=== PATIENT | female | born 1970 ===

== ENCOUNTER 2022-05-19 11:27 | Inpatient (IN) | payer MEDICARE, BC, SELFPAY ==
--- NOTE | 2022-05-19 | ECG_ITS ---
Test Reason : med clearance Blood Pressure : / mmHG Vent. Rate : 063 BPM Atrial Rate : 063 BPM P-R Int : 130 ms QRS Dur : 086 ms QT Int : 416 ms P-R-T Axes : 029 -17 009 degrees QTc Int : 425 ms Normal sinus rhythm Normal ECG No previous ECGs available Referred By: Tressa Ríos Electronically Signed By:FILIBERTO CHIU
--- NOTE | ~2022-05-19 | US_ITS ---
EXAMINATION: US VENOUS ULTRASOUND WITH DOPPLER LOWER EXTREMITY, BILATERAL CLINICAL INFORMATION: Swelling COMPARISON: None TECHNIQUE: Ultrasound of the deep veins is performed from the hip to the calf with compression sonography and color and pulse Doppler assessment. Spectral analysis with color-flow imaging is performed. FINDINGS: RIGHT: There is normal venous compression and respiratory variation and augmented flow. The visualized common femoral vein, superficial femoral vein, profunda femoral vein, popliteal vein, and the trifurcation region shows no evidence of deep venous thrombosis. There is a 5.9 x 2.6 x 3.2 cm complex popliteal fossa cyst. LEFT: There is normal venous compression and respiratory variation and augmented flow. The visualized common femoral vein, superficial femoral vein, profunda femoral vein, popliteal vein, and the posterior tibial veins shows no evidence of deep venous thrombosis. The peroneal veins are not seen. There is no popliteal fossa cyst. US/US venous duplex LE BI IMPRESSION: No DVT demonstrated in the bilateral lower extremity. Left peroneal veins not well visualized. Complex right Palacios's cyst.
--- NOTE | 2022-05-19 11:30 | ED.PSYCH ---
HPI - Psych General Chief Complaint: Psychiatric Symptoms Stated Complaint: SI Time Seen by Provider: 05/19/22 11:30 Source: patient and EMS Mode of arrival: EMS Limitations: no limitations History of Present Illness HPI Narrative: 52 yo female with history of bipolar disorder noncompliant with medications, diabetes noncompliant with medications who presents to the ER via EMS on a section 12 after she was [place] trying to [place] [address] She states she wants to and has nothing to live for. She does not want to get help, she just wants to . She has felt his way for a long time and states it has been a few weeks at least. She moved here from [place] 1 ear ago and her only family is her godparents. They called crisis on her 2 weeks ago but she refused get help. She has not been on any medications for the last 1 year since moving to [place]. She has no local therapist or psychiatrist. She lives at home alone in an apartment. She denies drugs or alcohol. MD complaint: suicidal ideation Onset (ago): week(s) Duration: constant History of same: Yes Relieving factors: none Exacerbating factors: none Context: not taking psychiatric medications and significant life stressor Associated psychiatric symptoms: depression and suicidal ideation Associated symptoms: denies other symptoms Treatments prior to arrival: placed on mental health hold If self harm: admits thoughts of self harm, has plan and has acted on plan Details of plan: ran into traffic Related Data Allergies Allergy/AdvReac Type Severity Reaction Status Date / Time Unable to Assess Allergy Unverified 05/19/22 11:43 Review of Systems Review of Systems: Constitutional: No Fever, No Chills ENT/Mouth: No sore throat, No Rhinorrhea, No Swallowing Difficulty Cardiovascular: No Chest Pain, No SOB, No Orthopnea, No Edema Respiratory: No Cough, No Sputum Gastrointestinal: No Nausea, No Vomiting, No Diarrhea, No abdominal Pain Genitourinary: No Dysuria, No Urinary Frequency, No Hematuria Musculoskeletal: No joint pain, No Myalgias Skin: No Skin Lesions, No rash Neuro: No Weakness, No Numbness, No Dizziness, No Headache Psych: No Anxiety/Panic, + Depression, +SI, No HI, No AH, No VH Heme/Lymph: No Bruising, No Lymphadenopathy Physical Exam Vital Signs: Vital Signs: Last Vital Signs Temp 97.6 F 05/19/22 12:00 Pulse 83 05/19/22 12:00 Resp 12 05/19/22 12:00 BP 144/96 H 05/19/22 12:00 Pulse Ox 98 05/19/22 12:00 O2 Del Method 05/19/22 12:00 BMI result Body Mass Index 28.2 Appearance: Alert. Oriented X3. No acute distress. Eyes: Pupils equal, round and reactive to light. ENT: Pharynx normal. Neck: Normal inspection. Neck supple. CVS: Normal heart rate and rhythm. Pulses normal. Respiratory: No respiratory distress. Breath sounds normal. Abdomen: Obese, Soft and nontender. +BS x4 Skin: Skin warm and dry. Normal skin color. Normal skin turgor. No rashes. Extremities: No lower extremity edema. Neuro/psych: Oriented X 3. No motor deficit. No sensory deficit. Flat affect, suicidal, makes eye contact, depressed mood. CN II-XII intact Course Course Course Narrative: 52 yo female with history of bipolar disorder, prior suicide attempt in the past who presents to the ER on a section 12 from the community after she was found running into traffic in an attempt to end her life. Will get basic labs, utox, etoh level and have crisis team see her once medically cleared. Anticipate she will require inpatient psychiatric care. She reports last hospitalization was 2 years ago in [place]. Reevaluation(s) Reevaluation #1: Medical workup is unremarkable. ETOH <10. Will place in physician observation at this time. Physician observation started at 1:15pm. Patient placed in physician observation because patient is awaiting [facility] evaluation for the possible need of inpatient psych admission. At the time observation was started patient's vital signs were stable. Patient is alert and oriented. Neuro exam is non-focal. CV: RRR and lungs are clear. Will continue to monitor. MDM - Psych Lab Data Result diagrams: 05/19/22 12:36 05/19/22 12:36 Labs: Lab Results 05/19/22 05/19/22 05/19/22 Range/Units 12:36 12:36 12:36 WBC 6.2 (4.8-10.8) X10*3/uL RBC 4.94 (4.20-5.50) X10*6/uL Hgb 14.2 (12.0-16.0) g/dl Hct 43.4 (37.0-47.0) % MCV 87.9 (80.0-98.0) fL MCH 28.7 (27.0-33.0) pg MCHC 32.7 (31.0-35.0) g/dl RDW 12.3 (11.0-16.0) % Plt Count 306 (160-400) X10*3/uL MPV 8.3 L (9.4-12.3) fL Immature Gran % (Auto) 0.5 H (0.0-0.4) % Neut % (Auto) 62.5 (45-73) % Lymph % (Auto) 29.3 (20-40) % [place] % (Auto) 5.7 (2-11) % Eos % (Auto) 1.5 (0-4) % Baso % (Auto) 0.5 (0-2) % Lymph # (Auto) 1.8 (1.2-4.9) X10*3/uL [place] # (Auto) 0.4 (0.1-1.2) X10*3/uL Eos # (Auto) 0.1 (0.0-0.4) X10*3/uL Baso # (Auto) 0.0 (0.0-0.2) X10*3/uL Abs Immat Gran (auto) 0.03 (0.00-0.03) X10*3/uL Absolute Neuts (auto) 3.9 (2.0-8.3) x10*3/uL Absolute Nucleated RBC 0.000 (0.0-0.012) X10*3/uL Nucleated RBC % (auto) 0.0 (0.0-0.2) /100WBC Sodium 143 (135-145) mmol/L Potassium 4.5 (3.3-5.1) mmol/L Chloride 103 (96-108) mmol/L Carbon Dioxide 27 (22-29) mmol/L Anion Gap 18 (12-20) BUN 15 (9-16) mg/dL Creatinine 1.06 (0.5-1.4) mg/dL Estim Creat Clear Calc 65.2 Estimated GFR 54 Random Glucose 133 H (60-115) mg/dL Calcium 10.1 (8.4-10.2) mg/dL Magnesium 1.9 (1.6-2.6) mg/dL Total Bilirubin 0.6 (0.0-1.0) mg/dL Direct Bilirubin 0.3 (0.0-0.5) mg/dL AST 14 (5-31) U/L ALT 10 (0-31) U/L Alkaline Phosphatase 77 (39-117) U/L Total Protein 7.5 (6.5-8.0) g/dL Albumin 4.4 (3.5-5.0) g/dL Ethyl Alcohol < 10 mg/dL COVID-19 ([facility]YA) Negative (Negative) COVID-19 Clin Com See Note Critical Care Time Critical Care Time Critical Care Time: No Discharge Plan Discharge Clinical Impression: Suicidal ideation, Bipolar disorder Patient Disposition: Still a Patient
[2022-05-19 11:46] VITALS: BP 156/98; BP 164/86; PULSE 104; PULSE 94; RESP 18; TEMP 36.1; O2SAT 98; O2SAT 99; BMI 28.2
[2022-05-19 12:00] VITALS: BP 144/96; PULSE 83; RESP 12; TEMP 36.4; O2SAT 98
[2022-05-19 12:42] LABS: MANUAL DIFF FLAG NO
[2022-05-19 12:43] LABS: Basophils Percent Auto 0.5 % (0-2); Eosinophils Absolute Auto 0.1 X10*3/uL (0.0-0.4); Eosinophils Percent Auto 1.5 % (0-4); Hematocrit 43.4 % (37.0-47.0); Hemoglobin 14.2 g/dl (12.0-16.0); Imm Gran Abs Auto 0.03 X10*3/uL (0.00-0.03); Imm Gran Pct Auto 0.5 % (0.0-0.4); Lymphocytes Absolute Auto 1.8 X10*3/uL (1.2-4.9); Lymphocytes Percent Auto 29.3 % (20-40); Mean Corpuscular HGB Conc 32.7 g/dl (31.0-35.0); Mean Corpuscular Hemoglobin 28.7 pg (27.0-33.0); Mean Corpuscular Volume 87.9 fL (80.0-98.0); Mean Platelet Volume 8.3 fL (9.4-12.3); Monocytes Absolute Auto 0.4 X10*3/uL (0.1-1.2); Monocytes Percent Auto 5.7 % (2-11); Neutrophils Absolute Auto 3.9 x10*3/uL (2.0-8.3); Neutrophils Percent Auto 62.5 % (45-73); Platelet Count 306 X10*3/uL (160-400); Red Blood Count 4.94 X10*6/uL (4.20-5.50); Red Cell Distribution Width 12.3 % (11.0-16.0); White Blood Count 6.2 X10*3/uL (4.8-10.8)
[2022-05-19 13:08] LABS: COVID-19 Test Negative (Negative); IDNOW Serial# 16C4AD1C
[2022-05-19 13:10] LABS: Alanine Aminotransferase 10 U/L (0-31); Albumin Level 4.4 g/dL (3.5-5.0); Alkaline Phosphatase 77 U/L (39-117); Anion Gap 18 (12-20); Aspartate Amino Transferase 14 U/L (5-31); Bilirubin Direct 0.3 mg/dL (0.0-0.5); Bilirubin Total 0.6 mg/dL (0.0-1.0); Blood Urea Nitrogen 15 mg/dL (9-16); Calcium 10.1 mg/dL (8.4-10.2); Carbon Dioxide 27 mmol/L (22-29); Chloride 103 mmol/L (96-108); Creatinine Clr Calc Pharmacy 65.2; Estimated Glomerular Filt Rate 54; Ethanol < 10 mg/dL; Glucose Random 133 mg/dL (60-115); Magnesium 1.9 mg/dL (1.6-2.6); Potassium 4.5 mmol/L (3.3-5.1); Sodium 143 mmol/L (135-145); Total Protein 7.5 g/dL (6.5-8.0)
--- NOTE | 2022-05-19 13:53 | PC.NURSE ---
initially refusing to change into hosp attire but eventually did, mainly has been staying in room w tv on, provided a very small amt of urine for sample but it was not enough
--- NOTE | 2022-05-19 15:30 | PC.NURSE ---
This nurse assumed care at 1500. PT in room resting quietly.
--- NOTE | 2022-05-19 16:24 | MHC.CARE ---
Pt referred to [facility]- per crisis cab supervisor the pt has [employer] insurance. CARE team will meet with pt for evaluation.
--- NOTE | 2022-05-19 16:54 | PC.NURSE ---
Corby currently at bedside.
[2022-05-19 20:18] LABS: Appearance Urine Turbid; Color Urine Yellow; Glucose Urine UA Negative (Negative); Leukocyte Esterase Urine Large (3+) (Negative); Nitrite Urine Positive (Negative); PH 8.5 (5.0-9.0); UMIC TRIGGER UACC YES; Urine Blood Negative (Negative); Urine Ketones Negative (Negative); Urine Protein Trace mg/dL (Neg-Trace)
[2022-05-19 20:20] LABS: Bacteria Urine 4+ (None Seen); Hyaline Casts Urine 0-2 /LPF (0-2); Squamous Epithelial Cell Urine 0-2 /HPF (0-2); UACC Culture Trigger YES; WBC Urine >50 /HPF (0-5)
[2022-05-19 20:35] LABS: Amphetamine Screen Urine Not Detected (Not Detect); Barbiturates, Urine Not Detected (Not Detect); Benzodiazepines Screen Urine Not Detected (Not Detect); Cannabinoid Screen Urine Not Detected (Not Detect); Cocaine Screen Urine Not Detected (Not Detect); Fentanyl, urine Not Detected (Not Detect); Opiate Screen Urine Not Detected (Not Detect); Phencyclidine Screen Urine Not Detected (Not Detect)
--- NOTE | 2022-05-20 00:04 | PC.NURSE ---
Patient was positive for UTI, provider notified, first order of Ceftin po given, she was made aware of infection and her transfer to [facility], she verbalized understanding. will continue to monitor.
[2022-05-20 00:15] VITALS: BP 168/79; PULSE 73; RESP 20; TEMP 35.9; O2SAT 100
--- NOTE | 2022-05-20 01:04 | PC.ADMIT ---
pt is a 52 year old female who presented to ED with suicidal ideation and suicide attempt. pt states that she walked out into traffic [place] [address] with the intention of ending her life. pt states that she is depressed and anxious. she just wants to go to sleep. after the of her father, she states that she moved to this area approximately 1 year ago from [place]. she has relatives that she has sought out in the area. she has been residing in a motel for the past year. pt states that she has a hx of bipolar and htn. she states that she has not taken any medications in the last year d/t lack of insurance coverage. she is unable to name previous medications which she had been prescribed. she states that she has been previously hospitalized for attempted si. she states that she took pills in her previous si attempts. she states that her last si attempt with pills was 2 years ago. she rates her depression 7/10 and anxiety as 8/10. she denies auditory and visual hallucinations. pt arrived via wheel chair with security charcoal kiln burner. she is ambulatory with steady gait. she states nka. she is cooperative and sensorium is intact. however, her affect is flat and depressed. she is guarded in elaborating medical/psych hx. she looks fatigued. at this time, she denies si/hi. she has 2 scabbed area under her left lower arm which she states are areas where she picks. u/a done tonight is positive for uti-she has been given 1 dose of ceftin 250 mg po prior to transport.
[2022-05-20 02:20] VITALS: BMI 27.9
[2022-05-20 06:00] VITALS: BP 140/78; PULSE 74; RESP 16; TEMP 36.7; O2SAT 97
[2022-05-20 08:18] LABS: Cholesterol 180 mg/dL; HDL Cholesterol 50 mg/dL; LDL Cholesterol Calculated 115 mg/dl; Triglycerides 78 mg/dL
[2022-05-20 08:24] LABS: Estimated Average Glucose 117 mg/dL; Hemoglobin A1c % 5.7 %
--- NOTE | 2022-05-20 08:51 | PC.NURSE ---
pt signed 3 day notice, up on 05/23/22
[2022-05-20] MEDS: OLANZapine 5 MG TABLET PO ×2 (13:24→22:16)
[2022-05-20 18:00] VITALS: BP 150/79; PULSE 91; TEMP 35.9; O2SAT 98
--- NOTE | 2022-05-20 18:03 | P.HPPS_ITS ---
HPI Date of Service: 05/20/22 Chief Complaint: omar/SI Sources of Information: patient interviewed, chart reviewed and crisis/core team assessment reviewed HPI Subjective Notes: Davis Warning, Conditional Voluntary and 3 Day Healthcare Proxy: No Guardianship: No Medical Problems Affecting Mental Status: No Narrative: 52 yo female, [place] [employer]. Pt found running [place] traffic [place] [address]. She reports wanting to , having longstanding SI, feeling hopeless, helpless, having resistance to treatment, poor sleep and appetite and decreased attention to ADL's. Pt has been off meds for over a month per her cousin and has no treatment providers. Past Psychiatric History: IP: 3 admits in [place], 2 for overdoses, pills, drank peroxide and one for ECT-several treatments which she did not find helpful OP: Denies Med Trials- [place], Wellbutrin, Abilify, Lamictal Reports hx of diagnosis of bipolar disorder with history of omar Medical Evaluation Reviewed: Yes [facility] Narrative: Diabetes IBS-can lose bowel control Sore on her leg per cousin HTN UTI Family History: Denies Social History: Born in [place] Has lost all family- parents, brother have - pt has a cousin locally who is DPOA and aunt/godmother who is also local who is a support 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, 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 Substance History: Denies Trauma History: Affirms Diagnostics Vital Signs (24Hr): Vital Signs - 24 hr 05/20/22 00:15 05/20/22 06:00 Temperature 96.7 F L 98.1 F Pulse Rate 73 74 Respiratory Rate 20 16 Blood Pressure 168/79 H 140/78 H Pulse Oximetry 100 97 Oxygen Delivery Method Room Air Room Air BMI result Body Mass Index 27.9 Labs Results: 05/19/22 12:36 05/19/22 12:36 Labs: Laboratory Results - last 48 hr 05/19/22 05/19/22 05/19/22 12:36 12:36 12:36 WBC 6.2 RBC 4.94 Hgb 14.2 Hct 43.4 MCV 87.9 MCH 28.7 MCHC 32.7 RDW 12.3 Plt Count 306 MPV 8.3 L Immature Gran % (Auto) 0.5 H Neut % (Auto) 62.5 Lymph % (Auto) 29.3 [place] % (Auto) 5.7 Eos % (Auto) 1.5 Baso % (Auto) 0.5 Lymph # (Auto) 1.8 [place] # (Auto) 0.4 Eos # (Auto) 0.1 Baso # (Auto) 0.0 Abs Immat Gran (auto) 0.03 Absolute Neuts (auto) 3.9 Absolute Nucleated RBC 0.000 Nucleated RBC % (auto) 0.0 Sodium 143 Potassium 4.5 Chloride 103 Carbon Dioxide 27 Anion Gap 18 BUN 15 Creatinine 1.06 Estim Creat Clear Calc 65.2 Estimated GFR 54 Random Glucose 133 H Estimat Average Glucose Hemoglobin A1c % Calcium 10.1 Magnesium 1.9 Total Bilirubin 0.6 Direct Bilirubin 0.3 AST 14 ALT 10 Alkaline Phosphatase 77 Total Protein 7.5 Albumin 4.4 Triglycerides Cholesterol LDL Cholesterol, Calc HDL Cholesterol Urine Color Urine Appearance Urine pH Ur Specific [place] Urine Protein Urine Glucose (UA) Urine Ketones Urine Blood Urine Nitrite Ur Leukocyte Esterase Urine RBC Urine WBC Ur Squamous Epith Cells Urine Bacteria Hyaline Casts Urine Opiates Screen Urine Fentanyl Screen Ur Barbiturates Screen Ur Phencyclidine Scrn Ur Amphetamines Screen U Benzodiazepines Scrn Urine Cocaine Screen U Marijuana (THC) Screen Ethyl Alcohol < 10 COVID-19 ([facility]YA) Negative COVID-19 Clin Com See Note 05/19/22 05/19/22 05/20/22 20:09 20:10 07:26 WBC RBC Hgb Hct MCV MCH MCHC RDW Plt Count MPV Immature Gran % (Auto) Neut % (Auto) Lymph % (Auto) [place] % (Auto) Eos % (Auto) Baso % (Auto) Lymph # (Auto) [place] # (Auto) Eos # (Auto) Baso # (Auto) Abs Immat Gran (auto) Absolute Neuts (auto) Absolute Nucleated RBC Nucleated RBC % (auto) Sodium Potassium Chloride Carbon Dioxide Anion Gap BUN Creatinine Estim Creat Clear Calc Estimated GFR Random Glucose Estimat Average Glucose 117 Hemoglobin A1c % 5.7 Calcium Magnesium Total Bilirubin Direct Bilirubin AST ALT Alkaline Phosphatase Total Protein Albumin Triglycerides Cholesterol LDL Cholesterol, Calc HDL Cholesterol Urine Color Yellow Urine Appearance Turbid Urine pH 8.5 Ur Specific [place] 1.020 Urine Protein Trace Urine Glucose (UA) Negative Urine Ketones Negative Urine Blood Negative Urine Nitrite Positive H Ur Leukocyte Esterase Large (3+) H Urine RBC 3-5 H Urine WBC >50 H Ur Squamous Epith Cells 0-2 Urine Bacteria 4+ Hyaline Casts 0-2 Urine Opiates Screen Not Detected Urine Fentanyl Screen Not Detected Ur Barbiturates Screen Not Detected Ur Phencyclidine Scrn Not Detected Ur Amphetamines Screen Not Detected U Benzodiazepines Scrn Not Detected Urine Cocaine Screen Not Detected U Marijuana (THC) Screen Not Detected Ethyl Alcohol COVID-19 ([facility]YA) COVID-19 [employer] 05/20/22 07:26 WBC RBC Hgb Hct MCV MCH MCHC RDW Plt Count MPV Immature Gran % (Auto) Neut % (Auto) Lymph % (Auto) [place] % (Auto) Eos % (Auto) Baso % (Auto) Lymph # (Auto) [place] # (Auto) Eos # (Auto) Baso # (Auto) Abs Immat Gran (auto) Absolute Neuts (auto) Absolute Nucleated RBC Nucleated RBC % (auto) Sodium Potassium Chloride Carbon Dioxide Anion Gap BUN Creatinine Estim Creat Clear Calc Estimated GFR Random Glucose Estimat Average Glucose Hemoglobin A1c % Calcium Magnesium Total Bilirubin Direct Bilirubin AST ALT Alkaline Phosphatase Total Protein Albumin Triglycerides 78 Cholesterol 180 LDL Cholesterol, Calc 115 HDL Cholesterol 50 Urine Color Urine Appearance Urine pH Ur Specific [place] Urine Protein Urine Glucose (UA) Urine Ketones Urine Blood Urine Nitrite Ur Leukocyte Esterase Urine RBC Urine WBC Ur Squamous Epith Cells Urine Bacteria Hyaline Casts Urine Opiates Screen Urine Fentanyl Screen Ur Barbiturates Screen Ur Phencyclidine Scrn Ur Amphetamines Screen U Benzodiazepines Scrn Urine Cocaine Screen U Marijuana (THC) Screen Ethyl Alcohol COVID-19 ([facility]) COVID-19 [employer] Meds/Allergies Meds Home Medications Medication Instructions Recorded Confirmed Type No Known Home Meds 05/19/22 05/19/22 History Allergies Allergies Allergy/AdvReac Type Severity Reaction Status Date / Time No Known Allergies Allergy Verified 05/19/22 23:36 Mental Status Exam Mental Status Exam Patient Appearance: Fatigued Patient Orientation: Person, Place, Time and Situation Level of Consciousness: Alert Patient Behavior: Appropriate, Guarded, Talkative, Cooperative, Suspicious, Anxious, Fearful, Resistive to Care, Fatigued, Distractible and Good Eye Contact Mood Description: Depressed, Labile and Flat Affect Description: Labile and Flat Patient Cognition Impaired: No Ability to Follow Directions: Good Speech Pattern: Spontaneous Speech and Pressured Memory Description: Remote Impaired and Episodic Impaired Delusions: Paranoid Ideation Perceptual Disturbances: Depersonalization and Derealization Thought Process: Racing, Distracted and Rumination Thought Content: positive for Circumstantial, positive for Perseveration and positive for Suicidal Ideation Depressive Symptoms: Increased Anxiety, Diff. Making Decisions, Increased Irritability, Changes in Appetite, Significant Weight Loss, Thoughts of /Suicide and Difficulty Concentrating Abnormal Motor Activity Signs and Symptoms: Restlessness Judgement: Poor Assessment & Plan Assessment & Plan (1) Bipolar disorder: Status: Acute Code(s): F31.9 - Bipolar disorder, unspecified Plan 52 yo female, hx of bipolar disorder, found running in traffic [place] [address] attempting to kill herself via motor vehicle. Reports poor sleep, appetite, poor ADL's, stopping meds and treatment and feeling hopeless and helpless. Plan: Collateral contact TDN- given Davis warning as we will need to file for civil commitment Medical review of current sx Olanzapine 5 mg bid Continue Haldol prn Trileptal 300 mg bid Flu Vaccine (pt request and accepted) Diagnostics Patient educated on: medication risk/benefits and therapeutic strategies Informed Consent: understands and further education needed Reason for continued inpatient stay Substantial Risk for: harm to self, inability to function, rapid decompensation and med/psych decompensation
[2022-05-20] MEDS: OXcarbazepine 300 MG TABLET PO (22:15)
[2022-05-21] MEDS: OXcarbazepine 300 MG TABLET PO ×2 (08:39→21:14)
[2022-05-21] MEDS: OLANZapine 5 MG TABLET PO ×3 (08:39→21:15)
[2022-05-21] MEDS: hydrOXYzine HCL 25 MG TABLET PO (13:23)
--- NOTE | 2022-05-21 14:59 | PC.NURSE ---
pt retracted 3 day notice
--- NOTE | 2022-05-21 18:39 | P.PNPSI_ITS ---
Subjective Subjective Date of Service: 05/21/22 Reason For Visit: omar/SI Subjective Notes: 3 Day Healthcare Proxy: No Guardianship: No Medical Problems Affecting Mental Status: No Interim History: Lucie remains depressed and feeling hopeless. She feels there is no reason to be alive. Everyone is gone. Today we attempted to discuss a psychiatric/medical treatment plan. Pt, at this time refuses diabetic consultation, wound consultation and treatment and vascular consult. I don't have the money. Discussed her three day notice of intent. Discussed probable section 7/8 due to treatment refusal and recent attempt on her life. Currently pt presents in great emotional distress and is appearing stuck. She presents with very high risk. We continue to attempt to make alliance and work with her. Medication Compliance: Yes Side effects from medications: No Attending Groups: No Review of Systems Acute medical concerns: No Medical Review of Systems: unchanged Mental Status Exam Mental Status Exam Patient Appearance: Fatigued Patient Orientation: Person, Place, Time and Situation Level of Consciousness: Alert Patient Behavior: Appropriate, Guarded, Talkative, Cooperative, Suspicious, Anxious, Fearful, Resistive to Care, Fatigued, Distractible and Good Eye Contact Mood Description: Depressed, Labile and Flat Affect Description: Labile and Flat Patient Cognition Impaired: No Ability to Follow Directions: Good Speech Pattern: Spontaneous Speech and Pressured Memory Description: Remote Impaired and Episodic Impaired Delusions: Paranoid Ideation Perceptual Disturbances: Depersonalization and Derealization Thought Process: Racing, Distracted and Rumination Thought Content: positive for Circumstantial, positive for Perseveration and po sitive for Suicidal Ideation Depressive Symptoms: Increased Anxiety, Diff. Making Decisions, Increased Irritability, Changes in Appetite, Significant Weight Loss, Thoughts of D eath/Suicide and Difficulty Concentrating Abnormal Motor Activity Signs and Symptoms: Restlessness Judgement: Poor Diagnostics Vital Signs (24Hr): BMI result Body Mass Index 27.9 Labs Results: 05/19/22 12:36 05/19/22 12:36 Labs: Laboratory Results - last 48 hr 05/19/22 05/19/22 05/20/22 20:09 20:10 07:26 Estimat Average Glucose 117 Hemoglobin A1c % 5.7 Triglycerides Cholesterol LDL Cholesterol, Calc HDL Cholesterol Urine Color Yellow Urine Appearance Turbid Urine pH 8.5 Ur Specific [place] 1.020 Urine Protein Trace Urine Glucose (UA) Negative Urine Ketones Negative Urine Blood Negative Urine Nitrite Positive H Ur Leukocyte Esterase Large (3+) H Urine RBC 3-5 H Urine WBC >50 H Ur Squamous Epith Cells 0-2 Urine Bacteria 4+ Hyaline Casts 0-2 Urine Opiates Screen Not Detected Urine Fentanyl Screen Not Detected Ur Barbiturates Screen Not Detected Ur Phencyclidine Scrn Not Detected Ur Amphetamines Screen Not Detected U Benzodiazepines Scrn Not Detected Urine Cocaine Screen Not Detected U Marijuana (THC) Screen Not Detected 05/20/22 07:26 Estimat Average Glucose Hemoglobin A1c % Triglycerides 78 Cholesterol 180 LDL Cholesterol, Calc 115 HDL Cholesterol 50 Urine Color Urine Appearance Urine pH Ur Specific [place] Urine Protein Urine Glucose (UA) Urine Ketones Urine Blood Urine Nitrite Ur Leukocyte Esterase Urine RBC Urine WBC Ur Squamous Epith Cells Urine Bacteria Hyaline Casts Urine Opiates Screen Urine Fentanyl Screen Ur Barbiturates Screen Ur Phencyclidine Scrn Ur Amphetamines Screen U Benzodiazepines Scrn Urine Cocaine Screen U Marijuana (THC) Screen Medications Medications Current Medications Acetaminophen (Acetaminophen 325 Mg Tablet) 650 mg PO Q6H PRN PRN Reason: Headache/Pain Mild Scale (1-3) Al Hydroxide/Mg Hydroxide (Magnesium Hydrox/Alum Hydrox 30 Ml Oral.Susp) 30 ml PO Q6H PRN PRN Reason: Heartburn/Nausea Cefuroxime Axetil (Cefuroxime Axetil 250 Mg Tablet) 250 mg PO BID [facility] Last Admin: 05/21/22 08:39 Dose: 250 mg Diphenhydramine HCl (Diphenhydramine Hcl 25 Mg Tablet) 50 mg PO Q4H PRN PRN Reason: agitation Haloperidol (Haloperidol 5 Mg Tablet) 5 mg PO Q4H PRN PRN Reason: agitation Hydroxyzine HCl (Hydroxyzine Hcl 25 Mg Tablet) 25 mg PO Q6H PRN PRN Reason: Anxiety Last Admin: 05/21/22 13:23 Dose: 25 mg Lorazepam (Lorazepam 1 Mg Tablet) 2 mg PO Q4H PRN PRN Reason: agitation Magnesium Hydroxide (Milk Of Magnesia 30 Ml Oral.Susp) 30 ml PO DAILY PRN PRN Reason: Constipation Nicotine (Nicotine 21 Mg Patch.Td24) 21 mg TRANSDERMA DAILY PRN PRN Reason: smoking cessation Nicotine Polacrilex (Nicotine Polacrilex 2 Mg Gum) 4 mg BUCCAL Q2H PRN PRN Reason: Nicotine Cravings Olanzapine (Olanzapine 5 Mg Tablet) 5 mg PO BID [facility] Last Admin: 05/21/22 08:39 Dose: 5 mg Olanzapine (Olanzapine 5 Mg Tablet) 5 mg PO Q4H PRN PRN Reason: agitation, psychosis Last Admin: 05/21/22 13:23 Dose: 5 mg Oxcarbazepine (Oxcarbazepine 300 Mg Tablet) 300 mg PO BID [facility] Last Admin: 05/21/22 08:39 Dose: 300 mg Trazodone HCl (Trazodone Hcl 50 Mg Tablet) 50 mg PO BEDTIME PRN PRN Reason: Insomnia Allergies Allergies Allergy/AdvReac Type Severity Reaction Status Date / Time No Known Allergies Allergy Verified 05/19/22 23:36 Assessment & Plan Assessment & Plan (1) Bipolar disorder: Status: Acute Code(s): F31.9 - Bipolar disorder, unspecified Plan 52 yo female, hx of bipolar disorder, found [place] [address] attempting to kill herself via motor vehicle. Reports poor sleep, appetite, poor ADL's, stopping meds and treatment and feeling hopeless and helpless. Plan: Collateral contact TDN- given [place] warning as we will need to file for civil commitment Medical review of current sx Olanzapine 5 mg bid Continue Haldol prn Trileptal 300 mg bid Flu Vaccine (pt request and accepted) Diagnostics 05/21/22- Pt refusing medical treatment due to ama concerns. Accepting medications. Continue to work on alliance. Three day notice will not be honored. Will file Section 7. I spent minutes with the patient and/or on the patient floor today, greater than?50% of which was spent counseling/coordinating care. Patient educated on: diagnosis, medication risk/benefits, therapeutic strategies and medical condition Informed Consent: understands and further education needed Reason for contiued inpatient stay Substantial Risk for: harm to self, inability to function, rapid decompensation and med/psych decompensation
[2022-05-22 06:00] VITALS: BP 142/83; PULSE 91; RESP 16; TEMP 36.5; O2SAT 98
[2022-05-22 07:00] VITALS: BMI 26.6
[2022-05-22] MEDS: OLANZapine 5 MG TABLET PO ×2 (09:07→13:38)
[2022-05-22] MEDS: OXcarbazepine 300 MG TABLET PO ×2 (09:08→20:55)
[2022-05-22 20:30] VITALS: BP 143/79; TEMP 37.2; O2SAT 98
[2022-05-22] MEDS: OLANZapine 10 MG TABLET PO (20:55)
--- NOTE | 2022-05-23 00:11 | P.PNPSI_ITS ---
Subjective Subjective Date of Service: 05/22/22 Reason For Visit: omar/SI Subjective Notes: 3 Day (retracted) Healthcare Proxy: No Guardianship: No Medical Problems Affecting Mental Status: No Interim History: Pt retracted TDN. Continues ruminative, concern that she cannot afford health care, amotivated to take care of herself. Discussion of hospitalization thus far. Pt will speak with Sabine JEFFERS ([employer]) to reivew insurance questions and concerns. Accepting medications. Medication Compliance: Yes Side effects from medications: No Attending Groups: No Review of Systems Acute medical concerns: No Medical Review of Systems: unchanged Mental Status Exam Mental Status Exam Patient Appearance: Fatigued Patient Orientation: Person, Place, Time and Situation Level of Consciousness: Alert Patient Behavior: Appropriate, Guarded, Talkative, Cooperative, Suspicious, Anxious, Fearful, Resistive to Care, Fatigued, Distractible and Good Eye Contact Mood Description: Depressed, Labile and Flat Affect Description: Labile and Flat Patient Cognition Impaired: No Ability to Follow Directions: Good Speech Pattern: Spontaneous Speech and Pressured Memory Description: Remote Impaired and Episodic Impaired Delusions: Paranoid Ideation Perceptual Disturbances: Depersonalization and Derealization Thought Process: Racing, Distracted and Rumination Thought Content: positive for Circumstantial, positive for Perseveration and positive for Suicidal Ideation Depressive Symptoms: Increased Anxiety, Diff. Making Decisions, Increased Irritability, Changes in Appetite, Significant Weight Loss, Thoughts of Deat h/Suicide and Difficulty Concentrating Abnormal Motor Activity Signs and Symptoms: Restlessness Judgement: Poor Diagnostics Vital Signs (24Hr): Vital Signs - 24 hr 05/22/22 06:00 05/22/22 20:30 Temperature 97.7 F 98.9 F Pulse Rate 91 Respiratory Rate 16 Blood Pressure 142/83 H 143/79 H Pulse Oximetry 98 98 Oxygen Delivery Method Room Air BMI result Body Mass Index 26.6 Labs Results: 05/19/22 12:36 05/19/22 12:36 Medications Medications Current Medications Acetaminophen (Acetaminophen 325 Mg Tablet) 650 mg PO Q6H PRN PRN Reason: Headache/Pain Mild Scale (1-3) Al Hydroxide/Mg Hydroxide (Magnesium Hydrox/Alum Hydrox 30 Ml Oral.Susp) 30 ml PO Q6H PRN PRN Reason: Heartburn/Nausea Cefuroxime Axetil (Cefuroxime Axetil 250 Mg Tablet) 250 mg PO BID [facility] Last Admin: 10/06/22 20:55 Dose: 250 mg Diphenhydramine HCl (Diphenhydramine Hcl 25 Mg Tablet) 50 mg PO Q4H PRN PRN Reason: agitation Haloperidol (Haloperidol 5 Mg Tablet) 5 mg PO Q4H PRN PRN Reason: agitation Hydroxyzine HCl (Hydroxyzine Hcl 25 Mg Tablet) 25 mg PO Q6H PRN PRN Reason: Anxiety Last Admin: 05/21/22 13:23 Dose: 25 mg Lorazepam (Lorazepam 1 Mg Tablet) 2 mg PO Q4H PRN PRN Reason: agitation Magnesium Hydroxide (Milk Of Magnesia 30 Ml Oral.Susp) 30 ml PO DAILY PRN PRN Reason: Constipation Nicotine (Nicotine 21 Mg Patch.Td24) 21 mg TRANSDERMA DAILY PRN PRN Reason: smoking cessation Nicotine Polacrilex (Nicotine Polacrilex 2 Mg Gum) 4 mg BUCCAL Q2H PRN PRN Reason: Nicotine Cravings Olanzapine (Olanzapine 5 Mg Tablet) 5 mg PO Q4H PRN PRN Reason: agitation, psychosis Last Admin: 05/22/22 13:38 Dose: 5 mg Olanzapine (Olanzapine 10 Mg Tablet) 10 mg PO BID [facility] Last Admin: 05/22/22 20:55 Dose: 10 mg Oxcarbazepine (Oxcarbazepine 300 Mg Tablet) 300 mg PO BID [facility] Last Admin: 05/22/22 20:55 Dose: 300 mg Trazodone HCl (Trazodone Hcl 50 Mg Tablet) 50 mg PO BEDTIME PRN PRN Reason: Insomnia Allergies Allergies Allergy/AdvReac Type Severity Reaction Status Date / Time No Known Allergies Allergy Verified 05/19/22 23:36 Assessment & Plan Assessment & Plan (1) Bipolar disorder: Status: Acute Code(s): F31.9 - Bipolar disorder, unspecified Plan 52 yo female, hx of bipolar disorder, found running [place] [address] attempting to [place] herself via motor vehicle. Reports poor sleep, appetite, poor ADL's, stopping meds and treatment and feeling hopeless and helpless. Plan: Collateral contact TDN- given [place] warning as we will need to file for civil commitment Medical review of current sx Olanzapine 5 mg bid Continue Haldol prn Trileptal 300 mg bid Flu Vaccine (pt request and accepted) Diagnostics 05/22/22- Continue alliance building with pt. Pt will have financial questions addressed so we may hopefully move forward with her treatment. Family is attempting to assure pt she is financially safe. I spent minutes with the patient and/or on the patient floor today, greater than?50% of which was spent counseling/coordinating care. Patient educated on: medication risk/benefits, therapeutic strategies and medical condition Informed Consent: further education needed Reason for contiued inpatient stay Substantial Risk for: harm to self, inability to function and rapid decompensation
[2022-05-23] MEDS: OXcarbazepine 300 MG TABLET PO ×2 (09:09→20:21)
[2022-05-23] MEDS: OLANZapine 10 MG TABLET PO ×2 (09:09→20:21)
--- NOTE | 2022-05-23 16:52 | HO.PSYCHPN ---
Subjective Subjective Date of Service: 05/23/22 Reason For Visit: omar/SI Subjective Notes: Conditional Voluntary Interim History: Remains depressed, tolerating Olanzapine, Trileptal. We continue to assess if she will tolerate these with her persistant GI sx. Discussed antidepressants and her history. If Olanzapine/Trileptal are tolerated, ?Lexapro trial for 05/25. Pt of note refuses Vraylar or Latuda trial due to concerns about cost and the newness of these products. Medication Compliance: Yes Side effects from medications: No Attending Groups: Yes Review of Systems Acute medical concerns: No Medical Review of Systems: unchanged Mental Status Exam Mental Status Exam Patient Appearance: Fatigued Patient Orientation: Person, Place, Time and Situation Level of Consciousness: Alert Patient Behavior: Appropriate, Guarded, Talkative, Cooperative, Suspicious, Anxious, Fearful, Resistive to Care, Fatigued, Distractible and Good Eye Contact Mood Description: Depressed, Labile and Flat Affect Description: Labile and Flat Patient Cognition Impaired: No Ability to Follow Directions: Good Speech Pattern: Spontaneous Speech and Pressured Memory Description: Remote Impaired and Episodic Impaired Delusions: Paranoid Ideation Perceptual Disturbances: Depersonalization and Derealization Thought Process: Racing, Distracted and Rumination Thought Content: positive for Circumstantial, positive for Perseveration and positive for Suicidal Ideation Depressive Symptoms: Increased Anxiety, Diff. Making Decisions, Increased Irritability, Changes in Appetite, Significant Weight Loss, Thoughts of /Suicide and Difficulty Concentrating Abnormal Motor Activity Signs and Symptoms: Restlessness Judgement: Poor Diagnostics Vital Signs (24Hr): Vital Signs - 24 hr 05/22/22 20:30 Temperature 98.9 F Blood Pressure 143/79 H Pulse Oximetry 98 BMI result Body Mass Index 26.6 Labs Results: 05/19/22 12:36 05/19/22 12:36 Medications Medications Current Medications Acetaminophen (Acetaminophen 325 Mg Tablet) 650 mg PO Q6H PRN PRN Reason: Headache/Pain Mild Scale (1-3) Al Hydroxide/Mg Hydroxide (Magnesium Hydrox/Alum Hydrox 30 Ml Oral.Susp) 30 ml PO Q6H PRN PRN Reason: Heartburn/Nausea Cefuroxime Axetil (Cefuroxime Axetil 250 Mg Tablet) 250 mg PO BID [facility] Last Admin: 05/23/22 09:09 Dose: 250 mg Diphenhydramine HCl (Diphenhydramine Hcl 25 Mg Tablet) 50 mg PO Q4H PRN PRN Reason: agitation Haloperidol (Haloperidol 5 Mg Tablet) 5 mg PO Q4H PRN PRN Reason: agitation Hydroxyzine HCl (Hydroxyzine Hcl 25 Mg Tablet) 25 mg PO Q6H PRN PRN Reason: Anxiety Last Admin: 05/21/22 13:23 Dose: 25 mg Lorazepam (Lorazepam 1 Mg Tablet) 2 mg PO Q4H PRN PRN Reason: agitation Magnesium Hydroxide (Milk Of Magnesia 30 Ml Oral.Susp) 30 ml PO DAILY PRN PRN Reason: Constipation Nicotine (Nicotine 21 Mg Patch.Td24) 21 mg TRANSDERMA DAILY PRN PRN Reason: smoking cessation Nicotine Polacrilex (Nicotine Polacrilex 2 Mg Gum) 4 mg BUCCAL Q2H PRN PRN Reason: Nicotine Cravings Olanzapine (Olanzapine 5 Mg Tablet) 5 mg PO Q4H PRN PRN Reason: agitation, psychosis Last Admin: 05/22/22 13:38 Dose: 5 mg Olanzapine (Olanzapine 10 Mg Tablet) 10 mg PO BID [facility] Last Admin: 05/23/22 09:09 Dose: 10 mg Oxcarbazepine (Oxcarbazepine 300 Mg Tablet) 300 mg PO BID [facility] Last Admin: 05/23/22 09:09 Dose: 300 mg Trazodone HCl (Trazodone Hcl 50 Mg Tablet) 50 mg PO BEDTIME PRN PRN Reason: Insomnia Allergies Allergies Allergy/AdvReac Type Severity Reaction Status Date / Time No Known Allergies Allergy Verified 05/19/22 23:36 Assessment & Plan Assessment & Plan (1) Bipolar disorder: Status: Acute Code(s): F31.9 - Bipolar disorder, unspecified Plan 52 yo female, hx of bipolar disorder, found running [place] traffic [place] [address] [place] to [place] herself via motor vehicle. Reports poor sleep, appetite, poor ADL's, stopping meds and treatment and feeling hopeless and helpless. Plan: Collateral contact TDN- given [place] warning as we will need to file for civil commitment Medical review of current sx Olanzapine 5 mg bid Continue Haldol prn Trileptal 300 mg bid Flu Vaccine (pt request and accepted) Diagnostics 05/22/22- Continue alliance building with pt. Pt will have financial questions addressed so we may hopefully move forward with her treatment. Family is attempting to assure pt she is financially safe. 05/23/22- Continue current plan. I spent minutes with the patient and/or on the patient floor today, greater than?50% of which was spent counseling/coordinating care. Patient educated on: medication risk/benefits and therapeutic strategies Informed Consent: further education needed Reason for contiued inpatient stay Substantial Risk for: med/psych decompensation
[2022-05-23 18:21] VITALS: BP 176/89; PULSE 92; TEMP 36.4
[2022-05-24] MEDS: OXcarbazepine 300 MG TABLET PO ×2 (09:41→20:23)
[2022-05-24] MEDS: OLANZapine 10 MG TABLET PO ×2 (09:41→20:23)
[2022-05-24 20:10] VITALS: BP 119/75; PULSE 72; TEMP 36.2; O2SAT 98
[2022-05-25 06:00] VITALS: BP 178/82; PULSE 93; RESP 16; TEMP 35.9; O2SAT 97
[2022-05-25] MEDS: OLANZapine 10 MG TABLET PO ×2 (09:51→20:33)
[2022-05-25] MEDS: OXcarbazepine 300 MG TABLET PO ×2 (09:51→20:33)
[2022-05-25] MEDS: Escitalopram Oxalate 5 MG TABLET PO (10:04)
--- NOTE | 2022-05-25 15:55 | HO.PSYCHPN ---
Subjective Subjective Date of Service: 05/24/22 Reason For Visit: omar/SI Subjective Notes: Conditional Voluntary Healthcare Proxy: No Guardianship: No Medical Problems Affecting Mental Status: No Interim History: Brighter, continues with isolation, anxiety in coming out of her room to talk privately, asks about 10 minutes into discussion, may I go back to my room? Spontaneous smile x 1. States she is tolerating Olanzapine and Trileptal, prepared for a small Lexapro trial. Again, declines Vraylar/Latuda trial due to cost. Medication Compliance: Yes Side effects from medications: No Attending Groups: Intermittent Review of Systems Acute medical concerns: No Medical Review of Systems: unchanged Mental Status Exam Mental Status Exam Patient Appearance: Fatigued Patient Orientation: Person, Place, Time and Situation Level of Consciousness: Alert Patient Behavior: Appropriate, Guarded, Talkative, Cooperative, Suspicious, Anxious, Fearful, Resistive to Care, Fatigued, Distractible and Good Eye Contact Mood Description: Depressed, Labile and Flat Affect Description: Labile and Flat Patient Cognition Impaired: No Ability to Follow Directions: Good Speech Pattern: Spontaneous Speech and Pressured Memory Description: Remote Impaired and Episodic Impaired Delusions: Paranoid Ideation Perceptual Disturbances: Depersonalization and Derealization Thought Process: Racing, Distracted and Rumination Thought Content: positive for Circumstantial, positive for Perseveration and positive for Suicidal Ideation Depressive Symptoms: Increased Anxiety, Diff. Making Decisions, Increased Irritability, Changes in Appetite, Significant Weight Loss, Thoughts of /Suicide and Difficulty Concentrating Abnormal Motor Activity Signs and Symptoms: Restlessness Judgement: Poor Diagnostics Vital Signs (24Hr): Vital Signs - 24 hr 05/24/22 20:10 05/25/22 06:00 Temperature 97.1 F 96.7 F L Pulse Rate 72 93 Respiratory Rate 16 Blood Pressure 119/75 178/82 H Pulse Oximetry 98 97 Oxygen Delivery Method Room Air Room Air BMI result Body Mass Index 26.6 Labs Results: 05/19/22 12:36 05/19/22 12:36 Medications Medications Current Medications Acetaminophen (Acetaminophen 325 Mg Tablet) 650 mg PO Q6H PRN PRN Reason: Headache/Pain Mild Scale (1-3) Al Hydroxide/Mg Hydroxide (Magnesium Hydrox/Alum Hydrox 30 Ml Oral.Susp) 30 ml PO Q6H PRN PRN Reason: Heartburn/Nausea Cefuroxime Axetil (Cefuroxime Axetil 250 Mg Tablet) 250 mg PO BID [facility] Last Admin: 05/25/22 09:51 Dose: 250 mg Diphenhydramine HCl (Diphenhydramine Hcl 25 Mg Tablet) 50 mg PO Q4H PRN PRN Reason: agitation Escitalopram Oxalate (Escitalopram Oxalate 5 Mg Tablet) 5 mg PO DAILY [facility] Last Admin: 05/25/22 10:04 Dose: 5 mg Haloperidol (Haloperidol 5 Mg Tablet) 5 mg PO Q4H PRN PRN Reason: agitation Hydroxyzine HCl (Hydroxyzine Hcl 25 Mg Tablet) 25 mg PO Q6H PRN PRN Reason: Anxiety Last Admin: 05/21/22 13:23 Dose: 25 mg Magnesium Hydroxide (Milk Of Magnesia 30 Ml Oral.Susp) 30 ml PO DAILY PRN PRN Reason: Constipation Nicotine (Nicotine 21 Mg Patch.Td24) 21 mg TRANSDERMA DAILY PRN PRN Reason: smoking cessation Nicotine Polacrilex (Nicotine Polacrilex 2 Mg Gum) 4 mg BUCCAL Q2H PRN PRN Reason: Nicotine Cravings Olanzapine (Olanzapine 5 Mg Tablet) 5 mg PO Q4H PRN PRN Reason: agitation, psychosis Last Admin: 05/22/22 13:38 Dose: 5 mg Olanzapine (Olanzapine 10 Mg Tablet) 10 mg PO BID [facility] Last Admin: 05/25/22 09:51 Dose: 10 mg Oxcarbazepine (Oxcarbazepine 300 Mg Tablet) 300 mg PO BID [facility] Last Admin: 05/25/22 09:51 Dose: 300 mg Trazodone HCl (Trazodone Hcl 50 Mg Tablet) 50 mg PO BEDTIME PRN PRN Reason: Insomnia Allergies Allergies Allergy/AdvReac Type Severity Reaction Status Date / Time No Known Allergies Allergy Verified 05/19/22 23:36 Assessment & Plan Assessment & Plan (1) Bipolar disorder: Status: Acute Code(s): F31.9 - Bipolar disorder, unspecified Plan 52 yo female, hx of bipolar disorder, found running [place] [address] [place] to [place] herself via motor vehicle. Reports poor sleep, appetite, poor ADL's, stopping meds and treatment and feeling hopeless and helpless. Plan: Collateral contact TDN- given [place] warning as we will need to file for civil commitment Medical review of current sx Olanzapine 5 mg bid Continue Haldol prn Trileptal 300 mg bid Flu Vaccine (pt request and accepted) Diagnostics 05/22/22- Continue alliance building with pt. Pt will have financial questions addressed so we may hopefully move forward with her treatment. Family is attempting to assure pt she is financially safe. 05/23/22- Continue current plan. 05/24/22- Lexapro 5 mg a.m. to begin 05/25. I spent minutes with the patient and/or on the patient floor today, greater than?50% of which was spent counseling/coordinating care. Patient educated on: medication risk/benefits Informed Consent: further education needed Reason for contiued inpatient stay Substantial Risk for: harm to self and rapid decompensation
--- NOTE | 2022-05-25 15:58 | HO.PSYCHPN ---
Subjective Subjective Date of Service: 05/25/22 Reason For Visit: omar/SI Subjective Notes: Conditional Voluntary Healthcare Proxy: No Guardianship: No Medical Problems Affecting Mental Status: No Interim History: Continues with depressive symptoms. Isolative Compliant Agrees she will try , but I just want to . Medication Compliance: Yes Side effects from medications: No Attending Groups: No Review of Systems Acute medical concerns: No Medical Review of Systems: unchanged Mental Status Exam Mental Status Exam Patient Appearance: Fatigued Patient Orientation: Person, Place, Time and Situation Level of Consciousness: Alert Patient Behavior: Appropriate, Guarded, Talkative, Cooperative, Suspicious, Anxious, Fearful, Resistive to Care, Fatigued, Distractible and Good Eye Contact Mood Description: Depressed, Labile and Flat Affect Description: Labile and Flat Patient Cognition Impaired: No Ability to Follow Directions: Good Speech Pattern: Spontaneous Speech and Pressured Memory Description: Remote Impaired and Episodic Impaired Delusions: Paranoid Ideation Perceptual Disturbances: Depersonalization and Derealization Thought Process: Racing, Distracted and Rumination Thought Content: positive for Circumstantial, positive for Perseveration and positive for Suicidal Ideation Depressive Symptoms: Increased Anxiety, Diff. Making Decisions, Increased Irritability, Changes in Appetite, Significant Weight Loss, Thoughts of /Suicide and Difficulty Concentrating Abnormal Motor Activity Signs and Symptoms: Restlessness Judgement: Poor Diagnostics Vital Signs (24Hr): Vital Signs - 24 hr 05/24/22 20:10 05/25/22 06:00 Temperature 97.1 F 96.7 F L Pulse Rate 72 93 Respiratory Rate 16 Blood Pressure 119/75 178/82 H Pulse Oximetry 98 97 Oxygen Delivery Method Room Air Room Air BMI result Body Mass Index 26.6 Labs Results: 05/19/22 12:36 05/19/22 12:36 Medications Medications Current Medications Acetaminophen (Acetaminophen 325 Mg Tablet) 650 mg PO Q6H PRN PRN Reason: Headache/Pain Mild Scale (1-3) Al Hydroxide/Mg Hydroxide (Magnesium Hydrox/Alum Hydrox 30 Ml Oral.Susp) 30 ml PO Q6H PRN PRN Reason: Heartburn/Nausea Cefuroxime Axetil (Cefuroxime Axetil 250 Mg Tablet) 250 mg PO BID [facility] Last Admin: 05/25/22 09:51 Dose: 250 mg Diphenhydramine HCl (Diphenhydramine Hcl 25 Mg Tablet) 50 mg PO Q4H PRN PRN Reason: agitation Escitalopram Oxalate (Escitalopram Oxalate 5 Mg Tablet) 5 mg PO DAILY [facility] Last Admin: 05/25/22 10:04 Dose: 5 mg Haloperidol (Haloperidol 5 Mg Tablet) 5 mg PO Q4H PRN PRN Reason: agitation Hydroxyzine HCl (Hydroxyzine Hcl 25 Mg Tablet) 25 mg PO Q6H PRN PRN Reason: Anxiety Last Admin: 05/21/22 13:23 Dose: 25 mg Magnesium Hydroxide (Milk Of Magnesia 30 Ml Oral.Susp) 30 ml PO DAILY PRN PRN Reason: Constipation Nicotine (Nicotine 21 Mg Patch.Td24) 21 mg TRANSDERMA DAILY PRN PRN Reason: smoking cessation Nicotine Polacrilex (Nicotine Polacrilex 2 Mg Gum) 4 mg BUCCAL Q2H PRN PRN Reason: Nicotine Cravings Olanzapine (Olanzapine 5 Mg Tablet) 5 mg PO Q4H PRN PRN Reason: agitation, psychosis Last Admin: 05/22/22 13:38 Dose: 5 mg Olanzapine (Olanzapine 10 Mg Tablet) 10 mg PO BID [facility] Last Admin: 05/25/22 09:51 Dose: 10 mg Oxcarbazepine (Oxcarbazepine 300 Mg Tablet) 300 mg PO BID [facility] Last Admin: 05/25/22 09:51 Dose: 300 mg Trazodone HCl (Trazodone Hcl 50 Mg Tablet) 50 mg PO BEDTIME PRN PRN Reason: Insomnia Allergies Allergies Allergy/AdvReac Type Severity Reaction Status Date / Time No Known Allergies Allergy Verified 05/19/22 23:36 Assessment & Plan Assessment & Plan (1) Bipolar disorder: Status: Acute Code(s): F31.9 - Bipolar disorder, unspecified Plan 52 yo female, hx of bipolar disorder, found [place] [address] [place] to [place] herself via motor vehicle. Reports poor sleep, appetite, poor ADL's, stopping meds and treatment and feeling hopeless and helpless. Plan: Collateral contact TDN- given Davis warning as we will need to file for civil commitment Medical review of current sx Olanzapine 5 mg bid Continue Haldol prn Trileptal 300 mg bid Flu Vaccine (pt request and accepted) Diagnostics 05/22/22- Continue alliance building with pt. Pt will have financial questions addressed so we may hopefully move forward with her treatment. Family is attempting to assure pt she is financially safe. 05/23/22- Continue current plan. 05/24/22- Lexapro 5 mg a.m. to begin 05/25. 05/25/22- Continue current plan I spent minutes with the patient and/or on the patient floor today, greater than?50% of which was spent counseling/coordinating care. Patient educated on: medication risk/benefits and therapeutic strategies Informed Consent: understands and further education needed Reason for contiued inpatient stay Substantial Risk for: harm to self and rapid decompensation
[2022-05-25 18:00] VITALS: BP 190/94; PULSE 83; TEMP 36.3; O2SAT 99
[2022-05-25] MEDS: traZODone HCL 50 MG TABLET PO (20:37)
[2022-05-25 23:26] VITALS: BP 176/87; PULSE 70
--- NOTE | 2022-05-26 00:09 | PC.NURSE ---
Patient's BP earlier was noted to be 190/94 with a pulse of 83; rechecked at 2300 and BP was 176/87 with a pulse of 70. Provider weapons specialist notified; orders received for Norvasc 5 mg po x 1 now and Norvasc 5 mg po daily to start 05/26/22 at 0900. Patient made a vague mention that she had been on Norvasc in the past but did not remember the dose.
[2022-05-26] MEDS: amLODIPine Besylate 5 MG TABLET PO ×2 (00:16→09:20)
[2022-05-26 06:00] VITALS: BP 194/93; PULSE 88; RESP 16; TEMP 36.3; O2SAT 96
[2022-05-26] MEDS: Escitalopram Oxalate 5 MG TABLET PO (09:19)
[2022-05-26] MEDS: OLANZapine 10 MG TABLET PO ×2 (09:19→19:57)
[2022-05-26] MEDS: OXcarbazepine 300 MG TABLET PO ×2 (09:19→19:58)
--- NOTE | 2022-05-26 12:29 | HO.WOUNDCONS ---
History of Present Illness Data of Consult Service Date: 05/26/22 Requesting physician: Reema Huff Primary Care Provider: None Physician HPI Reason for consult: non wound condition 52 year old female with history of bipolar disorder hospitalized with SI and recent episode of omar, looks to have stopped taking her medications by way of documentation. Denies history of diabetes. Denies history of need for compression garments on the legs. Asked to see healed areas on right toe and right leg. Review of Systems Review of Systems: Yes Unobtainable due to mental condition PMFSH Social History Household Members: None Housing: Apartment Do you presently have visiting nurse or other home services: No Patient Tobacco Use Status: Never used Tobacco e-Cigarette/Vaping Use: Never Used Second Hand Smoke Exposure: No Use of substances other than those prescribed or required for medical reasons: No Currently Displaying Signs/Symptoms of Drug Intoxication Withdrawal: No Any prior treatment program specific to substance use: No Have you been hit, kicked, punched, or otherwise hurt by someone within the past year? If so, by whom?: No Do you feel safe in your current relationship?: No Current Relationship Is there a partner from a previous relationship who is making you feel unsafe now?: No Are you made to feel afraid or neglected: No Advance Directives: No Advance Directives Information Provided: Yes Guardian: No Do you have thoughts of harming others: None Do you have a plan to hurt others: No Plan Recently lost weight without trying: No How much weight loss: Not applicable Eating poorly because of decreased appetite: Yes Nutrition screen score: 1 Nutrition Risks: Anorexia Patient : No : No Poor oral hygiene: No service: No Sexual orientation: Don't Know Meds Allergies Allergy/AdvReac Type Severity Reaction Status Date / Time No Known Allergies Allergy Verified 05/19/22 23:36 Active Medications: Current Medications Acetaminophen (Acetaminophen 325 Mg Tablet) 650 mg PO Q6H PRN PRN Reason: Headache/Pain Mild Scale (1-3) Al Hydroxide/Mg Hydroxide (Magnesium Hydrox/Alum Hydrox 30 Ml Oral.Susp) 30 ml PO Q6H PRN PRN Reason: Heartburn/Nausea Amlodipine Besylate (Amlodipine Besylate 5 Mg Tablet) 5 mg PO DAILY [facility]; Protocol Last Admin: 05/26/22 09:20 Dose: 5 mg Cefuroxime Axetil (Cefuroxime Axetil 250 Mg Tablet) 250 mg PO BID [facility] Last Admin: 05/26/22 09:19 Dose: 250 mg Diphenhydramine HCl (Diphenhydramine Hcl 25 Mg Tablet) 50 mg PO Q4H PRN PRN Reason: agitation Escitalopram Oxalate (Escitalopram Oxalate 5 Mg Tablet) 5 mg PO DAILY [facility] Last Admin: 05/26/22 09:19 Dose: 5 mg Haloperidol (Haloperidol 5 Mg Tablet) 5 mg PO Q4H PRN PRN Reason: agitation Hydroxyzine HCl (Hydroxyzine Hcl 25 Mg Tablet) 25 mg PO Q6H PRN PRN Reason: Anxiety Last Admin: 05/21/22 13:23 Dose: 25 mg Magnesium Hydroxide (Milk Of Magnesia 30 Ml Oral.Susp) 30 ml PO DAILY PRN PRN Reason: Constipation Nicotine (Nicotine 21 Mg Patch.Td24) 21 mg TRANSDERMA DAILY PRN PRN Reason: smoking cessation Nicotine Polacrilex (Nicotine Polacrilex 2 Mg Gum) 4 mg BUCCAL Q2H PRN PRN Reason: Nicotine Cravings Olanzapine (Olanzapine 5 Mg Tablet) 5 mg PO Q4H PRN PRN Reason: agitation, psychosis Last Admin: 05/22/22 13:38 Dose: 5 mg Olanzapine (Olanzapine 10 Mg Tablet) 10 mg PO BID [facility] Last Admin: 05/26/22 09:19 Dose: 10 mg Oxcarbazepine (Oxcarbazepine 300 Mg Tablet) 300 mg PO BID [facility] Last Admin: 05/26/22 09:19 Dose: 300 mg Trazodone HCl (Trazodone Hcl 50 Mg Tablet) 50 mg PO BEDTIME PRN PRN Reason: Insomnia Last Admin: 05/25/22 20:37 Dose: 50 mg Home Medications Medication Instructions Recorded Confirmed Last Taken Type No Known Home Meds 05/19/22 05/19/22 Unknown History Physical Exam Vital Signs and Narrative: Vital Signs: Last Vital Signs Temp 97.4 F 05/26/22 06:00 Pulse 88 05/26/22 06:00 Resp 16 05/26/22 06:00 BP 194/93 H 05/26/22 06:00 Pulse Ox 96 05/26/22 06:00 O2 Del Method 05/26/22 06:00 BMI result Body Mass Index 26.6 Left DP pulse is bounding. Right DP pulse is palpable. Bilateral leg edema is supple with hemosiderin staining to suggest chronic venous insufficiency. No erythema, streaking or warmth in the legs bilaterally. Medial right ankle area shows contracture and scar at location that might have been previously. No open wound seen. Former abrasion on the great toe is also a closed wound. Results Labs CBC and Chem 7: 05/19/22 12:36 05/19/22 12:36 Assessment and Plan (1) Chronic venous insufficiency of lower extremity: Status: Acute Plan 52 year old female hospitalized for SI, omar and bipolar disorder with nonwounds in the right leg and right toe with suspected underlying venous insufficiency as contributing factor. Healing is complete. Apply zinc oxide topically daily for protection in these areas. Use 2x2 gauze to protect clothing if desired. If allowable, tubigrip or narayan wrap on right leg might be indicated but in the setting of SI, defer to floor team. Please consider sending patients like this to wound clinic as an outpatient after hospital discharge where there is no urgent need for consultation.
[2022-05-26 18:00] VITALS: BP 173/110; PULSE 102; RESP 20; TEMP 36.2; O2SAT 98
--- NOTE | 2022-05-26 18:54 | HO.PSYCHPN ---
Subjective Subjective Date of Service: 05/26/22 Reason For Visit: omar/SI Subjective Notes: Conditional Voluntary Healthcare Proxy: No Guardianship: No Medical Problems Affecting Mental Status: No Interim History: Formally agrees to medical consultations. Met with aunt briefly who reports pt has been ill for a long while. Family is aware that treatment will take time. Discussed [facility] referral with pt. Declines. Continue to address issues. Medication Compliance: Yes Side effects from medications: No Attending Groups: No Review of Systems Medical Review of Systems: unchanged Mental Status Exam Mental Status Exam Patient Appearance: Fatigued Patient Orientation: Person, Place, Time and Situation Level of Consciousness: Alert Patient Behavior: Appropriate, Guarded, Talkative, Cooperative, Suspicious, Anxious, Fearful, Resistive to Care, Fatigued, Distractible and Good Eye Contact Mood Description: Depressed, Labile and Flat Affect Description: Labile and Flat Patient Cognition Impaired: No Ability to Follow Directions: Good Speech Pattern: Spontaneous Speech and Pressured Memory Description: Remote Impaired and Episodic Impaired Delusions: Paranoid Ideation Perceptual Disturbances: Depersonalization and Derealization Thought Process: Racing, Distracted and Rumination Thought Content: positive for Circumstantial, positive for Perseveration and positive for Suicidal Ideation Depressive Symptoms: Increased Anxiety, Diff. Making Decisions, Increased Irritability, Changes in Appetite, Significant Weight Loss, Thoughts of /Suicide and Difficulty Concentrating Abnormal Motor Activity Signs and Symptoms: Restlessness Judgement: Poor Diagnostics Vital Signs (24Hr): Vital Signs - 24 hr 05/25/22 23:26 05/26/22 06:00 05/26/22 18:00 Temperature 97.4 F 97.2 F Pulse Rate 70 88 102 H Respiratory Rate 16 20 Blood Pressure 176/87 H 194/93 H 173/110 H Pulse Oximetry 96 98 Oxygen Delivery Method Room Air Room Air BMI result Body Mass Index 26.6 Labs Results: 05/19/22 12:36 05/19/22 12:36 Medications Medications Current Medications Acetaminophen (Acetaminophen 325 Mg Tablet) 650 mg PO Q6H PRN PRN Reason: Headache/Pain Mild Scale (1-3) Al Hydroxide/Mg Hydroxide (Magnesium Hydrox/Alum Hydrox 30 Ml Oral.Susp) 30 ml PO Q6H PRN PRN Reason: Heartburn/Nausea Amlodipine Besylate (Amlodipine Besylate 5 Mg Tablet) 5 mg PO DAILY [facility]; Protocol Last Admin: 05/26/22 09:20 Dose: 5 mg Cefuroxime Axetil (Cefuroxime Axetil 250 Mg Tablet) 250 mg PO BID [facility] Last Admin: 05/26/22 09:19 Dose: 250 mg Diphenhydramine HCl (Diphenhydramine Hcl 25 Mg Tablet) 50 mg PO Q4H PRN PRN Reason: agitation Escitalopram Oxalate (Escitalopram Oxalate 5 Mg Tablet) 5 mg PO DAILY [facility] Last Admin: 05/26/22 09:19 Dose: 5 mg Haloperidol (Haloperidol 5 Mg Tablet) 5 mg PO Q4H PRN PRN Reason: agitation Hydroxyzine HCl (Hydroxyzine Hcl 25 Mg Tablet) 25 mg PO Q6H PRN PRN Reason: Anxiety Last Admin: 05/21/22 13:23 Dose: 25 mg Magnesium Hydroxide (Milk Of Magnesia 30 Ml Oral.Susp) 30 ml PO DAILY PRN PRN Reason: Constipation Nicotine (Nicotine 21 Mg Patch.Td24) 21 mg TRANSDERMA DAILY PRN PRN Reason: smoking cessation Nicotine Polacrilex (Nicotine Polacrilex 2 Mg Gum) 4 mg BUCCAL Q2H PRN PRN Reason: Nicotine Cravings Olanzapine (Olanzapine 5 Mg Tablet) 5 mg PO Q4H PRN PRN Reason: agitation, psychosis Last Admin: 05/22/22 13:38 Dose: 5 mg Olanzapine (Olanzapine 10 Mg Tablet) 10 mg PO BID [facility] Last Admin: 05/26/22 09:19 Dose: 10 mg Oxcarbazepine (Oxcarbazepine 300 Mg Tablet) 300 mg PO BID [facility] Last Admin: 05/26/22 09:19 Dose: 300 mg Trazodone HCl (Trazodone Hcl 50 Mg Tablet) 50 mg PO BEDTIME PRN PRN Reason: Insomnia Last Admin: 05/25/22 20:37 Dose: 50 mg Allergies Allergies Allergy/AdvReac Type Severity Reaction Status Date / Time No Known Allergies Allergy Verified 05/19/22 23:36 Assessment & Plan Assessment & Plan (1) Bipolar disorder: Status: Acute Code(s): F31.9 - Bipolar disorder, unspecified Plan 05/26/22- Continue alliance building, medication titration and attempts to align with OP supports. I spent minutes with the patient and/or on the patient floor today, greater than?50% of which was spent counseling/coordinating care. Patient educated on: therapeutic strategies Informed Consent: further education needed Reason for contiued inpatient stay Substantial Risk for: harm to self and med/psych decompensation
[2022-05-27 06:00] VITALS: BP 170/98; PULSE 110; RESP 18
[2022-05-27] MEDS: OXcarbazepine 300 MG TABLET PO ×2 (09:19→19:59)
[2022-05-27] MEDS: OLANZapine 10 MG TABLET PO ×2 (09:19→19:59)
[2022-05-27] MEDS: Escitalopram Oxalate 5 MG TABLET PO (09:19)
[2022-05-27] MEDS: amLODIPine Besylate 5 MG TABLET PO (09:20)
[2022-05-27] MEDS: Acetaminophen 325 MG TABLET 650 MG PO (13:06)
[2022-05-27 16:21] VITALS: BP 136/90; PULSE 91; RESP 18; O2SAT 97
--- NOTE | 2022-05-27 17:16 | P.PNPSI_ITS ---
Subjective Subjective Date of Service: 05/27/22 Reason For Visit: omar/SI Subjective Notes: Davis Warning and Conditional Voluntary Interim History: I spoke with pt this evening and upon interview, she says she feels so, so. Says she has not noticed a difference on lexapro but she is tolerating it. Pt says she wants to go home, asks why she is still here- discussed her legal status and pt says I gotta go a few times and stands up to leave the room. Medication Compliance: Yes Side effects from medications: No Attending Groups: No Review of Systems Acute medical concerns: No Medical Review of Systems: unchanged Mental Status Exam Mental Status Exam Narrative: Patient Appearance: Fatigued Patient Orientation: Person, Place, Time and Situation Level of Consciousness: Alert Patient Behavior: Appropriate, Guarded, Talkative, Cooperative, Suspicious, Anxious, Fearful, Resistive to Care, Fatigued, Distractible and Good Eye Contact Mood Description: Depressed, Labile and Flat Affect Description: Labile and Flat Patient Cognition Impaired: No Ability to Follow Directions: Good Speech Pattern: Spontaneous Speech and Pressured Memory Description: Remote Impaired and Episodic Impaired Delusions: Paranoid Ideation Perceptual Disturbances: Depersonalization and Derealization Thought Process: Racing, Distracted and Rumination Thought Content: positive for Circumstantial, positive for Perseveration and positive for Suicidal Ideation Depressive Symptoms: Increased Anxiety, Diff. Making Decisions, Increased Irritability, Changes in Appetite, Significant Weight Loss, Thoughts of /Suicide and Difficulty Concentrating Abnormal Motor Activity Signs and Symptoms: Restlessness Judgement: Poor Diagnostics Vital Signs (24Hr): Vital Signs - 24 hr 05/26/22 18:00 05/27/22 06:00 05/27/22 16:21 Temperature 97.2 F Pulse Rate 102 H 110 H 91 Respiratory Rate 20 18 18 Blood Pressure 173/110 H 170/98 H 136/90 H Pulse Oximetry 98 97 Oxygen Delivery Method Room Air Room Air BMI result Body Mass Index 26.6 Labs Results: 05/19/22 12:36 05/19/22 12:36 Medications Medications Current Medications Acetaminophen (Acetaminophen 325 Mg Tablet) 650 mg PO Q6H PRN PRN Reason: Headache/Pain Mild Scale (1-3) Last Admin: 05/27/22 13:06 Dose: 650 mg Al Hydroxide/Mg Hydroxide (Magnesium Hydrox/Alum Hydrox 30 Ml Oral.Susp) 30 ml PO Q6H PRN PRN Reason: Heartburn/Nausea Amlodipine Besylate (Amlodipine Besylate 10 Mg Tablet) 10 mg PO DAILY [facility]; Protocol Cefuroxime Axetil (Cefuroxime Axetil 250 Mg Tablet) 250 mg PO BID [facility] Last Admin: 05/27/22 09:19 Dose: 250 mg Diphenhydramine HCl (Diphenhydramine Hcl 25 Mg Tablet) 50 mg PO Q4H PRN PRN Reason: agitation Escitalopram Oxalate (Escitalopram Oxalate 5 Mg Tablet) 5 mg PO DAILY [facility] Last Admin: 05/27/22 09:19 Dose: 5 mg Haloperidol (Haloperidol 5 Mg Tablet) 5 mg PO Q4H PRN PRN Reason: agitation Hydroxyzine HCl (Hydroxyzine Hcl 25 Mg Tablet) 25 mg PO Q6H PRN PRN Reason: Anxiety Last Admin: 05/21/22 13:23 Dose: 25 mg Magnesium Hydroxide (Milk Of Magnesia 30 Ml Oral.Susp) 30 ml PO DAILY PRN PRN Reason: Constipation Nicotine (Nicotine 21 Mg Patch.Td24) 21 mg TRANSDERMA DAILY PRN PRN Reason: smoking cessation Nicotine Polacrilex (Nicotine Polacrilex 2 Mg Gum) 4 mg BUCCAL Q2H PRN PRN Reason: Nicotine Cravings Olanzapine (Olanzapine 5 Mg Tablet) 5 mg PO Q4H PRN PRN Reason: agitation, psychosis Last Admin: 05/22/22 13:38 Dose: 5 mg Olanzapine (Olanzapine 10 Mg Tablet) 10 mg PO BID [facility] Last Admin: 05/27/22 09:19 Dose: 10 mg Oxcarbazepine (Oxcarbazepine 300 Mg Tablet) 300 mg PO BID [facility] Last Admin: 05/27/22 09:19 Dose: 300 mg Trazodone HCl (Trazodone Hcl 50 Mg Tablet) 50 mg PO BEDTIME PRN PRN Reason: Insomnia Last Admin: 05/25/22 20:37 Dose: 50 mg Allergies Allergies Allergy/AdvReac Type Severity Reaction Status Date / Time No Known Allergies Allergy Verified 05/19/22 23:36 Assessment & Plan Assessment & Plan (1) Bipolar disorder: Status: Acute Code(s): F31.9 - Bipolar disorder, unspecified Plan 52 yo female, hx of bipolar disorder, found running [place] [address] attempting to kill herself via motor vehicle. Reports poor sleep, appetite, poor ADL's, stopping meds and treatment and feeling hopeless and helpless. Plan: Collateral contact TDN- given Davis warning as we will need to file for civil commitment Medical review of current sx Olanzapine 5 mg bid Continue Haldol prn Trileptal 300 mg bid Flu Vaccine (pt request and accepted) Diagnostics 05/22/22- Continue alliance building with pt. Pt will have financial questions addressed so we may hopefully move forward with her treatment. Family is attempting to assure pt she is financially safe. 05/23/22- Continue current plan. 05/24/22- Lexapro 5 mg a.m. to begin 05/25. 05/25/22- Continue current plan 05/26/22- Continue alliance building, medication titration and attempts to align with OP supports. 05/27/22- No med changes I spent minutes with the patient and/or on the patient floor today, greater than?50% of which was spent counseling/coordinating care. Patient educated on: medication risk/benefits and other Reason for contiued inpatient stay Substantial Risk for: harm to self, inability to function, rapid decompensation and med/psych decompensation
--- NOTE | 2022-05-28 17:29 | HO.PSYCHPN ---
Subjective Subjective Date of Service: 05/28/22 Reason For Visit: omar/SI Subjective Notes: Conditional Voluntary Healthcare Proxy: No Guardianship: No Medical Problems Affecting Mental Status: No Interim History: Reports I still do not want to live or be here Discussed Brenda rinaldi-pt agrees. In bed, isolative, reports worry about finances-reviewed tw discussion with her POA- does she really know? Medication Compliance: Yes Side effects from medications: No Attending Groups: No Review of Systems Acute medical concerns: No Medical Review of Systems: unchanged Mental Status Exam Mental Status Exam Patient Appearance: Fatigued Patient Orientation: Person, Place, Time and Situation Level of Consciousness: Alert Patient Behavior: Appropriate, Guarded, Talkative, Cooperative, Suspicious, Anxious, Fearful, Resistive to Care, Fatigued, Distractible and Good Eye Contact Mood Description: Depressed, Labile and Flat Affect Description: Labile and Flat Patient Cognition Impaired: No Ability to Follow Directions: Good Speech Pattern: Spontaneous Speech and Pressured Memory Description: Remote Impaired and Episodic Impaired Delusions: Paranoid Ideation Perceptual Disturbances: Depersonalization and Derealization Thought Process: Racing, Distracted and Rumination Thought Content: positive for Circumstantial, positive for Perseveration and positive for Suicidal Ideation Depressive Symptoms: Increased Anxiety, Diff. Making Decisions, Increased Irritability, Changes in Appetite, Significant Weight Loss, Thoughts of /Suicide and Difficulty Concentrating Abnormal Motor Activity Signs and Symptoms: Restlessness Judgement: Poor Diagnostics Vital Signs (24Hr): BMI result Body Mass Index 26.6 Labs Results: 05/19/22 12:36 05/19/22 12:36 Medications Medications Current Medications Acetaminophen (Acetaminophen 325 Mg Tablet) 650 mg PO Q6H PRN PRN Reason: Headache/Pain Mild Scale (1-3) Last Admin: 05/27/22 13:06 Dose: 650 mg Al Hydroxide/Mg Hydroxide (Magnesium Hydrox/Alum Hydrox 30 Ml Oral.Susp) 30 ml PO Q6H PRN PRN Reason: Heartburn/Nausea Amlodipine Besylate (Amlodipine Besylate 10 Mg Tablet) 10 mg PO DAILY [facility]; Protocol Last Admin: 05/28/22 08:36 Dose: Not Given Cefuroxime Axetil (Cefuroxime Axetil 250 Mg Tablet) 250 mg PO BID [facility] Last Admin: 05/28/22 08:36 Dose: Not Given Diphenhydramine HCl (Diphenhydramine Hcl 25 Mg Tablet) 50 mg PO Q4H PRN PRN Reason: agitation Escitalopram Oxalate (Escitalopram Oxalate 5 Mg Tablet) 5 mg PO DAILY [facility] Last Admin: 05/28/22 08:36 Dose: Not Given Haloperidol (Haloperidol 5 Mg Tablet) 5 mg PO Q4H PRN PRN Reason: agitation Hydroxyzine HCl (Hydroxyzine Hcl 25 Mg Tablet) 25 mg PO Q6H PRN PRN Reason: Anxiety Last Admin: 05/21/22 13:23 Dose: 25 mg Magnesium Hydroxide (Milk Of Magnesia 30 Ml Oral.Susp) 30 ml PO DAILY PRN PRN Reason: Constipation Olanzapine (Olanzapine 5 Mg Tablet) 5 mg PO Q4H PRN PRN Reason: agitation, psychosis Last Admin: 05/22/22 13:38 Dose: 5 mg Olanzapine (Olanzapine 10 Mg Tablet) 10 mg PO BID [facility] Last Admin: 05/28/22 08:36 Dose: Not Given Oxcarbazepine (Oxcarbazepine 300 Mg Tablet) 300 mg PO BID [facility] Last Admin: 05/28/22 08:36 Dose: Not Given Trazodone HCl (Trazodone Hcl 50 Mg Tablet) 50 mg PO BEDTIME PRN PRN Reason: Insomnia Last Admin: 05/25/22 20:37 Dose: 50 mg Allergies Allergies Allergy/AdvReac Type Severity Reaction Status Date / Time No Known Allergies Allergy Verified 05/19/22 23:36 Assessment & Plan Assessment & Plan (1) Bipolar disorder: Status: Acute Code(s): F31.9 - Bipolar disorder, unspecified Plan 52 yo female, hx of bipolar disorder, found running [place] [address] [place] to kill herself via motor vehicle. Reports poor sleep, appetite, poor ADL's, stopping meds and treatment and feeling hopeless and helpless. Plan: Collateral contact TDN- given Davis warning as we will need to file for civil commitment Medical review of current sx Olanzapine 5 mg bid Continue Haldol prn Trileptal 300 mg bid Flu Vaccine (pt request and accepted) Diagnostics 05/22/22- Continue alliance building with pt. Pt will have financial questions addressed so we may hopefully move forward with her treatment. Family is attempting to assure pt she is financially safe. 05/23/22- Continue current plan. 05/24/22- Lexapro 5 mg a.m. to begin 05/25. 05/25/22- Continue current plan 05/26/22- Continue alliance building, medication titration and attempts to align with OP supports. 05/27/22- No med changes 05/28/22- Vraylar 1.5 mg a.m. I spent minutes with the patient and/or on the patient floor today, greater than?50% of which was spent counseling/coordinating care. Patient educated on: medication risk/benefits and therapeutic strategies Informed Consent: further education needed Reason for contiued inpatient stay Substantial Risk for: med/psych decompensation
[2022-05-28 18:00] VITALS: BP 126/80; PULSE 110; TEMP 36.8; O2SAT 96
[2022-05-28] MEDS: OXcarbazepine 300 MG TABLET PO (21:05)
[2022-05-28] MEDS: OLANZapine 10 MG TABLET PO (21:05)
[2022-05-29] MEDS: OLANZapine 10 MG TABLET PO ×2 (08:50→20:50)
[2022-05-29] MEDS: Cariprazine HCl 1.5 MG CAPSULE PO (08:51)
[2022-05-29] MEDS: OXcarbazepine 300 MG TABLET PO ×2 (08:51→20:50)
[2022-05-29] MEDS: Escitalopram Oxalate 5 MG TABLET PO (08:51)
--- NOTE | 2022-05-29 13:56 | P.PNPSI_ITS ---
Subjective Subjective Date of Service: 05/29/22 Reason For Visit: omar/SI Subjective Notes: Conditional Voluntary Interim History: Isolative, in bed, appears brighter when we meet. Continues to report active SI with plan to kill herself upon discharge. Medication Compliance: Yes Side effects from medications: No Attending Groups: No Review of Systems Acute medical concerns: No Medical Review of Systems: unchanged Mental Status Exam Mental Status Exam Patient Appearance: Fatigued Patient Orientation: Person, Place, Time and Situation Level of Consciousness: Alert Patient Behavior: Appropriate, Guarded, Talkative, Cooperative, Suspicious, Anxious, Fearful, Resistive to Care, Fatigued, Distractible and Good Eye Contact Mood Description: Depressed, Labile and Flat Affect Description: Labile and Flat Patient Cognition Impaired: No Ability to Follow Directions: Good Speech Pattern: Spontaneous Speech and Pressured Memory Description: Remote Impaired and Episodic Impaired Delusions: Paranoid Ideation Perceptual Disturbances: Depersonalization and Derealization Thought Process: Racing, Distracted and Rumination Thought Content: positive for Circumstantial, positive for Perseveration and positive for Suicidal Ideation Depressive Symptoms: Increased Anxiety, Diff. Making Decisions, Increased Irritability, Changes in Appetite, Significant Weight Loss, Thoughts of /Suicide and Difficulty Concentrating Abnormal Motor Activity Signs and Symptoms: Restlessness Judgement: Poor Diagnostics Vital Signs (24Hr): Vital Signs - 24 hr 05/28/22 18:00 Temperature 98.2 F Pulse Rate 110 H Blood Pressure 126/80 Pulse Oximetry 96 Oxygen Delivery Method Room Air BMI result Body Mass Index 26.6 Labs Results: 05/19/22 12:36 05/19/22 12:36 Medications Medications Current Medications Acetaminophen (Acetaminophen 325 Mg Tablet) 650 mg PO Q6H PRN PRN Reason: Headache/Pain Mild Scale (1-3) Last Admin: 05/27/22 13:06 Dose: 650 mg Al Hydroxide/Mg Hydroxide (Magnesium Hydrox/Alum Hydrox 30 Ml Oral.Susp) 30 ml PO Q6H PRN PRN Reason: Heartburn/Nausea Amlodipine Besylate (Amlodipine Besylate 10 Mg Tablet) 10 mg PO DAILY [facility]; Protocol Last Admin: 05/29/22 08:54 Dose: Not Given Cariprazine (Cariprazine Hcl 1.5 Mg Capsule) 1.5 mg PO DAILY [facility] Last Admin: 05/29/22 08:51 Dose: 1.5 mg Cefuroxime Axetil (Cefuroxime Axetil 250 Mg Tablet) 250 mg PO BID [facility] Last Admin: 05/29/22 08:51 Dose: 250 mg Diphenhydramine HCl (Diphenhydramine Hcl 25 Mg Tablet) 50 mg PO Q4H PRN PRN Reason: agitation Escitalopram Oxalate (Escitalopram Oxalate 5 Mg Tablet) 5 mg PO DAILY [facility] Last Admin: 05/29/22 08:51 Dose: 5 mg Haloperidol (Haloperidol 5 Mg Tablet) 5 mg PO Q4H PRN PRN Reason: agitation Hydroxyzine HCl (Hydroxyzine Hcl 25 Mg Tablet) 25 mg PO Q6H PRN PRN Reason: Anxiety Last Admin: 05/21/22 13:23 Dose: 25 mg Magnesium Hydroxide (Milk Of Magnesia 30 Ml Oral.Susp) 30 ml PO DAILY PRN PRN Reason: Constipation Olanzapine (Olanzapine 5 Mg Tablet) 5 mg PO Q4H PRN PRN Reason: agitation, psychosis Last Admin: 05/22/22 13:38 Dose: 5 mg Olanzapine (Olanzapine 10 Mg Tablet) 10 mg PO BID [facility] Last Admin: 05/29/22 08:50 Dose: 10 mg Oxcarbazepine (Oxcarbazepine 300 Mg Tablet) 300 mg PO BID [facility] Last Admin: 05/29/22 08:51 Dose: 300 mg Trazodone HCl (Trazodone Hcl 50 Mg Tablet) 50 mg PO BEDTIME PRN PRN Reason: Insomnia Last Admin: 05/25/22 20:37 Dose: 50 mg Allergies Allergies Allergy/AdvReac Type Severity Reaction Status Date / Time No Known Allergies Allergy Verified 05/19/22 23:36 Assessment & Plan Assessment & Plan (1) Bipolar disorder: Status: Acute Code(s): F31.9 - Bipolar disorder, unspecified Plan 52 yo female, hx of bipolar disorder, found running [place] [address] attempting to kill herself via motor vehicle. Reports poor sleep, appetite, poor ADL's, stopping meds and treatment and feeling hopeless and helpless. Plan: Collateral contact TDN- given Davis warning as we will need to file for civil commitment Medical review of current sx Olanzapine 5 mg bid Continue Haldol prn Trileptal 300 mg bid Flu Vaccine (pt request and accepted) Diagnostics 05/22/22- Continue alliance building with pt. Pt will have financial questions addressed so we may hopefully move forward with her treatment. Family is attempting to assure pt she is financially safe. 05/23/22- Continue current plan. 05/24/22- Lexapro 5 mg a.m. to begin 05/25. 05/25/22- Continue current plan 05/26/22- Continue alliance building, medication titration and attempts to align with OP supports. 05/27/22- No med changes 05/28/22- Vraylar 1.5 mg a.m. 05/29/22- Vraylar tolerated. Increase to 3 mg on 05/31 if she continues to tolerate. I spent minutes with the patient and/or on the patient floor today, greater than?50% of which was spent counseling/coordinating care. Patient educated on: medication risk/benefits Informed Consent: further education needed Reason for contiued inpatient stay Substantial Risk for: rapid decompensation
[2022-05-29 16:18] VITALS: BP 137/90; PULSE 79; RESP 16; TEMP 36.1; O2SAT 99
[2022-05-30 06:00] VITALS: BP 140/96; PULSE 97; RESP 16; TEMP 36.4; O2SAT 97
[2022-05-30 11:56] VITALS: BP 158/96; PULSE 93
[2022-05-30] MEDS: Cariprazine HCl 1.5 MG CAPSULE PO (12:07)
[2022-05-30] MEDS: OLANZapine 10 MG TABLET PO ×2 (12:07→20:01)
[2022-05-30] MEDS: Escitalopram Oxalate 5 MG TABLET PO (12:07)
[2022-05-30] MEDS: amLODIPine Besylate 10 MG TABLET PO (12:07)
[2022-05-30] MEDS: OXcarbazepine 300 MG TABLET PO ×2 (12:08→20:01)
--- NOTE | 2022-05-30 14:43 | P.PNPSI_ITS ---
Subjective Subjective Date of Service: 05/30/22 Reason For Visit: omar/SI Subjective Notes: Conditional Voluntary Interim History: Refused medications. Refused visit with her aunt. Discussed compliance with pt. Discussed Section VII and asked her about her choices. She agrees to take her medications. It does not really matter, I still want to . Care discussed with cousin who reports a long history of struggling with sx such as these. Family is concerned that she will suicide. We may need to reconsider filing Section VII. Medication Compliance: Intermittent Side effects from medications: No Attending Groups: No Review of Systems Acute medical concerns: No Medical Review of Systems: unchanged Mental Status Exam Mental Status Exam Patient Appearance: Fatigued Patient Orientation: Person, Place, Time and Situation Level of Consciousness: Alert Patient Behavior: Appropriate, Guarded, Talkative, Cooperative, Suspicious, Anxious, Fearful, Resistive to Care, Fatigued, Distractible and Good Eye Contact Mood Description: Depressed, Labile and Flat Affect Description: Labile and Flat Patient Cognition Impaired: No Ability to Follow Directions: Good Speech Pattern: Spontaneous Speech and Pressured Memory Description: Remote Impaired and Episodic Impaired Delusions: Paranoid Ideation Perceptual Disturbances: Depersonalization and Derealization Thought Process: Racing, Distracted and Rumination Thought Content: positive for Circumstantial, positive for Perseveration and positive for Suicidal Ideation Depressive Symptoms: Increased Anxiety, Diff. Making Decisions, Increased Irrit ability, Changes in Appetite, Significant Weight Loss, Thoughts of /Suicide and Difficulty Concentrating Abnormal Motor Activity Signs and Symptoms: Restlessness Judgement: Poor Diagnostics Vital Signs (24Hr): Vital Signs - 24 hr 05/29/22 16:18 05/30/22 06:00 05/30/22 11:56 Temperature 96.9 F 97.6 F Pulse Rate 79 97 93 Respiratory Rate 16 16 Blood Pressure 137/90 H 140/96 H 158/96 H Pulse Oximetry 99 97 Oxygen Delivery Method Room Air Room Air BMI result Body Mass Index 26.6 Labs Results: 05/19/22 12:36 05/19/22 12:36 Medications Medications Current Medications Acetaminophen (Acetaminophen 325 Mg Tablet) 650 mg PO Q6H PRN PRN Reason: Headache/Pain Mild Scale (1-3) Last Admin: 05/27/22 13:06 Dose: 650 mg Al Hydroxide/Mg Hydroxide (Magnesium Hydrox/Alum Hydrox 30 Ml Oral.Susp) 30 ml PO Q6H PRN PRN Reason: Heartburn/Nausea Amlodipine Besylate (Amlodipine Besylate 10 Mg Tablet) 10 mg PO DAILY [facility]; Protocol Last Admin: 05/30/22 12:07 Dose: 10 mg Cariprazine (Cariprazine Hcl 1.5 Mg Capsule) 1.5 mg PO DAILY [facility] Last Admin: 05/30/22 12:07 Dose: 1.5 mg Diphenhydramine HCl (Diphenhydramine Hcl 25 Mg Tablet) 50 mg PO Q4H PRN PRN Reason: agitation Escitalopram Oxalate (Escitalopram Oxalate 5 Mg Tablet) 5 mg PO DAILY [facility] Last Admin: 05/30/22 12:07 Dose: 5 mg Haloperidol (Haloperidol 5 Mg Tablet) 5 mg PO Q4H PRN PRN Reason: agitation Hydroxyzine HCl (Hydroxyzine Hcl 25 Mg Tablet) 25 mg PO Q6H PRN PRN Reason: Anxiety Last Admin: 05/21/22 13:23 Dose: 25 mg Magnesium Hydroxide (Milk Of Magnesia 30 Ml Oral.Susp) 30 ml PO DAILY PRN PRN Reason: Constipation Olanzapine (Olanzapine 5 Mg Tablet) 5 mg PO Q4H PRN PRN Reason: agitation, psychosis Last Admin: 05/22/22 13:38 Dose: 5 mg Olanzapine (Olanzapine 10 Mg Tablet) 10 mg PO BID [facility] Last Admin: 05/30/22 12:07 Dose: 10 mg Oxcarbazepine (Oxcarbazepine 300 Mg Tablet) 300 mg PO BID [facility] Last Admin: 05/30/22 12:08 Dose: 300 mg Trazodone HCl (Trazodone Hcl 50 Mg Tablet) 50 mg PO BEDTIME PRN PRN Reason: Insomnia Last Admin: 05/25/22 20:37 Dose: 50 mg Allergies Allergies Allergy/AdvReac Type Severity Reaction Status Date / Time No Known Allergies Allergy Verified 05/19/22 23:36 Assessment & Plan Assessment & Plan (1) Bipolar disorder: Status: Acute Code(s): F31.9 - Bipolar disorder, unspecified Plan 52 yo female, hx of bipolar disorder, found running [place] [address] att empting to kill herself via motor vehicle. Reports poor sleep, appetite, poor ADL's, stopping meds and treatment and feeling hopeless and helpless. Plan: Collateral contact TDN- given [place] warning as we will need to file for civil commitment Medical review of current sx Olanzapine 5 mg bid Continue Haldol prn Trileptal 300 mg bid Flu Vaccine (pt request and accepted) Diagnostics 05/22/22- Continue alliance building with pt. Pt will have financial questions addressed so we may hopefully move forward with her treatment. Family is attempting to assure pt she is financially safe. 05/23/22- Continue current plan. 05/24/22- Lexapro 5 mg a.m. to begin 05/25. 05/25/22- Continue current plan 05/26/22- Continue alliance building, medication titration and attempts to align with OP supports. 05/27/22- No med changes 05/28/22- Vraylar 1.5 mg a.m. 05/30/22- Increase Vraylar to 3 mg 05/31. Discontinue Lexapro Prozac 10 mg daily I spent minutes with the patient and/or on the patient floor today, greater than?50% of which was spent counseling/coordinating care. Informed Consent: further education needed Reason for contiued inpatient stay Substantial Risk for: harm to self and rapid decompensation
[2022-05-30 20:00] VITALS: BP 136/76; PULSE 80; RESP 18; TEMP 36.9; O2SAT 96
[2022-05-30] MEDS: traZODone HCL 50 MG TABLET PO (20:37)
[2022-05-31] MEDS: amLODIPine Besylate 10 MG TABLET PO (08:44)
[2022-05-31] MEDS: Cariprazine HCl 3 MG CAPSULE PO (08:44)
[2022-05-31] MEDS: FLUoxetine HCl Oral Solution 20 MG/5 ML SOLUTION 10 MG PO (08:44)
[2022-05-31] MEDS: OLANZapine 10 MG TABLET PO ×2 (08:44→20:11)
[2022-05-31] MEDS: OXcarbazepine 300 MG TABLET PO ×2 (08:44→20:11)
[2022-05-31 08:45] VITALS: BP 155/97; PULSE 91; RESP 18; TEMP 36.4; O2SAT 98
[2022-05-31 15:50] VITALS: BP 177/103; PULSE 114; TEMP 36.5
--- NOTE | 2022-05-31 16:32 | HO.PSYCHPN ---
Subjective Subjective Date of Service: 05/31/22 Reason For Visit: omar/SI Subjective Notes: Section 7 Interim History: Chart reviewed. Discussed with Nursing. Overall no acute issues. Today reports things have been going slowly, but feels that she is getting gradually better. Has been getting out of her room more. Hopeful that medications and recent adjustment will be helpful. Reports last admission was for 2 weeks and hopeful this 1 will be similar. Feeling supported. Sleep energy and appetite gradually improving. Medication Compliance: Yes Side effects from medications: No Attending Groups: Yes Review of Systems Acute medical concerns: No Review of Systems Review of Systems Unremarkable Mental Status Exam Mental Status Exam Narrative: Pleasant. Engaged. Organized. Reports feeling less depressed. Affect reactive. No SI. No HI. No agitation or psychosis. Insight judgment fair Diagnostics Vital Signs (24Hr): Vital Signs - 24 hr 05/30/22 20:00 05/31/22 08:45 05/31/22 15:50 Temperature 98.4 F 97.6 F 97.7 F Pulse Rate 80 91 114 H Respiratory Rate 18 18 Blood Pressure 136/76 155/97 H 177/103 H Pulse Oximetry 96 98 Oxygen Delivery Method Room Air Room Air BMI result Body Mass Index 26.6 Labs Results: 05/19/22 12:36 05/19/22 12:36 Medications Medications Current Medications Acetaminophen (Acetaminophen 325 Mg Tablet) 650 mg PO Q6H PRN PRN Reason: Headache/Pain Mild Scale (1-3) Last Admin: 05/27/22 13:06 Dose: 650 mg Al Hydroxide/Mg Hydroxide (Magnesium Hydrox/Alum Hydrox 30 Ml Oral.Susp) 30 ml PO Q6H PRN PRN Reason: Heartburn/Nausea Amlodipine Besylate (Amlodipine Besylate 10 Mg Tablet) 10 mg PO DAILY [facility]; Protocol Last Admin: 05/31/22 08:44 Dose: 10 mg Cariprazine (Cariprazine Hcl 3 Mg Capsule) 3 mg PO DAILY [facility] Last Admin: 05/31/22 08:44 Dose: 3 mg Diphenhydramine HCl (Diphenhydramine Hcl 25 Mg Tablet) 50 mg PO Q4H PRN PRN Reason: agitation Fluoxetine HCl (Fluoxetine Hcl Oral Solution 20 Mg/5 Ml Solution) 10 mg PO DAILY [facility] Last Admin: 05/31/22 08:44 Dose: 10 mg Haloperidol (Haloperidol 5 Mg Tablet) 5 mg PO Q4H PRN PRN Reason: agitation Hydroxyzine HCl (Hydroxyzine Hcl 25 Mg Tablet) 25 mg PO Q6H PRN PRN Reason: Anxiety Last Admin: 05/21/22 13:23 Dose: 25 mg Magnesium Hydroxide (Milk Of Magnesia 30 Ml Oral.Susp) 30 ml PO DAILY PRN PRN Reason: Constipation Olanzapine (Olanzapine 5 Mg Tablet) 5 mg PO Q4H PRN PRN Reason: agitation, psychosis Last Admin: 05/22/22 13:38 Dose: 5 mg Olanzapine (Olanzapine 10 Mg Tablet) 10 mg PO BID [facility] Last Admin: 05/31/22 08:44 Dose: 10 mg Oxcarbazepine (Oxcarbazepine 300 Mg Tablet) 300 mg PO BID [facility] Last Admin: 05/31/22 08:44 Dose: 300 mg Trazodone HCl (Trazodone Hcl 50 Mg Tablet) 50 mg PO BEDTIME PRN PRN Reason: Insomnia Last Admin: 05/30/22 20:37 Dose: 50 mg Allergies Allergies Allergy/AdvReac Type Severity Reaction Status Date / Time No Known Allergies Allergy Verified 05/19/22 23:36 Assessment & Plan Assessment & Plan (1) Bipolar disorder: Status: Acute Code(s): F31.9 - Bipolar disorder, unspecified Plan 52 yo female, hx of bipolar disorder, found running [place] [address] attempting to [place] herself via motor vehicle. Reports poor sleep, appetite, poor ADL's, stopping meds and treatment and feeling hopeless and helpless. Plan: Collateral contact TDN- given [place] warning as we will need to file for civil commitment Medical review of current sx Olanzapine 5 mg bid Continue Haldol prn Trileptal 300 mg bid Flu Vaccine (pt request and accepted) Diagnostics 05/22/22- Continue alliance building with pt. Pt will have financial questions addressed so we may hopefully move forward with her treatment. Family is attempting to assure pt she is financially safe. 05/23/22- Continue current plan. 05/24/22- Lexapro 5 mg a.m. to begin 05/25. 05/25/22- Continue current plan 05/26/22- Continue alliance building, medication titration and attempts to align with OP supports. 05/27/22- No med changes 05/28/22- Vraylar 1.5 mg a.m. 05/30/22- Increase Vraylar to 3 mg 05/31. Discontinue Lexapro Prozac 10 mg daily 05/31/2022: No changes to current regimen I spent minutes with the patient and/or on the patient floor today, greater than?50% of which was spent counseling/coordinating care. Reason for contiued inpatient stay Substantial Risk for: inability to function
[2022-05-31] MEDS: traZODone HCL 50 MG TABLET PO (20:11)
[2022-06-01 06:00] VITALS: BP 177/104; PULSE 90; RESP 18; TEMP 37.4; O2SAT 99
[2022-06-01] MEDS: Cariprazine HCl 3 MG CAPSULE PO (08:32)
[2022-06-01] MEDS: FLUoxetine HCl Oral Solution 20 MG/5 ML SOLUTION 10 MG PO (08:32)
[2022-06-01] MEDS: amLODIPine Besylate 10 MG TABLET PO (08:32)
[2022-06-01] MEDS: OLANZapine 10 MG TABLET PO ×2 (08:33→20:19)
[2022-06-01] MEDS: OXcarbazepine 300 MG TABLET PO ×2 (08:33→20:19)
[2022-06-01] MEDS: Acetaminophen 325 MG TABLET 650 MG PO (09:25)
--- NOTE | 2022-06-01 13:18 | P.PNPSI_ITS ---
Subjective Subjective Date of Service: 06/01/22 Reason For Visit: omar/SI Subjective Notes: Section 7 Interim History: Chart reviewed. Discussed with Nursing. Overall no acute issues. Still feels that she is gradually getting better. Out of room, attending groups and taking care of self better. He is asking about having Prozac liquid changed to capsules. Feeling supported. Sleep energy and appetite gradually improving. Medication Compliance: Yes Side effects from medications: No Attending Groups: Yes Review of Systems Acute medical concerns: No Review of Systems Review of Systems Unremarkable Mental Status Exam Mental Status Exam Narrative: Pleasant. Engaged. Organized. Reports feeling less depressed. Affect reactive. No SI. No HI. No agitation or psychosis. Insight judgment fair Diagnostics Vital Signs (24Hr): Vital Signs - 24 hr 05/31/22 15:50 06/01/22 06:00 Temperature 97.7 F 99.4 F Pulse Rate 114 H 90 Respiratory Rate 18 Blood Pressure 177/103 H 177/104 H Pulse Oximetry 99 Oxygen Delivery Method Room Air BMI result Body Mass Index 26.6 Labs Results: 05/19/22 12:36 05/19/22 12:36 Medications Medications Current Medications Acetaminophen (Acetaminophen 325 Mg Tablet) 650 mg PO Q6H PRN PRN Reason: Headache/Pain Mild Scale (1-3) Last Admin: 06/01/22 09:25 Dose: 650 mg Al Hydroxide/Mg Hydroxide (Magnesium Hydrox/Alum Hydrox 30 Ml Oral.Susp) 30 ml PO Q6H PRN PRN Reason: Heartburn/Nausea Amlodipine Besylate (Amlodipine Besylate 10 Mg Tablet) 10 mg PO DAILY [facility]; Protocol Last Admin: 06/01/22 08:32 Dose: 10 mg Cariprazine (Cariprazine Hcl 3 Mg Capsule) 3 mg PO DAILY [facility] Last Admin: 06/01/22 08:32 Dose: 3 mg Diphenhydramine HCl (Diphenhydramine Hcl 25 Mg Tablet) 50 mg PO Q4H PRN PRN Reason: agitation Fluoxetine HCl (Fluoxetine Hcl Oral Solution 20 Mg/5 Ml Solution) 10 mg PO DAILY [facility] Last Admin: 06/01/22 08:32 Dose: 10 mg Haloperidol (Haloperidol 5 Mg Tablet) 5 mg PO Q4H PRN PRN Reason: agitation Hydroxyzine HCl (Hydroxyzine Hcl 25 Mg Tablet) 25 mg PO Q6H PRN PRN Reason: Anxiety Last Admin: 05/21/22 13:23 Dose: 25 mg Magnesium Hydroxide (Milk Of Magnesia 30 Ml Oral.Susp) 30 ml PO DAILY PRN PRN Reason: Constipation Olanzapine (Olanzapine 5 Mg Tablet) 5 mg PO Q4H PRN PRN Reason: agitation, psychosis Last Admin: 05/22/22 13:38 Dose: 5 mg Olanzapine (Olanzapine 10 Mg Tablet) 10 mg PO BID [facility] Last Admin: 06/01/22 08:33 Dose: 10 mg Oxcarbazepine (Oxcarbazepine 300 Mg Tablet) 300 mg PO BID [facility] Last Admin: 06/01/22 08:33 Dose: 300 mg Trazodone HCl (Trazodone Hcl 50 Mg Tablet) 50 mg PO BEDTIME PRN PRN Reason: Insomnia Last Admin: 05/31/22 20:11 Dose: 50 mg Allergies Allergies Allergy/AdvReac Type Severity Reaction Status Date / Time No Known Allergies Allergy Verified 05/19/22 23:36 Assessment & Plan Assessment & Plan (1) Bipolar disorder: Status: Acute Code(s): F31.9 - Bipolar disorder, unspecified Plan 52 yo female, hx of bipolar disorder, [place] [address] [place] to [place] herself via motor vehicle. Reports poor sleep, appetite, poor ADL's, stopping meds and treatment and feeling hopeless and helpless. Plan: Collateral contact TDN- given Davis warning as we will need to file for civil commitment Medical review of current sx Olanzapine 5 mg bid Continue Haldol prn Trileptal 300 mg bid Flu Vaccine (pt request and accepted) Diagnostics 05/22/22- Continue alliance building with pt. Pt will have financial questions addressed so we may hopefully move forward with her treatment. Family is attempting to assure pt she is financially safe. 05/23/22- Continue current plan. 05/24/22- Lexapro 5 mg a.m. to begin 05/25. 05/25/22- Continue current plan 05/26/22- Continue alliance building, medication titration and attempts to align with OP supports. 05/27/22- No med changes 05/28/22- Vraylar 1.5 mg a.m. 05/30/22- Increase Vraylar to 3 mg 05/31. Discontinue Lexapro Prozac 10 mg daily 06/01/2022: Change Prozac liquid to capsules as per patient request I spent minutes with the patient and/or on the patient floor today, greater than?50% of which was spent counseling/coordinating care. Reason for contiued inpatient stay Substantial Risk for: rapid decompensation
[2022-06-01 15:59] VITALS: BP 153/89; PULSE 94; TEMP 36.7
--- NOTE | 2022-06-01 18:18 | PC.NURSE ---
Pt seen in doorway of room choking, LEENA Graham performed Heimlich manuver with positive effect. Pt stated she choked because the piece she ate was too big due to not having the correct utensils to cut up food. Pt is stable and safe.
[2022-06-01] MEDS: traZODone HCL 50 MG TABLET PO (20:42)
[2022-06-02] MEDS: FLUoxetine HCl 10 MG CAPSULE PO (08:20)
[2022-06-02] MEDS: Cariprazine HCl 3 MG CAPSULE PO (08:20)
[2022-06-02] MEDS: amLODIPine Besylate 10 MG TABLET PO (08:20)
[2022-06-02] MEDS: OLANZapine 10 MG TABLET PO ×2 (08:20→21:02)
[2022-06-02] MEDS: OXcarbazepine 300 MG TABLET PO ×2 (08:20→21:01)
[2022-06-02 09:03] VITALS: BP 177/91; PULSE 94; RESP 16; TEMP 37.1; O2SAT 94
--- NOTE | 2022-06-02 12:09 | PC.NURSE ---
pt retracted 3 day notice
--- NOTE | 2022-06-02 12:53 | PC.NURSE ---
pt aware of urine sample needed. has cup.
--- NOTE | 2022-06-02 12:59 | P.PNPSI_ITS ---
Subjective Subjective Date of Service: 06/02/22 Reason For Visit: omar/SI Subjective Notes: Conditional Voluntary Healthcare Proxy: No Guardianship: No Medical Problems Affecting Mental Status: No Interim History: Denies sx UTI. Appears brighter, however longer term SI- just wanting to Reporting a decrease in sleep-will try Prazosin as she reports it had worked in the past. Medication Compliance: Intermittent Side effects from medications: No Attending Groups: No Review of Systems Acute medical concerns: No Medical Review of Systems: unchanged Mental Status Exam Mental Status Exam Patient Appearance: Fatigued Patient Orientation: Person, Place, Time and Situation Level of Consciousness: Alert Patient Behavior: Talkative, Isolative and Good Eye Contact Mood Description: Depressed and Angry Affect Description: Flat Patient Cognition Impaired: No Ability to Follow Directions: Good Speech Pattern: Spontaneous Speech Memory Description: Episodic Impaired Hallucinations: None Delusions: Not Present Perceptual Disturbances: Depersonalization and Derealization Thought Process: Goal Oriented Thought Content: positive for Suicidal Ideation Depressive Symptoms: Increased Anxiety, Diff. Making Decisions, Increased Irritability, Difficulty Sleeping, Muscle Pain, Loss of Int. in Activity, Feelings of Worthlessness, Hopelessness, Isolating-Friends/Family, Feelings of Guilt, Unhappiness, Increased Fatigue, Thoughts of /Suicide, Low Self Esteem, Loss of Energy and Difficulty Concentrating Judgement: Poor Diagnostics Vital Signs (24Hr): Vital Signs - 24 hr 06/01/22 15:59 06/02/22 09:03 Temperature 98.1 F 98.8 F Pulse Rate 94 94 Respiratory Rate 16 Blood Pressure 153/89 H 177/91 H Pulse Oximetry 94 Oxygen Delivery Method Room Air BMI result Body Mass Index 26.6 Labs Results: 05/19/22 12:36 05/19/22 12:36 Medications Medications Current Medications Acetaminophen (Acetaminophen 325 Mg Tablet) 650 mg PO Q6H PRN PRN Reason: Headache/Pain Mild Scale (1-3) Last Admin: 06/01/22 09:25 Dose: 650 mg Al Hydroxide/Mg Hydroxide (Magnesium Hydrox/Alum Hydrox 30 Ml Oral.Susp) 30 ml PO Q6H PRN PRN Reason: Heartburn/Nausea Amlodipine Besylate (Amlodipine Besylate 10 Mg Tablet) 10 mg PO DAILY [facility]; Protocol Last Admin: 06/02/22 08:20 Dose: 10 mg Cariprazine (Cariprazine Hcl 3 Mg Capsule) 3 mg PO DAILY [facility] Last Admin: 06/02/22 08:20 Dose: 3 mg Diphenhydramine HCl (Diphenhydramine Hcl 25 Mg Capsule) 50 mg PO Q4H PRN PRN Reason: agitation Fluoxetine HCl (Fluoxetine Hcl 10 Mg Capsule) 10 mg PO DAILY [facility] Last Admin: 06/02/22 08:20 Dose: 10 mg Haloperidol (Haloperidol 5 Mg Tablet) 5 mg PO Q4H PRN PRN Reason: agitation Hydroxyzine HCl (Hydroxyzine Hcl 25 Mg Tablet) 25 mg PO Q6H PRN PRN Reason: Anxiety Last Admin: 05/21/22 13:23 Dose: 25 mg Magnesium Hydroxide (Milk Of Magnesia 30 Ml Oral.Susp) 30 ml PO DAILY PRN PRN Reason: Constipation Olanzapine (Olanzapine 5 Mg Tablet) 5 mg PO Q4H PRN PRN Reason: agitation, psychosis Last Admin: 05/22/22 13:38 Dose: 5 mg Olanzapine (Olanzapine 10 Mg Tablet) 10 mg PO BID [facility] Last Admin: 06/02/22 08:20 Dose: 10 mg Oxcarbazepine (Oxcarbazepine 300 Mg Tablet) 300 mg PO BID [facility] Last Admin: 06/02/22 08:20 Dose: 300 mg Trazodone HCl (Trazodone Hcl 50 Mg Tablet) 50 mg PO BEDTIME PRN PRN Reason: Insomnia Last Admin: 06/01/22 20:42 Dose: 50 mg Allergies Allergies Allergy/AdvReac Type Severity Reaction Status Date / Time No Known Allergies Allergy Verified 05/19/22 23:36 Assessment & Plan Assessment & Plan (1) Bipolar disorder: Status: Acute Code(s): F31.9 - Bipolar disorder, unspecified Plan 52 yo female, hx of bipolar disorder, found running [place] [address] [place] to [place] herself via motor vehicle. Reports poor sleep, appetite, poor ADL's, stopping meds and treatment and feeling hopeless and helpless. Plan: Collateral contact TDN- given Davis warning as we will need to file for civil commitment Medical review of current sx Olanzapine 5 mg bid Continue Haldol prn Trileptal 300 mg bid Flu Vaccine (pt request and accepted) Diagnostics 05/22/22- Continue alliance building with pt. Pt will have financial questions addressed so we may hopefully move forward with her treatment. Family is atte mpting to assure pt she is financially safe. 05/23/22- Continue current plan. 05/24/22- Lexapro 5 mg a.m. to begin 05/25. 05/25/22- Continue current plan 05/26/22- Continue alliance building, medication titration and attempts to align with OP supports. 05/27/22- No med changes 05/28/22- Vraylar 1.5 mg a.m. 05/30/22- Increase Vraylar to 3 mg 05/31. Discontinue Lexapro Prozac 10 mg daily 06/01/2022: Change Prozac liquid to capsules as per patient request 06/02/22: Prazosin 1 mg HS. I spent minutes with the patient and/or on the patient floor today, greater than?50% of which was spent counseling/coordinating care. Patient educated on: diagnosis, medication risk/benefits, therapeutic strategies and medical condition Informed Consent: further education needed Reason for contiued inpatient stay Substantial Risk for: harm to self, inability to function, rapid decompensation and med/psych decompensation
[2022-06-02 18:55] VITALS: BP 172/91; PULSE 99; RESP 16; TEMP 36.8; O2SAT 100
[2022-06-02] MEDS: Acetaminophen 325 MG TABLET 650 MG PO (21:02)
[2022-06-02] MEDS: traZODone HCL 50 MG TABLET PO (21:02)
[2022-06-02] MEDS: Prazosin HCL 1 MG CAPSULE PO (21:02)
[2022-06-02 21:15] VITALS: BP 138/81
[2022-06-02] MEDS: cloNIDine HCL 0.1 MG TABLET PO (21:15)
[2022-06-03 06:00] VITALS: BP 178/99; PULSE 99; RESP 16; TEMP 36.9; O2SAT 97
[2022-06-03] MEDS: OLANZapine 10 MG TABLET PO ×2 (09:00→20:21)
[2022-06-03] MEDS: Cariprazine HCl 3 MG CAPSULE PO (09:00)
[2022-06-03] MEDS: amLODIPine Besylate 10 MG TABLET PO (09:00)
[2022-06-03] MEDS: OXcarbazepine 300 MG TABLET PO ×2 (09:01→20:21)
[2022-06-03] MEDS: FLUoxetine HCl 10 MG CAPSULE PO (09:01)
[2022-06-03] MEDS: Milk of Magnesia 30 ML ORAL.SUSP PO (09:41)
[2022-06-03] MEDS: Acetaminophen 325 MG TABLET 650 MG PO (11:07)
--- NOTE | 2022-06-03 14:56 | HO.PSYCHPN ---
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 They are all gone (Parents, Brother). Discussed living with family her entire life and having a very structured existance with parents. When father last year, this left. Reports she was placed in SPED when in school and her mom did much of her homework when in college to help her. Also talked about the differences between the move to [place] last year vs living in urban [place] for her life- night and day , several losses, cultural changes, changes in the people she knew and personalities in general. All of you are kind-we are not like that in [place]. Discussed if she would be happier, non suicidal back in [place]. States family (aunt, cousin) are here and fears losing them to aging and , but I would be doing better if I were back in [place]. Discussed options, [facility], [facility]. Minimal interest. Medication Compliance: Intermittent Side effects from medications: No Attending Groups: No Review of Systems Acute medical concerns: No Medical Review of Systems: unchanged Mental Status Exam Mental Status Exam Patient Appearance: Fatigued Patient Orientation: Person, Place, Time and Situation Level of Consciousness: Alert Patient Behavior: Talkative, Isolative and Good Eye Contact Mood Description: Depressed and Angry Affect Description: Flat Patient Cognition Impaired: No Ability to Follow Directions: Good Speech Pattern: Spontaneous Speech Memory Description: Episodic Impaired Hallucinations: None Delusions: Not Present Perceptual Disturbances: Depersonalization and Derealization Thought Process: Goal Oriented Thought Content: positive for Suicidal Ideation Depressive Symptoms: Increased Anxiety, Diff. Making Decisions, Increased Irritability, Difficulty Sleeping, Muscle Pain, Loss of Int. in Activity, Feelings of Worthlessness, Hopelessness, Isolating-Friends/Family, Feelings of Guilt, Unhappiness, Increased Fatigue, Thoughts of /Suicide, Low Self Esteem, Loss of Energy and Difficulty Concentrating Judgement: Poor Diagnostics Vital Signs (24Hr): Vital Signs - 24 hr 06/02/22 18:55 06/02/22 21:15 06/03/22 06:00 Temperature 98.2 F 98.5 F Pulse Rate 99 99 Respiratory Rate 16 16 Blood Pressure 172/91 H 138/81 178/99 H Pulse Oximetry 100 97 Oxygen Delivery Method Room Air Room Air BMI result Body Mass Index 26.6 Labs Results: 05/19/22 12:36 05/19/22 12:36 Medications Medications Current Medications Acetaminophen (Acetaminophen 325 Mg Tablet) 650 mg PO Q6H PRN PRN Reason: Headache/Pain Mild Scale (1-3) Last Admin: 06/03/22 11:07 Dose: 650 mg Al Hydroxide/Mg Hydroxide (Magnesium Hydrox/Alum Hydrox 30 Ml Oral.Susp) 30 ml PO Q6H PRN PRN Reason: Heartburn/Nausea Amlodipine Besylate (Amlodipine Besylate 10 Mg Tablet) 10 mg PO DAILY [facility]; Protocol Last Admin: 06/03/22 09:00 Dose: 10 mg Cariprazine (Cariprazine Hcl 3 Mg Capsule) 3 mg PO DAILY [facility] Last Admin: 06/03/22 09:00 Dose: 3 mg Clonidine HCl (Clonidine Hcl 0.1 Mg Tablet) 0.1 mg PO DAILY [facility]; Protocol PRN Reason: HTN, hyperarousal Last Admin: 06/02/22 21:15 Dose: 0.1 mg Diphenhydramine HCl (Diphenhydramine Hcl 25 Mg Capsule) 50 mg PO Q4H PRN PRN Reason: agitation Fluoxetine HCl (Fluoxetine Hcl 10 Mg Capsule) 10 mg PO DAILY [facility] Last Admin: 06/03/22 09:01 Dose: 10 mg Haloperidol (Haloperidol 5 Mg Tablet) 5 mg PO Q4H PRN PRN Reason: agitation Hydroxyzine HCl (Hydroxyzine Hcl 25 Mg Tablet) 25 mg PO Q6H PRN PRN Reason: Anxiety Last Admin: 05/21/22 13:23 Dose: 25 mg Magnesium Hydroxide (Milk Of Magnesia 30 Ml Oral.Susp) 30 ml PO DAILY PRN PRN Reason: Constipation Last Admin: 06/03/22 09:41 Dose: 30 ml Olanzapine (Olanzapine 5 Mg Tablet) 5 mg PO Q4H PRN PRN Reason: agitation, psychosis Last Admin: 05/22/22 13:38 Dose: 5 mg Olanzapine (Olanzapine 10 Mg Tablet) 10 mg PO BID [facility] Last Admin: 06/03/22 09:00 Dose: 10 mg Oxcarbazepine (Oxcarbazepine 300 Mg Tablet) 300 mg PO BID [facility] Last Admin: 06/03/22 09:01 Dose: 300 mg Prazosin HCl (Prazosin Hcl 1 Mg Capsule) 1 mg PO BEDTIME [facility]; Protocol Last Admin: 06/02/22 21:02 Dose: 1 mg Trazodone HCl (Trazodone Hcl 50 Mg Tablet) 50 mg PO BEDTIME PRN PRN Reason: Insomnia Last Admin: 06/02/22 21:02 Dose: 50 mg Allergies Allergies Allergy/AdvReac Type Severity Reaction Status Date / Time No Known Allergies Allergy Verified 05/19/22 23:36 Assessment & Plan Assessment & Plan (1) Bipolar disorder: Status: Acute Code(s): F31.9 - Bipolar disorder, unspecified Plan 52 yo female, hx of bipolar disorder, found running [place] [address] [place] to [place] herself via motor vehicle. Reports poor sleep, appetite, poor ADL's, stopping meds and treatment and feeling hopeless and helpless. Plan: Collateral contact TDN- given Davis warning as we will need to file for civil commitment Medical review of current sx Olanzapine 5 mg bid Continue Haldol prn Trileptal 300 mg bid Flu Vaccine (pt request and accepted) Diagnostics 05/22/22- Continue alliance building with pt. Pt will have financial questions addressed so we may hopefully move forward with her treatment. Family is attempting to assure pt she is financially safe. 05/23/22- Continue current plan. 05/24/22- Lexapro 5 mg a.m. to begin 05/25. 05/25/22- Continue current plan 05/26/22- Continue alliance building, medication titration and attempts to align with OP supports. 05/27/22- No med changes 05/28/22- Vraylar 1.5 mg a.m. 05/30/22- Increase Vraylar to 3 mg 05/31. Discontinue Lexapro Prozac 10 mg daily 06/01/2022: Change Prozac liquid to capsules as per patient request 06/03/22: [place] building. I spent minutes with the patient and/or on the patient floor today, greater than?50% of which was spent counseling/coordinating care. Patient educated on: therapeutic strategies Informed Consent: further education needed Reason for contiued inpatient stay Substantial Risk for: harm to self, inability to function, rapid decompensation and med/psych decompensation
[2022-06-03 18:00] VITALS: BP 132/76; PULSE 105; TEMP 36.2; O2SAT 95
[2022-06-03] MEDS: Prazosin HCL 1 MG CAPSULE PO (20:21)
[2022-06-03] MEDS: traZODone HCL 50 MG TABLET PO (20:28)
[2022-06-04 09:13] VITALS: BP 147/96; PULSE 119; RESP 18; TEMP 37; O2SAT 97
--- NOTE | 2022-06-04 09:18 | PC.NURSE ---
Patient refused AM (09:00) medications. Pt stated I am not taking my medications. They don't Fucking work .
[2022-06-04 12:01] VITALS: TEMP 37.1
[2022-06-04 14:21] LABS: COVID-19 Test Positive (Negative); IDNOW Serial# 16C4AD1C
[2022-06-04] MEDS: Acetaminophen 325 MG TABLET 650 MG PO (16:32)
[2022-06-04 16:45] VITALS: TEMP 38.1
--- NOTE | 2022-06-04 19:27 | P.PNPSI_ITS ---
Subjective Subjective Date of Service: 06/04/22 Reason For Visit: omar/SI Subjective Notes: Conditional Voluntary and 3 Day Healthcare Proxy: No Guardianship: No Medical Problems Affecting Mental Status: No Interim History: Angry, irritable, reports sx of physical illness-ear ache, sore throat. COVID and throat culture ordered. Continues to state she just wants to . No SI on the unit. Agreed to [facility] case mgt application to be filed today. Isolative, no groups. Intermittent medication refusal. States she does not know how to live without her parents and brother. Tolerating Vraylar-will taper back on Olanzapine, continue prn. Will taper Trileptal. Titration when medical issues are clarified on 06/05. Medication Compliance: Intermittent Side effects from medications: No Attending Groups: No Review of Systems Acute medical concerns: No Ear ache, sore throat. Will get rapid strep and COVID test Medical Review of Systems: changed Review of Systems: as noted Review of Systems Constitutional: Reports body ache(s), Reports fatigue, Reports headache(s), Reports lethargy, Reports malaise and Reports weakness Reports headache(s), Reports sore throat and Reports other (ear ache) Reports headache(s) and Reports weakness Endocrine: Reports fatigue Mental Status Exam Mental Status Exam Patient Appearance: Fatigued Patient Orientation: Person, Place, Time and Situation Level of Consciousness: Alert Patient Behavior: Talkative, Isolative and Good Eye Contact Mood Description: Depressed and Angry Affect Description: Flat Patient Cognition Impaired: No Ability to Follow Directions: Good Speech Pattern: Spontaneous Speech Memory Description: Episodic Impaired Hallucinations: None Delusions: Not Present Perceptual Disturbances: Depersonalization and Derealization Thought Process: Goal Oriented Thought Content: positive for Suicidal Ideation Depressive Symptoms: Increased Anxiety, Diff. Making Decisions, Increased Irritability, Difficulty Sleeping, Muscle Pain, Loss of Int. in Activity, Feelings of Worthlessness, Hopelessness, Isolating-Friends/Family, Feelings of Guilt, Unhappiness, Increased Fatigue, Thoughts of /Suicide, Low Self Esteem, Loss of Energy and Difficulty Concentrating Judgement: Poor Diagnostics Vital Signs (24Hr): Vital Signs - 24 hr 06/03/22 18:00 06/04/22 09:13 06/04/22 12:01 Temperature 97.2 F 98.6 F 98.8 F Pulse Rate 105 H 119 H Respiratory Rate 18 Blood Pressure 132/76 147/96 H Pulse Oximetry 95 97 Oxygen Delivery Method Room Air Room Air BMI result Body Mass Index 26.6 Labs Results: 05/19/22 12:36 05/19/22 12:36 Labs: Laboratory Results - last 48 hr 06/04/22 13:50 COVID-19 ([facility]YA) Positive A COVID-19 Clin Com See Note Medications Medications Current Medications Acetaminophen (Acetaminophen 325 Mg Tablet) 650 mg PO Q6H PRN PRN Reason: Headache/Pain Mild Scale (1-3) Last Admin: 06/03/22 11:07 Dose: 650 mg Al Hydroxide/Mg Hydroxide (Magnesium Hydrox/Alum Hydrox 30 Ml Oral.Susp) 30 ml PO Q6H PRN PRN Reason: Heartburn/Nausea Amlodipine Besylate (Amlodipine Besylate 10 Mg Tablet) 10 mg PO DAILY [facility]; Pro tocol Last Admin: 06/04/22 09:18 Dose: Not Given Cariprazine (Cariprazine Hcl 3 Mg Capsule) 3 mg PO DAILY [facility] Last Admin: 06/04/22 09:18 Dose: Not Given Cefuroxime Axetil (Cefuroxime Axetil 250 Mg Tablet) 250 mg PO Q12H [facility] Last Admin: 06/04/22 13:41 Dose: 250 mg Clonidine HCl (Clonidine Hcl 0.1 Mg Tablet) 0.1 mg PO DAILY [facility]; Protocol PRN Reason: HTN, hyperarousal Last Admin: 06/02/22 21:15 Dose: 0.1 mg Diphenhydramine HCl (Diphenhydramine Hcl 25 Mg Capsule) 50 mg PO Q4H PRN PRN Reason: agitation Fluoxetine HCl (Fluoxetine Hcl 10 Mg Capsule) 10 mg PO DAILY [facility] Last Admin: 06/04/22 09:18 Dose: Not Given Haloperidol (Haloperidol 5 Mg Tablet) 5 mg PO Q4H PRN PRN Reason: agitation Hydroxyzine HCl (Hydroxyzine Hcl 25 Mg Tablet) 25 mg PO Q6H PRN PRN Reason: Anxiety Last Admin: 05/21/22 13:23 Dose: 25 mg Magnesium Hydroxide (Milk Of Magnesia 30 Ml Oral.Susp) 30 ml PO DAILY PRN PRN Reason: Constipation Last Admin: 06/03/22 09:41 Dose: 30 ml Olanzapine (Olanzapine 5 Mg Tablet) 5 mg PO Q4H PRN PRN Reason: agitation, psychosis Last Admin: 05/22/22 13:38 Dose: 5 mg Olanzapine (Olanzapine 10 Mg Tablet) 10 mg PO BID [facility] Last Admin: 06/04/22 09:18 Dose: Not Given Oxcarbazepine (Oxcarbazepine 300 Mg Tablet) 300 mg PO BID [facility] Last Admin: 06/04/22 09:18 Dose: Not Given Prazosin HCl (Prazosin Hcl 1 Mg Capsule) 1 mg PO BEDTIME [facility]; Protocol Last Admin: 06/03/22 20:21 Dose: 1 mg Trazodone HCl (Trazodone Hcl 50 Mg Tablet) 50 mg PO BEDTIME PRN PRN Reason: Insomnia Last Admin: 06/03/22 20:28 Dose: 50 mg Allergies Allergies Allergy/AdvReac Type Severity Reaction Status Date / Time No Known Allergies Allergy Verified 05/19/22 23:36 Assessment & Plan Assessment & Plan (1) Bipolar disorder: Status: Acute Code(s): F31.9 - Bipolar disorder, unspecified Plan 52 yo female, hx of bipolar disorder, found [place] [address] [place] to [place] herself via motor vehicle. Reports poor sleep, appetite, poor ADL's, stopping meds and treatment and feeling hopeless and helpless. Plan: Collateral contact TDN- given Davis warning as we will need to file for civil commitment Medical review of current sx Olanzapine 5 mg bid Continue Haldol prn Trileptal 300 mg bid Flu Vaccine (pt request and accepted) Diagnostics 05/22/22- Continue alliance building with pt. Pt will have financial questions addressed so we may hopefully move forward with her treatment. Family is attempting to assure pt she is financially safe. 05/23/22- Continue current plan. 05/24/22- Lexapro 5 mg a.m. to begin 05/25. 05/25/22- Continue current plan 05/26/22- Continue alliance building, medication titration and attempts to align with OP supports. 05/27/22- No med changes 05/28/22- Vraylar 1.5 mg a.m. 05/30/22- Increase Vraylar to 3 mg 05/31. Discontinue Lexapro Prozac 10 mg daily 06/01/2022: Change Prozac liquid to capsules as per patient request 06/04/22: [place] Olanzapine, continue prn, decrease Trileptal. Titrate Vraylar when health issues clarified on 06/05. Pending COVID, rapid strep Continue to monitor I spent minutes with the patient and/or on the patient floor today, greater than?50% of which was spent counseling/coordinating care. Patient educated on: medication risk/benefits and medical condition Informed Consent: further education needed Reason for contiued inpatient stay Substantial Risk for: harm to self, inability to function and med/psych decompensation
[2022-06-04 20:17] VITALS: BP 167/86; PULSE 118; TEMP 37.9; O2SAT 97
[2022-06-04] MEDS: Prazosin HCL 1 MG CAPSULE PO (20:44)
[2022-06-05 00:33] VITALS: BP 148/87; PULSE 110; TEMP 37.3; O2SAT 97
[2022-06-05] MEDS: FLUoxetine HCl 10 MG CAPSULE PO (09:01)
[2022-06-05] MEDS: amLODIPine Besylate 10 MG TABLET PO (09:01)
[2022-06-05] MEDS: OXcarbazepine 300 MG TABLET PO (09:01)
[2022-06-05] MEDS: Cariprazine HCl 3 MG CAPSULE PO (09:01)
[2022-06-05 10:38] VITALS: BP 129/83; PULSE 110; TEMP 38.1; O2SAT 95
[2022-06-05] MEDS: Milk of Magnesia 30 ML ORAL.SUSP PO (11:40)
--- NOTE | 2022-06-05 11:53 | P.PNPSI_ITS ---
Subjective Subjective Date of Service: 06/05/22 Reason For Visit: omar/SI Subjective Notes: Conditional Voluntary Healthcare Proxy: No Guardianship: No Medical Problems Affecting Mental Status: Yes (COVID) Interim History: Pt has remained depressed, withdrawn, angry, isolative with a few three day notice filings since admit. She has been clear in stating she will kill herself upon discharge as she has lost everything-parents, brother, with whom she resided with. She also has had to leave [place] for [place] and has not intgrated well there. Aunt and cousin are supportive. Cousin is POA and works with pt's finances. Cousin has reported that pt will be able to keep her apartment and has no financial issues which would cause homelessness at this time. Currently COVID + as of 06/04-possibly a contributor to mood and presentation. Today, angry, feeling ill, with cough, fever and anergy- I don't want to talk. Her concerns expressed to tw and team are constipation, racing of thoughts, poor sleep, cough and wanting discharge. Thus far, trials have not been helpful, compliance intermittent. Medication Compliance: Yes Side effects from medications: No (denies) Attending Groups: No Review of Systems COVID Medical Review of Systems: unchanged Mental Status Exam Mental Status Exam Patient Appearance: Fatigued Patient Orientation: Person, Place, Time and Situation Level of Consciousness: Alert Patient Behavior: Guarded, Anxious, Avoidant, Fatigued, Distractible, Isolative and Poor Eye Contact Mood Description: Withdrawn, Depressed, Fearful, Hostile and Sad Affect Description: Flat Patient Cognition Impaired: No Ability to Follow Directions: Good Speech Pattern: Spontaneous Speech Memory Description: Intact Hallucinations: None Delusions: Not Present Perceptual Disturbances: Depersonalization Thought Process: Racing Thought Content: positive for Suicidal Ideation (upon leaving) Depressive Symptoms: Loss of Int. in Activity, Isolating-Friends/Family, Unhappiness, Thoughts of /Suicide, Low Self Esteem and Loss of Energy Judgement: Poor Diagnostics Vital Signs (24Hr): Vital Signs - 24 hr 06/04/22 12:01 06/04/22 16:45 06/04/22 20:17 Temperature 98.8 F 100.5 F H 100.3 F Pulse Rate 118 H Blood Pressure 167/86 H Pulse Oximetry 97 Oxygen Delivery Method Room Air 06/05/22 00:33 06/05/22 10:38 Temperature 99.2 F 100.5 F H Pulse Rate 110 H 110 H Blood Pressure 148/87 H 129/83 Pulse Oximetry 97 95 Oxygen Delivery Method Room Air Room Air BMI result Body Mass Index 26.6 Labs Results: 05/19/22 12:36 05/19/22 12:36 Labs: Laboratory Results - last 48 hr 06/04/22 13:50 COVID-19 (DIVYA) Positive A COVID-19 Clin Com See Note Medications Medications Current Medications Acetaminophen (Acetaminophen 325 Mg Tablet) 650 mg PO Q6H PRN PRN Reason: Headache/Pain Mild Scale (1-3) Last Admin: 06/04/22 16:32 Dose: 650 mg Al Hydroxide/Mg Hydroxide (Magnesium Hydrox/Alum Hydrox 30 Ml Oral.Susp) 30 ml PO Q6H PRN PRN Reason: Heartburn/Nausea Amlodipine Besylate (Amlodipine Besylate 10 Mg Tablet) 10 mg PO DAILY BREN; Protocol Last Admin: 06/05/22 09:01 Dose: 10 mg Cariprazine (Cariprazine Hcl 1.5 Mg Capsule) 4.5 mg PO DAILY BREN Clonidine HCl (Clonidine Hcl 0.1 Mg Tablet) 0.1 mg PO DAILY PRN; Protocol PRN Reason: HTN, hyperarousal Last Admin: 06/02/22 21:15 Dose: 0.1 mg Diphenhydramine HCl (Diphenhydramine Hcl 25 Mg Capsule) 50 mg PO Q4H PRN PRN Reason: agitation Divalproex Sodium (Divalproex Sodium Er 250 Mg Tab.Er.24h) 250 mg PO BEDTIME BREN Docusate Sodium (Docusate Sodium 100 Mg Capsule) 100 mg PO BID BREN Guaifenesin (Guaifenesin 100 Mg/5 Ml Liquid) 5 ml PO Q4H PRN PRN Reason: cough Hydroxyzine HCl (Hydroxyzine Hcl 25 Mg Tablet) 25 mg PO Q6H PRN PRN Reason: Anxiety Last Admin: 05/21/22 13:23 Dose: 25 mg Magnesium Hydroxide (Milk Of Magnesia 30 Ml Oral.Susp) 30 ml PO DAILY PRN PRN Reason: Constipation Last Admin: 06/05/22 11:40 Dose: 30 ml Prazosin HCl (Prazosin Hcl 1 Mg Capsule) 1 mg PO BEDTIME BREN; Protocol Last Admin: 06/04/22 20:44 Dose: 1 mg Quetiapine Fumarate (Quetiapine Fumarate 100 Mg Tablet) 100 mg PO BEDTIME BREN Quetiapine Fumarate (Quetiapine Fumarate 50 Mg Tablet) 50 mg PO BID PRN PRN Reason: agitation Trazodone HCl (Trazodone Hcl 50 Mg Tablet) 50 mg PO BEDTIME PRN PRN Reason: Insomnia Last Admin: 06/03/22 20:28 Dose: 50 mg Allergies Allergies Allergy/AdvReac Type Severity Reaction Status Date / Time No Known Allergies Allergy Verified 05/19/22 23:36 Assessment & Plan Assessment & Plan (1) Bipolar disorder: Status: Acute Code(s): F31.9 - Bipolar disorder, unspecified Plan 52 yo female, hx of bipolar disorder, found running [place] [address] attempting to kill herself via motor vehicle. Reports poor sleep, appetite, poor ADL's, stopping meds and treatment and feeling hopeless and helpless. Plan: Collateral contact TDN- given Davis warning as we will need to file for civil commitment Medical review of current sx Olanzapine 5 mg bid Continue Haldol prn Trileptal 300 mg bid Flu Vaccine (pt request and accepted) Diagnostics 05/22/22- Continue alliance building with pt. Pt will have financial questions addressed so we may hopefully move forward with her treatment. Family is a ttempting to assure pt she is financially safe. 05/23/22- Continue current plan. 05/24/22- Lexapro 5 mg a.m. to begin 05/25. 05/25/22- Continue current plan 05/26/22- Continue alliance building, medication titration and attempts to align with OP supports. 05/27/22- No med changes 05/28/22- Vraylar 1.5 mg a.m. 05/30/22- Increase Vraylar to 3 mg 05/31. Discontinue Lexapro Prozac 10 mg daily 06/01/2022: Change Prozac liquid to capsules as per patient request 06/04/22: DC Olanzapine, continue prn, decrease Trileptal. Titrate Vraylar when health issues clarified on 06/05. Pending COVID, rapid strep Continue to monitor 06/05/22: Constipation- MOM prn and colace bid Racing thoughts-discontinue prozac, trileptal. Increase Vraylar to 4.5 mg Depakote ER 250 mg HS Sleep- Seroquel prn and HS Cough-Robitussin prn Discussed with Sabine Hurd [facility]- will complete insurance review on 06/06. I spent minutes with the patient and/or on the patient floor today, greater than?50% of which was spent counseling/coordinating care. Patient educated on: medication risk/benefits and therapeutic strategies Informed Consent: further education needed Reason for contiued inpatient stay Substantial Risk for: harm to self and med/psych decompensation
[2022-06-05 13:50] VITALS: TEMP 37.5
[2022-06-05] MEDS: guaiFENesin 100 MG/5 ML LIQUID PO (14:23)
[2022-06-05] MEDS: Acetaminophen 325 MG TABLET 650 MG PO (14:23)
[2022-06-05 16:50] VITALS: TEMP 37.5
[2022-06-05 22:15] VITALS: PULSE 84; RESP 20; TEMP 37.5; O2SAT 94
--- NOTE | 2022-06-05 22:54 | PC.NURSE ---
Patient initially refusing vials, with encouragement able to check oxygenation and temperature. NAD noted. Patient refusing all HS medications. Covering Psychiatric Provider aware.
[2022-06-06 06:00] VITALS: PULSE 90; O2SAT 96
[2022-06-06] MEDS: cloNIDine HCL 0.1 MG TABLET PO (10:53)
[2022-06-06] MEDS: Acetaminophen 325 MG TABLET 650 MG PO ×3 (10:53→20:53)
[2022-06-06] MEDS: QUEtiapine Fumarate 50 MG TABLET PO (10:56)
[2022-06-06] MEDS: Cariprazine HCl 1.5 MG CAPSULE 4.5 MG PO (10:56)
[2022-06-06] MEDS: guaiFENesin 100 MG/5 ML LIQUID PO ×2 (10:56→15:06)
[2022-06-06] MEDS: hydrOXYzine HCL 25 MG TABLET PO ×2 (10:56→20:53)
[2022-06-06] MEDS: amLODIPine Besylate 10 MG TABLET PO (10:57)
--- NOTE | 2022-06-06 15:00 | P.PNPSI_ITS ---
Subjective Subjective Date of Service: 06/06/22 Reason For Visit: omar/SI Subjective Notes: 3 Day Healthcare Proxy: No Guardianship: No Medical Problems Affecting Mental Status: No Interim History: More talkative in one to one today. Met with Alfonso JEFFERS and tw. Continues to report severe depression-differentiates this from COVID sx. Signed new CORWIN for aunt and cousin Review of medication changes again (made 06/05). Pt refused meds 06/05 so we will not make further changes at this time. When can I leave ? Discussed medicine refusal, several three day notice filings, no milieu participation (pre COVID) and clear message of intent to suicide when discharged, verbalized each time we have met. Reviewed concerns about safety, lack of participation, lack of progress, team concern for her life. Tearful, responds, I know. I am tired, and I don't know what to do. Encouraged to be consistent with treatment, get through [facility] with good self care and making needs known and then attempting to participate in her care. Pt able to talk about some interventions that will help her with comfort while recovering from COVID which were re-enforced. Medication Compliance: Intermittent Side effects from medications: No Attending Groups: No Review of Systems Acute medical concerns: Yes COVID Medical Review of Systems: unchanged Mental Status Exam Mental Status Exam Patient Appearance: Fatigued Patient Orientation: Person, Place, Time and Situation Level of Consciousness: Alert Patient Behavior: Talkative, Cooperative, Resistive to Care, Fatigued, Isolative and Crying Mood Description: Withdrawn, Depressed and Angry Affect Description: Flat Patient Cognition Impaired: Yes Ability to Follow Directions: Good Speech Pattern: Spontaneous Speech Memory Description: Intact Hallucinations: None Delusions: Not Present Perceptual Disturbances: Depersonalization and Derealization Thought Process: Racing Thought Content: positive for [place], positive for Circumstantial, positive for Perseveration and positive for Preoccupation Depressive Symptoms: Increased Anxiety, Diff. Making Decisions, Increased Irritability, Loss of Int. in Activity, Feelings of Worthlessness, Hopelessness, Isolating-Friends/Family, Feelings of Guilt, Unhappiness, Increased Fatigue, Tho ughts of /Suicide, Low Self Esteem and Loss of Energy Judgement: Poor Diagnostics Vital Signs (24Hr): Vital Signs - 24 hr 06/05/22 16:50 06/05/22 22:15 06/06/22 06:00 Temperature 99.5 F 99.5 F Pulse Rate 84 90 Respiratory Rate 20 Pulse Oximetry 94 96 Oxygen Delivery Method Room Air Room Air BMI result Body Mass Index 26.6 Labs Results: 05/19/22 12:36 05/19/22 12:36 Medications Medications Current Medications Acetaminophen (Acetaminophen 325 Mg Tablet) 650 mg PO Q6H PRN PRN Reason: Headache/Pain Mild Scale (1-3) Last Admin: 06/06/22 10:53 Dose: 650 mg Al Hydroxide/Mg Hydroxide (Magnesium Hydrox/Alum Hydrox 30 Ml Oral.Susp) 30 ml PO Q6H PRN PRN Reason: Heartburn/Nausea Amlodipine Besylate (Amlodipine Besylate 10 Mg Tablet) 10 mg PO DAILY [facility]; Protocol Last Admin: 06/06/22 10:57 Dose: 10 mg Cariprazine (Cariprazine Hcl 1.5 Mg Capsule) 4.5 mg PO DAILY [facility] Last Admin: 06/06/22 10:56 Dose: 4.5 mg Clonidine HCl (Clonidine Hcl 0.1 Mg Tablet) 0.1 mg PO DAILY PRN; Protocol PRN Reason: HTN, hyperarousal Last Admin: 06/06/22 10:53 Dose: 0.1 mg Diphenhydramine HCl (Diphenhydramine Hcl 25 Mg Capsule) 50 mg PO Q4H PRN PRN Reason: agitation Divalproex Sodium (Divalproex Sodium Er 250 Mg Tab.Er.24h) 250 mg PO BEDTIME [facility] Last Admin: 06/05/22 22:38 Dose: Not Given Docusate Sodium (Docusate Sodium 100 Mg Capsule) 100 mg PO BID [facility] Last Admin: 06/06/22 09:15 Dose: Not Given Guaifenesin (Guaifenesin 100 Mg/5 Ml Liquid) 5 ml PO Q4H PRN PRN Reason: cough Last Admin: 06/06/22 10:56 Dose: 5 ml Hydroxyzine HCl (Hydroxyzine Hcl 25 Mg Tablet) 25 mg PO Q6H PRN PRN Reason: Anxiety Last Admin: 06/06/22 10:56 Dose: 25 mg Magnesium Hydroxide (Milk Of Magnesia 30 Ml Oral.Susp) 30 ml PO DAILY PRN PRN Reason: Constipation Last Admin: 06/05/22 11:40 Dose: 30 ml Prazosin HCl (Prazosin Hcl 1 Mg Capsule) 1 mg PO BEDTIME BREN; Protocol Last Admin: 06/05/22 22:38 Dose: Not Given Quetiapine Fumarate (Quetiapine Fumarate 100 Mg Tablet) 100 mg PO BEDTIME BREN Last Admin: 06/05/22 22:39 Dose: Not Given Quetiapine Fumarate (Quetiapine Fumarate 50 Mg Tablet) 50 mg PO BID PRN PRN Reason: agitation Last Admin: 06/06/22 10:56 Dose: 50 mg Trazodone HCl (Trazodone Hcl 50 Mg Tablet) 50 mg PO BEDTIME PRN PRN Reason: Insomnia Last Admin: 06/03/22 20:28 Dose: 50 mg Allergies Allergies Allergy/AdvReac Type Severity Reaction Status Date / Time No Known Allergies Allergy Verified 05/19/22 23:36 Assessment & Plan Assessment & Plan (1) Bipolar disorder: Status: Acute Code(s): F31.9 - Bipolar disorder, unspecified Plan 52 yo female, hx of bipolar disorder, found [place] [address] [place] to [place] herself via motor vehicle. Reports poor sleep, appetite, poor ADL's, stopping meds and treatment and feeling hopeless and helpless. Plan: Collateral contact TDN- given Davis warning as we will need to file for civil commitment Medical review of current sx Olanzapine 5 mg bid Continue Haldol prn Trileptal 300 mg bid Flu Vaccine (pt request and accepted) Diagnostics 05/22/22- Continue alliance building with pt. Pt will have financial questions addressed so we may hopefully move forward with her treatment. Family is attempt ing to assure pt she is financially safe. 05/23/22- Continue current plan. 05/24/22- Lexapro 5 mg a.m. to begin 05/25. 05/25/22- Continue current plan 05/26/22- Continue alliance building, medication titration and attempts to align with OP supports. 05/27/22- No med changes 05/28/22- Vraylar 1.5 mg a.m. 05/30/22- Increase Vraylar to 3 mg 05/31. Discontinue Lexapro Prozac 10 mg daily 06/01/2022: Change Prozac liquid to capsules as per patient request 06/04/22: DC Olanzapine, continue prn, decrease Trileptal. Titrate Vraylar when health issues clarified on 06/05. Pending COVID, rapid strep Continue to monitor 06/05/22: Constipation- MOM prn and colace bid Racing thoughts-discontinue prozac, trileptal. Increase Vraylar to 4.5 mg Depakote ER 250 mg HS Sleep- Seroquel prn and HS Cough-Robitussin prn Discussed with Sabine Hurd [facility]- will complete insurance review on 06/06. 06/06/22: No changes as pt refused meds 06/05. No word today from pts insurance company for this radio script writer to review. I spent minutes with the patient and/or on the patient floor today, greater than?50% of which was spent counseling/coordinating care. Patient educated on: medication risk/benefits and therapeutic strategies Informed Consent: further education needed Reason for contiued inpatient stay Substantial Risk for: harm to self, rapid decompensation and med/psych decompensation
[2022-06-06 20:00] VITALS: BP 129/70; PULSE 89; RESP 18; TEMP 36.6; O2SAT 96
[2022-06-06] MEDS: QUEtiapine Fumarate 100 MG TABLET PO (20:53)
[2022-06-06] MEDS: Divalproex Sodium ER 250 MG TAB.ER.24H PO (20:53)
[2022-06-06] MEDS: traZODone HCL 50 MG TABLET PO (20:53)
[2022-06-06] MEDS: Docusate Sodium 100 MG CAPSULE PO (20:53)
[2022-06-06] MEDS: Prazosin HCL 1 MG CAPSULE PO (20:53)
[2022-06-07 06:00] VITALS: BP 103/57; PULSE 97; TEMP 37.7; O2SAT 96
[2022-06-07] MEDS: Cariprazine HCl 1.5 MG CAPSULE 4.5 MG PO (08:41)
[2022-06-07] MEDS: Docusate Sodium 100 MG CAPSULE PO ×2 (08:41→22:15)
[2022-06-07] MEDS: Milk of Magnesia 30 ML ORAL.SUSP PO (08:41)
[2022-06-07] MEDS: amLODIPine Besylate 10 MG TABLET PO (08:42)
--- NOTE | 2022-06-07 09:35 | P.PNPSI_ITS ---
Subjective Subjective Date of Service: 06/07/22 Reason For Visit: omar/SI Subjective Notes: Conditional Voluntary Healthcare Proxy: No Guardianship: No Medical Problems Affecting Mental Status: Yes Interim History: Patient was seen and discussed in rounds today. Records and plans were revie thu. She remains in isolation because of being COVID positive. She has been anxious and depressed. She continues to be doing better, being less guarded. She states that she has been constipated for over a week. I will put her on some lactulose 30 mL b.i.d.. Eating and sleeping adequately. No overt COVID symptoms other than a sore throat. Medication Compliance: Intermittent Side effects from medications: No Attending Groups: No Review of Systems CIVID Review of Systems Constitutional: Reports body ache(s), Reports fatigue, Reports headache(s), Reports lethargy, Reports malaise and Reports weakness Reports headache(s), Reports sore throat and Reports other (ear ache) Reports headache(s) and Reports weakness Endocrine: Reports fatigue Mental Status Exam Mental Status Exam Narrative: In today's visit she is alert, oriented and pleasant. Normal speech. Good eye contact. Affect is appropriate and subdued. No signs of psychosis. Passive SI with no plan. Cognitively is intact. Judgment is intact Diagnostics Vital Signs (24Hr): Vital Signs - 24 hr 06/06/22 20:00 06/07/22 06:00 Temperature 97.9 F 99.8 F Pulse Rate 89 97 Respiratory Rate 18 Blood Pressure 129/70 103/57 L Pulse Oximetry 96 96 Oxygen Delivery Method Room Air Room Air BMI result Body Mass Index 26.6 Labs Results: 05/19/22 12:36 05/19/22 12:36 Medications Medications Current Medications Acetaminophen (Acetaminophen 325 Mg Tablet) 650 mg PO Q6H PRN PRN Reason: Headache/Pain Mild Scale (1-3) Last Admin: 06/06/22 20:53 Dose: 650 mg Al Hydroxide/Mg Hydroxide (Magnesium Hydrox/Alum Hydrox 30 Ml Oral.Susp) 30 ml PO Q6H PRN PRN Reason: Heartburn/Nausea Amlodipine Besylate (Amlodipine Besylate 10 Mg Tablet) 10 mg PO DAILY BREN; Protocol Last Admin: 06/07/22 08:42 Dose: 10 mg Cariprazine (Cariprazine Hcl 1.5 Mg Capsule) 4.5 mg PO DAILY [facility] Last Admin: 06/07/22 08:41 Dose: 4.5 mg Clonidine HCl (Clonidine Hcl 0.1 Mg Tablet) 0.1 mg PO DAILY PRN; Protocol PRN Reason: HTN, hyperarousal Last Admin: 06/06/22 10:53 Dose: 0.1 mg Diphenhydramine HCl (Diphenhydramine Hcl 25 Mg Capsule) 50 mg PO Q4H PRN PRN Reason: agitation Divalproex Sodium (Divalproex Sodium Er 250 Mg Tab.Er.24h) 250 mg PO BEDTIME BREN Last Admin: 06/06/22 20:53 Dose: 250 mg Docusate Sodium (Docusate Sodium 100 Mg Capsule) 100 mg PO BID BREN Last Admin: 06/07/22 08:41 Dose: 100 mg Guaifenesin (Guaifenesin 100 Mg/5 Ml Liquid) 5 ml PO Q4H PRN PRN Reason: cough Last Admin: 06/06/22 15:06 Dose: 5 ml Hydroxyzine HCl (Hydroxyzine Hcl 25 Mg Tablet) 25 mg PO Q6H PRN PRN Reason: Anxiety Last Admin: 06/06/22 20:53 Dose: 25 mg Magnesium Hydroxide (Milk Of Magnesia 30 Ml Oral.Susp) 30 ml PO DAILY PRN PRN Reason: Constipation Last Admin: 06/07/22 08:41 Dose: 30 ml Prazosin HCl (Prazosin Hcl 1 Mg Capsule) 1 mg PO BEDTIME BREN; Protocol Last Admin: 06/06/22 20:53 Dose: 1 mg Quetiapine Fumarate (Quetiapine Fumarate 100 Mg Tablet) 100 mg PO BEDTIME BREN Last Admin: 06/06/22 20:53 Dose: 100 mg Quetiapine Fumarate (Quetiapine Fumarate 50 Mg Tablet) 50 mg PO BID PRN PRN Reason: agitation Last Admin: 06/06/22 10:56 Dose: 50 mg Trazodone HCl (Trazodone Hcl 50 Mg Tablet) 50 mg PO BEDTIME PRN PRN Reason: Insomnia Last Admin: 06/06/22 20:53 Dose: 50 mg Allergies Allergies Allergy/AdvReac Type Severity Reaction Status Date / Time No Known Allergies Allergy Verified 05/19/22 23:36 Assessment & Plan Assessment & Plan (1) Bipolar disorder: Status: Acute Code(s): F31.9 - Bipolar disorder, unspecified Plan 52 yo female, hx of bipolar disorder, found [place] [address] [place] to [place] herself via motor vehicle. Reports poor sleep, appetite, poor ADL's, stopping meds and treatment and feeling hopeless and helpless. Plan: Collateral contact TDN- given Davis warning as we will need to file for civil commitment Medical review of current sx Olanzapine 5 mg bid Continue Haldol prn Trileptal 300 mg bid Flu Vaccine (pt request and accepted) Diagnostics 05/22/22- Continue alliance building with pt. Pt will have financial questions addressed so we may hopefully move forward with her treatment. Family is attempting to assure pt she is financially safe. 05/23/22- Continue current plan. 05/24/22- Lexapro 5 mg a.m. to begin 05/25. 05/25/22- Continue current plan 05/26/22- Continue alliance building, medication titration and attempts to align with OP supports. 05/27/22- No med changes 05/28/22- Vraylar 1.5 mg a.m. 05/30/22- Increase Vraylar to 3 mg 05/31. Discontinue Lexapro Prozac 10 mg daily 06/01/2022: Change Prozac liquid to capsules as per patient request 06/04/22: DC Olanzapine, continue prn, decrease Trileptal. Titrate Vraylar when health issues clarified on 06/05. Pending COVID, rapid strep Continue to monitor 06/05/22: Constipation- MOM prn and colace bid Racing thoughts-discontinue prozac, trileptal. Increase Vraylar to 4.5 mg Depakote ER 250 mg HS Sleep- Seroquel prn and HS Cough-Robitussin prn Discussed with Sabine Hurd [facility]- will complete insurance review on 06/06. 06/06/22: No changes as pt refused meds 06/05. No word today from pts insurance company for this marine underwriter to review. 06/07: Continue current regimen and plans. Started on lactulose for constipation I spent minutes with the patient and/or on the patient floor today, greater than?50% of which was spent counseling/coordinating care. Reason for contiued inpatient stay Substantial Risk for: med/psych decompensation
[2022-06-07 22:10] VITALS: BP 129/67; PULSE 91; RESP 16; TEMP 37.2; O2SAT 95
[2022-06-07] MEDS: Prazosin HCL 1 MG CAPSULE PO (22:15)
[2022-06-07] MEDS: Divalproex Sodium ER 250 MG TAB.ER.24H PO (22:15)
[2022-06-07] MEDS: QUEtiapine Fumarate 100 MG TABLET PO (22:15)
[2022-06-07] MEDS: Lactulose 20 GM/30 ML SOLUTION 30 GM PO (22:15)
[2022-06-07] MEDS: traZODone HCL 50 MG TABLET PO (23:50)
[2022-06-08 08:35] VITALS: BP 114/58; PULSE 86; RESP 18; TEMP 37.1; O2SAT 95
[2022-06-08] MEDS: Cariprazine HCl 1.5 MG CAPSULE 4.5 MG PO (08:37)
[2022-06-08] MEDS: amLODIPine Besylate 10 MG TABLET PO (08:37)
[2022-06-08] MEDS: Docusate Sodium 100 MG CAPSULE PO ×2 (08:37→20:35)
--- NOTE | 2022-06-08 09:57 | P.PNPSI_ITS ---
Subjective Subjective Date of Service: 06/08/22 Reason For Visit: omar/SI Subjective Notes: Conditional Voluntary Healthcare Proxy: No Guardianship: No Medical Problems Affecting Mental Status: Yes Interim History: Patient was seen and discussed in rounds today. Records and plans were revie thu. She has been stable and still only has a sore throat. Very slight temperature last evening. Continues to have anxiety. No active SI. No AVH. Eating and sleeping adequately. No changes were made today Medication Compliance: Intermittent Side effects from medications: No Attending Groups: No Review of Systems CIVID Review of Systems Review of Systems Except for sore throat and some ear pain Yes all other systems are reviewed and are negative Mental Status Exam Mental Status Exam Narrative: In today's visit she is alert, oriented and pleasant. Normal speech. Good eye contact. Affect is appropriate and subdued. No signs of psychosis. Passive SI with no plan. Cognitively is intact. Judgment is intact Diagnostics Vital Signs (24Hr): Vital Signs - 24 hr 06/07/22 22:10 06/08/22 08:35 Temperature 98.9 F 98.8 F Pulse Rate 91 86 Respiratory Rate 16 18 Blood Pressure 129/67 114/58 L Pulse Oximetry 95 95 Oxygen Delivery Method Room Air Room Air BMI result Body Mass Index 26.6 Labs Results: 05/19/22 12:36 05/19/22 12:36 Medications Medications Current Medications Acetaminophen (Acetaminophen 325 Mg Tablet) 650 mg PO Q6H PRN PRN Reason: Headache/Pain Mild Scale (1-3) Last Admin: 06/06/22 20:53 Dose: 650 mg Al Hydroxide/Mg Hydroxide (Magnesium Hydrox/Alum Hydrox 30 Ml Oral.Susp) 30 ml PO Q6H PRN PRN Reason: Heartburn/Nausea Amlodipine Besylate (Amlodipine Besylate 10 Mg Tablet) 10 mg PO DAILY BREN; Protocol Last Admin: 06/08/22 08:37 Dose: 10 mg Cariprazine (Cariprazine Hcl 1.5 Mg Capsule) 4.5 mg PO DAILY BREN Last Admin: 06/08/22 08:37 Dose: 4.5 mg Clonidine HCl (Clonidine Hcl 0.1 Mg Tablet) 0.1 mg PO DAILY PRN; Protocol PRN Reason: HTN, hyperarousal Last Admin: 06/06/22 10:53 Dose: 0.1 mg Diphenhydramine HCl (Diphenhydramine Hcl 25 Mg Capsule) 50 mg PO Q4H PRN PRN Reason: agitation Divalproex Sodium (Divalproex Sodium Er 250 Mg Tab.Er.24h) 250 mg PO BEDTIME BREN Last Admin: 06/07/22 22:15 Dose: 250 mg Docusate Sodium (Docusate Sodium 100 Mg Capsule) 100 mg PO BID BREN Last Admin: 06/08/22 08:37 Dose: 100 mg Guaifenesin (Guaifenesin 100 Mg/5 Ml Liquid) 5 ml PO Q4H PRN PRN Reason: cough Last Admin: 06/06/22 15:06 Dose: 5 ml Hydroxyzine HCl (Hydroxyzine Hcl 25 Mg Tablet) 25 mg PO Q6H PRN PRN Reason: Anxiety Last Admin: 06/06/22 20:53 Dose: 25 mg Lactulose (Lactulose 20 Gm/30 Ml Solution) 30 gm PO BID BREN Last Admin: 06/08/22 09:55 Dose: Not Given Magnesium Hydroxide (Milk Of Magnesia 30 Ml Oral.Susp) 30 ml PO DAILY PRN PRN Reason: Constipation Last Admin: 06/07/22 08:41 Dose: 30 ml Prazosin HCl (Prazosin Hcl 1 Mg Capsule) 1 mg PO BEDTIME BREN; Protocol Last Admin: 06/07/22 22:15 Dose: 1 mg Quetiapine Fumarate (Quetiapine Fumarate 100 Mg Tablet) 100 mg PO BEDTIME BREN Last Admin: 06/07/22 22:15 Dose: 100 mg Quetiapine Fumarate (Quetiapine Fumarate 50 Mg Tablet) 50 mg PO BID PRN PRN Reason: agitation Last Admin: 06/06/22 10:56 Dose: 50 mg Trazodone HCl (Trazodone Hcl 50 Mg Tablet) 50 mg PO BEDTIME PRN PRN Reason: Insomnia Last Admin: 06/07/22 23:50 Dose: 50 mg Allergies Allergies Allergy/AdvReac Type Severity Reaction Status Date / Time No Known Allergies Allergy Verified 05/19/22 23:36 Assessment & Plan Assessment & Plan (1) Bipolar disorder: Status: Acute Code(s): F31.9 - Bipolar disorder, unspecified Plan 52 yo female, hx of bipolar disorder, found [place] [address] [place] to kill herself via motor vehicle. Reports poor sleep, appetite, poor ADL's, stopping meds and treatment and feeling hopeless and helpless. Plan: Collateral contact TDN- given Davis warning as we will need to file for civil commitment Medical review of current sx Olanzapine 5 mg bid Continue Haldol prn Trileptal 300 mg bid Flu Vaccine (pt request and accepted) Diagnostics 05/22/22- Continue alliance building with pt. Pt will have financial questions addressed so we may hopefully move forward with her treatment. Family is attempting to assure pt she is financially safe. 05/23/22- Continue current plan. 05/24/22- Lexapro 5 mg a.m. to begin 05/25. 05/25/22- Continue current plan 05/26/22- Continue alliance building, medication titration and attempts to align with OP supports. 05/27/22- No med changes 05/28/22- Vraylar 1.5 mg a.m. 05/30/22- Increase Vraylar to 3 mg 05/31. Discontinue Lexapro Prozac 10 mg daily 06/01/2022: Change Prozac liquid to capsules as per patient request 06/04/22: DC Olanzapine, continue prn, decrease Trileptal. Titrate Vraylar when health issues clarified on 06/05. Pending COVID, rapid strep Continue to monitor 06/05/22: Constipation- MOM prn and colace bid Racing thoughts-discontinue prozac, trileptal. Increase Vraylar to 4.5 mg Depakote ER 250 mg HS Sleep- Seroquel prn and HS Cough-Robitussin prn Discussed with Sabine Hrud [facility] [place]- will complete insurance review on 06/06. 06/06/22: No changes as pt refused meds 06/05. No word today from pts insurance company for this specification writer to review. 06/07: Continue current regimen and plans. Started on lactulose for constipat ion 06/08: Continue current plans and regimen I spent minutes with the patient and/or on the patient floor today, greater than?50% of which was spent counseling/coordinating care. Reason for contiued inpatient stay Substantial Risk for: harm to self
[2022-06-08 20:15] VITALS: BP 174/79; PULSE 104; RESP 16; TEMP 36.9; O2SAT 98
[2022-06-08] MEDS: hydrOXYzine HCL 25 MG TABLET PO (20:34)
[2022-06-08] MEDS: QUEtiapine Fumarate 100 MG TABLET PO (20:34)
[2022-06-08] MEDS: traZODone HCL 50 MG TABLET PO (20:34)
[2022-06-08] MEDS: Divalproex Sodium ER 250 MG TAB.ER.24H PO (20:35)
[2022-06-08] MEDS: Prazosin HCL 1 MG CAPSULE PO (20:35)
[2022-06-08] MEDS: Lactulose 20 GM/30 ML SOLUTION 30 GM PO (20:35)
--- NOTE | 2022-06-09 09:14 | HO.PSYCHPN ---
Subjective Subjective Date of Service: 06/09/22 Reason For Visit: omar/SI Interim History: Patient reports that COVID symptoms remain mostly resolved, some congestion. She reports her mood is that she is just laying here. She continues to have passive wish that she just does not want to be here. Intermittently she will get more suicidal; currently she says that this feeling of not wanting to be here is more intense though she denies any plans or intention. Patient agrees to medication adjustments. Mental Status Exam Mental Status Exam Narrative: Pt is alert and oriented; behavior is cooperative, calm; patient is not in distress; dressed in hospital attire with unkempt hair but adequate hygiene; mood is described as just laying here ...depressed and affect congruent; eye contact appropriate; Speech is normal rate, volume and prosody and not pressured; psychomotor retardation present; thought process is organized and goal directed; Thought content is on wishing she were ; otherwise pertinent to relevant topics; no expressed delusional or paranoid ideations; +SI/ no HI; There is no evidence of perceptual disturbance. Patients insight and judgment are impaired. Diagnostics Vital Signs (24Hr): Vital Signs - 24 hr 06/08/22 20:15 Temperature 98.4 F Pulse Rate 104 H Respiratory Rate 16 Blood Pressure 174/79 H Pulse Oximetry 98 Oxygen Delivery Method Room Air BMI result Body Mass Index 26.6 Labs Results: 05/19/22 12:36 05/19/22 12:36 Medications Medications Current Medications Acetaminophen (Acetaminophen 325 Mg Tablet) 650 mg PO Q6H PRN PRN Reason: Headache/Pain Mild Scale (1-3) Last Admin: 06/06/22 20:53 Dose: 650 mg Al Hydroxide/Mg Hydroxide (Magnesium Hydrox/Alum Hydrox 30 Ml Oral.Susp) 30 ml PO Q6H PRN PRN Reason: Heartburn/Nausea Amlodipine Besylate (Amlodipine Besylate 10 Mg Tablet) 10 mg PO DAILY BREN; Protocol Last Admin: 06/08/22 08:37 Dose: 10 mg Cariprazine (Cariprazine Hcl 1.5 Mg Capsule) 4.5 mg PO DAILY BREN Last Admin: 06/08/22 08:37 Dose: 4.5 mg Clonidine HCl (Clonidine Hcl 0.1 Mg Tablet) 0.1 mg PO DAILY PRN; Protocol PRN Reason: HTN, hyperarousal Last Admin: 06/06/22 10:53 Dose: 0.1 mg Diphenhydramine HCl (Diphenhydramine Hcl 25 Mg Capsule) 50 mg PO Q4H PRN PRN Reason: agitation Divalproex Sodium (Divalproex Sodium Er 250 Mg Tab.Er.24h) 250 mg PO BEDTIME BREN Last Admin: 06/08/22 20:35 Dose: 250 mg Docusate Sodium (Docusate Sodium 100 Mg Capsule) 100 mg PO BID BREN Last Admin: 06/08/22 20:35 Dose: 100 mg Guaifenesin (Guaifenesin 100 Mg/5 Ml Liquid) 5 ml PO Q4H PRN PRN Reason: cough Last Admin: 06/06/22 15:06 Dose: 5 ml Hydroxyzine HCl (Hydroxyzine Hcl 25 Mg Tablet) 25 mg PO Q6H PRN PRN Reason: Anxiety Last Admin: 06/08/22 20:34 Dose: 25 mg Lactulose (Lactulose 20 Gm/30 Ml Solution) 30 gm PO BID BREN Last Admin: 06/08/22 20:35 Dose: 30 gm Magnesium Hydroxide (Milk Of Magnesia 30 Ml Oral.Susp) 30 ml PO DAILY PRN PRN Reason: Constipation Last Admin: 06/07/22 08:41 Dose: 30 ml Prazosin HCl (Prazosin Hcl 1 Mg Capsule) 1 mg PO BEDTIME BREN; Protocol Last Admin: 06/08/22 20:35 Dose: 1 mg Quetiapine Fumarate (Quetiapine Fumarate 100 Mg Tablet) 100 mg PO BEDTIME BREN Last Admin: 06/08/22 20:34 Dose: 100 mg Quetiapine Fumarate (Quetiapine Fumarate 50 Mg Tablet) 50 mg PO BID PRN PRN Reason: agitation Last Admin: 06/06/22 10:56 Dose: 50 mg Trazodone HCl (Trazodone Hcl 50 Mg Tablet) 50 mg PO BEDTIME PRN PRN Reason: Insomnia Last Admin: 06/08/22 20:34 Dose: 50 mg Allergies Allergies Allergy/AdvReac Type Severity Reaction Status Date / Time No Known Allergies Allergy Verified 05/19/22 23:36 Assessment & Plan Assessment & Plan (1) Bipolar disorder: Status: Acute Code(s): F31.9 - Bipolar disorder, unspecified Plan 52 yo female, hx of bipolar disorder, found running [place] traffic [place] [address] attempting to kill herself via motor vehicle. Reports poor sleep, appetite, poor ADL's, stopping meds and treatment and feeling hopeless and helpless. Plan: Collateral contact TDN- given [place] warning as we will need to file for civil commitment Medical review of current sx Olanzapine 5 mg bid Continue Haldol prn Trileptal 300 mg bid Flu Vaccine (pt request and accepted) Diagnostics 05/22/22- Continue alliance building with pt. Pt will have financial questions addressed so we may hopefully move forward with her treatment. Family is attempting to assure pt she is financially safe. 05/23/22- Continue current plan. 05/24/22- Lexapro 5 mg a.m. to begin 05/25. 05/25/22- Continue current plan 05/26/22- Continue alliance building, medication titration and attempts to align with OP supports. 05/27/22- No med changes 05/28/22- Vraylar 1.5 mg a.m. 05/30/22- Increase Vraylar to 3 mg 05/31. Discontinue Lexapro Prozac 10 mg daily 06/01/2022: Change Prozac liquid to capsules as per patient request 06/04/22: DC Olanzapine, continue prn, decrease Trileptal. Titrate Vraylar when health issues clarified on 06/05. Pending COVID, rapid strep Continue to monitor 06/05/22: Constipation- MOM prn and colace bid Racing thoughts-discontinue prozac, trileptal. Increase Vraylar to 4.5 mg Depakote ER 250 mg HS Sleep- Seroquel prn and HS Cough-Robitussin prn Discussed with Sabine Hurd [facility]- will complete insurance review on 06/06. 06/06/22: No changes as pt refused meds 06/05. No word today from pts insurance company for this typewriter tester to review. 06/07: Continue current regimen and plans. Started on lactulose for constipation 06/08: Continue current plans and regimen 06/09 patient remains depressed; passive wish with intermittent active SI; currently more intense wish however no plans or intention. Agrees to medication change -patient has diagnosis of bipolar disorder; will consider increasing Depakote as it is currently low-dose. I spent minutes with the patient and/or on the patient floor today, greater than?50% of which was spent counseling/coordinating care. Patient educated on: diagnosis, medication risk/benefits and medical condition Informed Consent: understands Reason for contiued inpatient stay Substantial Risk for: inability to function and rapid decompensation
[2022-06-09] MEDS: Docusate Sodium 100 MG CAPSULE PO ×2 (09:15→21:03)
[2022-06-09] MEDS: Cariprazine HCl 1.5 MG CAPSULE 4.5 MG PO (09:15)
[2022-06-09] MEDS: amLODIPine Besylate 10 MG TABLET PO (09:16)
[2022-06-09 09:42] VITALS: BP 134/81; PULSE 82; RESP 18; TEMP 37.1; O2SAT 96
[2022-06-09 10:13] LABS: Ammonia 33 umol/L (13-55)
[2022-06-09 10:16] LABS: Alanine Aminotransferase 26 U/L (0-31); Albumin Level 3.4 g/dL (3.5-5.0); Alkaline Phosphatase 94 U/L (39-117); Aspartate Amino Transferase 19 U/L (5-31); Bilirubin Direct < 0.2 mg/dL (0.0-0.5); Bilirubin Total 0.3 mg/dL (0.0-1.0)
[2022-06-09 11:01] LABS: Valproate 21.8 mcg/mL (50.0-100.0)
[2022-06-09] MEDS: Divalproex Sodium ER 250 MG TAB.ER.24H PO (12:43)
[2022-06-09 19:30] VITALS: BP 124/74; PULSE 67; RESP 16; TEMP 36.6; O2SAT 99
[2022-06-09] MEDS: QUEtiapine Fumarate 100 MG TABLET PO (21:03)
[2022-06-09] MEDS: Prazosin HCL 1 MG CAPSULE PO (21:03)
[2022-06-09] MEDS: Divalproex Sodium ER 500 MG TAB.ER.24H PO (21:03)
[2022-06-09] MEDS: traZODone HCL 50 MG TABLET PO (21:04)
[2022-06-10] MEDS: Docusate Sodium 100 MG CAPSULE PO ×2 (08:52→20:43)
[2022-06-10] MEDS: amLODIPine Besylate 10 MG TABLET PO (08:52)
[2022-06-10] MEDS: Cariprazine HCl 1.5 MG CAPSULE 4.5 MG PO (08:52)
[2022-06-10 09:00] VITALS: BP 140/89; PULSE 82; RESP 16; TEMP 36.8; O2SAT 98
--- NOTE | 2022-06-10 15:38 | P.PNPSI_ITS ---
Subjective Subjective Date of Service: 06/10/22 Reason For Visit: omar/SI Interim History: Patient reports I just do not want to be here.... I just do not want to be here and says that if she could figure out a way to kill herself she would do it. She says she has no plan while she is on the unit and has not left her bed much at all. She does agree to increasing Depakote further. Mental Status Exam Mental Status Exam Narrative: Pt is alert and oriented; behavior is cooperative, calm; patient is not in distress; dressed in hospital attire with unkempt hair, marginal hygiene; mood is described as don't want to be here...depressed and affect congruent; eye contact appropriate; Speech is normal rate, volume and prosody and not pressured; psychomotor retardation present; thought process is organized and goal directed; Thought content is on wishing she were ; otherwise pertinent to relevant topics; no expressed delusional or paranoid ideations; +SI/ no HI; There is no evidence of perceptual disturbance. Patients insight and judgment are impaired. Diagnostics Vital Signs (24Hr): Vital Signs - 24 hr 06/09/22 19:30 06/10/22 09:00 Temperature 97.9 F 98.3 F Pulse Rate 67 82 Respiratory Rate 16 16 Blood Pressure 124/74 140/89 H Pulse Oximetry 99 98 Oxygen Delivery Method Room Air Room Air BMI result Body Mass Index 26.6 Labs Results: 05/19/22 12:36 05/19/22 12:36 Labs: Laboratory Results - last 48 hr 06/09/22 06/09/22 09:50 09:50 Total Bilirubin 0.3 Direct Bilirubin < 0.2 AST 19 ALT 26 Alkaline Phosphatase 94 D Ammonia 33 Total Protein 6.0 L Albumin 3.4 L D Valproic Acid 21.8 L Medications Medications Current Medications Acetaminophen (Acetaminophen 325 Mg Tablet) 650 mg PO Q6H PRN PRN Reason: Headache/Pain Mild Scale (1-3) Last Admin: 06/06/22 20:53 Dose: 650 mg Al Hydroxide/Mg Hydroxide (Magnesium Hydrox/Alum Hydrox 30 Ml Oral.Susp) 30 ml PO Q6H PRN PRN Reason: Heartburn/Nausea Amlodipine Besylate (Amlodipine Besylate 10 Mg Tablet) 10 mg PO DAILY BREN; Protocol Last Admin: 06/10/22 08:52 Dose: 10 mg Cariprazine (Cariprazine Hcl 1.5 Mg Capsule) 4.5 mg PO DAILY BREN Last Admin: 06/10/22 08:52 Dose: 4.5 mg Clonidine HCl (Clonidine Hcl 0.1 Mg Tablet) 0.1 mg PO DAILY PRN; Protocol PRN Reason: HTN, hyperarousal Last Admin: 06/06/22 10:53 Dose: 0.1 mg Diphenhydramine HCl (Diphenhydramine Hcl 25 Mg Capsule) 50 mg PO Q4H PRN PRN Reason: agitation Divalproex Sodium (Divalproex Sodium Er 250 Mg Tab.Er.24h) 750 mg PO BEDTIME BREN Docusate Sodium (Docusate Sodium 100 Mg Capsule) 100 mg PO BID BREN Last Admin: 06/10/22 08:52 Dose: 100 mg Guaifenesin (Guaifenesin 100 Mg/5 Ml Liquid) 5 ml PO Q4H PRN PRN Reason: cough Last Admin: 06/06/22 15:06 Dose: 5 ml Hydroxyzine HCl (Hydroxyzine Hcl 25 Mg Tablet) 25 mg PO Q6H PRN PRN Reason: Anxiety Last Admin: 06/08/22 20:34 Dose: 25 mg Lactulose (Lactulose 20 Gm/30 Ml Solution) 30 gm PO BID BREN Last Admin: 06/10/22 08:59 Dose: Not Given Magnesium Hydroxide (Milk Of Magnesia 30 Ml Oral.Susp) 30 ml PO DAILY PRN PRN Reason: Constipation Last Admin: 06/07/22 08:41 Dose: 30 ml Prazosin HCl (Prazosin Hcl 1 Mg Capsule) 1 mg PO BEDTIME BREN; Protocol Last Admin: 06/09/22 21:03 Dose: 1 mg Quetiapine Fumarate (Quetiapine Fumarate 100 Mg Tablet) 100 mg PO BEDTIME BREN Last Admin: 06/09/22 21:03 Dose: 100 mg Quetiapine Fumarate (Quetiapine Fumarate 50 Mg Tablet) 50 mg PO BID PRN PRN Reason: agitation Last Admin: 06/06/22 10:56 Dose: 50 mg Trazodone HCl (Trazodone Hcl 50 Mg Tablet) 50 mg PO BEDTIME PRN PRN Reason: Insomnia Last Admin: 06/09/22 21:04 Dose: 50 mg Allergies Allergies Allergy/AdvReac Type Severity Reaction Status Date / Time No Known Allergies Allergy Verified 05/19/22 23:36 Assessment & Plan Assessment & Plan (1) Bipolar disorder: Status: Acute Code(s): F31.9 - Bipolar disorder, unspecified Plan 52 yo female, hx of bipolar disorder, found running [place] [address] attempting to [place] herself via motor vehicle. Reports poor sleep, appetite, poor ADL's, stopping meds and treatment and feeling hopeless and helpless. Plan: Collateral contact TDN- given [place] warning as we will need to file for civil commitment Medical review of current sx Olanzapine 5 mg bid Continue Haldol prn Trileptal 300 mg bid Flu Vaccine (pt request and accepted) Diagnostics 05/22/22- Continue alliance building with pt. Pt will have financial questions addressed so we may hopefully move forward with her treatment. Family is attempting to assure pt she is financially safe. 05/23/22- Continue current plan. 05/24/22- Lexapro 5 mg a.m. to begin 05/25. 05/25/22- Continue current plan 05/26/22- Continue alliance building, medication titration and attempts to align with OP supports. 05/27/22- No med changes 05/28/22- Vraylar 1.5 mg a.m. 05/30/22- Increase Vraylar to 3 mg 05/31. Discontinue Lexapro Prozac 10 mg daily 06/01/2022: Change Prozac liquid to capsules as per patient request 06/04/22: DC Olanzapine, continue prn, decrease Trileptal. Titrate Vraylar when health issues clarified on 06/05. Pending COVID, rapid strep Continue to monitor 06/05/22: Constipation- MOM prn and colace bid Racing thoughts-discontinue prozac, trileptal. Increase Vraylar to 4.5 mg Depakote ER 250 mg HS Sleep- Seroquel prn and HS Cough-Robitussin prn Discussed with Sabine Hurd [facility]- will complete insurance review on 06/06. 06/06/22: No changes as pt refused meds 06/05. No word today from pts insurance company for this principal technical writer to review. 06/07: Continue current regimen and plans. Started on lactulose for constipation 06/08: Continue current plans and regimen 06/09 patient remains depressed; passive wish with intermittent active SI; currently more intense wish however no plans or intention. Agrees to medication change -patient has diagnosis of bipolar disorder; will consider increasing Depakote as it is currently low-dose. 06/10 remains with SI, depressed. Agrees to increasing Depakote further Increased to Depakote ER 750 mg q.h.s. Labs ordered for Thursday I spent minutes with the patient and/or on the patient floor today, greater than?50% of which was spent counseling/coordinating care. Patient educated on: diagnosis and medication risk/benefits Informed Consent: understands Reason for contiued inpatient stay Substantial Risk for: harm to self
[2022-06-10 20:15] VITALS: BP 122/70; PULSE 79; RESP 18; O2SAT 97
[2022-06-10] MEDS: Prazosin HCL 1 MG CAPSULE PO (20:43)
[2022-06-10] MEDS: traZODone HCL 50 MG TABLET PO (20:44)
[2022-06-10] MEDS: QUEtiapine Fumarate 100 MG TABLET PO (20:44)
[2022-06-10] MEDS: Divalproex Sodium ER 250 MG TAB.ER.24H 750 MG PO (20:44)
[2022-06-11] MEDS: OLANZapine 10 MG VIAL IM (11:24)
[2022-06-11] MEDS: diphenhydrAMINE HCL 50 MG/ML VIAL IM (11:27)
[2022-06-11 11:44] VITALS: BP 121/70; PULSE 81; RESP 15; TEMP 36.5; O2SAT 97
--- NOTE | 2022-06-11 17:02 | HO.PSYCHPN ---
Subjective Subjective Date of Service: 06/11/22 Reason For Visit: omar/SI Subjective Notes: Conditional Voluntary Healthcare Proxy: No Guardianship: No Medical Problems Affecting Mental Status: No Interim History: I've had it. Angry, struggling with room-mate today, aggressive, requiring chemical restraint. Team report minimal compliance with treatment-meds, therapy Medication Compliance: Intermittent Side effects from medications: No Attending Groups: No Review of Systems COVID Medical Review of Systems: unchanged Review of Systems Review of Systems Yes Unobtainable due to mental status Mental Status Exam Mental Status Exam Patient Appearance: Fatigued Patient Orientation: Person, Place and Situation Level of Consciousness: Sedated and Alert Patient Behavior: Talkative, Resistive to Care and Poor Eye Contact Mood Description: Depressed and Angry Affect Description: Flat Patient Cognition Impaired: No Ability to Follow Directions: Fair Speech Pattern: Spontaneous Speech Memory Description: Episodic Impaired Hallucinations: None Thought Process: Racing and Rumination Thought Content: positive for Suicidal Ideation Depressive Symptoms: Increased Irritability, Thoughts of /Suicide, Loss of Energy and Difficulty Concentrating Judgement: Poor Diagnostics Vital Signs (24Hr): Vital Signs - 24 hr 06/10/22 20:15 06/11/22 11:44 Temperature 97.7 F Pulse Rate 79 81 Respiratory Rate 18 15 Blood Pressure 122/70 121/70 Pulse Oximetry 97 97 Oxygen Delivery Method Room Air Room Air BMI result Body Mass Index 26.6 Labs Results: 05/19/22 12:36 05/19/22 12:36 Medications Medications Current Medications Acetaminophen (Acetaminophen 325 Mg Tablet) 650 mg PO Q6H PRN PRN Reason: Headache/Pain Mild Scale (1-3) Last Admin: 06/06/22 20:53 Dose: 650 mg Al Hydroxide/Mg Hydroxide (Magnesium Hydrox/Alum Hydrox 30 Ml Oral.Susp) 30 ml PO Q6H PRN PRN Reason: Heartburn/Nausea Amlodipine Besylate (Amlodipine Besylate 10 Mg Tablet) 10 mg PO DAILY BREN; Protocol Last Admin: 06/11/22 10:07 Dose: Not Given Cariprazine (Cariprazine Hcl 1.5 Mg Capsule) 4.5 mg PO DAILY BREN Last Admin: 06/11/22 10:07 Dose: Not Given Clonidine HCl (Clonidine Hcl 0.1 Mg Tablet) 0.1 mg PO DAILY PRN; Protocol PRN Reason: HTN, hyperarousal Last Admin: 06/06/22 10:53 Dose: 0.1 mg Diphenhydramine HCl (Diphenhydramine Hcl 25 Mg Capsule) 50 mg PO Q4H PRN PRN Reason: agitation Divalproex Sodium (Divalproex Sodium Er 250 Mg Tab.Er.24h) 750 mg PO BEDTIME BREN Last Admin: 06/10/22 20:44 Dose: 750 mg Docusate Sodium (Docusate Sodium 100 Mg Capsule) 100 mg PO BID BREN Last Admin: 06/11/22 10:07 Dose: Not Given Guaifenesin (Guaifenesin 100 Mg/5 Ml Liquid) 5 ml PO Q4H PRN PRN Reason: cough Last Admin: 06/06/22 15:06 Dose: 5 ml Hydroxyzine HCl (Hydroxyzine Hcl 25 Mg Tablet) 25 mg PO Q6H PRN PRN Reason: Anxiety Last Admin: 06/08/22 20:34 Dose: 25 mg Lactulose (Lactulose 20 Gm/30 Ml Solution) 30 gm PO BID BREN Last Admin: 06/11/22 10:07 Dose: Not Given Magnesium Hydroxide (Milk Of Magnesia 30 Ml Oral.Susp) 30 ml PO DAILY PRN PRN Reason: Constipation Last Admin: 06/07/22 08:41 Dose: 30 ml Prazosin HCl (Prazosin Hcl 1 Mg Capsule) 1 mg PO BEDTIME BREN; Protocol Last Admin: 06/10/22 20:43 Dose: 1 mg Quetiapine Fumarate (Quetiapine Fumarate 100 Mg Tablet) 100 mg PO BEDTIME BREN Last Admin: 06/10/22 20:44 Dose: 100 mg Quetiapine Fumarate (Quetiapine Fumarate 50 Mg Tablet) 50 mg PO BID PRN PRN Reason: agitation Last Admin: 06/06/22 10:56 Dose: 50 mg Trazodone HCl (Trazodone Hcl 50 Mg Tablet) 50 mg PO BEDTIME PRN PRN Reason: Insomnia Last Admin: 06/10/22 20:44 Dose: 50 mg Allergies Allergies Allergy/AdvReac Type Severity Reaction Status Date / Time No Known Allergies Allergy Verified 05/19/22 23:36 Assessment & Plan Assessment & Plan (1) Bipolar disorder: Status: Acute Code(s): F31.9 - Bipolar disorder, unspecified Plan 52 yo female, hx of bipolar disorder, found running [place] [address] attempting to kill herself via motor vehicle. Reports poor sleep, appetite, poor ADL's, stopping meds and treatment and feeling hopeless and helpless. Plan: Collateral contact TDN- given Davis warning as we will need to file for civil commitment Medical review of current sx Olanzapine 5 mg bid Continue Haldol prn Trileptal 300 mg bid Flu Vaccine (pt request and accepted) Diagnostics 05/22/22- Continue alliance building with pt. Pt will have financial questions addressed so we may hopefully move forward with her treatment. Family is attempting to assure pt she is financially safe. 05/23/22- Continue current plan. 05/24/22- Lexapro 5 mg a.m. to begin 05/25. 05/25/22- Continue current plan 05/26/22- Continue alliance building, medication titration and attempts to align with OP supports. 05/27/22- No med changes 05/28/22- Vraylar 1.5 mg a.m. 05/30/22- Increase Vraylar to 3 mg 05/31. Discontinue Lexapro Prozac 10 mg daily 06/01/2022: Change Prozac liquid to capsules as per patient request 06/04/22: DC Olanzapine, continue prn, decrease Trileptal. Titrate Vraylar when health issues clarified on 06/05. Pending COVID, rapid strep Continue to monitor 06/05/22: Constipation- MOM prn and colace bid Racing thoughts-discontinue prozac, trileptal. Increase Vraylar to 4.5 mg Depakote ER 250 mg HS Sleep- Seroquel prn and HS Cough-Robitussin prn Discussed with Sabine Hurd [facility]- will complete insurance review on 06/06. 06/06/22: No changes as pt refused meds 06/05. No word today from pts insurance company for this technical document writer to review. 06/07: Continue current regimen and plans. Started on lactulose for constipation 06/08: Continue current plans and regimen 06/09 patient remains depressed; passive wish with intermittent active SI; currently more intense wish however no plans or intention. Agrees to medication change -patient has diagnosis of bipolar disorder; will consider increasing Depakote as it is currently low-dose. 06/10 remains with SI, depressed. Agrees to increasing Depakote further Increased to Depakote ER 750 mg q.h.s. Labs ordered for Thursday06/11/22- Refusing of medications, treatment today. Aggressive episode requiring IM Olanzapine/Benadryl. I spent minutes with the patient and/or on the patient floor today, greater than?50% of which was spent counseling/coordinating care. Informed Consent: further education needed Reason for contiued inpatient stay Substantial Risk for: harm to self, inability to function and rapid decompensation
--- NOTE | 2022-06-11 18:19 | PC.NURSE ---
Patient became upset at room mate for her behaviors and stood up , throwing her lunch tray at room mate, not hitting her. Pt was making vebal threats. Pt then began threatening staff with assault. When attempts were made to hear and calm pt, pt threw shoes at staff. Pt unable to calm and continued to threaten staff and peer. Pt attempting to walk over to peers bed. MD notified and medications ordered IM. Pt took IMs without difficulty and the pt received a room change. Pt given Zyprexa 10mg and Benadryl 50mg IM.
[2022-06-11] MEDS: QUEtiapine Fumarate 100 MG TABLET PO (20:59)
[2022-06-11] MEDS: Divalproex Sodium ER 250 MG TAB.ER.24H 750 MG PO (20:59)
[2022-06-11] MEDS: Docusate Sodium 100 MG CAPSULE PO (20:59)
[2022-06-11 21:03] VITALS: RESP 14
[2022-06-11] MEDS: traZODone HCL 50 MG TABLET PO (21:07)
--- NOTE | 2022-06-12 16:27 | HO.PSYCHPN ---
Subjective Subjective Date of Service: 06/12/22 Reason For Visit: omar/SI Subjective Notes: Conditional Voluntary Healthcare Proxy: No Guardianship: No Medical Problems Affecting Mental Status: No Interim History: Pt continues to refuse treatment, medications, milieu and today refused to return to as her COVID quarantine period is completed. Discussed with pt, Alfonso JEFFERS and pt's primary nursing home assistant administrator, Alondra. Pt presents with anger, sadness, irritability, resistance, hopelessness that no intervention will be a success. Discussed with pt revocation of CV status and asking the court for an opinion. Pt refused a family meeting, however, will still allow contact with her aunt and cousin. Long discussion with pt's cousin, Margot, who is her POA. Margot reports by history pt's moods do cycle- fall, holiday time being difficult for her. Last year, when in pt she was discharged for non compliance to father's care. Father offered half-way, but both did not get along (father spent most of his time with his partner whom pt did not approve of). Family believes she never really recovered from this episode. When father , family found pt to be in a severe hoarding situation with rotting food and inability to find clothing/shoes to wear (for example-pt told family she had no shoes-they found over 60 pair in the home). Since the move to [place], family has to set strict limits on her bringing things into the apartment-they have weekly cleaning help and spend much of their time helping pt to live as she is unable to live independently. Cousin reports pts mother had sabotaged pt from childhood, telling her that she wanted pt to be dependent upon her. Pt's mother had helped her earn her degree, get through tasks at her job and had no opportunity for learning independence. Since the move to [place], Margot and family have included pt as an immediate family member and have tried to integrate pt to offer her a sense of family-pt has not accepted this. They see her as more distant and, the quality of her SI and attempts have significantly changed from situations where pt used to set up situations where she would be found, now, with recent attempt-much greater planning and intent to succeed. Margot and her mother are available to pt and court as needed. Margot agrees that a [facility] referral is needed and agrees pt will most likely need a residential level of care in the future. Medication Compliance: Intermittent Side effects from medications: No Attending Groups: No Review of Systems Acute medical concerns: No Medical Review of Systems: unchanged Mental Status Exam Mental Status Exam Patient Appearance: Fatigued Patient Orientation: Person, Place, Time and Situation Level of Consciousness: Alert Patient Behavior: Suspicious, Anxious, Fearful, Resistive to Care, Avoidant, Fatigued, Distractible, Isolative, Uncooperative, Impulsive and Poor Eye Contact Mood Description: Depressed, Hostile, Labile, Angry and Sad Affect Description: Labile and Angry Patient Cognition Impaired: Yes Ability to Follow Directions: Fair Speech Pattern: Spontaneous Speech Memory Description: Episodic Impaired Hallucinations: None Delusions: Not Present Perceptual Disturbances: Depersonalization and Derealization Thought Process: Distracted, Rumination and Evasive Thought Content: positive for Racing, positive for [place], positive for Circumstantial, positive for Perseveration, positive for Preoccupation, positive for Slowed Thinking, positive for Evasive and positive for Suicidal Ideation Depressive Symptoms: Diff. Making Decisions, Increased Irritability, Sleeping More Than Usual, Significant Weight Loss, Loss of Int. in Activity, Feelings of Worthlessness, Hopelessness, Isolating-Friends/Family, Feelings of Guilt, Unhappiness, Increased Fatigue, Thoughts of /Suicide, Low Self Esteem, Loss of Energy and Difficulty Concentrating Abnormal Motor Activity Signs and Symptoms: Agitation Judgement: Poor Diagnostics Vital Signs (24Hr): Vital Signs - 24 hr 06/11/22 21:03 Respiratory Rate 14 BMI result Body Mass Index 26.6 Labs Results: 05/19/22 12:36 05/19/22 12:36 Medications Medications Current Medications Acetaminophen (Acetaminophen 325 Mg Tablet) 650 mg PO Q6H PRN PRN Reason: Headache/Pain Mild Scale (1-3) Last Admin: 06/06/22 20:53 Dose: 650 mg Al Hydroxide/Mg Hydroxide (Magnesium Hydrox/Alum Hydrox 30 Ml Oral.Susp) 30 ml PO Q6H PRN PRN Reason: Heartburn/Nausea Amlodipine Besylate (Amlodipine Besylate 10 Mg Tablet) 10 mg PO DAILY BREN; Protocol Last Admin: 06/12/22 09:59 Dose: Not Given Cariprazine (Cariprazine Hcl 1.5 Mg Capsule) 4.5 mg PO DAILY [facility] Last Admin: 06/12/22 09:59 Dose: Not Given Clonidine HCl (Clonidine Hcl 0.1 Mg Tablet) 0.1 mg PO DAILY PRN; Protocol PRN Reason: HTN, hyperarousal Last Admin: 06/06/22 10:53 Dose: 0.1 mg Diphenhydramine HCl (Diphenhydramine Hcl 25 Mg Capsule) 50 mg PO Q4H PRN PRN Reason: agitation Divalproex Sodium (Divalproex Sodium Er 250 Mg Tab.Er.24h) 750 mg PO BEDTIME BREN Last Admin: 06/11/22 20:59 Dose: 750 mg Docusate Sodium (Docusate Sodium 100 Mg Capsule) 100 mg PO BID BREN Last Admin: 06/12/22 09:59 Dose: Not Given Guaifenesin (Guaifenesin 100 Mg/5 Ml Liquid) 5 ml PO Q4H PRN PRN Reason: cough Last Admin: 06/06/22 15:06 Dose: 5 ml Hydroxyzine HCl (Hydroxyzine Hcl 25 Mg Tablet) 25 mg PO Q6H PRN PRN Reason: Anxiety Last Admin: 06/08/22 20:34 Dose: 25 mg Lactulose (Lactulose 20 Gm/30 Ml Solution) 30 gm PO BID BREN Last Admin: 06/12/22 09:59 Dose: Not Given Magnesium Hydroxide (Milk Of Magnesia 30 Ml Oral.Susp) 30 ml PO DAILY PRN PRN Reason: Constipation Last Admin: 06/07/22 08:41 Dose: 30 ml Prazosin HCl (Prazosin Hcl 1 Mg Capsule) 1 mg PO BEDTIME BREN; Protocol Last Admin: 06/11/22 23:52 Dose: Not Given Quetiapine Fumarate (Quetiapine Fumarate 100 Mg Tablet) 100 mg PO BEDTIME BREN Last Admin: 06/11/22 20:59 Dose: 100 mg Quetiapine Fumarate (Quetiapine Fumarate 50 Mg Tablet) 50 mg PO BID PRN PRN Reason: agitation Last Admin: 06/06/22 10:56 Dose: 50 mg Trazodone HCl (Trazodone Hcl 50 Mg Tablet) 50 mg PO BEDTIME PRN PRN Reason: Insomnia Last Admin: 06/11/22 21:07 Dose: 50 mg Allergies Allergies Allergy/AdvReac Type Severity Reaction Status Date / Time No Known Allergies Allergy Verified 05/19/22 23:36 Assessment & Plan Assessment & Plan (1) Bipolar disorder: Status: Acute Code(s): F31.9 - Bipolar disorder, unspecified Plan 52 yo female, hx of bipolar disorder, found running [place] traffic [place] [address] attempting to kill herself via motor vehicle. Reports poor sleep, appetite, poor ADL's, stopping meds and treatment and feeling hopeless and helpless. Plan: Collateral contact TDN- given [place] warning as we will need to file for civil commitment Medical review of current sx Olanzapine 5 mg bid Continue Haldol prn Trileptal 300 mg bid Flu Vaccine (pt request and accepted) Diagnostics 05/22/22- Continue alliance building with pt. Pt will have financial questions addressed so we may hopefully move forward with her treatment. Family is attempting to assure pt she is financially safe. 05/23/22- Continue current plan. 05/24/22- Lexapro 5 mg a.m. to begin 05/25. 05/25/22- Continue current plan 05/26/22- Continue alliance building, medication titration and attempts to align with OP supports. 05/27/22- No med changes 05/28/22- Vraylar 1.5 mg a.m. 05/30/22- Increase Vraylar to 3 mg 05/31. Discontinue Lexapro Prozac 10 mg daily 06/01/2022: Change Prozac liquid to capsules as per patient request 06/04/22: DC Olanzapine, continue prn, decrease Trileptal. Titrate Vraylar when health issues clarified on 06/05. Pending COVID, rapid strep Continue to monitor 06/05/22: Constipation- MOM prn and colace bid Racing thoughts-discontinue prozac, trileptal. Increase Vraylar to 4.5 mg Depakote ER 250 mg HS Sleep- Seroquel prn and HS Cough-Robitussin prn Discussed with Sabine Hurd [facility]- will complete insurance review on 06/06. 06/06/22: No changes as pt refused meds 06/05. No word today from pts insurance company for this board writer to review. 06/07: Continue current regimen and plans. Started on lactulose for constipation 06/08: Continue current plans and regimen 06/09 patient remains depressed; passive wish with intermittent active SI; currently more intense wish however no plans or intention. Agrees to medication change -patient has diagnosis of bipolar disorder; will consider increasing Depakote as it is currently low-dose. 06/10 remains with SI, depressed. Agrees to increasing Depakote further Increased to Depakote ER 750 mg q.h.s. Labs ordered for Thursday06/11/22- Refusing of medications, treatment today. Aggressive episode requiring IM Olanzapine/Benadryl. 06/12/22-Continues to refuse treatment. Discussed with pt's family. Will revoke CV and request Section 7/8 process begin. Family supports this. I spent minutes with the patient and/or on the patient floor today, greater than?50% of which was spent counseling/coordinating care. Patient educated on: therapeutic strategies Informed Consent: does not understand Reason for contiued inpatient stay Substantial Risk for: harm to self, inability to function, rapid decompensation and med/psych decompensation
[2022-06-12 21:10] VITALS: BP 133/72; PULSE 74; RESP 18; O2SAT 96
[2022-06-12] MEDS: Divalproex Sodium ER 250 MG TAB.ER.24H 750 MG PO (21:21)
[2022-06-12] MEDS: traZODone HCL 50 MG TABLET PO (21:22)
[2022-06-12] MEDS: QUEtiapine Fumarate 100 MG TABLET PO (21:22)
[2022-06-12] MEDS: QUEtiapine Fumarate 50 MG TABLET PO (21:22)
[2022-06-12] MEDS: Prazosin HCL 1 MG CAPSULE PO ×2 (21:31→21:39)
[2022-06-12] MEDS: Docusate Sodium 100 MG CAPSULE PO (21:39)
[2022-06-13 09:20] LABS: Ammonia 27 umol/L (13-55)
[2022-06-13 09:47] LABS: Alanine Aminotransferase 10 U/L (0-31); Albumin Level 3.6 g/dL (3.5-5.0); Alkaline Phosphatase 81 U/L (39-117); Aspartate Amino Transferase 15 U/L (5-31); Bilirubin Direct 0.2 mg/dL (0.0-0.5); Bilirubin Total 0.4 mg/dL (0.0-1.0); Total Protein 6.4 g/dL (6.5-8.0)
[2022-06-13] MEDS: Cariprazine HCl 1.5 MG CAPSULE 4.5 MG PO (10:05)
[2022-06-13 10:11] LABS: Valproate 79.1 mcg/mL (50.0-100.0)
--- NOTE | 2022-06-13 14:54 | HO.PSYCHPN ---
Subjective Subjective Date of Service: 06/13/22 Reason For Visit: omar/SI Subjective Notes: Section 7 Healthcare Proxy: No Guardianship: No Medical Problems Affecting Mental Status: No Interim History: Met with pt, her assistant director of nursing, Hazel, and Alfonso JEFFERS. We explained Section 7/8 and rationale which we filed today. Review of discussion with her cousin Review of investment to help her with current depressive symptoms, however, needing consistency in compliance and participation in milieu to make gains. She accepted this information and will consider. Medication Compliance: Intermittent Side effects from medications: No Attending Groups: No Review of Systems Acute medical concerns: No Recovering from COVID-19. Medical Review of Systems: unchanged Mental Status Exam Mental Status Exam Patient Appearance: Fatigued Patient Orientation: Person, Place, Time and Situation Level of Consciousness: Alert Patient Behavior: Suspicious, Anxious, Fearful, Resistive to Care, Avoidant, Fatigued, Distractible, Isolative, Uncooperative, Impulsive and Poor Eye Contact Mood Description: Depressed, Hostile, Labile, Angry and Sad Affect Description: Labile and Angry Patient Cognition Impaired: Yes Ability to Follow Directions: Fair Speech Pattern: Spontaneous Speech Memory Description: Episodic Impaired Hallucinations: None Delusions: Not Present Perceptual Disturbances: Depersonalization and Derealization Thought Process: Distracted, Rumination and Evasive Thought Content: positive for Racing, positive for [place], positive for Circumstantial, positive for Perseveration, positive for Preoccupation, positive for Slowed Thinking, positive for Evasive and positive for Suicidal Ideation Depressive Symptoms: Diff. Making Decisions, Increased Irritability, Sleeping More Than Usual, Significant Weight Loss, Loss of Int. in Activity, Feelings of Worthlessness, Hopelessness, Isolating-Friends/Family, Feelings of Guilt, Unhappiness, Increased Fatigue, Thoughts of /Suicide, Low Self Esteem, Loss of Energy and Difficulty Concentrating Abnormal Motor Activity Signs and Symptoms: Agitation Judgement: Poor Diagnostics Vital Signs (24Hr): Vital Signs - 24 hr 06/12/22 21:10 Pulse Rate 74 Respiratory Rate 18 Blood Pressure 133/72 Pulse Oximetry 96 Oxygen Delivery Method Room Air BMI result Body Mass Index 26.6 Labs Results: 05/19/22 12:36 05/19/22 12:36 Labs: Laboratory Results - last 48 hr 06/13/22 06/13/22 08:54 08:54 Total Bilirubin 0.4 Direct Bilirubin 0.2 AST 15 ALT 10 Alkaline Phosphatase 81 Ammonia 27 Total Protein 6.4 L Albumin 3.6 Valproic Acid 79.1 Medications Medications Current Medications Acetaminophen (Acetaminophen 325 Mg Tablet) 650 mg PO Q6H PRN PRN Reason: Headache/Pain Mild Scale (1-3) Last Admin: 06/06/22 20:53 Dose: 650 mg Al Hydroxide/Mg Hydroxide (Magnesium Hydrox/Alum Hydrox 30 Ml Oral.Susp) 30 ml PO Q6H PRN PRN Reason: Heartburn/Nausea Amlodipine Besylate (Amlodipine Besylate 10 Mg Tablet) 10 mg PO DAILY BREN; Protocol Last Admin: 06/13/22 10:04 Dose: Not Given Cariprazine (Cariprazine Hcl 1.5 Mg Capsule) 4.5 mg PO DAILY BREN Last Admin: 06/13/22 10:05 Dose: 4.5 mg Clonidine HCl (Clonidine Hcl 0.1 Mg Tablet) 0.1 mg PO DAILY PRN; Protocol PRN Reason: HTN, hyperarousal Last Admin: 06/06/22 10:53 Dose: 0.1 mg Diphenhydramine HCl (Diphenhydramine Hcl 25 Mg Capsule) 50 mg PO Q4H PRN PRN Reason: agitation Divalproex Sodium (Divalproex Sodium Er 250 Mg Tab.Er.24h) 750 mg PO BEDTIME BREN Last Admin: 06/12/22 21:21 Dose: 750 mg Docusate Sodium (Docusate Sodium 100 Mg Capsule) 100 mg PO BID [facility] Last Admin: 06/13/22 10:07 Dose: Not Given Guaifenesin (Guaifenesin 100 Mg/5 Ml Liquid) 5 ml PO Q4H PRN PRN Reason: cough Last Admin: 06/06/22 15:06 Dose: 5 ml Hydroxyzine HCl (Hydroxyzine Hcl 25 Mg Tablet) 25 mg PO Q6H PRN PRN Reason: Anxiety Last Admin: 06/08/22 20:34 Dose: 25 mg Lactulose (Lactulose 20 Gm/30 Ml Solution) 30 gm PO BID BREN Last Admin: 06/13/22 10:07 Dose: Not Given Magnesium Hydroxide (Milk Of Magnesia 30 Ml Oral.Susp) 30 ml PO DAILY PRN PRN Reason: Constipation Last Admin: 06/07/22 08:41 Dose: 30 ml Prazosin HCl (Prazosin Hcl 1 Mg Capsule) 1 mg PO BEDTIME BREN; Protocol Last Admin: 06/12/22 21:39 Dose: 1 mg Quetiapine Fumarate (Quetiapine Fumarate 100 Mg Tablet) 100 mg PO BEDTIME BREN Last Admin: 06/12/22 21:22 Dose: 100 mg Quetiapine Fumarate (Quetiapine Fumarate 50 Mg Tablet) 50 mg PO BID PRN PRN Reason: agitation Last Admin: 06/12/22 21:22 Dose: 50 mg Trazodone HCl (Trazodone Hcl 50 Mg Tablet) 50 mg PO BEDTIME PRN PRN Reason: Insomnia Last Admin: 06/12/22 21:22 Dose: 50 mg Allergies Allergies Allergy/AdvReac Type Severity Reaction Status Date / Time No Known Allergies Allergy Verified 05/19/22 23:36 Assessment & Plan Assessment & Plan (1) Bipolar disorder: Status: Acute Code(s): F31.9 - Bipolar disorder, unspecified Plan 52 yo female, hx of bipolar disorder, found running [place] [address] [place] to [place] herself via motor vehicle. Reports poor sleep, appetite, poor ADL's, stopping meds and treatment and feeling hopeless and helpless. Plan: Collateral contact TDN- given Davis warning as we will need to file for civil commitment Medical review of current sx Olanzapine 5 mg bid Continue Haldol prn Trileptal 300 mg bid Flu Vaccine (pt request and accepted) Diagnostics 05/22/22- Continue alliance building with pt. Pt will have financial questions addressed so we may hopefully move forward with her treatment. Family is attempting to assure pt she is financially safe. 05/23/22- Continue current plan. 05/24/22- Lexapro 5 mg a.m. to begin 05/25. 05/25/22- Continue current plan 05/26/22- Continue alliance building, medication titration and attempts to align with OP supports. 05/27/22- No med changes 05/28/22- Vraylar 1.5 mg a.m. 05/30/22- Increase Vraylar to 3 mg 05/31. Discontinue Lexapro Prozac 10 mg daily 06/01/2022: Change Prozac liquid to capsules as per patient request 06/04/22: DC Olanzapine, continue prn, decrease Trileptal. Titrate Vraylar when health issues clarified on 06/05. Pending COVID, rapid strep Continue to monitor 06/05/22: Constipation- MOM prn and colace bid Racing thoughts-discontinue prozac, trileptal. Increase Vraylar to 4.5 mg Depakote ER 250 mg HS Sleep- Seroquel prn and HS Cough-Robitussin prn Discussed with Sabine Hurd [facility]- will complete insurance review on 06/06. 06/06/22: No changes as pt refused meds 06/05. No word today from pts insurance company for this sports book writer to review. 06/07: Continue current regimen and plans. Started on lactulose for constipation 06/08: Continue current plans and regimen 06/09 patient remains depressed; passive wish with intermittent active SI; currently more intense wish however no plans or intention. Agrees to medication change -patient has diagnosis of bipolar disorder; will consider increasing Depakote as it is currently low-dose. 06/10 remains with SI, depressed. Agrees to increasing Depakote further Increased to Depakote ER 750 mg q.h.s. Labs ordered for Thursday06/11/22- Refusing of medications, treatment today. Aggressive episode requiring IM Olanzapine/Benadryl. 06/12/22-Continues to refuse treatment. Discussed with pt's family. Will revoke CV and request Section 7/8 process begin. Family supports this. 06/13/22. Section 7 filed. Continue to build alliance with pt around participation in her care. I spent minutes with the patient and/or on the patient floor today, greater than?50% of which was spent counseling/coordinating care. Patient educated on: therapeutic strategies and other (Section 7/8) Informed Consent: further education needed Reason for contiued inpatient stay Substantial Risk for: harm to self and rapid decompensation
[2022-06-13 20:45] VITALS: BP 147/80; PULSE 85; RESP 18; TEMP 36.4; O2SAT 99
[2022-06-13] MEDS: Prazosin HCL 1 MG CAPSULE PO (20:45)
[2022-06-13] MEDS: Divalproex Sodium ER 250 MG TAB.ER.24H 750 MG PO (20:45)
[2022-06-13] MEDS: traZODone HCL 50 MG TABLET PO (20:45)
[2022-06-13] MEDS: QUEtiapine Fumarate 50 MG TABLET PO (20:45)
[2022-06-13] MEDS: QUEtiapine Fumarate 100 MG TABLET PO (20:46)
[2022-06-13] MEDS: Docusate Sodium 100 MG CAPSULE PO (20:46)
[2022-06-14] MEDS: Cariprazine HCl 1.5 MG CAPSULE 4.5 MG PO (08:55)
[2022-06-14] MEDS: amLODIPine Besylate 10 MG TABLET PO (08:55)
[2022-06-14 09:07] VITALS: BP 127/68; PULSE 83; RESP 16; TEMP 36.6; O2SAT 97
--- NOTE | 2022-06-14 09:43 | P.PNPSI_ITS ---
Subjective Subjective Date of Service: 06/14/22 Reason For Visit: omar/SI Subjective Notes: Section 7 Interim History: Pt in bed but more visible on the unit. She attended first group since admission. Pt describes mood as depressed. She denies plan or intent to harm self on the unit but reports intermittent suicidal ideation. Pt slept well. Taking medications. Medication Compliance: Yes Side effects from medications: No Review of Systems Review of Systems Except for sore throat and some ear pain Yes all other systems are reviewed and are negative, Unobtainable due to mental condition and Unobtainable due to mental status Constitutional: Reports body ache(s), Reports difficulty sleeping, Reports fatigue, Reports headache(s), Reports lethargy, Reports malaise and Reports weakness Eyes: Reports no additional eye complaints Reports system reviewed and no additional complaints, except as documented, Reports headache(s), Reports sore throat and Reports other (ear ache) Cardiovascular: Reports other (HTN) Gastrointestinal: Reports other (IBS) Reports behavioral changes, Reports headache(s) and Reports weakness Psychiatric: Reports abnormal sleep pattern, Reports anxiety, Reports behavioral changes, Reports change in appetite, Reports depression, Reports difficulty concentrating, Reports hopelessness, Reports irritability, Reports anhedonia, Reports mood swings and Reports suicidal ideation Endocrine: Reports fatigue and Reports other (DM) Hematologic/Lymphatic: Reports no additional hematologic/lymphatic complaints Allergic/Immunologic: Reports no additional allergic/immunologic complaints Mental Status Exam Mental Status Exam Narrative: Pt is alert and oriented; behavior is cooperative, calm; patient is not in distress; dressed in hospital attire with unkempt hair, marginal hygiene; mood is described as depressed and affect congruent; eye contact appropriate; Speech is normal rate, volume and prosody and not pressured; psychomotor retardation present; thought process is organized and goal directed; Thought content is on wishing she were ; otherwise pertinent to relevant topics; no expressed delusional or paranoid ideations; +SI/ no HI; There is no evidence of perceptual disturbance. Patients insight and judgment are impaired. Diagnostics Vital Signs (24Hr): Vital Signs - 24 hr 06/15/22 08:11 06/15/22 19:30 Temperature 97.5 F 97.9 F Pulse Rate 84 86 Respiratory Rate 16 16 Blood Pressure 125/61 136/61 Pulse Oximetry 98 99 Oxygen Delivery Method Room Air Room Air BMI result Body Mass Index 26.6 Labs Results: 05/19/22 12:36 05/19/22 12:36 Medications Medications Current Medications Acetaminophen (Acetaminophen 325 Mg Tablet) 650 mg PO Q6H PRN PRN Reason: Headache/Pain Mild Scale (1-3) Last Admin: 06/06/22 20:53 Dose: 650 mg Al Hydroxide/Mg Hydroxide (Magnesium Hydrox/Alum Hydrox 30 Ml Oral.Susp) 30 ml PO Q6H PRN PRN Reason: Heartburn/Nausea Amlodipine Besylate (Amlodipine Besylate 10 Mg Tablet) 10 mg PO DAILY BREN; Protocol Last Admin: 06/15/22 08:27 Dose: 10 mg Cariprazine (Cariprazine Hcl 1.5 Mg Capsule) 4.5 mg PO DAILY BREN Last Admin: 06/15/22 08:27 Dose: 4.5 mg Clonidine HCl (Clonidine Hcl 0.1 Mg Tablet) 0.1 mg PO DAILY PRN; Protocol PRN Reason: HTN, hyperarousal Last Admin: 06/06/22 10:53 Dose: 0.1 mg Diphenhydramine HCl (Diphenhydramine Hcl 25 Mg Capsule) 50 mg PO Q4H PRN PRN Reason: agitation Divalproex Sodium (Divalproex Sodium Er 250 Mg Tab.Er.24h) 750 mg PO BEDTIME BREN Last Admin: 06/15/22 20:30 Dose: 750 mg Docusate Sodium (Docusate Sodium 100 Mg Capsule) 100 mg PO BID BREN Last Admin: 06/15/22 20:30 Dose: 100 mg Guaifenesin (Guaifenesin 100 Mg/5 Ml Liquid) 5 ml PO Q4H PRN PRN Reason: cough Last Admin: 06/06/22 15:06 Dose: 5 ml Hydroxyzine HCl (Hydroxyzine Hcl 25 Mg Tablet) 25 mg PO Q6H PRN PRN Reason: Anxiety Last Admin: 06/08/22 20:34 Dose: 25 mg Lactulose (Lactulose 20 Gm/30 Ml Solution) 30 gm PO BID BREN Last Admin: 06/15/22 20:34 Dose: 30 gm Magnesium Hydroxide (Milk Of Magnesia 30 Ml Oral.Susp) 30 ml PO DAILY PRN PRN Reason: Constipation Last Admin: 06/07/22 08:41 Dose: 30 ml Prazosin HCl (Prazosin Hcl 1 Mg Capsule) 1 mg PO BEDTIME BREN; Protocol Last Admin: 06/15/22 20:30 Dose: 1 mg Quetiapine Fumarate (Quetiapine Fumarate 100 Mg Tablet) 100 mg PO BEDTIME BREN Last Admin: 06/15/22 20:30 Dose: 100 mg Quetiapine Fumarate (Quetiapine Fumarate 50 Mg Tablet) 50 mg PO BID PRN PRN Reason: agitation Last Admin: 06/14/22 20:34 Dose: 50 mg Trazodone HCl (Trazodone Hcl 50 Mg Tablet) 50 mg PO BEDTIME PRN PRN Reason: Insomnia Last Admin: 06/15/22 20:30 Dose: 50 mg Allergies Allergies Allergy/AdvReac Type Severity Reaction Status Date / Time No Known Allergies Allergy Verified 05/19/22 23:36 Assessment & Plan Assessment & Plan (1) Bipolar disorder: Status: Acute Code(s): F31.9 - Bipolar disorder, unspecified Plan 52 yo female, hx of bipolar disorder, found running [place] [address] [place] to [place] herself via motor vehicle. Reports poor sleep, appetite, poor ADL's, stopping meds and treatment and feeling hopeless and helpless. Plan: Collateral contact TDN- given Davis warning as we will need to file for civil commitment Medical review of current sx Olanzapine 5 mg bid Continue Haldol prn Trileptal 300 mg bid Flu Vaccine (pt request and accepted) Diagnostics 05/22/22- Continue alliance building with pt. Pt will have financial questions addressed so we may hopefully move forward with her treatment. Family is attempting to assure pt she is financially safe. 05/23/22- Continue current plan. 05/24/22- Lexapro 5 mg a.m. to begin 05/25. 05/25/22- Continue current plan 05/26/22- Continue alliance building, medication titration and attempts to align with OP supports. 05/27/22- No med changes 05/28/22- Vraylar 1.5 mg a.m. 05/30/22- Increase Vraylar to 3 mg 05/31. Discontinue Lexapro Prozac 10 mg daily 06/01/2022: Change Prozac liquid to capsules as per patient request 06/04/22: DC Olanzapine, continue prn, decrease Trileptal. Titrate Vraylar when health issues clarified on 06/05. Pending COVID, rapid strep Continue to monitor 06/05/22: Constipation- MOM prn and colace bid Racing thoughts-discontinue prozac, trileptal. Increase Vraylar to 4.5 mg Depakote ER 250 mg HS Sleep- Seroquel prn and HS Cough-Robitussin prn Discussed with Sabine Hurd [facility]- will complete insurance review on 06/06. 06/06/22: No changes as pt refused meds 06/05. No word today from pts insurance company for this bid writer to review. 06/07: Continue current regimen and plans. Started on lactulose for c onstipation 06/08: Continue current plans and regimen 06/09 patient remains depressed; passive wish with intermittent active SI; currently more intense wish however no plans or intention. Agrees to medication change -patient has diagnosis of bipolar disorder; will consider increasing Depakote as it is currently low-dose. 06/10 remains with SI, depressed. Agrees to increasing Depakote further Increased to Depakote ER 750 mg q.h.s. Labs ordered for Thursday06/11/22- Refusing of medications, treatment today. Aggressive episode requiring IM Olanzapine/Benadryl. 06/12/22-Continues to refuse treatment. Discussed with pt's family. Will revoke CV and request Section 7/8 process begin. Family supports this. 06/13/22. Section 7 filed. Continue to build alliance with pt around participa tion in her care. 06/14 continue tx. I spent minutes with the patient and/or on the patient floor today, greater than?50% of which was spent counseling/coordinating care. Reason for contiued inpatient stay Substantial Risk for: harm to self
[2022-06-14 20:11] VITALS: BP 127/62; PULSE 80; RESP 18; TEMP 36.4; O2SAT 93
[2022-06-14] MEDS: Prazosin HCL 1 MG CAPSULE PO (20:33)
[2022-06-14] MEDS: Docusate Sodium 100 MG CAPSULE PO (20:33)
[2022-06-14] MEDS: traZODone HCL 50 MG TABLET PO (20:33)
[2022-06-14] MEDS: QUEtiapine Fumarate 50 MG TABLET PO (20:34)
[2022-06-14] MEDS: QUEtiapine Fumarate 100 MG TABLET PO (20:34)
[2022-06-14] MEDS: Divalproex Sodium ER 250 MG TAB.ER.24H 750 MG PO (20:34)
[2022-06-15 08:11] VITALS: BP 125/61; PULSE 84; RESP 16; TEMP 36.4; O2SAT 98
[2022-06-15] MEDS: Docusate Sodium 100 MG CAPSULE PO ×2 (08:27→20:30)
[2022-06-15] MEDS: amLODIPine Besylate 10 MG TABLET PO (08:27)
[2022-06-15] MEDS: Cariprazine HCl 1.5 MG CAPSULE 4.5 MG PO (08:27)
[2022-06-15] MEDS: Lactulose 20 GM/30 ML SOLUTION 30 GM PO ×2 (08:28→20:34)
--- NOTE | 2022-06-15 10:47 | HO.PSYCHPN ---
Subjective Subjective Date of Service: 06/15/22 Reason For Visit: omar/SI Subjective Notes: Section 7 Interim History: Pt in bed. Pt describes mood as depressed. She denies plan or intent to harm self on the unit but reports intermittent suicidal ideation. Pt slept well. Taking medications. No behavioral concerns. Poor hygiene, encouraged to be more visible today on the unit. Medication Compliance: Yes Side effects from medications: No Review of Systems Review of Systems Except for sore throat and some ear pain Yes all other systems are reviewed and are negative, Unobtainable due to mental condition and Unobtainable due to mental status Constitutional: Reports body ache(s), Reports difficulty sleeping, Reports fatigue, Reports headache(s), Reports lethargy, Reports malaise and Reports weakness Eyes: Reports no additional eye complaints Reports system reviewed and no additional complaints, except as documented, Reports headache(s), Reports sore throat and Reports other (ear ache) Cardiovascular: Reports other (HTN) Gastrointestinal: Reports other (IBS) Reports behavioral changes, Reports headache(s) and Reports weakness Psychiatric: Reports abnormal sleep pattern, Reports anxiety, Reports behavioral changes, Reports change in appetite, Reports depression, Reports difficulty concentrating, Reports hopelessness, Reports irritability, Reports anhedonia, Reports mood swings and Reports suicidal ideation Endocrine: Reports fatigue and Reports other (DM) Hematologic/Lymphatic: Reports no additional hematologic/lymphatic complaints Allergic/Immunologic: Reports no additional allergic/immunologic complaints Mental Status Exam Mental Status Exam Narrative: Pt is alert and oriented; behavior is cooperative, calm; patient is not in distress; dressed in hospital attire with unkempt hair, marginal hygiene; mood is described as depressed and affect congruent; eye contact appropriate; Speech is normal rate, volume and prosody and not pressured; psychomotor retardation present; thought process is organized and goal directed; Thought content is on wishing she were ; otherwise pertinent to relevant topics; no expressed delusional or paranoid ideations; +SI/ no HI; There is no evidence of perceptual disturbance. Patients insight and judgment are impaired. Diagnostics Vital Signs (24Hr): Vital Signs - 24 hr 06/15/22 08:11 06/15/22 19:30 Temperature 97.5 F 97.9 F Pulse Rate 84 86 Respiratory Rate 16 16 Blood Pressure 125/61 136/61 Pulse Oximetry 98 99 Oxygen Delivery Method Room Air Room Air BMI result Body Mass Index 26.6 Labs Results: 05/19/22 12:36 05/19/22 12:36 Medications Medications Current Medications Acetaminophen (Acetaminophen 325 Mg Tablet) 650 mg PO Q6H PRN PRN Reason: Headache/Pain Mild Scale (1-3) Last Admin: 06/06/22 20:53 Dose: 650 mg Al Hydroxide/Mg Hydroxide (Magnesium Hydrox/Alum Hydrox 30 Ml Oral.Susp) 30 ml PO Q6H PRN PRN Reason: Heartburn/Nausea Amlodipine Besylate (Amlodipine Besylate 10 Mg Tablet) 10 mg PO DAILY BREN; Protocol Last Admin: 06/15/22 08:27 Dose: 10 mg Cariprazine (Cariprazine Hcl 1.5 Mg Capsule) 4.5 mg PO DAILY BREN Last Admin: 06/15/22 08:27 Dose: 4.5 mg Clonidine HCl (Clonidine Hcl 0.1 Mg Tablet) 0.1 mg PO DAILY PRN; Protocol PRN Reason: HTN, hyperarousal Last Admin: 06/06/22 10:53 Dose: 0.1 mg Diphenhydramine HCl (Diphenhydramine Hcl 25 Mg Capsule) 50 mg PO Q4H PRN PRN Reason: agitation Divalproex Sodium (Divalproex Sodium Er 250 Mg Tab.Er.24h) 750 mg PO BEDTIME BREN Last Admin: 06/15/22 20:30 Dose: 750 mg Docusate Sodium (Docusate Sodium 100 Mg Capsule) 100 mg PO BID BREN Last Admin: 06/15/22 20:30 Dose: 100 mg Guaifenesin (Guaifenesin 100 Mg/5 Ml Liquid) 5 ml PO Q4H PRN PRN Reason: cough Last Admin: 06/06/22 15:06 Dose: 5 ml Hydroxyzine HCl (Hydroxyzine Hcl 25 Mg Tablet) 25 mg PO Q6H PRN PRN Reason: Anxiety Last Admin: 06/08/22 20:34 Dose: 25 mg Lactulose (Lactulose 20 Gm/30 Ml Solution) 30 gm PO BID BREN Last Admin: 06/15/22 20:34 Dose: 30 gm Magnesium Hydroxide (Milk Of Magnesia 30 Ml Oral.Susp) 30 ml PO DAILY PRN PRN Reason: Constipation Last Admin: 06/07/22 08:41 Dose: 30 ml Prazosin HCl (Prazosin Hcl 1 Mg Capsule) 1 mg PO BEDTIME BREN; Protocol Last Admin: 06/15/22 20:30 Dose: 1 mg Quetiapine Fumarate (Quetiapine Fumarate 100 Mg Tablet) 100 mg PO BEDTIME BREN Last Admin: 06/15/22 20:30 Dose: 100 mg Quetiapine Fumarate (Quetiapine Fumarate 50 Mg Tablet) 50 mg PO BID PRN PRN Reason: agitation Last Admin: 06/14/22 20:34 Dose: 50 mg Trazodone HCl (Trazodone Hcl 50 Mg Tablet) 50 mg PO BEDTIME PRN PRN Reason: Insomnia Last Admin: 06/15/22 20:30 Dose: 50 mg Allergies Allergies Allergy/AdvReac Type Severity Reaction Status Date / Time No Known Allergies Allergy Verified 05/19/22 23:36 Assessment & Plan Assessment & Plan (1) Bipolar disorder: Status: Acute Code(s): F31.9 - Bipolar disorder, unspecified Plan 52 yo female, hx of bipolar disorder, found running [place] [address] [place] to [place] herself via motor vehicle. Reports poor sleep, appetite, poor ADL's, stopping meds and treatment and feeling hopeless and helpless. Plan: Collateral contact TDN- given Davis warning as we will need to file for civil commitment Medical review of current sx Olanzapine 5 mg bid Continue Haldol prn Trileptal 300 mg bid Flu Vaccine (pt request and accepted) Diagnostics 05/22/22- Continue alliance building with pt. Pt will have financial questions addressed so we may hopefully move forward with her treatment. Family is attempting to assure pt she is financially safe. 05/23/22- Continue current plan. 05/24/22- Lexapro 5 mg a.m. to begin 05/25. 05/25/22- Continue current plan 05/26/22- Continue alliance building, medication titration and attempts to align with OP supports. 05/27/22- No med changes 05/28/22- Vraylar 1.5 mg a.m. 05/30/22- Increase Vraylar to 3 mg 05/31. Discontinue Lexapro Prozac 10 mg daily 06/01/2022: Change Prozac liquid to capsules as per patient request 06/04/22: DC Olanzapine, continue prn, decrease Trileptal. Titrate Vraylar when health issues clarified on 06/05. Pending COVID, rapid strep Continue to monitor 06/05/22: Constipation- MOM prn and colace bid Racing thoughts-discontinue prozac, trileptal. Increase Vraylar to 4.5 mg Depakote ER 250 mg HS Sleep- Seroquel prn and HS Cough-Robitussin prn Discussed with Sabine Hurd [facility]- will complete insurance review on 06/06. 06/06/22: No changes as pt refused meds 06/05. No word today from pts insurance company for this commercial lines underwriter to review. 06/07: Continue current regimen and plans. Started on lactulose for constipation 06/08: Continue current plans and regimen 06/09 patient remains depressed; passive wish with intermittent active SI; currently more intense wish however no plans or intention. Agrees to medication change -patient has diagnosis of bipolar disorder; will consider increasing Depakote as it is currently low-dose. 06/10 remains with SI, depressed. Agrees to increasing Depakote further Increased to Depakote ER 750 mg q.h.s. Labs ordered for Thursday06/11/22- Refusing of medications, treatment today. Aggressive episode requiring IM Olanzapine/Benadryl. 06/12/22-Continues to refuse treatment. Discussed with pt's family. Will revoke CV and request Section 7/8 process begin. Family supports this. 06/13/22. Section 7 filed. Continue to build alliance with pt around participation in her care. 06/14 continue tx. 06/15 continue tx. I spent minutes with the patient and/or on the patient floor today, greater than?50% of which was spent counseling/coordinating care. Reason for contiued inpatient stay Substantial Risk for: harm to self
[2022-06-15 19:30] VITALS: BP 136/61; PULSE 86; RESP 16; TEMP 36.6; O2SAT 99
[2022-06-15] MEDS: Prazosin HCL 1 MG CAPSULE PO (20:30)
[2022-06-15] MEDS: Divalproex Sodium ER 250 MG TAB.ER.24H 750 MG PO (20:30)
[2022-06-15] MEDS: traZODone HCL 50 MG TABLET PO (20:30)
[2022-06-15] MEDS: QUEtiapine Fumarate 100 MG TABLET PO (20:30)
[2022-06-16] MEDS: amLODIPine Besylate 10 MG TABLET PO (08:44)
[2022-06-16 08:45] VITALS: BP 117/63; PULSE 91; RESP 17; TEMP 36.4; O2SAT 98
[2022-06-16] MEDS: Lactulose 20 GM/30 ML SOLUTION 30 GM PO ×2 (08:45→21:20)
[2022-06-16] MEDS: Cariprazine HCl 1.5 MG CAPSULE 4.5 MG PO (08:45)
[2022-06-16] MEDS: Docusate Sodium 100 MG CAPSULE PO ×2 (08:45→21:19)
--- NOTE | 2022-06-16 15:10 | P.PNPSI_ITS ---
Subjective Subjective Date of Service: 06/16/22 Reason For Visit: omar/SI Subjective Notes: Section 7 Healthcare Proxy: No Guardianship: No Medical Problems Affecting Mental Status: Yes (Recovering from COVID-19) Interim History: Lucie reports improved compliance with medication. States I don't know what to do . Discussed becoming angry/frustrated and breaking her glasses today when her aunt visited-tearful, stating I am driving away the only family I have and I don't know why. Discussion of sx of depression. Alternates with wanting to live, try and wanting to - nothing left to live for. Discussed with Lucie giving treatment a try-she is unsure- groups are boring, not useful . I don't know how to do this. Discussed medicines-pt's target sx are anger, depression, anxiety. Past treatment has not been effective. Discussed her suicidality, there is just nothing for me. Pt reports she has met her marketing sales manager and finds him helpful. Discussed a plan to fix her glasses as she is unable to see without them. Medication Compliance: Yes Side effects from medications: No Attending Groups: No Review of Systems Acute medical concerns: No Recovering from COVID-19 Medical Review of Systems: unchanged Mental Status Exam Mental Status Exam Patient Appearance: Fatigued Patient Orientation: Person, Place, Time and Situation Level of Consciousness: Alert Patient Behavior: Talkative, Resistive to Care, Avoidant and Fatigued Mood Description: Depressed, Labile and Angry Affect Description: Labile and Flat Patient Cognition Impaired: No Ability to Follow Directions: Good Speech Pattern: Perseverating, Spontaneous Speech and Soft-Spoken Memory Description: Episodic Impaired Hallucinations: None Perceptual Disturbances: Depersonalization and Derealization Thought Process: Rumination Thought Content: positive for Circumstantial, positive for Perseveration and positive for Suicidal Ideation Depressive Symptoms: Sleeping More Than Usual, Hopelessness, Isolating- Friends/Family, Unhappiness, Increased Fatigue, Thoughts of /Suicide and Difficulty Concentrating Abnormal Motor Activity Signs and Symptoms: Agitation Judgement: Poor Diagnostics Vital Signs (24Hr): Vital Signs - 24 hr 06/15/22 19:30 06/16/22 08:45 Temperature 97.9 F 97.6 F Pulse Rate 86 91 Respiratory Rate 16 17 Blood Pressure 136/61 117/63 Pulse Oximetry 99 98 Oxygen Delivery Method Room Air Room Air BMI result Body Mass Index 26.6 Labs Results: 05/19/22 12:36 05/19/22 12:36 Medications Medications Current Medications Acetaminophen (Acetaminophen 325 Mg Tablet) 650 mg PO Q6H PRN PRN Reason: Headache/Pain Mild Scale (1-3) Last Admin: 06/06/22 20:53 Dose: 650 mg Al Hydroxide/Mg Hydroxide (Magnesium Hydrox/Alum Hydrox 30 Ml Oral.Susp) 30 ml PO Q6H PRN PRN Reason: Heartburn/Nausea Amlodipine Besylate (Amlodipine Besylate 10 Mg Tablet) 10 mg PO DAILY BREN; Protocol Last Admin: 06/16/22 08:44 Dose: 10 mg Cariprazine (Cariprazine Hcl 1.5 Mg Capsule) 4.5 mg PO DAILY BREN Last Admin: 06/16/22 08:45 Dose: 4.5 mg Clonidine HCl (Clonidine Hcl 0.1 Mg Tablet) 0.1 mg PO DAILY PRN; Protocol PRN Reason: HTN, hyperarousal Last Admin: 06/06/22 10:53 Dose: 0.1 mg Diphenhydramine HCl (Diphenhydramine Hcl 25 Mg Capsule) 50 mg PO Q4H PRN PRN Reason: agitation Divalproex Sodium (Divalproex Sodium Er 250 Mg Tab.Er.24h) 750 mg PO BEDTIME BREN Last Admin: 06/15/22 20:30 Dose: 750 mg Docusate Sodium (Docusate Sodium 100 Mg Capsule) 100 mg PO BID BREN Last Admin: 06/16/22 08:45 Dose: 100 mg Guaifenesin (Guaifenesin 100 Mg/5 Ml Liquid) 5 ml PO Q4H PRN PRN Reason: cough Last Admin: 06/06/22 15:06 Dose: 5 ml Hydroxyzine HCl (Hydroxyzine Hcl 25 Mg Tablet) 25 mg PO Q6H PRN PRN Reason: Anxiety Last Admin: 06/08/22 20:34 Dose: 25 mg Lactulose (Lactulose 20 Gm/30 Ml Solution) 30 gm PO BID BREN Last Admin: 06/16/22 08:45 Dose: 30 gm Magnesium Hydroxide (Milk Of Magnesia 30 Ml Oral.Susp) 30 ml PO DAILY PRN PRN Reason: Constipation Last Admin: 06/07/22 08:41 Dose: 30 ml Prazosin HCl (Prazosin Hcl 1 Mg Capsule) 1 mg PO BEDTIME BREN; Protocol Last Admin: 06/15/22 20:30 Dose: 1 mg Quetiapine Fumarate (Quetiapine Fumarate 100 Mg Tablet) 100 mg PO BEDTIME BREN Last Admin: 06/15/22 20:30 Dose: 100 mg Quetiapine Fumarate (Quetiapine Fumarate 50 Mg Tablet) 50 mg PO BID PRN PRN Reason: agitation Last Admin: 06/14/22 20:34 Dose: 50 mg Trazodone HCl (Trazodone Hcl 50 Mg Tablet) 50 mg PO BEDTIME PRN PRN Reason: Insomnia Last Admin: 06/15/22 20:30 Dose: 50 mg Allergies Allergies Allergy/AdvReac Type Severity Reaction Status Date / Time No Known Allergies Allergy Verified 05/19/22 23:36 Assessment & Plan Assessment & Plan (1) Bipolar disorder: Status: Acute Code(s): F31.9 - Bipolar disorder, unspecified Plan 52 yo female, hx of bipolar disorder, found [place] [address] [place] to kill herself via motor vehicle. Reports poor sleep, appetite, poor ADL's, stopping meds and treatment and feeling hopeless and helpless. Plan: Collateral contact TDN- given Davis warning as we will need to file for civil commitment Medical review of current sx Olanzapine 5 mg bid Continue Haldol prn Trileptal 300 mg bid Flu Vaccine (pt request and accepted) Diagnostics 05/22/22- Continue alliance building with pt. Pt will have financial questions addressed so we may hopefully move forward with her treatment. Family is attempting to assure pt she is financially safe. 05/23/22- Continue current plan. 05/24/22- Lexapro 5 mg a.m. to begin 05/25. 05/25/22- Continue current plan 05/26/22- Continue alliance building, medication titration and attempts to align with OP supports. 05/27/22- No med changes 05/28/22- Vraylar 1.5 mg a.m. 05/30/22- Increase Vraylar to 3 mg 05/31. Discontinue Lexapro Prozac 10 mg daily 06/01/2022: Change Prozac liquid to capsules as per patient request 06/04/22: DC Olanzapine, continue prn, decrease Trileptal. Titrate Vraylar when health issues clarified on 06/05. Pending COVID, rapid strep Continue to monitor 06/05/22: Constipation- MOM prn and colace bid Racing thoughts-discontinue prozac, trileptal. Increase Vraylar to 4.5 mg Depakote ER 250 mg HS Sleep- Seroquel prn and HS Cough-Robitussin prn Discussed with Sabine Hurd [facility]- will complete insurance review on 06/06. 06/06/22: No changes as pt refused meds 06/05. No word today from pts insurance company for this display card writer to review. 06/07: Continue current regimen and plans. Started on lactulose for constipation 06/08: Continue current plans and regimen 06/09 patient remains depressed; passive wish with intermittent active SI; currently more intense wish however no plans or intention. Agrees to medication change -patient has diagnosis of bipolar disorder; will consider increasing Depakote as it is currently low-dose. 06/10 remains with SI, depressed. Agrees to increasing Depakote further Increased to Depakote ER 750 mg q.h.s. Labs ordered for Thursday06/11/22- Refusing of medications, treatment today. Aggressive episode requiring IM Olanzapine/Benadryl. 06/12/22-Continues to refuse treatment. Discussed with pt's family. Will revoke CV and request Section 7/8 process begin. Family supports this. 06/13/22. Section 7 filed. Continue to build alliance with pt around participation in her care. 06/14 continue tx. 06/15 continue tx. 06/16/22- Pt reports minimal COVID sx. Asked pt to attempt to engage more in milieu. She will consider. Labs she reports she will allow. Valproate, CBCD, CMP Lability persists, anger, depression. Allow Vraylar time to work (missed doses x 2 last week) Continue current regime presently. Improvement noted with lability, anger present-offer processing of issues and we can possibly avoid court. I spent minutes with the patient and/or on the patient floor today, greater than?50% of which was spent counseling/coordinating care. Patient educated on: therapeutic strategies Informed Consent: further education needed Reason for contiued inpatient stay Substantial Risk for: harm to self, inability to function and rapid decompensation
[2022-06-16 21:05] VITALS: BP 125/58; PULSE 81; RESP 16; TEMP 36.6; O2SAT 96
[2022-06-16] MEDS: QUEtiapine Fumarate 100 MG TABLET PO (21:19)
[2022-06-16] MEDS: Prazosin HCL 1 MG CAPSULE PO (21:20)
[2022-06-16] MEDS: Divalproex Sodium ER 250 MG TAB.ER.24H 750 MG PO (21:20)
[2022-06-17 08:30] VITALS: BP 146/81; PULSE 80; RESP 17; TEMP 36.4; O2SAT 96
[2022-06-17] MEDS: amLODIPine Besylate 10 MG TABLET PO (08:31)
[2022-06-17] MEDS: Lactulose 20 GM/30 ML SOLUTION 30 GM PO (08:31)
[2022-06-17] MEDS: Cariprazine HCl 1.5 MG CAPSULE 4.5 MG PO (08:31)
[2022-06-17] MEDS: Docusate Sodium 100 MG CAPSULE PO ×2 (08:31→20:44)
--- NOTE | 2022-06-17 17:14 | P.PNPSI_ITS ---
Subjective Subjective Date of Service: 06/17/22 Reason For Visit: omar/SI Subjective Notes: Section 7 Healthcare Proxy: No Guardianship: No Medical Problems Affecting Mental Status: No Interim History: Pt continues to report depression, SI. Discussed her fear of court and her assistant county attorney's suggestion we allow her some more time for treatment prior to attending court. She agrees. Discussed getting up in the a.m. working on ADL's, attending milieu activity, staying out of bed and doing some walking. I will do anything that you need me to do. Pt's family are working on having her glasses repaired. Medication Compliance: Yes Side effects from medications: No Attending Groups: No Review of Systems Acute medical concerns: No Medical Review of Systems: unchanged Mental Status Exam Mental Status Exam Patient Appearance: Fatigued Patient Orientation: Person, Place, Time and Situation Level of Consciousness: Alert Patient Behavior: Talkative, Resistive to Care, Avoidant and Fatigued Mood Description: Depressed, Labile and Angry Affect Description: Labile and Flat Patient Cognition Impaired: No Ability to Follow Directions: Good Speech Pattern: Perseverating, Spontaneous Speech and Soft-Spoken Memory Description: Episodic Impaired Hallucinations: None Perceptual Disturbances: Depersonalization and Derealization Thought Process: Rumination Thought Content: positive for Circumstantial, positive for Perseveration and positive for Suicidal Ideation Depressive Symptoms: Sleeping More Than Usual, Hopelessness, Isolating- Friends/Family, Unhappiness, Increased Fatigue, Thoughts of /Suicide and Difficulty Concentrating Abnormal Motor Activity Signs and Symptoms: Agitation Judgement: Poor Diagnostics Vital Signs (24Hr): Vital Signs - 24 hr 06/16/22 21:05 06/17/22 08:30 Temperature 98 F 97.6 F Pulse Rate 81 80 Respiratory Rate 16 17 Blood Pressure 125/58 L 146/81 H Pulse Oximetry 96 96 Oxygen Delivery Method Room Air Room Air BMI result Body Mass Index 26.6 Labs Results: 05/19/22 12:36 05/19/22 12:36 Medications Medications Current Medications Acetaminophen (Acetaminophen 325 Mg Tablet) 650 mg PO Q6H PRN PRN Reason: Headache/Pain Mild Scale (1-3) Last Admin: 06/06/22 20:53 Dose: 650 mg Al Hydroxide/Mg Hydroxide (Magnesium Hydrox/Alum Hydrox 30 Ml Oral.Susp) 30 ml PO Q6H PRN PRN Reason: Heartburn/Nausea Amlodipine Besylate (Amlodipine Besylate 10 Mg Tablet) 10 mg PO DAILY BREN; Protocol Last Admin: 06/17/22 08:31 Dose: 10 mg Cariprazine (Cariprazine Hcl 1.5 Mg Capsule) 4.5 mg PO DAILY BREN Last Admin: 06/17/22 08:31 Dose: 4.5 mg Clonidine HCl (Clonidine Hcl 0.1 Mg Tablet) 0.1 mg PO DAILY PRN; Protocol PRN Reason: HTN, hyperarousal Last Admin: 06/06/22 10:53 Dose: 0.1 mg Diphenhydramine HCl (Diphenhydramine Hcl 25 Mg Capsule) 50 mg PO Q4H PRN PRN Reason: agitation Divalproex Sodium (Divalproex Sodium Er 250 Mg Tab.Er.24h) 750 mg PO BEDTIME BREN Last Admin: 06/16/22 21:20 Dose: 750 mg Docusate Sodium (Docusate Sodium 100 Mg Capsule) 100 mg PO BID BREN Last Admin: 06/17/22 08:31 Dose: 100 mg Guaifenesin (Guaifenesin 100 Mg/5 Ml Liquid) 5 ml PO Q4H PRN PRN Reason: cough Last Admin: 06/06/22 15:06 Dose: 5 ml Hydroxyzine HCl (Hydroxyzine Hcl 25 Mg Tablet) 25 mg PO Q6H PRN PRN Reason: Anxiety Last Admin: 06/08/22 20:34 Dose: 25 mg Lactulose (Lactulose 20 Gm/30 Ml Solution) 30 gm PO BID BREN Last Admin: 06/17/22 08:31 Dose: 30 gm Magnesium Hydroxide (Milk Of Magnesia 30 Ml Oral.Susp) 30 ml PO DAILY PRN PRN Reason: Constipation Last Admin: 06/07/22 08:41 Dose: 30 ml Prazosin HCl (Prazosin Hcl 1 Mg Capsule) 1 mg PO BEDTIME BREN; Protocol Last Admin: 06/16/22 21:20 Dose: 1 mg Quetiapine Fumarate (Quetiapine Fumarate 100 Mg Tablet) 100 mg PO BEDTIME BREN Last Admin: 06/16/22 21:19 Dose: 100 mg Quetiapine Fumarate (Quetiapine Fumarate 50 Mg Tablet) 50 mg PO BID PRN PRN Reason: agitation Last Admin: 06/14/22 20:34 Dose: 50 mg Trazodone HCl (Trazodone Hcl 50 Mg Tablet) 50 mg PO BEDTIME PRN PRN Reason: Insomnia Last Admin: 06/15/22 20:30 Dose: 50 mg Allergies Allergies Allergy/AdvReac Type Severity Reaction Status Date / Time No Known Allergies Allergy Verified 05/19/22 23:36 Assessment & Plan Assessment & Plan (1) Bipolar disorder: Status: Acute Code(s): F31.9 - Bipolar disorder, unspecified Plan 52 yo female, hx of bipolar disorder, found [place] [address] [place] empting to kill herself via motor vehicle. Reports poor sleep, appetite, poor ADL's, stopping meds and treatment and feeling hopeless and helpless. Plan: Collateral contact TDN- given Davis warning as we will need to file for civil commitment Medical review of current sx Olanzapine 5 mg bid Continue Haldol prn Trileptal 300 mg bid Flu Vaccine (pt request and accepted) Diagnostics 05/22/22- Continue alliance building with pt. Pt will have financial questions addressed so we may hopefully move forward with her treatment. Family is attempting to assure pt she is financially safe. 05/23/22- Continue current plan. 05/24/22- Lexapro 5 mg a.m. to begin 05/25. 05/25/22- Continue current plan 05/26/22- Continue alliance building, medication titration and attempts to align with OP supports. 05/27/22- No med changes 05/28/22- Vraylar 1.5 mg a.m. 05/30/22- Increase Vraylar to 3 mg 05/31. Discontinue Lexapro Prozac 10 mg daily 06/01/2022: Change Prozac liquid to capsules as per patient request 06/04/22: DC Olanzapine, continue prn, decrease Trileptal. Titrate Vraylar when health issues clarified on 06/05. Pending COVID, rapid strep Continue to monitor 06/05/22: Constipation- MOM prn and colace bid Racing thoughts-discontinue prozac, trileptal. Increase Vraylar to 4.5 mg Depakote ER 250 mg HS Sleep- Seroquel prn and HS Cough-Robitussin prn Discussed with Sabine Hurd [facility]- will complete insurance review on 06/06. 06/06/22: No changes as pt refused meds 06/05. No word today from pts insurance company for this chart writer to review. 06/07: Continue current regimen and plans. Started on lactulose for constipation 06/08: Continue current plans and regimen 06/09 patient remains depressed; passive wish with intermittent active SI; currently more intense wish however no plans or intention. Agrees to medication change -patient has diagnosis of bipolar disorder; will consider increasing Depakote as it is currently low-dose. 06/10 remains with SI, depressed. Agrees to increasing Depakote further Increased to Depakote ER 750 mg q.h.s. Labs ordered for Thursday06/11/22- Refusing of medications, treatment today. Aggressive episode requiring IM Olanzapine/Benadryl. 06/12/22-Continues to refuse treatment. Discussed with pt's family. Will revoke CV and request Section 7/8 process begin. Family supports this. 06/13/22. Section 7 filed. Continue to build alliance with pt around participation in her care. 06/14 continue tx. 06/15 continue tx. 06/16/22- Pt reports minimal COVID sx. Asked pt to attempt to engage more in milieu. She will consider. Labs she reports she will allow. Valproate, CBCD, CMP Lability persists, anger, depression. Allow Vraylar time to work (missed doses x 2 last week) Continue current regime presently. Improvement noted with lability, anger present-offer processing of issues and we can possibly avoid court. 06/17/22- Encourage milieu participation and self-care. I spent minutes with the patient and/or on the patient floor today, greater than?50% of which was spent counseling/coordinating care. Patient educated on: medication risk/benefits and therapeutic strategies Informed Consent: further education needed Reason for contiued inpatient stay Substantial Risk for: harm to self and rapid decompensation
[2022-06-17] MEDS: traZODone HCL 50 MG TABLET PO (20:44)
[2022-06-17] MEDS: Prazosin HCL 1 MG CAPSULE PO (20:45)
[2022-06-17] MEDS: QUEtiapine Fumarate 100 MG TABLET PO (20:45)
[2022-06-17] MEDS: Divalproex Sodium ER 250 MG TAB.ER.24H 750 MG PO (20:45)
[2022-06-17 20:49] VITALS: BP 117/66; PULSE 78; TEMP 36.2; O2SAT 95
[2022-06-18 09:45] VITALS: BP 123/67; PULSE 88; RESP 17; TEMP 36.2; O2SAT 97
[2022-06-18] MEDS: Cariprazine HCl 1.5 MG CAPSULE 4.5 MG PO (09:46)
[2022-06-18] MEDS: amLODIPine Besylate 10 MG TABLET PO (09:47)
--- NOTE | 2022-06-18 11:18 | HO.PSYCHPN ---
Subjective Subjective Date of Service: 06/18/22 Reason For Visit: omar/SI Subjective Notes: Section 7 Healthcare Proxy: No Guardianship: No Medical Problems Affecting Mental Status: No Interim History: I got frustrated and threw a water bottle. I told Hazel I would tell you. Up, walking with us, met in the conference room, actively participating in discussion today. Met with pt and Alfonso JEFFERS. I look forward to our meetings. Discussion of symptoms. Hx of efficacy with Wellbutrin. Will initiate trial-pt agrees/approves. Discussion of pt's cousin's message last evening- ECT treatment for pt ~4 years ago which had no effect. Pt essentially agrees. States she met with her [place] attorney and refused BERTHA-encouraged pt to accept this for second opinion regarding care. No, I don't trust people. Good eye contact, some spontaneous smiling, engaged in process. Some improvement today. Medication Compliance: Yes Side effects from medications: No Attending Groups: No Review of Systems Acute medical concerns: No Medical Review of Systems: unchanged Mental Status Exam Mental Status Exam Patient Appearance: Disheveled (I dont care) Patient Orientation: Person, Place, Time and Situation Level of Consciousness: Alert Patient Behavior: Talkative and Good Eye Contact Mood Description: Depressed Affect Description: Labile Patient Cognition Impaired: No Ability to Follow Directions: Good Speech Pattern: Spontaneous Speech Memory Description: Intact Hallucinations: None Delusions: Not Present Perceptual Disturbances: Depersonalization and Derealization Thought Process: Rumination Thought Content: positive for Perseveration and positive for Suicidal Ideation Depressive Symptoms: Increased Irritability, Sleeping More Than Usual, Hopelessness, Isolating-Friends/Family, Feelings of Guilt, Unhappiness, Increased Fatigue, Thoughts of /Suicide, Low Self Esteem, Loss of Energy and Difficulty Concentrating Judgement: Poor Diagnostics Vital Signs (24Hr): Vital Signs - 24 hr 06/17/22 20:49 06/18/22 09:45 Temperature 97.2 F 97.2 F Pulse Rate 78 88 Respiratory Rate 17 Blood Pressure 117/66 123/67 Pulse Oximetry 95 97 Oxygen Delivery Method Room Air Room Air BMI result Body Mass Index 26.6 Labs Results: 05/19/22 12:36 05/19/22 12:36 Medications Medications Current Medications Acetaminophen (Acetaminophen 325 Mg Tablet) 650 mg PO Q6H PRN PRN Reason: Headache/Pain Mild Scale (1-3) Last Admin: 06/06/22 20:53 Dose: 650 mg Al Hydroxide/Mg Hydroxide (Magnesium Hydrox/Alum Hydrox 30 Ml Oral.Susp) 30 ml PO Q6H PRN PRN Reason: Heartburn/Nausea Amlodipine Besylate (Amlodipine Besylate 10 Mg Tablet) 10 mg PO DAILY [facility]; Protocol Last Admin: 06/18/22 09:47 Dose: 10 mg Cariprazine (Cariprazine Hcl 1.5 Mg Capsule) 4.5 mg PO DAILY BREN Last Admin: 06/18/22 09:46 Dose: 4.5 mg Clonidine HCl (Clonidine Hcl 0.1 Mg Tablet) 0.1 mg PO DAILY PRN; Protocol PRN Reason: HTN, hyperarousal Last Admin: 06/06/22 10:53 Dose: 0.1 mg Diphenhydramine HCl (Diphenhydramine Hcl 25 Mg Capsule) 50 mg PO Q4H PRN PRN Reason: agitation Divalproex Sodium (Divalproex Sodium Er 250 Mg Tab.Er.24h) 750 mg PO BEDTIME [facility] Last Admin: 06/17/22 20:45 Dose: 750 mg Docusate Sodium (Docusate Sodium 100 Mg Capsule) 100 mg PO BID [facility] Last Admin: 06/18/22 09:48 Dose: Not Given Guaifenesin (Guaifenesin 100 Mg/5 Ml Liquid) 5 ml PO Q4H PRN PRN Reason: cough Last Admin: 06/06/22 15:06 Dose: 5 ml Hydroxyzine HCl (Hydroxyzine Hcl 25 Mg Tablet) 25 mg PO Q6H PRN PRN Reason: Anxiety Last Admin: 06/08/22 20:34 Dose: 25 mg Lactulose (Lactulose 20 Gm/30 Ml Solution) 30 gm PO BID [facility] Last Admin: 06/18/22 09:48 Dose: Not Given Magnesium Hydroxide (Milk Of Magnesia 30 Ml Oral.Susp) 30 ml PO DAILY PRN PRN Reason: Constipation Last Admin: 06/07/22 08:41 Dose: 30 ml Prazosin HCl (Prazosin Hcl 1 Mg Capsule) 1 mg PO BEDTIME [facility]; Protocol Last Admin: 06/17/22 20:45 Dose: 1 mg Quetiapine Fumarate (Quetiapine Fumarate 100 Mg Tablet) 100 mg PO BEDTIME BREN Last Admin: 06/17/22 20:45 Dose: 100 mg Quetiapine Fumarate (Quetiapine Fumarate 50 Mg Tablet) 50 mg PO BID PRN PRN Reason: agitation Last Admin: 06/14/22 20:34 Dose: 50 mg Trazodone HCl (Trazodone Hcl 50 Mg Tablet) 50 mg PO BEDTIME PRN PRN Reason: Insomnia Last Admin: 06/17/22 20:44 Dose: 50 mg Allergies Allergies Allergy/AdvReac Type Severity Reaction Status Date / Time No Known Allergies Allergy Verified 05/19/22 23:36 Assessment & Plan Assessment & Plan (1) Bipolar disorder: Status: Acute Code(s): F31.9 - Bipolar disorder, unspecified Plan 52 yo female, hx of bipolar disorder, found [place] [address] attempting to kill herself via motor vehicle. Reports poor sleep, appetite, poor ADL's, stopping meds and treatment and feeling hopeless and helpless. Plan: Collateral contact TDN- given [place] warning as we will need to file for civil commitment Medical review of current sx Olanzapine 5 mg bid Continue Haldol prn Trileptal 300 mg bid Flu Vaccine (pt request and accepted) Diagnostics 05/22/22- Continue alliance building with pt. Pt will have financial questions addressed so we may hopefully move forward with her treatment. Family is attempting to assure pt she is financially safe. 05/23/22- Continue current plan. 05/24/22- Lexapro 5 mg a.m. to begin 05/25. 05/25/22- Continue current plan 05/26/22- Continue alliance building, medication titration and attempts to align with OP supports. 05/27/22- No med changes 05/28/22- Vraylar 1.5 mg a.m. 05/30/22- Increase Vraylar to 3 mg 05/31. Discontinue Lexapro Prozac 10 mg daily 06/01/2022: Change Prozac liquid to capsules as per patient request 06/04/22: DC Olanzapine, continue prn, decrease Trileptal. Titrate Vraylar when health issues clarified on 06/05. Pending COVID, rapid strep Continue to monitor 06/05/22: Constipation- MOM prn and colace bid Racing thoughts-discontinue prozac, trileptal. Increase Vraylar to 4.5 mg Depakote ER 250 mg HS Sleep- Seroquel prn and HS Cough-Robitussin prn Discussed with Sabine Hurd [facility]- will complete insurance review on 06/06. 06/06/22: No changes as pt refused meds 06/05. No word today from pts insurance company for this policy writer typist to review. 06/07: Continue current regimen and plans. Started on lactulose for constipation 06/08: Continue current plans and regimen 06/09 patient remains depressed; passive wish with intermittent active SI; currently more intense wish however no plans or intention. Agrees to medication change -patient has diagnosis of bipolar disorder; will consider increasing Depakote as it is currently low-dose. 06/10 remains with SI, depressed. Agrees to increasing Depakote further Increased to Depakote ER 750 mg q.h.s. Labs ordered for Thursday06/11/22- Refusing of medications, treatment today. Aggressive episode requiring IM Olanzapine/Benadryl. 06/12/22-Continues to refuse treatment. Discussed with pt's family. Will revoke CV and request Section 7/8 process begin. Family supports this. 06/13/22. Section 7 filed. Continue to build alliance with pt around participation in her care. 06/14 continue tx. 06/15 continue tx. 06/16/22- Pt reports minimal COVID sx. Asked pt to attempt to engage more in milieu. She will consider. Labs she reports she will allow. Valproate, CBCD, CMP Lability persists, anger, depression. Allow Vraylar time to work (missed doses x 2 last week) Continue current regime presently. Improvement noted with lability, anger present-offer processing of issues and we can possibly avoid court. 06/17/22- Encourage milieu participation and self-care. 06/18/22- Wellbutrin 75 mg a.m. I spent minutes with the patient and/or on the patient floor today, greater than?50% of which was spent counseling/coordinating care. Patient educated on: medication risk/benefits and therapeutic strategies Informed Consent: further education needed Reason for contiued inpatient stay Substantial Risk for: rapid decompensation
[2022-06-18] MEDS: Divalproex Sodium ER 250 MG TAB.ER.24H 750 MG PO (21:28)
[2022-06-18] MEDS: Prazosin HCL 1 MG CAPSULE PO (21:28)
[2022-06-18] MEDS: Docusate Sodium 100 MG CAPSULE PO (21:28)
[2022-06-18] MEDS: QUEtiapine Fumarate 100 MG TABLET PO (21:28)
[2022-06-18 21:34] VITALS: BP 122/65; PULSE 87; TEMP 36.6; O2SAT 94
[2022-06-18] MEDS: traZODone HCL 50 MG TABLET PO (21:41)
--- NOTE | 2022-06-19 07:08 | P.PNPSI_ITS ---
Subjective Subjective Date of Service: 06/19/22 Reason For Visit: omar/SI Subjective Notes: Section 7 Healthcare Proxy: No Guardianship: No Medical Problems Affecting Mental Status: No Interim History: My aunt is coming tomorrow. Can we all meet.? I want to get better, but I don't know how. Discussion of pt's life in [place]. Pt discussed her relationship with mom, Like sisters . States mom when pt was age 23-devastating loss for her, like a loss of a best friend (cousin reports mother purposefully made pt totally dependent upon her so mom would feel needed). 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 Denies relationships. Poor relationship with father's partner after mother , no alliance. States she was just lost and cut off when she lost her mom. Tolerating Wellbutrin Encouraged to walk, attend group, meet with team, shower for meeting tomorrow. Declined to walk with technical writer and editor today. Medication Compliance: Yes Side effects from medications: No Attending Groups: No Review of Systems Acute medical concerns: No Medical Review of Systems: unchanged Mental Status Exam Mental Status Exam Patient Appearance: Disheveled (I dont care) Patient Orientation: Person, Place, Time and Situation Level of Consciousness: Alert Patient Behavior: Talkative and Good Eye Contact Mood Description: Depressed Affect Description: Labile Patient Cognition Impaired: No Ability to Follow Directions: Good Speech Pattern: Spontaneous Speech Memory Description: Intact Hallucinations: None Delusions: Not Present Perceptual Disturbances: Depersonalization and Derealization Thought Process: Rumination Thought Content: positive for Perseveration and positive for Suicidal Ideation Depressive Symptoms: Increased Irritability, Sleeping More Than Usual, Hopelessness, Isolating-Friends/Family, Feelings of Guilt, Unhappiness, Increased Fatigue, Thoughts of /Suicide, Low Self Esteem, Loss of Energy and Difficulty Concentrating Judgement: Poor Diagnostics Vital Signs (24Hr): Vital Signs - 24 hr 06/18/22 09:45 06/18/22 21:34 Temperature 97.2 F 97.9 F Pulse Rate 88 87 Respiratory Rate 17 Blood Pressure 123/67 122/65 Pulse Oximetry 97 94 Oxygen Delivery Method Room Air Room Air BMI result Body Mass Index 26.6 Labs Results: 05/19/22 12:36 05/19/22 12:36 Medications Medications Current Medications Acetaminophen (Acetaminophen 325 Mg Tablet) 650 mg PO Q6H PRN PRN Reason: Headache/Pain Mild Scale (1-3) Last Admin: 06/06/22 20:53 Dose: 650 mg Al Hydroxide/Mg Hydroxide (Magnesium Hydrox/Alum Hydrox 30 Ml Oral.Susp) 30 ml PO Q6H PRN PRN Reason: Heartburn/Nausea Amlodipine Besylate (Amlodipine Besylate 10 Mg Tablet) 10 mg PO DAILY BREN; Protocol Last Admin: 06/18/22 09:47 Dose: 10 mg Bupropion HCl (Bupropion Hcl 75 Mg Tablet) 75 mg PO DAILY [facility] Cariprazine (Cariprazine Hcl 1.5 Mg Capsule) 4.5 mg PO DAILY BREN Last Admin: 06/18/22 09:46 Dose: 4.5 mg Clonidine HCl (Clonidine Hcl 0.1 Mg Tablet) 0.1 mg PO DAILY PRN; Protocol PRN Reason: HTN, hyperarousal Last Admin: 06/06/22 10:53 Dose: 0.1 mg Diphenhydramine HCl (Diphenhydramine Hcl 25 Mg Capsule) 50 mg PO Q4H PRN PRN Reason: agitation Divalproex Sodium (Divalproex Sodium Er 250 Mg Tab.Er.24h) 750 mg PO BEDTIME BREN Last Admin: 06/18/22 21:28 Dose: 750 mg Docusate Sodium (Docusate Sodium 100 Mg Capsule) 100 mg PO BID BREN Last Admin: 06/18/22 21:28 Dose: 100 mg Guaifenesin (Guaifenesin 100 Mg/5 Ml Liquid) 5 ml PO Q4H PRN PRN Reason: cough Last Admin: 06/06/22 15:06 Dose: 5 ml Hydroxyzine HCl (Hydroxyzine Hcl 25 Mg Tablet) 25 mg PO Q6H PRN PRN Reason: Anxiety Last Admin: 06/08/22 20:34 Dose: 25 mg Lactulose (Lactulose 20 Gm/30 Ml Solution) 30 gm PO BID BREN Last Admin: 06/19/22 00:24 Dose: Not Given Magnesium Hydroxide (Milk Of Magnesia 30 Ml Oral.Susp) 30 ml PO DAILY PRN PRN Reason: Constipation Last Admin: 06/07/22 08:41 Dose: 30 ml Prazosin HCl (Prazosin Hcl 1 Mg Capsule) 1 mg PO BEDTIME BREN; Protocol Last Admin: 06/18/22 21:28 Dose: 1 mg Quetiapine Fumarate (Quetiapine Fumarate 100 Mg Tablet) 100 mg PO BEDTIME BREN Last Admin: 06/18/22 21:28 Dose: 100 mg Quetiapine Fumarate (Quetiapine Fumarate 50 Mg Tablet) 50 mg PO BID PRN PRN Reason: agitation Last Admin: 06/14/22 20:34 Dose: 50 mg Trazodone HCl (Trazodone Hcl 50 Mg Tablet) 50 mg PO BEDTIME PRN PRN Reason: Insomnia Last Admin: 06/18/22 21:41 Dose: 50 mg Allergies Allergies Allergy/AdvReac Type Severity Reaction Status Date / Time No Known Allergies Allergy Verified 05/19/22 23:36 Assessment & Plan Assessment & Plan (1) Bipolar disorder: Status: Acute Code(s): F31.9 - Bipolar disorder, unspecified Plan 52 yo female, hx of bipolar disorder, found running [place] [address] attempting to kill herself via motor vehicle. Reports poor sleep, appetite, poor ADL's, stopping meds and treatment and feeling hopeless and helpless. Plan: Collateral contact TDN- given Davis warning as we will need to file for civil commitment Medical review of current sx Olanzapine 5 mg bid Continue Haldol prn Trileptal 300 mg bid Flu Vaccine (pt request and accepted) Diagnostics 05/22/22- Continue alliance building with pt. Pt will have financial questions addressed so we may hopefully move forward with her treatment. Family is attempting to assure pt she is financially safe. 05/23/22- Continue current plan. 05/24/22- Lexapro 5 mg a.m. to begin 05/25. 05/25/22- Continue current plan 05/26/22- Continue alliance building, medication titration and attempts to align with OP supports. 05/27/22- No med changes 05/28/22- Vraylar 1.5 mg a.m. 05/30/22- Increase Vraylar to 3 mg 05/31. Discontinue Lexapro Prozac 10 mg daily 06/01/2022: Change Prozac liquid to capsules as per patient request 06/04/22: DC Olanzapine, continue prn, decrease Trileptal. Titrate Vraylar when health issues clarified on 06/05. Pending COVID, rapid strep Continue to monitor 06/05/22: Constipation- MOM prn and colace bid Racing thoughts-discontinue prozac, trileptal. Increase Vraylar to 4.5 mg Depakote ER 250 mg HS Sleep- Seroquel prn and HS Cough-Robitussin prn Discussed with Sabine Hurd [facility]- will complete insurance review on 06/06. 06/06/22: No changes as pt refused meds 06/05. No word today from pts insurance company for this technical writer and editor to review. 06/07: Continue current regimen and plans. Started on lactulose for constipation 06/08: Continue current plans and regimen 06/09 patient remains depressed; passive wish with intermittent active SI; currently more intense wish however no plans or intention. Agrees to medication change -patient has diagnosis of bipolar disorder; will consider increasing Depakote as it is currently low-dose. 06/10 remains with SI, depressed. Agrees to increasing Depakote further Increased to Depakote ER 750 mg q.h.s. Labs ordered for Thursday06/11/22- Refusing of medications, treatment today. Aggressive episode requiring IM Olanzapine/Benadryl. 06/12/22-Continues to refuse treatment. Discussed with pt's family. Will revoke CV and request Section 7/8 process begin. Family supports this. 06/13/22. Section 7 filed. Continue to build alliance with pt around p articipation in her care. 06/14 continue tx. 06/15 continue tx. 06/16/22- Pt reports minimal COVID sx. Asked pt to attempt to engage more in milieu. She will consider. Labs she reports she will allow. Valproate, CBCD, CMP Lability persists, anger, depression. Allow Vraylar time to work (missed doses x 2 last week) Continue current regime presently. Improvement noted with lability, anger present-offer processing of issues and we can possibly avoid court. 06/17/22- Encourage milieu participation and self-care. 06/18/22- Wellbutrin 75 mg a.m. 06/19/22- no outbursts per pt report. Continue current plan. I spent minutes with the patient and/or on the patient floor today, greater than?50% of which was spent counseling/coordinating care. Patient educated on: therapeutic strategies Informed Consent: further education needed Reason for contiued inpatient stay Substantial Risk for: harm to self and rapid decompensation
[2022-06-19] MEDS: amLODIPine Besylate 10 MG TABLET PO (09:45)
[2022-06-19] MEDS: Cariprazine HCl 1.5 MG CAPSULE 4.5 MG PO (09:45)
[2022-06-19] MEDS: buPROPion HCL 75 MG TABLET PO (09:46)
[2022-06-19 10:01] VITALS: BP 141/83; PULSE 86; RESP 16; TEMP 36.9; O2SAT 96
[2022-06-19] MEDS: traZODone HCL 50 MG TABLET PO (20:24)
[2022-06-19] MEDS: QUEtiapine Fumarate 50 MG TABLET PO (20:24)
[2022-06-19] MEDS: Divalproex Sodium ER 250 MG TAB.ER.24H 750 MG PO (20:24)
[2022-06-19] MEDS: Docusate Sodium 100 MG CAPSULE PO (20:24)
[2022-06-19] MEDS: QUEtiapine Fumarate 100 MG TABLET PO (20:24)
[2022-06-19] MEDS: Prazosin HCL 1 MG CAPSULE PO (20:25)
[2022-06-19 20:30] VITALS: BP 131/64; PULSE 71; RESP 16; TEMP 35.9; O2SAT 98
[2022-06-20] MEDS: Cariprazine HCl 1.5 MG CAPSULE 4.5 MG PO (08:50)
[2022-06-20] MEDS: amLODIPine Besylate 10 MG TABLET PO (08:50)
[2022-06-20] MEDS: buPROPion HCL 75 MG TABLET PO (08:50)
[2022-06-20] MEDS: Docusate Sodium 100 MG CAPSULE PO (08:50)
[2022-06-20] MEDS: Lactulose 20 GM/30 ML SOLUTION 30 GM PO ×2 (08:51→21:25)
[2022-06-20 09:00] VITALS: BP 119/59; PULSE 87; RESP 16; TEMP 36.7; O2SAT 96
--- NOTE | 2022-06-20 17:02 | P.PNPSI_ITS ---
Subjective Subjective Date of Service: 06/20/22 Reason For Visit: omar/SI Subjective Notes: Section 7 Healthcare Proxy: No Guardianship: No Medical Problems Affecting Mental Status: No Interim History: Team report pt with episodes of urinary incontinence during the night. With much encouragement from the team, pt is showered, dressed with attention to ADL's. Pt reports no UTI sx and not feeling overmedicated. Will continue to monitor. Reports she is tolerating Wellbutrin. Will increase dosage for 06/21/22. Met with pt and her aunt who reports this is the year anniversary of the loss of her father. By history, pt has a very strong focus on dates, anniversary dates included. Pt remained in [place] for six weeks after the loss and decompensated, thus her move to [place] where aunt and cousin are great supports for her. Pt lives less than a mile from her aunt, there were weekly dinner and shopping dates which pt gradually began to stop attending and would sleep all day. 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 When asked about interests, she responds I like to do nothing. Both talked of the sudden of her mom. Mom was a double amputee due to DM, they had just returned from an MD appt, mom was in her chair, pt decided to nap on the couch and mom while pt napped. She talked of feeling responsible as she was not awake from mom when in distress. Aunt was reassuring and talked with her about this being her mother's chosen time to pass and interventions would not have assisted. This clearly a time of trauma for Lucie. Aunt spoke of pt's bipolar disorder with hx of omar (spending mostly) without extra energy. Pt's cousin sent [facility] for records for her last in pt stay which she signed and were sent today. Medication Compliance: Yes Side effects from medications: No Attending Groups: No Review of Systems Acute medical concerns: No -urinary incontinence Medical Review of Systems: unchanged Mental Status Exam Mental Status Exam Patient Appearance: Appropriate Patient Orientation: Person, Place, Time and Situation Level of Consciousness: Alert Patient Behavior: Talkative, Cooperative and Good Eye Contact Mood Description: Depressed Affect Description: Flat Patient Cognition Impaired: No Ability to Follow Directions: Good Speech Pattern: Spontaneous Speech Memory Description: Intact Hallucinations: None Delusions: Not Present Perceptual Disturbances: Depersonalization and Derealization Thought Process: Rumination Thought Content: positive for Perseveration and positive for Suicidal Ideation Depressive Symptoms: Sleeping More Than Usual, Hopelessness, Isolating- Friends/Family, Feelings of Guilt, Unhappiness, Increased Fatigue, Thoughts of /Suicide, Low Self Esteem, Loss of Energy and Difficulty Concentrating Judgement: Poor Diagnostics Vital Signs (24Hr): Vital Signs - 24 hr 06/19/22 20:30 06/20/22 09:00 Temperature 96.7 F L 98.1 F Pulse Rate 71 87 Respiratory Rate 16 16 Blood Pressure 131/64 119/59 L Pulse Oximetry 98 96 Oxygen Delivery Method Room Air Room Air BMI result Body Mass Index 26.6 Labs Results: 05/19/22 12:36 05/19/22 12:36 Medications Medications Current Medications Acetaminophen (Acetaminophen 325 Mg Tablet) 650 mg PO Q6H PRN PRN Reason: Headache/Pain Mild Scale (1-3) Last Admin: 06/06/22 20:53 Dose: 650 mg Al Hydroxide/Mg Hydroxide (Magnesium Hydrox/Alum Hydrox 30 Ml Oral.Susp) 30 ml PO Q6H PRN PRN Reason: Heartburn/Nausea Amlodipine Besylate (Amlodipine Besylate 10 Mg Tablet) 10 mg PO DAILY [facility]; Protocol Last Admin: 06/20/22 08:50 Dose: 10 mg Bupropion HCl (Bupropion Hcl 75 Mg Tablet) 75 mg PO DAILY [facility] Last Admin: 06/20/22 08:50 Dose: 75 mg Cariprazine (Cariprazine Hcl 1.5 Mg Capsule) 4.5 mg PO DAILY [facility] Last Admin: 06/20/22 08:50 Dose: 4.5 mg Clonidine HCl (Clonidine Hcl 0.1 Mg Tablet) 0.1 mg PO DAILY PRN; Protocol PRN Reason: HTN, hyperarousal Last Admin: 06/06/22 10:53 Dose: 0.1 mg Diphenhydramine HCl (Diphenhydramine Hcl 25 Mg Capsule) 50 mg PO Q4H PRN PRN Reason: agitation Divalproex Sodium (Divalproex Sodium Er 250 Mg Tab.Er.24h) 750 mg PO BEDTIME [facility] Last Admin: 06/19/22 20:24 Dose: 750 mg Docusate Sodium (Docusate Sodium 100 Mg Capsule) 200 mg PO BID BREN Guaifenesin (Guaifenesin 100 Mg/5 Ml Liquid) 5 ml PO Q4H PRN PRN Reason: cough Last Admin: 06/06/22 15:06 Dose: 5 ml Hydroxyzine HCl (Hydroxyzine Hcl 25 Mg Tablet) 25 mg PO Q6H PRN PRN Reason: Anxiety Last Admin: 06/08/22 20:34 Dose: 25 mg Lactulose (Lactulose 20 Gm/30 Ml Solution) 30 gm PO BID BREN Last Admin: 06/20/22 08:51 Dose: 30 gm Magnesium Hydroxide (Milk Of Magnesia 30 Ml Oral.Susp) 30 ml PO DAILY PRN PRN Reason: Constipation Last Admin: 06/07/22 08:41 Dose: 30 ml Prazosin HCl (Prazosin Hcl 1 Mg Capsule) 1 mg PO BEDTIME BREN; Protocol Last Admin: 06/19/22 20:25 Dose: 1 mg Quetiapine Fumarate (Quetiapine Fumarate 100 Mg Tablet) 100 mg PO BEDTIME BREN Last Admin: 06/19/22 20:24 Dose: 100 mg Quetiapine Fumarate (Quetiapine Fumarate 50 Mg Tablet) 50 mg PO BID PRN PRN Reason: agitation Last Admin: 06/19/22 20:24 Dose: 50 mg Trazodone HCl (Trazodone Hcl 50 Mg Tablet) 50 mg PO BEDTIME PRN PRN Reason: Insomnia Last Admin: 06/19/22 20:24 Dose: 50 mg Allergies Allergies Allergy/AdvReac Type Severity Reaction Status Date / Time No Known Allergies Allergy Verified 05/19/22 23:36 Assessment & Plan Assessment & Plan (1) Bipolar disorder: Status: Acute Code(s): F31.9 - Bipolar disorder, unspecified Plan 52 yo female, hx of bipolar disorder, found running [place] [address] attempting to kill herself via motor vehicle. Reports poor sleep, appetite, poor ADL's, stopping meds and treatment and feeling hopeless and helpless. Plan: Collateral contact TDN- given [place] warning as we will need to file for civil commitment Medical review of current sx Olanzapine 5 mg bid Continue Haldol prn Trileptal 300 mg bid Flu Vaccine (pt request and accepted) Diagnostics 05/22/22- Continue alliance building with pt. Pt will have financial questions addressed so we may hopefully move forward with her treatment. Family is att empting to assure pt she is financially safe. 05/23/22- Continue current plan. 05/24/22- Lexapro 5 mg a.m. to begin 05/25. 05/25/22- Continue current plan 05/26/22- Continue alliance building, medication titration and attempts to align with OP supports. 05/27/22- No med changes 05/28/22- Vraylar 1.5 mg a.m. 05/30/22- Increase Vraylar to 3 mg 05/31. Discontinue Lexapro Prozac 10 mg daily 06/01/2022: Change Prozac liquid to capsules as per patient request 06/04/22: DC Olanzapine, continue prn, decrease Trileptal. Titrate Vraylar when health issues clarified on 06/05. Pending COVID, rapid strep Continue to monitor 06/05/22: Constipation- MOM prn and colace bid Racing thoughts-discontinue prozac, trileptal. Increase Vraylar to 4.5 mg Depakote ER 250 mg HS Sleep- Seroquel prn and HS Cough-Robitussin prn Discussed with Sabine Hurd [facility]- will complete insurance review on 06/06. 06/06/22: No changes as pt refused meds 06/05. 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 06/07: Continue current regimen and plans. Started on lactulose for constipation 06/08: Continue current plans and regimen 06/09 patient remains depressed; passive wish with intermittent active SI; currently more intense wish however no plans or intention. Agrees to medication change -patient has diagnosis of bipolar disorder; will consider increasing Depakote as it is currently low-dose. 06/10 remains with SI, depressed. Agrees to increasing Depakote further Increased to Depakote ER 750 mg q.h.s. Labs ordered for Thursday06/11/22- Refusing of medications, treatment today. Aggressive episode requiring IM Olanzapine/Benadryl. 06/12/22-Continues to refuse treatment. Discussed with pt's family. Will revoke CV and request Section 7/8 process begin. Family supports this. 06/13/22. Section 7 filed. Continue to build alliance with pt around participation in her care. 06/14 continue tx. 06/15 continue tx. 06/16/22- Pt reports minimal COVID sx. Asked pt to attempt to engage more in milieu. She will consider. Labs she reports she will allow. Valproate, CBCD, CMP Lability persists, anger, depression. Allow Vraylar time to work (missed doses x 2 last week) Continue current regime presently. Improvement noted with lability, anger present-offer processing of issues and we can possibly avoid court. 06/17/22- Encourage milieu participation and self-care. 06/18/22- Wellbutrin 75 mg a.m. 06/19/22- no outbursts per pt report. Continue current plan. 06/20/22- [facility] signed for hospital stay in [place]-sent. Increase Wellbutrin to 150 mg XL on 06/21 On 06/21 decrease Seroquel to 50 mg HS Monitor urinary incontinence episodes, if they continue urine culture POC daily I spent minutes with the patient and/or on the patient floor today, greater than?50% of which was spent counseling/coordinating care. Patient educated on: medication risk/benefits, therapeutic strategies and medical condition Informed Consent: further education needed Reason for contiued inpatient stay Substantial Risk for: harm to self, inability to function, rapid decompensation and med/psych decompensation
[2022-06-20 21:15] VITALS: BP 120/74; PULSE 89; RESP 16; TEMP 36.3; O2SAT 97
[2022-06-20] MEDS: traZODone HCL 50 MG TABLET PO (21:24)
[2022-06-20] MEDS: Divalproex Sodium ER 250 MG TAB.ER.24H 750 MG PO (21:24)
[2022-06-20] MEDS: Docusate Sodium 100 MG CAPSULE 200 MG PO (21:24)
[2022-06-20] MEDS: QUEtiapine Fumarate 100 MG TABLET PO (21:24)
[2022-06-20] MEDS: Prazosin HCL 1 MG CAPSULE PO (21:25)
[2022-06-21 09:34] VITALS: BP 101/69; PULSE 85; RESP 17; TEMP 36.6; O2SAT 93
[2022-06-21] MEDS: Cariprazine HCl 1.5 MG CAPSULE 4.5 MG PO (09:36)
[2022-06-21] MEDS: amLODIPine Besylate 10 MG TABLET PO (09:37)
[2022-06-21] MEDS: buPROPion HCl XL 150 MG TAB.ER.24H PO (09:37)
[2022-06-21] MEDS: Docusate Sodium 100 MG CAPSULE 200 MG PO ×2 (09:37→20:46)
[2022-06-21 09:47] LABS: Glucose, Whole Blood 91 mg/dL (60-115)
--- NOTE | 2022-06-21 10:27 | P.PNPSI_ITS ---
Subjective Subjective Date of Service: 06/21/22 Reason For Visit: omar/SI Interim History: pt reporting depressed mood and racing thoughts. she reports leeping throughnight. denies SI . pt isolative and withdrawn. Medication Compliance: Yes Side effects from medications: No Attending Groups: No Review of Systems Acute medical concerns: No Medical Review of Systems: unchanged Review of Systems Review of Systems Except for sore throat and some ear pain Yes all other systems are reviewed and are negative, Unobtainable due to mental condition and Unobtainable due to mental status Constitutional: Reports body ache(s), Reports difficulty sleeping, Reports fatigue, Reports headache(s), Reports lethargy, Reports malaise and Reports weakness Eyes: Reports no additional eye complaints Reports system reviewed and no additional complaints, except as documented, Reports headache(s), Reports sore throat and Reports other (ear ache) Cardiovascular: Reports other (HTN) Gastrointestinal: Reports other (IBS) Reports behavioral changes, Reports headache(s) and Reports weakness Psychiatric: Reports abnormal sleep pattern, Reports anxiety, Reports behavioral changes, Reports change in appetite, Reports depression, Reports difficulty con centrating, Reports hopelessness, Reports irritability, Reports anhedonia, Reports mood swings and Reports suicidal ideation Endocrine: Reports fatigue and Reports other (DM) Hematologic/Lymphatic: Reports no additional hematologic/lymphatic complaints Allergic/Immunologic: Reports no additional allergic/immunologic complaints Mental Status Exam Mental Status Exam Narrative: Pt is alert and oriented; behavior is cooperative, calm; patient is not in distress; dressed in hospital attire with unkempt hair, marginal hygiene; mood is described as depressed and affect congruent; eye contact appropriate; Speech is normal rate, volume and prosody and not pressured; psychomotor retardation present; thought process is organized and goal directed;reports racing thoughts. no expressed delusional or paranoid ideations; denies SI/ no HI; There is no evidence of perceptual disturbance. Patients insight and judgment are impaired. Patient Appearance: Appropriate Patient Orientation: Person, Place, Time and Situation Level of Consciousness: Alert Patient Behavior: Talkative, Cooperative and Good Eye Contact Mood Description: Depressed Affect Description: Flat Patient Cognition Impaired: No Ability to Follow Directions: Good Speech Pattern: Spontaneous Speech Memory Description: Intact Diagnostics Vital Signs (24Hr): Vital Signs - 24 hr 06/20/22 21:15 06/21/22 09:34 Temperature 97.4 F 97.9 F Pulse Rate 89 85 Respiratory Rate 16 17 Blood Pressure 120/74 101/69 Pulse Oximetry 97 93 Oxygen Delivery Method Room Air Room Air BMI result Body Mass Index 26.6 Labs Results: 05/19/22 12:36 05/19/22 12:36 Labs: Laboratory Results - last 48 hr 06/21/22 09:43 POC Glucose 91 Medications Medications Current Medications Acetaminophen (Acetaminophen 325 Mg Tablet) 650 mg PO Q6H PRN PRN Reason: Headache/Pain Mild Scale (1-3) Last Admin: 06/06/22 20:53 Dose: 650 mg Al Hydroxide/Mg Hydroxide (Magnesium Hydrox/Alum Hydrox 30 Ml Oral.Susp) 30 ml PO Q6H PRN PRN Reason: Heartburn/Nausea Amlodipine Besylate (Amlodipine Besylate 10 Mg Tablet) 10 mg PO DAILY [facility]; Protocol Last Admin: 06/21/22 09:37 Dose: 10 mg Bupropion HCl (Bupropion Hcl Xl 150 Mg Tab.Er.24h) 150 mg PO DAILY [facility] Last Admin: 06/21/22 09:37 Dose: 150 mg Cariprazine (Cariprazine Hcl 1.5 Mg Capsule) 4.5 mg PO DAILY [facility] Last Admin: 06/21/22 09:36 Dose: 4.5 mg Clonidine HCl (Clonidine Hcl 0.1 Mg Tablet) 0.1 mg PO DAILY [facility]; Protocol PRN Reason: HTN, hyperarousal Last Admin: 06/06/22 10:53 Dose: 0.1 mg Diphenhydramine HCl (Diphenhydramine Hcl 25 Mg Capsule) 50 mg PO Q4H PRN PRN Reason: agitation Divalproex Sodium (Divalproex Sodium Er 250 Mg Tab.Er.24h) 750 mg PO BEDTIME [facility] Last Admin: 06/20/22 21:24 Dose: 750 mg Docusate Sodium (Docusate Sodium 100 Mg Capsule) 200 mg PO BID [facility] Last Admin: 06/21/22 09:37 Dose: 200 mg Guaifenesin (Guaifenesin 100 Mg/5 Ml Liquid) 5 ml PO Q4H PRN PRN Reason: cough Last Admin: 06/06/22 15:06 Dose: 5 ml Hydroxyzine HCl (Hydroxyzine Hcl 25 Mg Tablet) 25 mg PO Q6H PRN PRN Reason: Anxiety Last Admin: 06/08/22 20:34 Dose: 25 mg Lactulose (Lactulose 20 Gm/30 Ml Solution) 30 gm PO BID [facility] Last Admin: 06/21/22 09:37 Dose: Not Given Magnesium Hydroxide (Milk Of Magnesia 30 Ml Oral.Susp) 30 ml PO DAILY PRN PRN Reason: Constipation Last Admin: 06/07/22 08:41 Dose: 30 ml Prazosin HCl (Prazosin Hcl 1 Mg Capsule) 1 mg PO BEDTIME [facility]; Protocol Last Admin: 06/20/22 21:25 Dose: 1 mg Quetiapine Fumarate (Quetiapine Fumarate 50 Mg Tablet) 50 mg PO BID PRN PRN Reason: agitation Last Admin: 06/19/22 20:24 Dose: 50 mg Quetiapine Fumarate (Quetiapine Fumarate 50 Mg Tablet) 50 mg PO BEDTIME [facility] Trazodone HCl (Trazodone Hcl 50 Mg Tablet) 50 mg PO BEDTIME PRN PRN Reason: Insomnia Last Admin: 06/20/22 21:24 Dose: 50 mg Allergies Allergies Allergy/AdvReac Type Severity Reaction Status Date / Time No Known Allergies Allergy Verified 05/19/22 23:36 Assessment & Plan Assessment & Plan (1) Bipolar disorder: Status: Acute Code(s): F31.9 - Bipolar disorder, unspecified Plan 52 yo female, hx of bipolar disorder, found running [place] [address] attempting to kill herself via motor vehicle. Reports poor sleep, appetite, poor ADL's, stopping meds and treatment and feeling hopeless and helpless. Plan: Collateral contact TDN- given [place] warning as we will need to file for civil commitment Medical review of current sx Olanzapine 5 mg bid Continue Haldol prn Trileptal 300 mg bid Flu Vaccine (pt request and accepted) Diagnostics 05/22/22- Continue alliance building with pt. Pt will have financial questions addressed so we may hopefully move forward with her treatment. Family is attempting to assure pt she is financially safe. 05/23/22- Continue current plan. 05/24/22- Lexapro 5 mg a.m. to begin 05/25. 05/25/22- Continue current plan 05/26/22- Continue alliance building, medication titration and attempts to align with OP supports. 05/27/22- No med changes 05/28/22- Vraylar 1.5 mg a.m. 05/30/22- Increase Vraylar to 3 mg 05/31. Discontinue Lexapro Prozac 10 mg daily 06/01/2022: Change Prozac liquid to capsules as per patient request 06/04/22: DC Olanzapine, continue prn, decrease Trileptal. Titrate Vraylar when health issues clarified on 06/05. Pending COVID, rapid strep Continue to monitor 06/05/22: Constipation- MOM prn and colace bid Racing thoughts-discontinue prozac, trileptal. Increase Vraylar to 4.5 mg Depakote ER 250 mg HS Sleep- Seroquel prn and HS Cough-Robitussin prn Discussed with Sabine Hurd [facility]- will complete insurance review on 06/06. 06/06/22: No changes as pt refused meds 06/05. 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 06/07: Continue current regimen and plans. Started on lactulose for c onstipation 06/08: Continue current plans and regimen 06/09 patient remains depressed; passive wish with intermittent active SI; currently more intense wish however no plans or intention. Agrees to medication change -patient has diagnosis of bipolar disorder; will consider increasing Depakote as it is currently low-dose. 06/10 remains with SI, depressed. Agrees to increasing Depakote further Increased to Depakote ER 750 mg q.h.s. Labs ordered for Thursday06/11/22- Refusing of medications, treatment today. Aggressive episode requiring IM Olanzapine/Benadryl. 06/12/22-Continues to refuse treatment. Discussed with pt's family. Will revoke CV and request Section 7/8 process begin. Family supports this. 06/13/22. Section 7 filed. Continue to build alliance with pt around participa tion in her care. 06/14 continue tx. 06/15 continue tx. 06/16/22- Pt reports minimal COVID sx. Asked pt to attempt to engage more in milieu. She will consider. Labs she reports she will allow. Valproate, CBCD, CMP Lability persists, anger, depression. Allow Vraylar time to work (missed doses x 2 last week) Continue current regime presently. Improvement noted with lability, anger present-offer processing of issues and we can possibly avoid court. 06/17/22- Encourage milieu participation and self-care. 06/18/22- Wellbutrin 75 mg a.m. 06/19/22- no outbursts per pt report. Continue current plan. 06/20/22- [facility] signed for hospital stay in [place]-sent. Increase Wellbutrin to 150 mg XL on 06/21 On 06/21 decrease Seroquel to 50 mg HS Monitor urinary incontinence episodes, if they continue urine culture POC daily 06/21/22- continue treatment plan I spent __10____ minutes with the patient and/or on the patient floor today, greater than?50% of which was spent counseling/coordinating care. Reason for contiued inpatient stay Substantial Risk for: harm to self, inability to function and rapid decompensation
[2022-06-21 20:40] VITALS: BP 132/63; PULSE 89; RESP 16; TEMP 36.1; O2SAT 100
[2022-06-21] MEDS: Prazosin HCL 1 MG CAPSULE PO (20:45)
[2022-06-21] MEDS: Divalproex Sodium ER 250 MG TAB.ER.24H 750 MG PO (20:45)
[2022-06-21] MEDS: QUEtiapine Fumarate 50 MG TABLET PO (20:46)
[2022-06-21] MEDS: traZODone HCL 50 MG TABLET PO (20:46)
[2022-06-21] MEDS: Lactulose 20 GM/30 ML SOLUTION 30 GM PO (20:54)
[2022-06-22 08:16] VITALS: BP 135/74; PULSE 81; RESP 17; TEMP 36.2; O2SAT 98
[2022-06-22] MEDS: Cariprazine HCl 1.5 MG CAPSULE 4.5 MG PO (08:17)
[2022-06-22] MEDS: Docusate Sodium 100 MG CAPSULE 200 MG PO ×2 (08:18→21:45)
[2022-06-22] MEDS: buPROPion HCl XL 150 MG TAB.ER.24H PO (08:18)
[2022-06-22] MEDS: amLODIPine Besylate 10 MG TABLET PO (08:18)
[2022-06-22 08:29] LABS: Glucose, Whole Blood 114 mg/dL (60-115)
--- NOTE | 2022-06-22 16:49 | HO.PSYCHPN ---
Subjective Subjective Date of Service: 06/22/22 Reason For Visit: omar/SI Interim History: pt reporting depressed mood and racing thoughts. she reports sleeping through night. denies SI . pt isolative and withdrawn. low energy. more attention to ADLs. Medication Compliance: Yes Side effects from medications: No Review of Systems Acute medical concerns: No Medical Review of Systems: unchanged Review of Systems Review of Systems No discomfort reported Yes all other systems are reviewed and are negative, Unobtainable due to mental condition and Unobtainable due to mental status Constitutional: Reports body ache(s), Reports difficulty sleeping, Reports fatigue, Reports headache(s), Reports lethargy, Reports malaise and Reports weakness Eyes: Reports no additional eye complaints Reports system reviewed and no additional complaints, except as documented, Reports headache(s), Reports sore throat and Reports other (ear ache) Cardiovascular: Reports other (HTN) Gastrointestinal: Reports other (IBS) Reports behavioral changes, Reports headache(s) and Reports weakness Psychiatric: Reports abnormal sleep pattern, Reports anxiety, Reports behavioral changes, Reports change in appetite, Reports depression, Reports difficulty concentrating, Reports hopelessness, Reports irritability, Reports anhedonia, Reports mood swings and Reports suicidal ideation Endocrine: Reports fatigue and Reports other (DM) Hematologic/Lymphatic: Reports no additional hematologic/lymphatic complaints Allergic/Immunologic: Reports no additional allergic/immunologic complaints Mental Status Exam Mental Status Exam Narrative: Pt is alert and oriented; behavior is cooperative, calm; patient is not in distress; dressed in hospital attire with unkempt hair, marginal hygiene; mood is described as depressed and affect congruent; eye contact appropriate; Speech is normal rate, volume and prosody and not pressured; psychomotor retardation present; thought process is organized and goal directed;reports racing thoughts. no expressed delusional or paranoid ideations; denies SI/ no HI; There is no evidence of perceptual disturbance. Patients insight and judgment are impaired. Patient Appearance: Appropriate Patient Orientation: Person, Place, Time and Situation Level of Consciousness: Alert Patient Behavior: Talkative, Cooperative and Good Eye Contact Mood Description: Depressed Affect Description: Flat Patient Cognition Impaired: No Ability to Follow Directions: Good Speech Pattern: Spontaneous Speech Memory Description: Intact Diagnostics Vital Signs (24Hr): Vital Signs - 24 hr 06/21/22 20:40 06/22/22 08:16 Temperature 97 F 97.2 F Pulse Rate 89 81 Respiratory Rate 16 17 Blood Pressure 132/63 135/74 Pulse Oximetry 100 98 Oxygen Delivery Method Room Air Room Air BMI result Body Mass Index 26.6 Labs Results: 05/19/22 12:36 05/19/22 12:36 Labs: Laboratory Results - last 48 hr 06/21/22 06/22/22 09:43 08:25 POC Glucose 91 114 Medications Medications Current Medications Acetaminophen (Acetaminophen 325 Mg Tablet) 650 mg PO Q6H PRN PRN Reason: Headache/Pain Mild Scale (1-3) Last Admin: 06/06/22 20:53 Dose: 650 mg Al Hydroxide/Mg Hydroxide (Magnesium Hydrox/Alum Hydrox 30 Ml Oral.Susp) 30 ml PO Q6H PRN PRN Reason: Heartburn/Nausea Amlodipine Besylate (Amlodipine Besylate 10 Mg Tablet) 10 mg PO DAILY [facility]; Protocol Last Admin: 06/22/22 08:18 Dose: 10 mg Bupropion HCl (Bupropion Hcl Xl 150 Mg Tab.Er.24h) 150 mg PO DAILY [facility] Last Admin: 06/22/22 08:18 Dose: 150 mg Cariprazine (Cariprazine Hcl 1.5 Mg Capsule) 4.5 mg PO DAILY [facility] Last Admin: 06/22/22 08:17 Dose: 4.5 mg Clonidine HCl (Clonidine Hcl 0.1 Mg Tablet) 0.1 mg PO DAILY [facility]; Protocol PRN Reason: HTN, hyperarousal Last Admin: 06/06/22 10:53 Dose: 0.1 mg Diphenhydramine HCl (Diphenhydramine Hcl 25 Mg Capsule) 50 mg PO Q4H PRN PRN Reason: agitation Divalproex Sodium (Divalproex Sodium Er 250 Mg Tab.Er.24h) 750 mg PO BEDTIME [facility] Last Admin: 06/21/22 20:45 Dose: 750 mg Docusate Sodium (Docusate Sodium 100 Mg Capsule) 200 mg PO BID [facility] Last Admin: 06/22/22 08:18 Dose: 200 mg Guaifenesin (Guaifenesin 100 Mg/5 Ml Liquid) 5 ml PO Q4H PRN PRN Reason: cough Last Admin: 06/06/22 15:06 Dose: 5 ml Hydroxyzine HCl (Hydroxyzine Hcl 25 Mg Tablet) 25 mg PO Q6H PRN PRN Reason: Anxiety Last Admin: 06/08/22 20:34 Dose: 25 mg Lactulose (Lactulose 20 Gm/30 Ml Solution) 30 gm PO BID [facility] Last Admin: 06/22/22 08:19 Dose: Not Given Magnesium Hydroxide (Milk Of Magnesia 30 Ml Oral.Susp) 30 ml PO DAILY PRN PRN Reason: Constipation Last Admin: 06/07/22 08:41 Dose: 30 ml Prazosin HCl (Prazosin Hcl 1 Mg Capsule) 1 mg PO BEDTIME [facility]; Protocol Last Admin: 06/21/22 20:45 Dose: 1 mg Quetiapine Fumarate (Quetiapine Fumarate 50 Mg Tablet) 50 mg PO BID PRN PRN Reason: agitation Last Admin: 06/19/22 20:24 Dose: 50 mg Quetiapine Fumarate (Quetiapine Fumarate 50 Mg Tablet) 50 mg PO BEDTIME [facility] Last Admin: 06/21/22 20:46 Dose: 50 mg Trazodone HCl (Trazodone Hcl 50 Mg Tablet) 50 mg PO BEDTIME PRN PRN Reason: Insomnia Last Admin: 06/21/22 20:46 Dose: 50 mg Allergies Allergies Allergy/AdvReac Type Severity Reaction Status Date / Time No Known Allergies Allergy Verified 05/19/22 23:36 Assessment & Plan Assessment & Plan (1) Bipolar disorder: Status: Acute Code(s): F31.9 - Bipolar disorder, unspecified Plan 52 yo female, hx of bipolar disorder, found running [place] traffic [place] [address] attempting to kill herself via motor vehicle. Reports poor sleep, appetite, poor ADL's, stopping meds and treatment and feeling hopeless and helpless. Plan: Collateral contact TDN- given [place] warning as we will need to file for civil commitment Medical review of current sx Olanzapine 5 mg bid Continue Haldol prn Trileptal 300 mg bid Flu Vaccine (pt request and accepted) Diagnostics 05/22/22- Continue alliance building with pt. Pt will have financial questions addressed so we may hopefully move forward with her treatment. Family is attempting to assure pt she is financially safe. 05/23/22- Continue current plan. 05/24/22- Lexapro 5 mg a.m. to begin 05/25. 05/25/22- Continue current plan 05/26/22- Continue alliance building, medication titration and attempts to align with OP supports. 05/27/22- No med changes 05/28/22- Vraylar 1.5 mg a.m. 05/30/22- Increase Vraylar to 3 mg 05/31. Discontinue Lexapro Prozac 10 mg daily 06/01/2022: Change Prozac liquid to capsules as per patient request 06/04/22: DC Olanzapine, continue prn, decrease Trileptal. Titrate Vraylar when health issues clarified on 06/05. Pending COVID, rapid strep Continue to monitor 06/05/22: Constipation- MOM prn and colace bid Racing thoughts-discontinue prozac, trileptal. Increase Vraylar to 4.5 mg Depakote ER 250 mg HS Sleep- Seroquel prn and HS Cough-Robitussin prn Discussed with Sabine Hurd [facility]- will complete insurance review on 06/06. 06/06/22: No changes as pt refused meds 06/05. No word today from pts insurance company for this senior technical writer to review. 06/07: Continue current regimen and plans. Started on lactulose for constipation 06/08: Continue current plans and regimen 06/09 patient remains depressed; passive wish with intermittent active SI; currently more intense wish however no plans or intention. Agrees to medication change -patient has diagnosis of bipolar disorder; will consider increasing Depakote as it is currently low-dose. 06/10 remains with SI, depressed. Agrees to increasing Depakote further Increased to Depakote ER 750 mg q.h.s. Labs ordered for Thursday06/11/22- Refusing of medications, treatment today. Aggressive episode requiring IM Olanzapine/Benadryl. 06/12/22-Continues to refuse treatment. Discussed with pt's family. Will revoke CV and request Section 7/8 process begin. Family supports this. 06/13/22. Section 7 filed. Continue to build alliance with pt around participation in her care. 06/14 continue tx. 06/15 continue tx. 06/16/22- Pt reports minimal COVID sx. Asked pt to attempt to engage more in milieu. She will consider. Labs she reports she will allow. Valproate, CBCD, CMP Lability persists, anger, depression. Allow Vraylar time to work (missed doses x 2 last week) Continue current regime presently. Improvement noted with lability, anger present-offer processing of issues and we can possibly avoid court. 06/17/22- Encourage milieu participation and self-care. 06/18/22- Wellbutrin 75 mg a.m. 06/19/22- no outbursts per pt report. Continue current plan. 06/20/22- [facility] signed for hospital stay in [place]-sent. Increase Wellbutrin to 150 mg XL on 06/21 On 06/21 decrease Seroquel to 50 mg HS Monitor urinary incontinence episodes, if they continue urine culture POC daily 06/21/22- continue treatment plan 06/22/22 contiue current treatment plan I spent ___10___ minutes with the patient and/or on the patient floor today, greater than?50% of which was spent counseling/coordinating care. Reason for contiued inpatient stay Substantial Risk for: harm to self, inability to function and rapid decompensation
[2022-06-22 19:22] VITALS: BP 111/54; PULSE 73; RESP 16; TEMP 36.6; O2SAT 99
[2022-06-22] MEDS: QUEtiapine Fumarate 50 MG TABLET PO (21:45)
[2022-06-22] MEDS: Prazosin HCL 1 MG CAPSULE PO (21:45)
[2022-06-22] MEDS: traZODone HCL 50 MG TABLET PO ×2 (21:46→22:54)
[2022-06-22] MEDS: Divalproex Sodium ER 250 MG TAB.ER.24H 750 MG PO (21:46)
[2022-06-22] MEDS: Lactulose 20 GM/30 ML SOLUTION 30 GM PO (21:46)
[2022-06-23] MEDS: traZODone HCL 50 MG TABLET PO ×2 (00:18→22:36)
[2022-06-23] MEDS: QUEtiapine Fumarate 50 MG TABLET PO ×2 (02:05→22:36)
[2022-06-23] MEDS: hydrOXYzine HCL 25 MG TABLET PO (02:05)
[2022-06-23 08:49] VITALS: BP 134/66; PULSE 113; RESP 19; TEMP 36.4; O2SAT 98
[2022-06-23] MEDS: amLODIPine Besylate 10 MG TABLET PO (08:54)
[2022-06-23] MEDS: Docusate Sodium 100 MG CAPSULE 200 MG PO ×2 (08:54→22:36)
[2022-06-23] MEDS: Cariprazine HCl 1.5 MG CAPSULE 4.5 MG PO (08:54)
[2022-06-23] MEDS: buPROPion HCl XL 150 MG TAB.ER.24H PO (08:54)
[2022-06-23 09:02] LABS: Glucose, Whole Blood 148 mg/dL (60-115)
--- NOTE | 2022-06-23 17:29 | P.PNPSI_ITS ---
Subjective Subjective Date of Service: 06/23/22 Reason For Visit: omar/SI Subjective Notes: Section 7 Healthcare Proxy: No Guardianship: No Medical Problems Affecting Mental Status: No Interim History: You know, I just want to slip away quietly. Will you speak at my .? Pt found ambulating in the [place] when seen. Spontaneous smile. Immediately serious, I just don't know how to manage, there is so much confusion and stress. I want to leave the past behind me-no records from [place]-will you believe them ? Discussed family stress-cousin who is in [employer] has been notified that he will deploy in Aug 2022 for five months, aunt not wanting to do Thanksgiving this year, wants us all to do it on our own-I am alone . Court is next week. If I would just slip away I would not have to deal with all of this. Approached each concern individually-discussed how she can support cousin's family and children while away- She came up with several supportive ideas which were on point and empathic. Discussed Thanksgiving-shared some memories and discussed what she could do to make someone else's day memorable-family, friends, volunteering. Review of court issues, review of wanting to . Lucie states she does not want a mcfp. Discussed rationale for exploring this-engagement and decrease of isolation what may help depressive sx mgt. Interacting with team, smiling, plans to shower this evening. Medication Compliance: Yes Side effects from medications: No Attending Groups: No Review of Systems Acute medical concerns: No Medical Review of Systems: unchanged Mental Status Exam Mental Status Exam Patient Appearance: Appropriate Patient Orientation: Person, Place, Time and Situation Level of Consciousness: Alert Patient Behavior: Talkative, Cooperative and Good Eye Contact Mood Description: Depressed, Anxious and Apprehensive Affect Description: Flat Patient Cognition Impaired: No Ability to Follow Directions: Good Speech Pattern: Spontaneous Speech Memory Description: Intact Hallucinations: None Delusions: Not Present Thought Process: Rumination Thought Content: positive for Perseveration and positive for Suicidal Ideation Depressive Symptoms: Increased Anxiety, Diff. Making Decisions, Difficulty Sleeping and Thoughts of /Suicide Judgement: Poor Diagnostics Vital Signs (24Hr): Vital Signs - 24 hr 06/22/22 19:22 06/23/22 08:49 Temperature 97.9 F 97.6 F Pulse Rate 73 113 H Respiratory Rate 16 19 Blood Pressure 111/54 L 134/66 Pulse Oximetry 99 98 Oxygen Delivery Method Room Air Room Air BMI result Body Mass Index 26.6 Labs Results: 05/19/22 12:36 05/19/22 12:36 Labs: Laboratory Results - last 48 hr 06/22/22 06/23/22 08:25 08:53 POC Glucose 114 148 H Medications Medications Current Medications Acetaminophen (Acetaminophen 325 Mg Tablet) 650 mg PO Q6H PRN PRN Reason: Headache/Pain Mild Scale (1-3) Last Admin: 06/06/22 20:53 Dose: 650 mg Al Hydroxide/Mg Hydroxide (Magnesium Hydrox/Alum Hydrox 30 Ml Oral.Susp) 30 ml PO Q6H PRN PRN Reason: Heartburn/Nausea Amlodipine Besylate (Amlodipine Besylate 10 Mg Tablet) 10 mg PO DAILY [facility]; Protocol Last Admin: 06/23/22 08:54 Dose: 10 mg Bupropion HCl (Bupropion Hcl Xl 150 Mg Tab.Er.24h) 150 mg PO DAILY [facility] Last Admin: 06/23/22 08:54 Dose: 150 mg Cariprazine (Cariprazine Hcl 1.5 Mg Capsule) 4.5 mg PO DAILY [facility] Last Admin: 06/23/22 08:54 Dose: 4.5 mg Clonidine HCl (Clonidine Hcl 0.1 Mg Tablet) 0.1 mg PO DAILY PRN; Protocol PRN Reason: HTN, hyperarousal Last Admin: 06/06/22 10:53 Dose: 0.1 mg Diphenhydramine HCl (Diphenhydramine Hcl 25 Mg Capsule) 50 mg PO Q4H PRN PRN Reason: agitation Divalproex Sodium (Divalproex Sodium Er 250 Mg Tab.Er.24h) 750 mg PO BEDTIME [facility] Last Admin: 06/22/22 21:46 Dose: 750 mg Docusate Sodium (Docusate Sodium 100 Mg Capsule) 200 mg PO BID [facility] Last Admin: 06/23/22 08:54 Dose: 200 mg Guaifenesin (Guaifenesin 100 Mg/5 Ml Liquid) 5 ml PO Q4H PRN PRN Reason: cough Last Admin: 06/06/22 15:06 Dose: 5 ml Hydroxyzine HCl (Hydroxyzine Hcl 25 Mg Tablet) 25 mg PO Q6H PRN PRN Reason: Anxiety Last Admin: 06/23/22 02:05 Dose: 25 mg Lactulose (Lactulose 20 Gm/30 Ml Solution) 30 gm PO BID [facility] Last Admin: 06/23/22 08:56 Dose: Not Given Magnesium Hydroxide (Milk Of Magnesia 30 Ml Oral.Susp) 30 ml PO DAILY PRN PRN Reason: Constipation Last Admin: 06/07/22 08:41 Dose: 30 ml Prazosin HCl (Prazosin Hcl 1 Mg Capsule) 1 mg PO BEDTIME [facility]; Protocol Last Admin: 06/22/22 21:45 Dose: 1 mg Quetiapine Fumarate (Quetiapine Fumarate 50 Mg Tablet) 50 mg PO BID PRN PRN Reason: agitation Last Admin: 06/23/22 02:05 Dose: 50 mg Quetiapine Fumarate (Quetiapine Fumarate 50 Mg Tablet) 50 mg PO BEDTIME [facility] Last Admin: 06/22/22 21:45 Dose: 50 mg Trazodone HCl (Trazodone Hcl 50 Mg Tablet) 50 mg PO BEDTIME PRN PRN Reason: Insomnia Last Admin: 06/23/22 00:18 Dose: 50 mg Allergies Allergies Allergy/AdvReac Type Severity Reaction Status Date / Time No Known Allergies Allergy Verified 05/19/22 23:36 Assessment & Plan Assessment & Plan (1) Bipolar disorder: Status: Acute Code(s): F31.9 - Bipolar disorder, unspecified Plan 52 yo female, hx of bipolar disorder, found [place] [address] attempting to kill herself via motor vehicle. Reports poor sleep, appetite, poor ADL's, stopping meds and treatment and feeling hopeless and helpless. Plan: Collateral contact TDN- given Davis warning as we will need to file for civil commitment Medical review of current sx Olanzapine 5 mg bid Continue Haldol prn Trileptal 300 mg bid Flu Vaccine (pt request and accepted) Diagnostics 05/22/22- Continue alliance building with pt. Pt will have financial questions addressed so we may hopefully move forward with her treatment. Family is attempting to assure pt she is financially safe. 05/23/22- Continue current plan. 05/24/22- Lexapro 5 mg a.m. to begin 05/25. 05/25/22- Continue current plan 05/26/22- Continue alliance building, medication titration and attempts to align with OP supports. 05/27/22- No med changes 05/28/22- Vraylar 1.5 mg a.m. 05/30/22- Increase Vraylar to 3 mg 05/31. Discontinue Lexapro Prozac 10 mg daily 06/01/2022: Change Prozac liquid to capsules as per patient request 06/04/22: DC Olanzapine, continue prn, decrease Trileptal. Titrate Vraylar when health issues clarified on 06/05. Pending COVID, rapid strep Continue to monitor 06/05/22: Constipation- MOM prn and colace bid Racing thoughts-discontinue prozac, trileptal. Increase Vraylar to 4.5 mg Depakote ER 250 mg HS Sleep- Seroquel prn and HS Cough-Robitussin prn Discussed with Sabine Hurd [facility]- will complete insurance review on 06/06. 06/06/22: No changes as pt refused meds 06/05. No word today from pts insurance company for this procedure writer to review. 06/07: Continue current regimen and plans. Started on lactulose for constipation 06/08: Continue current plans and regimen 06/09 patient remains depressed; passive wish with intermittent active SI; currently more intense wish however no plans or intention. Agrees to medication change -patient has diagnosis of bipolar disorder; will consider increasing Depakote as it is currently low-dose. 06/10 remains with SI, depressed. Agrees to increasing Depakote further Increased to Depakote ER 750 mg q.h.s. Labs ordered for Thursday06/11/22- Refusing of medications, treatment today. Aggressive episode requiring IM Olanzapine/Benadryl. 06/12/22-Continues to refuse treatment. Discussed with pt's family. Will revoke CV and request Section 7/8 process begin. Family supports this. 06/13/22. Section 7 filed. Continue to build alliance with pt around participation in her care. 06/14 continue tx. 06/15 continue tx. 06/16/22- Pt reports minimal COVID sx. Asked pt to attempt to engage more in milieu. She will consider. Labs she reports she will allow. Valproate, CBCD, CMP Lability persists, anger, depression. Allow Vraylar time to work (missed doses x 2 last week) Continue current regime presently. Improvement noted with lability, anger present-offer processing of issues and we can possibly avoid court. 06/17/22- Encourage milieu participation and self-care. 06/18/22- Wellbutrin 75 mg a.m. 06/19/22- no outbursts per pt report. Continue current plan. 06/20/22- [facility] signed for hospital stay in [place]-sent. Increase Wellbutrin to 150 mg XL on 06/21 On 06/21 decrease Seroquel to 50 mg HS Monitor urinary incontinence episodes, if they continue urine culture POC daily 06/21/22- continue treatment plan 06/22/22 contiue current treatment plan 06/23/22- Continue [facility] plan of care. I spent minutes with the patient and/or on the patient floor today, gre ater than?50% of which was spent counseling/coordinating care. Patient educated on: therapeutic strategies Informed Consent: understands Reason for contiued inpatient stay Substantial Risk for: harm to self and rapid decompensation
[2022-06-23 22:34] VITALS: BP 139/67; PULSE 77; RESP 18; TEMP 35.3; O2SAT 100
[2022-06-23] MEDS: Prazosin HCL 1 MG CAPSULE PO (22:36)
[2022-06-23] MEDS: Divalproex Sodium ER 250 MG TAB.ER.24H 750 MG PO (22:36)
[2022-06-24] MEDS: traZODone HCL 50 MG TABLET PO ×2 (00:50→21:41)
[2022-06-24 08:55] LABS: Glucose, Whole Blood 118 mg/dL (60-115)
[2022-06-24] MEDS: Cariprazine HCl 1.5 MG CAPSULE 4.5 MG PO (09:17)
[2022-06-24] MEDS: Docusate Sodium 100 MG CAPSULE 200 MG PO ×2 (09:17→21:41)
[2022-06-24] MEDS: amLODIPine Besylate 10 MG TABLET PO (09:17)
[2022-06-24] MEDS: buPROPion HCl XL 150 MG TAB.ER.24H PO (09:18)
[2022-06-24 09:31] VITALS: BP 140/86; PULSE 96; RESP 18; TEMP 37; O2SAT 96
[2022-06-24] MEDS: Lactulose 20 GM/30 ML SOLUTION 30 GM PO ×2 (09:38→21:40)
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
[2022-06-24 21:33] VITALS: BP 144/76; PULSE 96; TEMP 35.9; O2SAT 100
[2022-06-24] MEDS: QUEtiapine Fumarate 50 MG TABLET PO ×2 (21:41)
[2022-06-24] MEDS: Divalproex Sodium ER 250 MG TAB.ER.24H 750 MG PO (21:42)
[2022-06-24] MEDS: Prazosin HCL 1 MG CAPSULE PO (21:42)
[2022-06-25 06:00] VITALS: BP 137/69; PULSE 84; RESP 18; TEMP 36.6; O2SAT 98
[2022-06-25] MEDS: Cariprazine HCl 3 MG CAPSULE 6 MG PO (08:28)
[2022-06-25] MEDS: buPROPion HCl XL 300 MG TAB.ER.24H PO (08:28)
[2022-06-25] MEDS: Docusate Sodium 100 MG CAPSULE 200 MG PO ×2 (08:29→21:42)
[2022-06-25] MEDS: amLODIPine Besylate 10 MG TABLET PO (08:29)
[2022-06-25 08:55] LABS: Glucose, Whole Blood 101 mg/dL (60-115)
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
[2022-06-25 21:40] VITALS: BP 122/63; PULSE 84; RESP 16; TEMP 36.5; O2SAT 98
[2022-06-25] MEDS: traZODone HCL 50 MG TABLET PO (21:42)
[2022-06-25] MEDS: Prazosin HCL 1 MG CAPSULE PO (21:42)
[2022-06-25] MEDS: Divalproex Sodium ER 250 MG TAB.ER.24H 750 MG PO (21:42)
[2022-06-25] MEDS: QUEtiapine Fumarate 25 MG TABLET PO (21:42)
[2022-06-25 22:20] LABS: Glucose, Whole Blood 153 mg/dL (60-115)
--- NOTE | 2022-06-26 02:34 | PC.NURSE ---
Patient had an episode of urinary incontinence at 0215. Patient showered and changed clothing. Bed cleaned and new linens placed on bed.
[2022-06-26 06:00] VITALS: BP 130/83; PULSE 91; RESP 18; TEMP 35.7; O2SAT 97
[2022-06-26 07:00] VITALS: BMI 29.2
[2022-06-26 08:02] LABS: Glucose, Whole Blood 101 mg/dL (60-115)
[2022-06-26] MEDS: Docusate Sodium 100 MG CAPSULE 200 MG PO ×2 (08:42→20:52)
[2022-06-26] MEDS: Cariprazine HCl 3 MG CAPSULE 6 MG PO (08:42)
[2022-06-26] MEDS: buPROPion HCl XL 300 MG TAB.ER.24H PO (08:42)
[2022-06-26] MEDS: glyBURIDE 2.5 MG TABLET PO (08:42)
[2022-06-26] MEDS: amLODIPine Besylate 10 MG TABLET PO (08:42)
[2022-06-26 09:05] LABS: MANUAL DIFF FLAG NO
[2022-06-26 09:08] LABS: Basophils Percent Auto 0.6 % (0-2); Eosinophils Absolute Auto 0.1 X10*3/uL (0.0-0.4); Eosinophils Percent Auto 1.6 % (0-4); Hematocrit 35.4 % (37.0-47.0); Hemoglobin 11.6 g/dl (12.0-16.0); Imm Gran Abs Auto 0.04 X10*3/uL (0.00-0.03); Imm Gran Pct Auto 0.8 % (0.0-0.4); Lymphocytes Absolute Auto 2.2 X10*3/uL (1.2-4.9); Mean Corpuscular HGB Conc 32.8 g/dl (31.0-35.0); Mean Corpuscular Hemoglobin 29.4 pg (27.0-33.0); Mean Corpuscular Volume 89.8 fL (80.0-98.0); Mean Platelet Volume 8.9 fL (9.4-12.3); Monocytes Absolute Auto 0.5 X10*3/uL (0.1-1.2); Neutrophils Absolute Auto 2.1 x10*3/uL (2.0-8.3); Platelet Count 193 X10*3/uL (160-400); Red Blood Count 3.94 X10*6/uL (4.20-5.50); Red Cell Distribution Width 12.5 % (11.0-16.0)
[2022-06-26] MEDS: Atorvastatin Calcium 10 MG TABLET PO (09:13)
[2022-06-26 09:23] LABS: Alanine Aminotransferase 8 U/L (0-31); Albumin Level 3.6 g/dL (3.5-5.0); Alkaline Phosphatase 70 U/L (39-117); Anion Gap 13 (12-20); Aspartate Amino Transferase 10 U/L (5-31); Bilirubin Total 0.3 mg/dL (0.0-1.0); Blood Urea Nitrogen 16 mg/dL (9-16); Calcium 9.1 mg/dL (8.4-10.2); Carbon Dioxide 30 mmol/L (22-29); Chloride 104 mmol/L (96-108); Creatinine Clr Calc Pharmacy 76.4; Estimated Glomerular Filt Rate > 60; Glucose Random 125 mg/dL (60-115); Potassium 4.2 mmol/L (3.3-5.1); Sodium 143 mmol/L (135-145); Total Protein 6.4 g/dL (6.5-8.0)
[2022-06-26 09:27] LABS: Valproate 72.3 mcg/mL (50.0-100.0)
[2022-06-26 09:28] LABS: Estimated Average Glucose 126 mg/dL
[2022-06-26 12:00] LABS: Strep A Nucleic Acid Negative (Negative)
--- NOTE | 2022-06-26 16:29 | HO.PSYCHPN ---
Subjective Subjective Date of Service: 06/26/22 Reason For Visit: omar/SI Subjective Notes: Section 7 Healthcare Proxy: No Guardianship: No Medical Problems Affecting Mental Status: No Interim History: Reports urinary incontinence last night x1. Reports sore throat today-order for culture, medicated spray and lozenge prn Anxious-preparing to talk with [facility] via zoom this afternoon. What will happen to me? Prepared with some questions she has written down for the meeting. Medication Compliance: Yes Side effects from medications: No Attending Groups: Intermittent (she reports no groups today as of this time.) Review of Systems Acute medical concerns: No Medical Review of Systems: unchanged Mental Status Exam Mental Status Exam Patient Appearance: Appropriate Patient Orientation: Person, Place, Time and Situation Level of Consciousness: Alert Patient Behavior: Talkative, Cooperative and Good Eye Contact Mood Description: Apathetic, Withdrawn, Depressed, Anxious and Apprehensive Affect Description: Flat Patient Cognition Impaired: No Ability to Follow Directions: Good Speech Pattern: Spontaneous Speech Memory Description: Intact Hallucinations: None Delusions: Not Present Perceptual Disturbances: Depersonalization and Derealization Thought Process: Rumination Thought Content: positive for Perseveration and positive for Suicidal Ideation Depressive Symptoms: Increased Anxiety, Diff. Making Decisions, Difficulty Sleeping, Increased Fatigue, Thoughts of /Suicide, Low Self Esteem and Loss of Energy Judgement: Fair Diagnostics Vital Signs (24Hr): Vital Signs - 24 hr 06/25/22 21:40 06/26/22 06:00 Temperature 97.7 F 96.3 F L Pulse Rate 84 91 Respiratory Rate 16 18 Blood Pressure 122/63 130/83 Pulse Oximetry 98 97 Oxygen Delivery Method Room Air Room Air BMI result Body Mass Index 29.2 Labs Results: 06/26/22 08:30 06/26/22 08:30 Labs: Laboratory Results - last 48 hr 06/25/22 06/25/22 06/26/22 08:39 22:11 07:58 WBC RBC Hgb Hct MCV MCH MCHC RDW Plt Count MPV Immature Gran % (Auto) Neut % (Auto) Lymph % (Auto) [place] % (Auto) Eos % (Auto) Baso % (Auto) Lymph # (Auto) [place] # (Auto) Eos # (Auto) Baso # (Auto) Abs Immat Gran (auto) Absolute Neuts (auto) Absolute Nucleated RBC Nucleated RBC % (auto) Sodium Potassium Chloride Carbon Dioxide Anion Gap BUN Creatinine Estim Creat Clear Calc Estimated GFR POC Glucose 101 153 H 101 Random Glucose Estimat Average Glucose Hemoglobin A1c % Calcium Total Bilirubin AST ALT Alkaline Phosphatase Total Protein Albumin Valproic Acid S. pyogenes GrpA ABENA 06/26/22 06/26/22 06/26/22 08:30 08:30 08:30 WBC 5.0 RBC 3.94 L D Hgb 11.6 L Hct 35.4 L MCV 89.8 MCH 29.4 MCHC 32.8 RDW 12.5 Plt Count 193 D MPV 8.9 L Immature Gran % (Auto) 0.8 H Neut % (Auto) 42.0 L Lymph % (Auto) 45.0 H [place] % (Auto) 10.0 Eos % (Auto) 1.6 Baso % (Auto) 0.6 Lymph # (Auto) 2.2 [place] # (Auto) 0.5 Eos # (Auto) 0.1 Baso # (Auto) 0.0 Abs Immat Gran (auto) 0.04 H Absolute Neuts (auto) 2.1 Absolute Nucleated RBC 0.000 Nucleated RBC % (auto) 0.0 Sodium 143 Potassium 4.2 Chloride 104 Carbon Dioxide 30 H Anion Gap 13 BUN 16 Creatinine 0.88 Estim Creat Clear Calc 76.4 Estimated GFR > 60 POC Glucose Random Glucose 125 H Estimat Average Glucose 126 Hemoglobin A1c % 6.0 Calcium 9.1 D Total Bilirubin 0.3 AST 10 ALT 8 Alkaline Phosphatase 70 Total Protein 6.4 L Albumin 3.6 Valproic Acid S. pyogenes GrpA ABENA 06/26/22 06/26/22 08:30 10:50 WBC RBC Hgb Hct MCV MCH MCHC RDW Plt Count MPV Immature Gran % (Auto) Neut % (Auto) Lymph % (Auto) [place] % (Auto) Eos % (Auto) Baso % (Auto) Lymph # (Auto) [place] # (Auto) Eos # (Auto) Baso # (Auto) Abs Immat Gran (auto) Absolute Neuts (auto) Absolute Nucleated RBC Nucleated RBC % (auto) Sodium Potassium Chloride Carbon Dioxide Anion Gap BUN Creatinine Estim Creat Clear Calc Estimated GFR POC Glucose Random Glucose Estimat Average Glucose Hemoglobin A1c % Calcium Total Bilirubin AST ALT Alkaline Phosphatase Total Protein Albumin Valproic Acid 72.3 S. pyogenes GrpA ABENA Negative Medications Medications Current Medications Acetaminophen (Acetaminophen 325 Mg Tablet) 650 mg PO Q6H PRN PRN Reason: Headache/Pain Mild Scale (1-3) Last Admin: 06/06/22 20:53 Dose: 650 mg Al Hydroxide/Mg Hydroxide (Magnesium Hydrox/Alum Hydrox 30 Ml Oral.Susp) 30 ml PO Q6H PRN PRN Reason: Heartburn/Nausea Amlodipine Besylate (Amlodipine Besylate 10 Mg Tablet) 10 mg PO DAILY [facility]; Protocol Last Admin: 06/26/22 08:42 Dose: 10 mg Atorvastatin Calcium (Atorvastatin Calcium 10 Mg Tablet) 10 mg PO DAILY [facility] Last Admin: 06/26/22 09:13 Dose: 10 mg Benzocaine (Throat Lozenge, Medicated Lozenge) 1 lozenge MUCOUS MEM Q2H PRN PRN Reason: Sore Throat Bisacodyl (Bisacodyl 5 Mg Tablet.Dr) 10 mg PO DAILY PRN PRN Reason: Constipation Bupropion HCl (Bupropion Hcl Xl 300 Mg Tab.Er.24h) 300 mg PO DAILY [facility] Last Admin: 06/26/22 08:42 Dose: 300 mg Cariprazine (Cariprazine Hcl 3 Mg Capsule) 6 mg PO DAILY [facility] Last Admin: 06/26/22 08:42 Dose: 6 mg Clonidine HCl (Clonidine Hcl 0.1 Mg Tablet) 0.1 mg PO DAILY PRN; Protocol PRN Reason: HTN, hyperarousal Last Admin: 06/06/22 10:53 Dose: 0.1 mg Diphenhydramine HCl (Diphenhydramine Hcl 25 Mg Capsule) 50 mg PO Q4H PRN PRN Reason: agitation Divalproex Sodium (Divalproex Sodium Er 250 Mg Tab.Er.24h) 750 mg PO BEDTIME [facility] Last Admin: 06/25/22 21:42 Dose: 750 mg Docusate Sodium (Docusate Sodium 100 Mg Capsule) 200 mg PO BID [facility] Last Admin: 06/26/22 08:42 Dose: 200 mg Glyburide (Glyburide 2.5 Mg Tablet) 2.5 mg PO DAILY [facility] Last Admin: 06/26/22 08:42 Dose: 2.5 mg Guaifenesin (Guaifenesin 100 Mg/5 Ml Liquid) 5 ml PO Q4H PRN PRN Reason: cough Last Admin: 06/06/22 15:06 Dose: 5 ml Hydroxyzine HCl (Hydroxyzine Hcl 25 Mg Tablet) 25 mg PO Q6H PRN PRN Reason: Anxiety Last Admin: 06/23/22 02:05 Dose: 25 mg Lactulose (Lactulose 20 Gm/30 Ml Solution) 30 gm PO BID BREN Last Admin: 06/26/22 08:43 Dose: Not Given Magnesium Hydroxide (Milk Of Magnesia 30 Ml Oral.Susp) 30 ml PO DAILY PRN PRN Reason: Constipation Last Admin: 06/07/22 08:41 Dose: 30 ml Multi-Ingred Medicated Throat Carpenter (Throat Carpenter, Medicated 20 Ml Bottle) 1 spray MUCOUS MEM Q2H PRN PRN Reason: Sore Throat Prazosin HCl (Prazosin Hcl 1 Mg Capsule) 1 mg PO BEDTIME BREN; Protocol Last Admin: 06/25/22 21:42 Dose: 1 mg Quetiapine Fumarate (Quetiapine Fumarate 50 Mg Tablet) 50 mg PO BID PRN PRN Reason: agitation Last Admin: 06/24/22 21:41 Dose: 50 mg Quetiapine Fumarate (Quetiapine Fumarate 25 Mg Tablet) 25 mg PO BEDTIME BREN Last Admin: 06/25/22 21:42 Dose: 25 mg Trazodone HCl (Trazodone Hcl 50 Mg Tablet) 50 mg PO BEDTIME PRN PRN Reason: Insomnia Last Admin: 06/25/22 21:42 Dose: 50 mg Allergies Allergies Allergy/AdvReac Type Severity Reaction Status Date / Time No Known Allergies Allergy Verified 05/19/22 23:36 Assessment & Plan Assessment & Plan (1) Bipolar disorder: Status: Acute Code(s): F31.9 - Bipolar disorder, unspecified Plan 52 yo female, hx of bipolar disorder, found running [place] [address] attempting to kill herself via motor vehicle. Reports poor sleep, appetite, poor ADL's, stopping meds and treatment and feeling hopeless and helpless. Plan: Collateral contact TDN- given [place] warning as we will need to file for civil commitment Medical review of current sx Olanzapine 5 mg bid Continue Haldol prn Trileptal 300 mg bid Flu Vaccine (pt request and accepted) Diagnostics 05/22/22- Continue alliance building with pt. Pt will have financial questions addressed so we may hopefully move forward with her treatment. Family is attempting to assure pt she is financially safe. 05/23/22- Continue current plan. 05/24/22- Lexapro 5 mg a.m. to begin 05/25. 05/25/22- Continue current plan 05/26/22- Continue alliance building, medication titration and attempts to align with OP supports. 05/27/22- No med changes 05/28/22- Vraylar 1.5 mg a.m. 05/30/22- Increase Vraylar to 3 mg 05/31. Discontinue Lexapro Prozac 10 mg daily 06/01/2022: Change Prozac liquid to capsules as per patient request 06/04/22: DC Olanzapine, continue prn, decrease Trileptal. Titrate Vraylar when health issues clarified on 06/05. Pending COVID, rapid strep Continue to monitor 06/05/22: Constipation- MOM prn and colace bid Racing thoughts-discontinue prozac, trileptal. Increase Vraylar to 4.5 mg Depakote ER 250 mg HS Sleep- Seroquel prn and HS Cough-Robitussin prn Discussed with Sabine Hurd [facility]- will complete insurance review on 06/06. 06/06/22: No changes as pt refused meds 06/05. No word today from pts insurance company for this process description writer to review. 06/07: Continue current regimen and plans. Started on lactulose for constipation 06/08: Continue current plans and regimen 06/09 patient remains depressed; passive wish with intermittent active SI; currently more intense wish however no plans or intention. Agrees to medication change -patient has diagnosis of bipolar disorder; will consider increasing Depakote as it is currently low-dose. 06/10 remains with SI, depressed. Agrees to increasing Depakote further Increased to Depakote ER 750 mg q.h.s. Labs ordered for Thursday06/11/22- Refusing of medications, treatment today. Aggressive episode requiring IM Olanzapine/Benadryl. 06/12/22-Continues to refuse treatment. Discussed with pt's family. Will revoke CV and request Section 7/8 process begin. Family supports this. 06/13/22. Section 7 filed. Continue to build alliance with pt around participation in her care. 06/14 continue tx. 06/15 continue tx. 06/16/22- Pt reports minimal COVID sx. Asked pt to attempt to engage more in milieu. She will consider. Labs she reports she will allow. Valproate, CBCD, CMP Lability persists, anger, depression. Allow Vraylar time to work (missed doses x 2 last week) Continue current regime presently. Improvement noted with lability, anger present-offer processing of issues and we can possibly avoid court. 06/17/22- Encourage milieu participation and self-care. 06/18/22- Wellbutrin 75 mg a.m. 06/19/22- no outbursts per pt report. Continue current plan. 06/20/22- [facility] signed for hospital stay in [place]-sent. Increase Wellbutrin to 150 mg XL on 06/21 On 06/21 decrease Seroquel to 50 mg HS Monitor urinary incontinence episodes, if they continue urine culture POC daily 06/21/22- continue treatment plan 06/22/22 contiue current treatment plan 06/23/22- Continue current plan of care. 06/24/22- Increase Vraylar to 6 mg daily Increase Wellbutrin XL to 300 mg daily 06/25/22- Decrease HS Seroquel to 25 mg-?nocturnal urinary incontinence contributor Dulcolax prn for constipation- reports sx ~1 week Urine culture-nocturnal urinary incontinence POC bid Glyburide 2.5 mg a.m. Atorvastatin 10 mg a.m. CBCD, ChemP, A1c, Valproate Level 06/26/22: Throat culture. Medicated spray, lozenge for reports of sore throat. [facility] Zoom meeting today. I spent minutes with the patient and/or on the patient floor today, greater than?50% of which was spent counseling/coordinating care. Patient educated on: medication risk/benefits, therapeutic strategies and other Informed Consent: further education needed Reason for contiued inpatient stay Substantial Risk for: harm to self, inability to function and rapid decompensation
[2022-06-26 20:45] VITALS: BP 162/85; PULSE 98; RESP 18; TEMP 36.6; O2SAT 99
[2022-06-26] MEDS: Acetaminophen 325 MG TABLET 650 MG PO (20:47)
[2022-06-26] MEDS: Prazosin HCL 1 MG CAPSULE PO (20:48)
[2022-06-26] MEDS: hydrOXYzine HCL 25 MG TABLET PO (20:53)
[2022-06-26] MEDS: Divalproex Sodium ER 250 MG TAB.ER.24H 750 MG PO (20:53)
[2022-06-26] MEDS: QUEtiapine Fumarate 50 MG TABLET PO (20:54)
[2022-06-26] MEDS: traZODone HCL 50 MG TABLET PO ×2 (20:54→22:28)
[2022-06-26] MEDS: QUEtiapine Fumarate 25 MG TABLET PO (20:54)
[2022-06-26 21:26] LABS: Glucose, Whole Blood 157 mg/dL (60-115)
[2022-06-27 06:00] VITALS: BP 132/84; PULSE 88; RESP 18; TEMP 36.4; O2SAT 98
[2022-06-27 09:54] LABS: Glucose, Whole Blood 92 mg/dL (60-115)
[2022-06-27] MEDS: Cariprazine HCl 3 MG CAPSULE 6 MG PO (10:43)
[2022-06-27] MEDS: Lactulose 20 GM/30 ML SOLUTION 30 GM PO (10:43)
[2022-06-27] MEDS: Atorvastatin Calcium 10 MG TABLET PO (10:44)
[2022-06-27] MEDS: Docusate Sodium 100 MG CAPSULE 200 MG PO ×2 (10:44→21:12)
[2022-06-27] MEDS: glyBURIDE 2.5 MG TABLET PO (10:44)
[2022-06-27] MEDS: amLODIPine Besylate 10 MG TABLET PO (10:45)
[2022-06-27] MEDS: buPROPion HCl XL 300 MG TAB.ER.24H PO (10:45)
--- NOTE | 2022-06-27 16:02 | P.PNPSI_ITS ---
Subjective Subjective Date of Service: 06/27/22 Reason For Visit: omar/SI Subjective Notes: Section 7 Healthcare Proxy: No Guardianship: No Medical Problems Affecting Mental Status: No Interim History: Reviewed her impression of [facility] meeting. Anxious about going home and not being able to do certain things (Ex: I cannot cook ), anxious about the pieces we need to pull together to get information from [facility], and questioning if she does need residential level of care. Discussion about adding supports to her life. States she is thinking with this support it may be possible. Reports improvement in sore throat, denies nocturnal urinary incontinence- I need to limit my fluids before I go to bed . Alert, smiling, engaged however still spending a great deal of time in bed. Medication Compliance: Yes Side effects from medications: No Attending Groups: Intermittent Review of Systems Acute medical concerns: No Medical Review of Systems: unchanged Mental Status Exam Mental Status Exam Patient Appearance: Appropriate Patient Orientation: Person, Place, Time and Situation Level of Consciousness: Alert Patient Behavior: Talkative, Cooperative and Good Eye Contact Mood Description: Apathetic, Withdrawn, Depressed, Anxious and Apprehensive Affect Description: Flat Patient Cognition Impaired: No Ability to Follow Directions: Good Speech Pattern: Spontaneous Speech Memory Description: Intact Hallucinations: None Delusions: Not Present Perceptual Disturbances: Depersonalization and Derealization Thought Process: Rumination Thought Content: positive for Perseveration and positive for Suicidal Ideation Depressive Symptoms: Increased Anxiety, Diff. Making Decisions, Difficulty Sleeping, Increased Fatigue, Thoughts of /Suicide, Low Self Esteem and Loss of Energy Judgement: Fair Diagnostics Vital Signs (24Hr): Vital Signs - 24 hr 06/26/22 20:45 06/27/22 06:00 Temperature 97.9 F 97.6 F Pulse Rate 98 88 Respiratory Rate 18 18 Blood Pressure 162/85 H 132/84 Pulse Oximetry 99 98 Oxygen Delivery Method Room Air Room Air BMI result Body Mass Index 29.2 Labs Results: 06/26/22 08:30 06/26/22 08:30 Labs: Laboratory Results - last 48 hr 06/25/22 06/26/22 06/26/22 22:11 07:58 08:30 WBC 5.0 RBC 3.94 L D Hgb 11.6 L Hct 35.4 L MCV 89.8 MCH 29.4 MCHC 32.8 RDW 12.5 Plt Count 193 D MPV 8.9 L Immature Gran % (Auto) 0.8 H Neut % (Auto) 42.0 L Lymph % (Auto) 45.0 H Canadian % (Auto) 10.0 Eos % (Auto) 1.6 Baso % (Auto) 0.6 Lymph # (Auto) 2.2 Canadian # (Auto) 0.5 Eos # (Auto) 0.1 Baso # (Auto) 0.0 Abs Immat Gran (auto) 0.04 H Absolute Neuts (auto) 2.1 Absolute Nucleated RBC 0.000 Nucleated RBC % (auto) 0.0 Sodium Potassium Chloride Carbon Dioxide Anion Gap BUN Creatinine Estim Creat Clear Calc Estimated GFR POC Glucose 153 H 101 Random Glucose Estimat Average Glucose Hemoglobin A1c % Calcium Total Bilirubin AST ALT Alkaline Phosphatase Total Protein Albumin Valproic Acid S. pyogenes GrpA ABENA 06/26/22 06/26/22 06/26/22 08:30 08:30 08:30 WBC RBC Hgb Hct MCV MCH MCHC RDW Plt Count MPV Immature Gran % (Auto) Neut % (Auto) Lymph % (Auto) Canadian % (Auto) Eos % (Auto) Baso % (Auto) Lymph # (Auto) Canadian # (Auto) Eos # (Auto) Baso # (Auto) Abs Immat Gran (auto) Absolute Neuts (auto) Absolute Nucleated RBC Nucleated RBC % (auto) Sodium 143 Potassium 4.2 Chloride 104 Carbon Dioxide 30 H Anion Gap 13 BUN 16 Creatinine 0.88 Estim Creat Clear Calc 76.4 Estimated GFR > 60 POC Glucose Random Glucose 125 H Estimat Average Glucose 126 Hemoglobin A1c % 6.0 Calcium 9.1 D Total Bilirubin 0.3 AST 10 ALT 8 Alkaline Phosphatase 70 Total Protein 6.4 L Albumin 3.6 Valproic Acid 72.3 S. pyogenes GrpA ABENA 06/26/22 06/26/22 06/27/22 10:50 21:00 09:49 WBC RBC Hgb Hct MCV MCH MCHC RDW Plt Count MPV Immature Gran % (Auto) Neut % (Auto) Lymph % (Auto) Canadian % (Auto) Eos % (Auto) Baso % (Auto) Lymph # (Auto) Canadian # (Auto) Eos # (Auto) Baso # (Auto) Abs Immat Gran (auto) Absolute Neuts (auto) Absolute Nucleated RBC Nucleated RBC % (auto) Sodium Potassium Chloride Carbon Dioxide Anion Gap BUN Creatinine Estim Creat Clear Calc Estimated GFR POC Glucose 157 H 92 Random Glucose Estimat Average Glucose Hemoglobin A1c % Calcium Total Bilirubin AST ALT Alkaline Phosphatase Total Protein Albumin Valproic Acid S. pyogenes GrpA ABENA Negative Medications Medications Current Medications Acetaminophen (Acetaminophen 325 Mg Tablet) 650 mg PO Q6H PRN PRN Reason: Headache/Pain Mild Scale (1-3) Last Admin: 06/26/22 20:47 Dose: 650 mg Al Hydroxide/Mg Hydroxide (Magnesium Hydrox/Alum Hydrox 30 Ml Oral.Susp) 30 ml PO Q6H PRN PRN Reason: Heartburn/Nausea Amlodipine Besylate (Amlodipine Besylate 10 Mg Tablet) 10 mg PO DAILY [facility]; Protocol Last Admin: 06/27/22 10:45 Dose: 10 mg Atorvastatin Calcium (Atorvastatin Calcium 10 Mg Tablet) 10 mg PO DAILY [facility] Last Admin: 06/27/22 10:44 Dose: 10 mg Benzocaine (Throat Lozenge, Medicated Lozenge) 1 lozenge MUCOUS MEM Q2H PRN PRN Reason: Sore Throat Bisacodyl (Bisacodyl 5 Mg Tablet.Dr) 10 mg PO DAILY PRN PRN Reason: Constipation Bupropion HCl (Bupropion Hcl Xl 300 Mg Tab.Er.24h) 300 mg PO DAILY [facility] Last Admin: 06/27/22 10:45 Dose: 300 mg Cariprazine (Cariprazine Hcl 3 Mg Capsule) 6 mg PO DAILY [facility] Last Admin: 06/27/22 10:43 Dose: 6 mg Clonidine HCl (Clonidine Hcl 0.1 Mg Tablet) 0.1 mg PO DAILY PRN; Protocol PRN Reason: HTN, hyperarousal Last Admin: 06/06/22 10:53 Dose: 0.1 mg Diphenhydramine HCl (Diphenhydramine Hcl 25 Mg Capsule) 50 mg PO Q4H PRN PRN Reason: agitation Divalproex Sodium (Divalproex Sodium Er 250 Mg Tab.Er.24h) 750 mg PO BEDTIME [facility] Last Admin: 06/26/22 20:53 Dose: 750 mg Docusate Sodium (Docusate Sodium 100 Mg Capsule) 200 mg PO BID [facility] Last Admin: 06/27/22 10:44 Dose: 200 mg Glyburide (Glyburide 2.5 Mg Tablet) 2.5 mg PO DAILY [facility] Last Admin: 06/27/22 10:44 Dose: 2.5 mg Guaifenesin (Guaifenesin 100 Mg/5 Ml Liquid) 5 ml PO Q4H PRN PRN Reason: cough Last Admin: 06/06/22 15:06 Dose: 5 ml Hydroxyzine HCl (Hydroxyzine Hcl 25 Mg Tablet) 25 mg PO Q6H PRN PRN Reason: Anxiety Last Admin: 06/26/22 20:53 Dose: 25 mg Lactulose (Lactulose 20 Gm/30 Ml Solution) 30 gm PO BID [facility] Last Admin: 06/27/22 10:43 Dose: 30 gm Magnesium Hydroxide (Milk Of Magnesia 30 Ml Oral.Susp) 30 ml PO DAILY PRN PRN Reason: Constipation Last Admin: 06/07/22 08:41 Dose: 30 ml Multi-Ingred Medicated Throat [place] (Throat [place], Medicated 20 Ml Bottle) 1 spray MUCOUS MEM Q2H PRN PRN Reason: Sore Throat Prazosin HCl (Prazosin Hcl 1 Mg Capsule) 1 mg PO BEDTIME [facility]; Protocol Last Admin: 06/26/22 20:48 Dose: 1 mg Quetiapine Fumarate (Quetiapine Fumarate 50 Mg Tablet) 50 mg PO BID PRN PRN Reason: agitation Last Admin: 06/26/22 20:54 Dose: 50 mg Quetiapine Fumarate (Quetiapine Fumarate 25 Mg Tablet) 25 mg PO BEDTIME [facility] Last Admin: 06/26/22 20:54 Dose: 25 mg Trazodone HCl (Trazodone Hcl 50 Mg Tablet) 50 mg PO BEDTIME PRN PRN Reason: Insomnia Last Admin: 06/26/22 22:28 Dose: 50 mg Allergies Allergies Allergy/AdvReac Type Severity Reaction Status Date / Time No Known Allergies Allergy Verified 05/19/22 23:36 Assessment & Plan Assessment & Plan (1) Bipolar disorder: Status: Acute Code(s): F31.9 - Bipolar disorder, unspecified Plan 52 yo female, hx of bipolar disorder, found running [place] [address] attempting to kill herself via motor vehicle. Reports poor sleep, appetite, poor ADL's, stopping meds and treatment and feeling hopeless and helpless. Plan: Collateral contact TDN- given Davis warning as we will need to file for civil commitment Medical review of current sx Olanzapine 5 mg bid Continue Haldol prn Trileptal 300 mg bid Flu Vaccine (pt request and accepted) Diagnostics 05/22/22- Continue alliance building with pt. Pt will have financial questions addressed so we may hopefully move forward with her treatment. Family is attempting to assure pt she is financially safe. 05/23/22- Continue current plan. 05/24/22- Lexapro 5 mg a.m. to begin 05/25. 05/25/22- Continue current plan 05/26/22- Continue alliance building, medication titration and attempts to align with OP supports. 05/27/22- No med changes 05/28/22- Vraylar 1.5 mg a.m. 05/30/22- Increase Vraylar to 3 mg 05/31. Discontinue Lexapro Prozac 10 mg daily 06/01/2022: Change Prozac liquid to capsules as per patient request 06/04/22: DC Olanzapine, continue prn, decrease Trileptal. Titrate Vraylar when health issues clarified on 06/05. Pending COVID, rapid strep Continue to monitor 06/05/22: Constipation- MOM prn and colace bid Racing thoughts-discontinue prozac, trileptal. Increase Vraylar to 4.5 mg Depakote ER 250 mg HS Sleep- Seroquel prn and HS Cough-Robitussin prn Discussed with Sabine Hurd [facility]- will complete insurance review on 06/06. 06/06/22: No changes as pt refused meds 06/05. No word today from pts insurance company for this junior copywriter to review. 06/07: Continue current regimen and plans. Started on lactulose for co nstipation 06/08: Continue current plans and regimen 06/09 patient remains depressed; passive wish with intermittent active SI; currently more intense wish however no plans or intention. Agrees to medication change -patient has diagnosis of bipolar disorder; will consider increasing Depakote as it is currently low-dose. 06/10 remains with SI, depressed. Agrees to increasing Depakote further Increased to Depakote ER 750 mg q.h.s. Labs ordered for Thursday06/11/22- Refusing of medications, treatment today. Aggressive episode requiring IM Olanzapine/Benadryl. 06/12/22-Continues to refuse treatment. Discussed with pt's family. Will revoke CV and request Section 7/8 process begin. Family supports this. 06/13/22. Section 7 filed. Continue to build alliance with pt around participat ion in her care. 06/14 continue tx. 06/15 continue tx. 06/16/22- Pt reports minimal COVID sx. Asked pt to attempt to engage more in milieu. She will consider. Labs she reports she will allow. Valproate, CBCD, CMP Lability persists, anger, depression. Allow Vraylar time to work (missed doses x 2 last week) Continue current regime presently. Improvement noted with lability, anger present-offer processing of issues and we can possibly avoid court. 06/17/22- Encourage milieu participation and self-care. 06/18/22- Wellbutrin 75 mg a.m. 06/19/22- no outbursts per pt report. Continue current plan. 06/20/22- [facility] signed for hospital stay in [place]-sent. Increase Wellbutrin to 150 mg XL on 06/21 On 06/21 decrease Seroquel to 50 mg HS Monitor urinary incontinence episodes, if they continue urine culture POC daily 06/21/22- continue treatment plan 06/22/22 contiue current treatment plan 06/23/22- Continue current plan of care. 06/24/22- Increase Vraylar to 6 mg daily Increase Wellbutrin XL to 300 mg daily 06/25/22- Decrease HS Seroquel to 25 mg-?nocturnal urinary incontinence co ntributor Dulcolax prn for constipation- reports sx ~1 week Urine culture-nocturnal urinary incontinence POC bid Glyburide 2.5 mg a.m. Atorvastatin 10 mg a.m. CBCD, ChemP, A1c, Valproate Level 06/26/22: Throat culture. Medicated spray, lozenge for reports of sore throat. [facility] Zoom meeting today. 06/26/22: Continue current regime. Organize resources for discharge planning. Decrease in SI she reports today. I spent minutes with the patient and/or on the patient floor today, greater than?50% of which was spent counseling/coordinating care. Patient educated on: therapeutic strategies Informed Consent: further education needed Reason for contiued inpatient stay Substantial Risk for: harm to self, inability to function, rapid decompensation and med/psych decompensation
[2022-06-27 20:43] LABS: Glucose, Whole Blood 123 mg/dL (60-115)
[2022-06-27 21:00] VITALS: BP 98/61; PULSE 92; RESP 18; TEMP 36.6; O2SAT 99
[2022-06-27] MEDS: hydrOXYzine HCL 25 MG TABLET PO (21:12)
[2022-06-27] MEDS: Throat Lozenge, Medicated LOZENGE 1 LOZENGE MUCOUS MEM ×2 (21:12→22:58)
[2022-06-27] MEDS: Prazosin HCL 1 MG CAPSULE PO (21:13)
[2022-06-27] MEDS: Divalproex Sodium ER 250 MG TAB.ER.24H 750 MG PO (21:13)
[2022-06-27] MEDS: QUEtiapine Fumarate 25 MG TABLET PO (21:14)
[2022-06-27] MEDS: traZODone HCL 50 MG TABLET PO ×2 (21:14→22:58)
[2022-06-27] MEDS: QUEtiapine Fumarate 50 MG TABLET PO (22:58)
--- NOTE | 2022-06-28 02:59 | PC.NURSE ---
Pt had an episode of urinary incontinence at 0100. Patient declined to shower stating, I just want to go back to sleep . Pt did change clothing. Bed cleaned and new linens placed on bed.
[2022-06-28 06:00] VITALS: BP 125/69; PULSE 81; RESP 16; TEMP 36.7; O2SAT 98
[2022-06-28] MEDS: Atorvastatin Calcium 10 MG TABLET PO (10:03)
[2022-06-28] MEDS: buPROPion HCl XL 300 MG TAB.ER.24H PO (10:03)
[2022-06-28] MEDS: Cariprazine HCl 3 MG CAPSULE 6 MG PO (10:03)
[2022-06-28] MEDS: Docusate Sodium 100 MG CAPSULE 200 MG PO ×2 (10:03→21:34)
[2022-06-28] MEDS: Lactulose 20 GM/30 ML SOLUTION 30 GM PO (10:03)
[2022-06-28] MEDS: glyBURIDE 2.5 MG TABLET PO (10:04)
[2022-06-28] MEDS: amLODIPine Besylate 10 MG TABLET PO (10:04)
[2022-06-28 10:25] LABS: Glucose, Whole Blood 134 mg/dL (60-115)
--- NOTE | 2022-06-28 13:04 | P.PNPSI_ITS ---
Subjective Subjective Date of Service: 06/28/22 Reason For Visit: omar/SI Interim History: calm cooperative. endorses passive SI currently, states she can't do it because of my family, it would break their hearts. sleeping is iffy, attending more groups. per staff, med-compliant. more depressed today. eating largely isolative. appears to be sleping well. Mental Status Exam Mental Status Exam Patient Appearance: Appropriate Patient Orientation: Person, Place, Time and Situation Level of Consciousness: Alert Patient Behavior: Talkative, Cooperative and Good Eye Contact Mood Description: Apathetic, Withdrawn, Depressed, Anxious and Apprehensive Affect Description: Flat Patient Cognition Impaired: No Ability to Follow Directions: Good Speech Pattern: Spontaneous Speech Memory Description: Intact Hallucinations: None Delusions: Not Present Perceptual Disturbances: Depersonalization and Derealization Thought Process: Rumination Thought Content: positive for Perseveration and positive for Suicidal Ideation Depressive Symptoms: Increased Anxiety, Diff. Making Decisions, Difficulty Sleeping, Increased Fatigue, Thoughts of /Suicide, Low Self Esteem and Loss of Energy Judgement: Fair Diagnostics Vital Signs (24Hr): Vital Signs - 24 hr 06/27/22 21:00 06/28/22 06:00 Temperature 97.8 F 98.1 F Pulse Rate 92 81 Respiratory Rate 18 16 Blood Pressure 98/61 125/69 Pulse Oximetry 99 98 Oxygen Delivery Method Room Air Room Air BMI result Body Mass Index 29.2 Labs Results: 06/26/22 08:30 06/26/22 08:30 Labs: Laboratory Results - last 48 hr 06/26/22 06/27/22 06/27/22 21:00 09:49 20:27 POC Glucose 157 H 92 123 H 06/28/22 10:20 POC Glucose 134 H Medications Medications Current Medications Acetaminophen (Acetaminophen 325 Mg Tablet) 650 mg PO Q6H PRN PRN Reason: Headache/Pain Mild Scale (1-3) Last Admin: 06/26/22 20:47 Dose: 650 mg Al Hydroxide/Mg Hydroxide (Magnesium Hydrox/Alum Hydrox 30 Ml Oral.Susp) 30 ml PO Q6H PRN PRN Reason: Heartburn/Nausea Amlodipine Besylate (Amlodipine Besylate 10 Mg Tablet) 10 mg PO DAILY [facility]; Protocol Last Admin: 06/28/22 10:04 Dose: 10 mg Atorvastatin Calcium (Atorvastatin Calcium 10 Mg Tablet) 10 mg PO DAILY [facility] Last Admin: 06/28/22 10:03 Dose: 10 mg Benzocaine (Throat Lozenge, Medicated Lozenge) 1 lozenge MUCOUS MEM Q2H PRN PRN Reason: Sore Throat Last Admin: 06/27/22 22:58 Dose: 1 lozenge Bisacodyl (Bisacodyl 5 Mg Tablet.Dr) 10 mg PO DAILY PRN PRN Reason: Constipation Bupropion HCl (Bupropion Hcl Xl 300 Mg Tab.Er.24h) 300 mg PO DAILY [facility] Last Admin: 06/28/22 10:03 Dose: 300 mg Cariprazine (Cariprazine Hcl 3 Mg Capsule) 6 mg PO DAILY [facility] Last Admin: 06/28/22 10:03 Dose: 6 mg Clonidine HCl (Clonidine Hcl 0.1 Mg Tablet) 0.1 mg PO DAILY PRN; Protocol PRN Reason: HTN, hyperarousal Last Admin: 06/06/22 10:53 Dose: 0.1 mg Diphenhydramine HCl (Diphenhydramine Hcl 25 Mg Capsule) 50 mg PO Q4H PRN PRN Reason: agitation Divalproex Sodium (Divalproex Sodium Er 250 Mg Tab.Er.24h) 750 mg PO BEDTIME [facility] Last Admin: 06/27/22 21:13 Dose: 750 mg Docusate Sodium (Docusate Sodium 100 Mg Capsule) 200 mg PO BID [facility] Last Admin: 06/28/22 10:03 Dose: 200 mg Glyburide (Glyburide 2.5 Mg Tablet) 2.5 mg PO DAILY [facility] Last Admin: 06/28/22 10:04 Dose: 2.5 mg Guaifenesin (Guaifenesin 100 Mg/5 Ml Liquid) 5 ml PO Q4H PRN PRN Reason: cough Last Admin: 06/06/22 15:06 Dose: 5 ml Hydroxyzine HCl (Hydroxyzine Hcl 25 Mg Tablet) 25 mg PO Q6H PRN PRN Reason: Anxiety Last Admin: 06/27/22 21:12 Dose: 25 mg Lactulose (Lactulose 20 Gm/30 Ml Solution) 30 gm PO BID [facility] Last Admin: 06/28/22 10:03 Dose: 30 gm Magnesium Hydroxide (Milk Of Magnesia 30 Ml Oral.Susp) 30 ml PO DAILY PRN PRN Reason: Constipation Last Admin: 06/07/22 08:41 Dose: 30 ml Multi-Ingred Medicated Throat [place] (Throat [place], Medicated 20 Ml Bottle) 1 spray MUCOUS MEM Q2H PRN PRN Reason: Sore Throat Prazosin HCl (Prazosin Hcl 1 Mg Capsule) 1 mg PO BEDTIME [facility]; Protocol Last Admin: 06/27/22 21:13 Dose: 1 mg Quetiapine Fumarate (Quetiapine Fumarate 50 Mg Tablet) 50 mg PO BID PRN PRN Reason: agitation Last Admin: 06/27/22 22:58 Dose: 50 mg Quetiapine Fumarate (Quetiapine Fumarate 25 Mg Tablet) 25 mg PO BEDTIME [facility] Last Admin: 06/27/22 21:14 Dose: 25 mg Trazodone HCl (Trazodone Hcl 50 Mg Tablet) 50 mg PO BEDTIME PRN PRN Reason: Insomnia Last Admin: 06/27/22 22:58 Dose: 50 mg Allergies Allergies Allergy/AdvReac Type Severity Reaction Status Date / Time No Known Allergies Allergy Verified 05/19/22 23:36 Assessment & Plan Assessment & Plan (1) Bipolar disorder: Status: Acute Code(s): F31.9 - Bipolar disorder, unspecified Plan 52 yo female, hx of bipolar disorder, found running [place] [address] attempting to kill herself via motor vehicle. Reports poor sleep, appetite, poor ADL's, stopping meds and treatment and feeling hopeless and helpless. Plan: Collateral contact TDN- given [place] warning as we will need to file for civil commitment Medical review of current sx Olanzapine 5 mg bid Continue Haldol prn Trileptal 300 mg bid Flu Vaccine (pt request and accepted) Diagnostics 05/22/22- Continue alliance building with pt. Pt will have financial questions addressed so we may hopefully move forward with her treatment. Family is attem pting to assure pt she is financially safe. 05/23/22- Continue current plan. 05/24/22- Lexapro 5 mg a.m. to begin 05/25. 05/25/22- Continue current plan 05/26/22- Continue alliance building, medication titration and attempts to align with OP supports. 05/27/22- No med changes 05/28/22- Vraylar 1.5 mg a.m. 05/30/22- Increase Vraylar to 3 mg 05/31. Discontinue Lexapro Prozac 10 mg daily 06/01/2022: Change Prozac liquid to capsules as per patient request 06/04/22: DC Olanzapine, continue prn, decrease Trileptal. Titrate Vraylar when health issues clarified on 06/05. Pending COVID, rapid strep Continue to monitor 06/05/22: Constipation- MOM prn and colace bid Racing thoughts-discontinue prozac, trileptal. Increase Vraylar to 4.5 mg Depakote ER 250 mg HS Sleep- Seroquel prn and HS Cough-Robitussin prn Discussed with Sabine Hurd [facility]- will complete insurance review on 06/06. 06/06/22: No changes as pt refused meds 06/05. No word today from pts insurance company for this underwriter mortgage loan to review. 06/07: Continue current regimen and plans. Started on lactulose for constipation 06/08: Continue current plans and regimen 06/09 patient remains depressed; passive wish with intermittent active SI; currently more intense wish however no plans or intention. Agrees to medication change -patient has diagnosis of bipolar disorder; will consider increasing Depakote as it is currently low-dose. 06/10 remains with SI, depressed. Agrees to increasing Depakote further Increased to Depakote ER 750 mg q.h.s. Labs ordered for Thursday06/11/22- Refusing of medications, treatment today. Aggressive episode requiring IM Olanzapine/Benadryl. 06/12/22-Continues to refuse treatment. Discussed with pt's family. Will revoke CV and request Section 7/8 process begin. Family supports this. 06/13/22. Section 7 filed. Continue to build alliance with pt around participation in her care. 06/14 continue tx. 06/15 continue tx. 06/16/22- Pt reports minimal COVID sx. Asked pt to attempt to engage more in milieu. She will consider. Labs she reports she will allow. Valproate, CBCD, CMP Lability persists, anger, depression. Allow Vraylar time to work (missed doses x 2 last week) Continue current regime presently. Improvement noted with lability, anger present-offer processing of issues and we can possibly avoid court. 06/17/22- Encourage milieu participation and self-care. 06/18/22- Wellbutrin 75 mg a.m. 06/19/22- no outbursts per pt report. Continue current plan. 06/20/22- [facility] signed for hospital stay in [place]-sent. Increase Wellbutrin to 150 mg XL on 06/21 On 06/21 decrease Seroquel to 50 mg HS Monitor urinary incontinence episodes, if they continue urine culture POC daily 06/21/22- continue treatment plan 06/22/22 contiue current treatment plan 06/23/22- Continue current plan of care. 06/24/22- Increase Vraylar to 6 mg daily Increase Wellbutrin XL to 300 mg daily 06/25/22- Decrease HS Seroquel to 25 mg-?nocturnal urinary incontinence contributor Dulcolax prn for constipation- reports sx ~1 week Urine culture-nocturnal urinary incontinence POC bid Glyburide 2.5 mg a.m. Atorvastatin 10 mg a.m. CBCD, ChemP, A1c, Valproate Level 06/26/22: Throat culture. Medicated spray, lozenge for reports of sore throat. [facility] Zoom meeting today. 06/26/22: Continue current regime. Organize resources for discharge planning. Decrease in SI she reports today. 06/28: stable. passive SI. attempting to be more active and engaged in unit activities. no changes to regimen. I spent __15____ minutes with the patient and/or on the patient floor today, greater than?50% of which was spent counseling/coordinating care. Reason for contiued inpatient stay Substantial Risk for: harm to self and rapid decompensation
[2022-06-28] MEDS: Throat Lozenge, Medicated LOZENGE 1 LOZENGE MUCOUS MEM ×4 (15:24→22:39)
[2022-06-28] MEDS: QUEtiapine Fumarate 25 MG TABLET PO (21:34)
[2022-06-28] MEDS: traZODone HCL 50 MG TABLET PO (21:34)
[2022-06-28] MEDS: Prazosin HCL 1 MG CAPSULE PO (21:34)
[2022-06-28] MEDS: hydrOXYzine HCL 25 MG TABLET PO (21:34)
[2022-06-28] MEDS: Acetaminophen 325 MG TABLET 650 MG PO (21:34)
[2022-06-28] MEDS: Divalproex Sodium ER 250 MG TAB.ER.24H 750 MG PO (21:35)
[2022-06-28 22:34] LABS: Glucose, Whole Blood 77 mg/dL (60-115)
[2022-06-29] MEDS: guaiFENesin 100 MG/5 ML LIQUID PO (00:34)
[2022-06-29] MEDS: traZODone HCL 50 MG TABLET PO ×2 (00:34→21:16)
[2022-06-29] MEDS: QUEtiapine Fumarate 50 MG TABLET PO (00:34)
[2022-06-29] MEDS: Throat Lozenge, Medicated LOZENGE 1 LOZENGE MUCOUS MEM ×4 (00:34→21:20)
[2022-06-29 06:00] VITALS: BP 132/80; PULSE 80; RESP 16; TEMP 36.9; O2SAT 98
[2022-06-29] MEDS: Lactulose 20 GM/30 ML SOLUTION 30 GM PO (09:27)
[2022-06-29] MEDS: Cariprazine HCl 3 MG CAPSULE 6 MG PO (09:27)
[2022-06-29] MEDS: Docusate Sodium 100 MG CAPSULE 200 MG PO ×2 (09:27→21:15)
[2022-06-29] MEDS: buPROPion HCl XL 300 MG TAB.ER.24H PO (09:28)
[2022-06-29] MEDS: amLODIPine Besylate 10 MG TABLET PO (09:28)
[2022-06-29] MEDS: Atorvastatin Calcium 10 MG TABLET PO (09:28)
[2022-06-29] MEDS: glyBURIDE 2.5 MG TABLET PO (09:28)
[2022-06-29 09:58] LABS: Glucose, Whole Blood 66 mg/dL (60-115)
--- NOTE | 2022-06-29 17:03 | HO.PSYCHPN ---
Subjective Subjective Date of Service: 06/29/22 Reason For Visit: omar/SI Interim History: calm, cooperative. seen in her room. reports mood so-so. no change from yesterday. reports she attended 3 groups. states she has intermittent bed-wetting problem which she believes is the result of a surgery she had some time ago. agreeable to have UA done in any case. no complaints or requests. per staff, more depressed yesterday. sleeping in her room most of day. bedwetting last 2 nights. Mental Status Exam Mental Status Exam Patient Appearance: Appropriate Patient Orientation: Person, Place, Time and Situation Level of Consciousness: Alert Patient Behavior: Talkative, Cooperative and Good Eye Contact Mood Description: Apathetic, Withdrawn, Depressed, Anxious and Apprehensive Affect Description: Flat Patient Cognition Impaired: No Ability to Follow Directions: Good Speech Pattern: Spontaneous Speech Memory Description: Intact Hallucinations: None Delusions: Not Present Perceptual Disturbances: Depersonalization and Derealization Thought Process: Rumination Thought Content: positive for Perseveration and positive for Suicidal Ideation Depressive Symptoms: Increased Anxiety, Diff. Making Decisions, Difficulty Sleeping, Increased Fatigue, Thoughts of /Suicide, Low Self Esteem and Loss of Energy Judgement: Fair Diagnostics Vital Signs (24Hr): Vital Signs - 24 hr 06/29/22 06:00 Temperature 98.4 F Pulse Rate 80 Respiratory Rate 16 Blood Pressure 132/80 Pulse Oximetry 98 Oxygen Delivery Method Room Air BMI result Body Mass Index 29.2 Labs Results: 06/26/22 08:30 06/26/22 08:30 Labs: Laboratory Results - last 48 hr 06/27/22 06/28/22 06/28/22 20:27 10:20 22:25 POC Glucose 123 H 134 H 77 06/29/22 09:52 POC Glucose 66 Medications Medications Current Medications Acetaminophen (Acetaminophen 325 Mg Tablet) 650 mg PO Q6H PRN PRN Reason: Headache/Pain Mild Scale (1-3) Last Admin: 06/28/22 21:34 Dose: 650 mg Al Hydroxide/Mg Hydroxide (Magnesium Hydrox/Alum Hydrox 30 Ml Oral.Susp) 30 ml PO Q6H PRN PRN Reason: Heartburn/Nausea Amlodipine Besylate (Amlodipine Besylate 10 Mg Tablet) 10 mg PO DAILY BREN; Protocol Last Admin: 06/29/22 09:28 Dose: 10 mg Atorvastatin Calcium (Atorvastatin Calcium 10 Mg Tablet) 10 mg PO DAILY [facility] Last Admin: 06/29/22 09:28 Dose: 10 mg Benzocaine (Throat Lozenge, Medicated Lozenge) 1 lozenge MUCOUS MEM Q2H PRN PRN Reason: Sore Throat Last Admin: 06/29/22 15:44 Dose: 1 lozenge Bisacodyl (Bisacodyl 5 Mg Tablet.Dr) 10 mg PO DAILY PRN PRN Reason: Constipation Bupropion HCl (Bupropion Hcl Xl 300 Mg Tab.Er.24h) 300 mg PO DAILY [facility] Last Admin: 06/29/22 09:28 Dose: 300 mg Cariprazine (Cariprazine Hcl 3 Mg Capsule) 6 mg PO DAILY [facility] Last Admin: 06/29/22 09:27 Dose: 6 mg Clonidine HCl (Clonidine Hcl 0.1 Mg Tablet) 0.1 mg PO DAILY PRN; Protocol PRN Reason: HTN, hyperarousal Last Admin: 06/06/22 10:53 Dose: 0.1 mg Diphenhydramine HCl (Diphenhydramine Hcl 25 Mg Capsule) 50 mg PO Q4H PRN PRN Reason: agitation Divalproex Sodium (Divalproex Sodium Er 250 Mg Tab.Er.24h) 750 mg PO BEDTIME [facility] Last Admin: 06/28/22 21:35 Dose: 750 mg Docusate Sodium (Docusate Sodium 100 Mg Capsule) 200 mg PO BID [facility] Last Admin: 06/29/22 09:27 Dose: 200 mg Glyburide (Glyburide 2.5 Mg Tablet) 2.5 mg PO DAILY [facility] Last Admin: 06/29/22 09:28 Dose: 2.5 mg Guaifenesin (Guaifenesin 100 Mg/5 Ml Liquid) 5 ml PO Q4H PRN PRN Reason: cough Last Admin: 06/29/22 00:34 Dose: 5 ml Hydroxyzine HCl (Hydroxyzine Hcl 25 Mg Tablet) 25 mg PO Q6H PRN PRN Reason: Anxiety Last Admin: 06/28/22 21:34 Dose: 25 mg Lactulose (Lactulose 20 Gm/30 Ml Solution) 30 gm PO BID [facility] Last Admin: 06/29/22 09:27 Dose: 30 gm Magnesium Hydroxide (Milk Of Magnesia 30 Ml Oral.Susp) 30 ml PO DAILY PRN PRN Reason: Constipation Last Admin: 06/07/22 08:41 Dose: 30 ml Multi-Ingred Medicated Throat [place] (Throat [place], Medicated 20 Ml Bottle) 1 spray MUCOUS MEM Q2H PRN PRN Reason: Sore Throat Prazosin HCl (Prazosin Hcl 1 Mg Capsule) 1 mg PO BEDTIME BREN; Protocol Last Admin: 06/28/22 21:34 Dose: 1 mg Quetiapine Fumarate (Quetiapine Fumarate 50 Mg Tablet) 50 mg PO BID PRN PRN Reason: agitation Last Admin: 06/29/22 00:34 Dose: 50 mg Quetiapine Fumarate (Quetiapine Fumarate 25 Mg Tablet) 25 mg PO BEDTIME [facility] Last Admin: 06/28/22 21:34 Dose: 25 mg Trazodone HCl (Trazodone Hcl 50 Mg Tablet) 50 mg PO BEDTIME PRN PRN Reason: Insomnia Last Admin: 06/29/22 00:34 Dose: 50 mg Allergies Allergies Allergy/AdvReac Type Severity Reaction Status Date / Time No Known Allergies Allergy Verified 05/19/22 23:36 Assessment & Plan Assessment & Plan (1) Bipolar disorder: Status: Acute Code(s): F31.9 - Bipolar disorder, unspecified Plan 52 yo female, hx of bipolar disorder, found [place] [address] [place] to kill herself via motor vehicle. Reports poor sleep, appetite, poor ADL's, stopping meds and treatment and feeling hopeless and helpless. Plan: Collateral contact TDN- given Davis warning as we will need to file for civil commitment Medical review of current sx Olanzapine 5 mg bid Continue Haldol prn Trileptal 300 mg bid Flu Vaccine (pt request and accepted) Diagnostics 05/22/22- Continue alliance building with pt. Pt will have financial questions addressed so we may hopefully move forward with her treatment. Family is attempting to assure pt she is financially safe. 05/23/22- Continue current plan. 05/24/22- Lexapro 5 mg a.m. to begin 05/25. 05/25/22- Continue current plan 05/26/22- Continue alliance building, medication titration and attempts to align with OP supports. 05/27/22- No med changes 05/28/22- Vraylar 1.5 mg a.m. 05/30/22- Increase Vraylar to 3 mg 05/31. Discontinue Lexapro Prozac 10 mg daily 06/01/2022: Change Prozac liquid to capsules as per patient request 06/04/22: DC Olanzapine, continue prn, decrease Trileptal. Titrate Vraylar when health issues clarified on 06/05. Pending COVID, rapid strep Continue to monitor 06/05/22: Constipation- MOM prn and colace bid Racing thoughts-discontinue prozac, trileptal. Increase Vraylar to 4.5 mg Depakote ER 250 mg HS Sleep- Seroquel prn and HS Cough-Robitussin prn Discussed with Sabine Hurd [facility]- will complete insurance review on 06/06. 06/06/22: No changes as pt refused meds 06/05. No word today from pts insurance company for this publicity writer to review. 06/07: Continue current regimen and plans. Started on lactulose for constipation 06/08: Continue current plans and regimen 06/09 patient remains depressed; passive wish with intermittent active SI; currently more intense wish however no plans or intention. Agrees to medication change -patient has diagnosis of bipolar disorder; will consider increasing Depakote as it is currently low-dose. 06/10 remains with SI, depressed. Agrees to increasing Depakote further Increased to Depakote ER 750 mg q.h.s. Labs ordered for Thursday06/11/22- Refusing of medications, treatment today. Aggressive episode requiring IM Olanzapine/Benadryl. 06/12/22-Continues to refuse treatment. Discussed with pt's family. Will revoke CV and request Section 7/8 process begin. Family supports this. 06/13/22. Section 7 filed. Continue to build alliance with pt around participation in her care. 06/14 continue tx. 06/15 continue tx. 06/16/22- Pt reports minimal COVID sx. Asked pt to attempt to engage more in milieu. She will consider. Labs she reports she will allow. Valproate, CBCD, CMP Lability persists, anger, depression. Allow Vraylar time to work (missed doses x 2 last week) Continue current regime presently. Improvement noted with lability, anger present-offer processing of issues and we can possibly avoid court. 06/17/22- Encourage milieu participation and self-care. 06/18/22- Wellbutrin 75 mg a.m. 06/19/22- no outbursts per pt report. Continue current plan. 06/20/22- CORWIN signed for hospital stay in [place]-sent. Increase Wellbutrin to 150 mg XL on 06/21 On 06/21 decrease Seroquel to 50 mg HS Monitor urinary incontinence episodes, if they continue urine culture POC daily 06/21/22- continue treatment plan 06/22/22 contiue current treatment plan 06/23/22- Continue current plan of care. 06/24/22- Increase Vraylar to 6 mg daily Increase Wellbutrin XL to 300 mg daily 06/25/22- Decrease HS Seroquel to 25 mg-?nocturnal urinary incontinence contributor Dulcolax prn for constipation- reports sx ~1 week Urine culture-nocturnal urinary incontinence POC bid Glyburide 2.5 mg a.m. Atorvastatin 10 mg a.m. CBCD, ChemP, A1c, Valproate Level 06/26/22: Throat culture. Medicated spray, lozenge for reports of sore throat. [facility] Zoom meeting today. 06/26/22: Continue current regime. Organize resources for discharge planning. Decrease in SI she reports today. 06/28: stable. passive SI. attempting to be more active and engaged in unit activities. no changes to regimen. 06/29: stable. no change per her report. attended 3 groups yesterday. I spent ___15___ minutes with the patient and/or on the patient floor today, greater than?50% of which was spent counseling/coordinating care. Reason for contiued inpatient stay Substantial Risk for: harm to self, inability to function and med/psych decompensation
[2022-06-29 18:00] VITALS: BP 136/75; PULSE 87; RESP 16; TEMP 36.7; O2SAT 98
[2022-06-29] MEDS: Prazosin HCL 1 MG CAPSULE PO (21:15)
[2022-06-29] MEDS: Divalproex Sodium ER 250 MG TAB.ER.24H 750 MG PO (21:15)
[2022-06-29] MEDS: QUEtiapine Fumarate 25 MG TABLET PO (21:15)
[2022-06-29 21:31] LABS: Glucose, Whole Blood 156 mg/dL (60-115)
[2022-06-30] MEDS: Throat Lozenge, Medicated LOZENGE 1 LOZENGE MUCOUS MEM ×6 (00:03→22:11)
[2022-06-30 09:00] VITALS: BP 127/78; PULSE 81; RESP 17; TEMP 36; O2SAT 100
[2022-06-30] MEDS: Lactulose 20 GM/30 ML SOLUTION 30 GM PO ×2 (09:03→21:56)
[2022-06-30] MEDS: glyBURIDE 2.5 MG TABLET PO (09:05)
[2022-06-30] MEDS: Docusate Sodium 100 MG CAPSULE 200 MG PO ×2 (09:05→21:57)
[2022-06-30] MEDS: Atorvastatin Calcium 10 MG TABLET PO (09:06)
[2022-06-30] MEDS: Cariprazine HCl 3 MG CAPSULE 6 MG PO (09:06)
[2022-06-30] MEDS: amLODIPine Besylate 10 MG TABLET PO (09:06)
[2022-06-30] MEDS: buPROPion HCl XL 300 MG TAB.ER.24H PO (09:07)
[2022-06-30 09:12] LABS: Glucose, Whole Blood 121 mg/dL (60-115)
--- NOTE | 2022-06-30 17:25 | HO.PSYCHPN ---
Subjective Subjective Date of Service: 06/30/22 Reason For Visit: omar/SI Subjective Notes: Section 7 Healthcare Proxy: No Guardianship: No Medical Problems Affecting Mental Status: No Interim History: Reports sore throat. Culture ordered. Attending groups Discussed discharge planning today-anxious to go home yet finds the hospital safer if I have a problem I have help . Willing to accept services, willing to consider residential. SI is passive, no plan no intent today. Anxious. Nocturnal urinary incontinence persists. Pt reports in 2019, cystoscopy was negative. Medication Compliance: Yes Side effects from medications: No Attending Groups: Yes Review of Systems Acute medical concerns: No Sore throat, culture ordered Medical Review of Systems: unchanged Mental Status Exam Mental Status Exam Patient Appearance: Appropriate Patient Orientation: Person, Place, Time and Situation Level of Consciousness: Alert Patient Behavior: Appropriate, Talkative and Good Eye Contact Mood Description: Flat and Apprehensive Affect Description: Flat Patient Cognition Impaired: No Ability to Follow Directions: Good Speech Pattern: Spontaneous Speech Memory Description: Intact Hallucinations: None Delusions: Not Present Thought Process: Distracted and Rumination Thought Content: positive for Circumstantial, positive for Perseveration and positive for Suicidal Ideation (passive, without plan or intent) Depressive Symptoms: Increased Anxiety Judgement: Fair Diagnostics Vital Signs (24Hr): Vital Signs - 24 hr 06/29/22 18:00 06/30/22 09:00 Temperature 98.0 F 96.8 F Pulse Rate 87 81 Respiratory Rate 16 17 Blood Pressure 136/75 127/78 Pulse Oximetry 98 100 Oxygen Delivery Method Room Air Room Air BMI result Body Mass Index 29.2 Labs Results: 06/26/22 08:30 06/26/22 08:30 Labs: Laboratory Results - last 48 hr 06/28/22 06/29/22 06/29/22 22:25 09:52 21:24 POC Glucose 77 66 156 H 06/30/22 09:02 POC Glucose 121 H Medications Medications Current Medications Acetaminophen (Acetaminophen 325 Mg Tablet) 650 mg PO Q6H PRN PRN Reason: Headache/Pain Mild Scale (1-3) Last Admin: 06/28/22 21:34 Dose: 650 mg Al Hydroxide/Mg Hydroxide (Magnesium Hydrox/Alum Hydrox 30 Ml Oral.Susp) 30 ml PO Q6H PRN PRN Reason: Heartburn/Nausea Amlodipine Besylate (Amlodipine Besylate 10 Mg Tablet) 10 mg PO DAILY [facility]; Protocol Last Admin: 06/30/22 09:06 Dose: 10 mg Atorvastatin Calcium (Atorvastatin Calcium 10 Mg Tablet) 10 mg PO DAILY [facility] Last Admin: 06/30/22 09:06 Dose: 10 mg Benzocaine (Throat Lozenge, Medicated Lozenge) 1 lozenge MUCOUS MEM Q2H PRN PRN Reason: Sore Throat Last Admin: 06/30/22 08:26 Dose: 1 lozenge Bisacodyl (Bisacodyl 5 Mg Tablet.Dr) 10 mg PO DAILY PRN PRN Reason: Constipation Bupropion HCl (Bupropion Hcl Xl 300 Mg Tab.Er.24h) 300 mg PO DAILY [facility] Last Admin: 06/30/22 09:07 Dose: 300 mg Cariprazine (Cariprazine Hcl 3 Mg Capsule) 6 mg PO DAILY [facility] Last Admin: 06/30/22 09:06 Dose: 6 mg Clonidine HCl (Clonidine Hcl 0.1 Mg Tablet) 0.1 mg PO DAILY PRN; Protocol PRN Reason: HTN, hyperarousal Last Admin: 06/06/22 10:53 Dose: 0.1 mg Diphenhydramine HCl (Diphenhydramine Hcl 25 Mg Capsule) 50 mg PO Q4H PRN PRN Reason: agitation Divalproex Sodium (Divalproex Sodium Er 250 Mg Tab.Er.24h) 750 mg PO BEDTIME [facility] Last Admin: 06/29/22 21:15 Dose: 750 mg Docusate Sodium (Docusate Sodium 100 Mg Capsule) 200 mg PO BID [facility] Last Admin: 06/30/22 09:05 Dose: 200 mg Glyburide (Glyburide 2.5 Mg Tablet) 2.5 mg PO DAILY [facility] Last Admin: 06/30/22 09:05 Dose: 2.5 mg Guaifenesin (Guaifenesin 100 Mg/5 Ml Liquid) 5 ml PO Q4H PRN PRN Reason: cough Last Admin: 06/29/22 00:34 Dose: 5 ml Hydroxyzine HCl (Hydroxyzine Hcl 25 Mg Tablet) 25 mg PO Q6H PRN PRN Reason: Anxiety Last Admin: 06/28/22 21:34 Dose: 25 mg Lactulose (Lactulose 20 Gm/30 Ml Solution) 30 gm PO BID [facility] Last Admin: 06/30/22 09:03 Dose: 30 gm Magnesium Hydroxide (Milk Of Magnesia 30 Ml Oral.Susp) 30 ml PO DAILY PRN PRN Reason: Constipation Last Admin: 06/07/22 08:41 Dose: 30 ml Multi-Ingred Medicated Throat [place] (Throat [place], Medicated 20 Ml Bottle) 1 spray MUCOUS MEM Q2H PRN PRN Reason: Sore Throat Last Admin: 06/30/22 09:42 Dose: 1 spray Prazosin HCl (Prazosin Hcl 1 Mg Capsule) 1 mg PO BEDTIME [facility]EN; Protocol Last Admin: 06/29/22 21:15 Dose: 1 mg Quetiapine Fumarate (Quetiapine Fumarate 50 Mg Tablet) 50 mg PO BID PRN PRN Reason: agitation Last Admin: 06/29/22 00:34 Dose: 50 mg Quetiapine Fumarate (Quetiapine Fumarate 25 Mg Tablet) 25 mg PO BEDTIME [facility] Last Admin: 06/29/22 21:15 Dose: 25 mg Trazodone HCl (Trazodone Hcl 50 Mg Tablet) 50 mg PO BEDTIME PRN PRN Reason: Insomnia Last Admin: 06/29/22 21:16 Dose: 50 mg Allergies Allergies Allergy/AdvReac Type Severity Reaction Status Date / Time No Known Allergies Allergy Verified 05/19/22 23:36 Assessment & Plan Assessment & Plan (1) Bipolar disorder: Status: Acute Code(s): F31.9 - Bipolar disorder, unspecified Plan 52 yo female, hx of bipolar disorder, found running [place] traffic [place] [address] attempting to kill herself via motor vehicle. Reports poor sleep, appetite, poor ADL's, stopping meds and treatment and feeling hopeless and helpless. Plan: Collateral contact TDN- given [place] warning as we will need to file for civil commitment Medical review of current sx Olanzapine 5 mg bid Continue Haldol prn Trileptal 300 mg bid Flu Vaccine (pt request and accepted) Diagnostics 05/22/22- Continue alliance building with pt. Pt will have financial questions addressed so we may hopefully move forward with her treatment. Family is attempting to assure pt she is financially safe. 05/23/22- Continue current plan. 05/24/22- Lexapro 5 mg a.m. to begin 05/25. 05/25/22- Continue current plan 05/26/22- Continue alliance building, medication titration and attempts to align with OP supports. 05/27/22- No med changes 05/28/22- Vraylar 1.5 mg a.m. 05/30/22- Increase Vraylar to 3 mg 05/31. Discontinue Lexapro Prozac 10 mg daily 06/01/2022: Change Prozac liquid to capsules as per patient request 06/04/22: DC Olanzapine, continue prn, decrease Trileptal. Titrate Vraylar when health issues clarified on 06/05. Pending COVID, rapid strep Continue to monitor 06/05/22: Constipation- MOM prn and colace bid Racing thoughts-discontinue prozac, trileptal. Increase Vraylar to 4.5 mg Depakote ER 250 mg HS Sleep- Seroquel prn and HS Cough-Robitussin prn Discussed with Sabine Hurd [facility]- will complete insurance review on 06/06. 06/06/22: No changes as pt refused meds 06/05. No word today from pts insurance company for this marine underwriter to review. 06/07: Continue current regimen and plans. Started on lactulose for constipation 06/08: Continue current plans and regimen 06/09 patient remains depressed; passive wish with intermittent active SI; currently more intense wish however no plans or intention. Agrees to medication change -patient has diagnosis of bipolar disorder; will consider increasing Depakote as it is currently low-dose. 06/10 remains with SI, depressed. Agrees to increasing Depakote further Increased to Depakote ER 750 mg q.h.s. Labs ordered for Thursday06/11/22- Refusing of medications, treatment today. Aggressive episode requiring IM Olanzapine/Benadryl. 06/12/22-Continues to refuse treatment. Discussed with pt's family. Will revoke CV and request Section 7/8 process begin. Family supports this. 06/13/22. Section 7 filed. Continue to build alliance with pt around participation in her care. 06/14 continue tx. 06/15 continue tx. 06/16/22- Pt reports minimal COVID sx. Asked pt to attempt to engage more in milieu. She will consider. Labs she reports she will allow. Valproate, CBCD, CMP Lability persists, anger, depression. Allow Vraylar time to work (missed doses x 2 last week) Continue current regime presently. Improvement noted with lability, anger present-offer processing of issues and we can possibly avoid court. 06/17/22- Encourage milieu participation and self-care. 06/18/22- Wellbutrin 75 mg a.m. 06/19/22- no outbursts per pt report. Continue current plan. 06/20/22- CORWIN signed for hospital stay in [place]-sent. Increase Wellbutrin to 150 mg XL on 06/21 On 06/21 decrease Seroquel to 50 mg HS Monitor urinary incontinence episodes, if they continue urine culture POC daily 06/21/22- continue treatment plan 06/22/22 contiue current treatment plan 06/23/22- Continue current plan of care. 06/24/22- Increase Vraylar to 6 mg daily Increase Wellbutrin XL to 300 mg daily 06/25/22- Decrease HS Seroquel to 25 mg-?nocturnal urinary incontinence contributor Dulcolax prn for constipation- reports sx ~1 week Urine culture-nocturnal urinary incontinence POC bid Glyburide 2.5 mg a.m. Atorvastatin 10 mg a.m. CBCD, ChemP, A1c, Valproate Level 06/26/22: Throat culture. Medicated spray, lozenge for reports of sore throat. [facility] Zoom meeting today. 06/26/22: Continue current regime. Organize resources for discharge planning. Decrease in SI she reports today. 06/28: stable. passive SI. attempting to be more active and engaged in unit activities. no changes to regimen. 06/29: stable. no change per her report. attended 3 groups yesterday. 06/30/22: Passive SI. Throat culture ordered for sore throat Urology consult-nocturnal incontinence I spent minutes with the patient and/or on the patient floor today, greater than?50% of which was spent counseling/coordinating care. Patient educated on: therapeutic strategies Informed Consent: further education needed Reason for contiued inpatient stay Substantial Risk for: rapid decompensation
--- NOTE | 2022-06-30 18:16 | PC.NURSE ---
Patient complaining of inability to void urine throughout the day. Patient voided less than 100cc's this morning in an attempt to do a UA. Patient reported to be drinking gingerale all day and 1 pitcher full of gingerale with no urine output. order caller Sadaf Elise notified. Ordered Bladder scanner. Bladder scan showed 49mL's. Sadaf Elise notified.
[2022-06-30 21:22] LABS: Appearance Urine Clear; Color Urine Yellow; Glucose Urine UA Negative (Negative); Leukocyte Esterase Urine Small (1+) (Negative); Nitrite Urine Negative (Negative); PH 5.5 (5.0-9.0); Specific Gravity - Urine <= 1.005 (1.005-1.025); UMIC TRIGGER UACC YES; Urine Blood Trace (Negative); Urine Ketones Negative (Negative); Urine Protein Negative (Neg-Trace)
[2022-06-30 21:40] LABS: Bacteria Urine None Seen (None Seen); Hyaline Casts Urine 0-2 /LPF (0-2); RBC Urine 0-2 /HPF (0-2); Squamous Epithelial Cell Urine 0-2 /HPF (0-2); UACC Culture Trigger YES; WBC Urine 0-5 /HPF (0-5)
[2022-06-30 21:47] VITALS: BP 137/76; PULSE 91; TEMP 36.6; O2SAT 98
[2022-06-30 21:49] LABS: Glucose, Whole Blood 138 mg/dL (60-115)
[2022-06-30] MEDS: Divalproex Sodium ER 250 MG TAB.ER.24H 750 MG PO (21:57)
[2022-06-30] MEDS: Prazosin HCL 1 MG CAPSULE PO (21:57)
[2022-06-30] MEDS: traZODone HCL 50 MG TABLET PO (21:57)
[2022-06-30] MEDS: QUEtiapine Fumarate 25 MG TABLET PO (21:57)
[2022-06-30] MEDS: QUEtiapine Fumarate 50 MG TABLET PO (22:07)
[2022-07-01 08:28] VITALS: BP 102/55; PULSE 90; RESP 18; TEMP 36.4; O2SAT 99
[2022-07-01] MEDS: glyBURIDE 2.5 MG TABLET PO (08:29)
[2022-07-01] MEDS: buPROPion HCl XL 300 MG TAB.ER.24H PO (08:29)
[2022-07-01] MEDS: Docusate Sodium 100 MG CAPSULE 200 MG PO ×2 (08:29→22:00)
[2022-07-01] MEDS: Atorvastatin Calcium 10 MG TABLET PO (08:29)
[2022-07-01] MEDS: Cariprazine HCl 3 MG CAPSULE 6 MG PO (08:29)
[2022-07-01 08:50] LABS: Glucose, Whole Blood 72 mg/dL (60-115)
[2022-07-01 18:00] VITALS: BP 169/91; PULSE 91; RESP 18; TEMP 36.8; O2SAT 100
--- NOTE | 2022-07-01 20:11 | P.PNPSI_ITS ---
Subjective Subjective Date of Service: 06/30/22 Reason For Visit: omar/SI Subjective Notes: Section 7 Healthcare Proxy: No Guardianship: No Medical Problems Affecting Mental Status: No Interim History: Reports nocturnal incontinence-urology consult ordered. Today, increase participation in groups-increase in connecting with peers, more alert, active, engaged. Discussing discharge planning. Pt would like to be home for the holiday. Medication Compliance: Yes Side effects from medications: No Attending Groups: Yes Review of Systems Acute medical concerns: No Medical Review of Systems: unchanged Mental Status Exam Mental Status Exam Patient Appearance: Appropriate Patient Orientation: Person, Place, Time and Situation Level of Consciousness: Alert Patient Behavior: Appropriate, Talkative and Good Eye Contact Mood Description: Flat and Apprehensive Affect Description: Flat Patient Cognition Impaired: No Ability to Follow Directions: Good Speech Pattern: Spontaneous Speech Memory Description: Intact Hallucinations: None Delusions: Not Present Thought Process: Distracted and Rumination Thought Content: positive for Circumstantial, positive for Perseveration and positive for Suicidal Ideation (passive, without plan or intent) Depressive Symptoms: Increased Anxiety Judgement: Fair Diagnostics Vital Signs (24Hr): Vital Signs - 24 hr 06/30/22 21:47 07/01/22 08:28 Temperature 97.8 F 97.5 F Pulse Rate 91 90 Respiratory Rate 18 Blood Pressure 137/76 102/55 L Pulse Oximetry 98 99 Oxygen Delivery Method Room Air Room Air BMI result Body Mass Index 29.2 Labs Results: 06/26/22 08:30 06/26/22 08:30 Labs: Laboratory Results - last 48 hr 06/29/22 06/30/22 06/30/22 21:24 09:02 21:15 POC Glucose 156 H 121 H Urine Color Yellow Urine Appearance Clear Urine pH 5.5 Ur Specific [place] <= 1.005 Urine Protein Negative Urine Glucose (UA) Negative Urine Ketones Negative Urine Blood Trace Urine Nitrite Negative Ur Leukocyte Esterase Small (1+) H Urine RBC 0-2 Urine WBC 0-5 Ur Squamous Epith Cells 0-2 Urine Bacteria None Seen Hyaline Casts 0-2 06/30/22 07/01/22 21:41 08:45 POC Glucose 138 H 72 Urine Color Urine Appearance Urine pH Ur Specific [place] Urine Protein Urine Glucose (UA) Urine Ketones Urine Blood Urine Nitrite Ur Leukocyte Esterase Urine RBC Urine WBC Ur Squamous Epith Cells Urine Bacteria Hyaline Casts Medications Medications Current Medications Acetaminophen (Acetaminophen 325 Mg Tablet) 650 mg PO Q6H PRN PRN Reason: Headache/Pain Mild Scale (1-3) Last Admin: 06/28/22 21:34 Dose: 650 mg Al Hydroxide/Mg Hydroxide (Magnesium Hydrox/Alum Hydrox 30 Ml Oral.Susp) 30 ml PO Q6H PRN PRN Reason: Heartburn/Nausea Amlodipine Besylate (Amlodipine Besylate 10 Mg Tablet) 10 mg PO DAILY [facility]; Protocol Last Admin: 07/01/22 08:29 Dose: Not Given Atorvastatin Calcium (Atorvastatin Calcium 10 Mg Tablet) 10 mg PO DAILY [facility] Last Admin: 07/01/22 08:29 Dose: 10 mg Benzocaine (Throat Lozenge, Medicated Lozenge) 1 lozenge MUCOUS MEM Q2H PRN PRN Reason: Sore Throat Last Admin: 06/30/22 22:11 Dose: 1 lozenge Bisacodyl (Bisacodyl 5 Mg Tablet.Dr) 10 mg PO DAILY PRN PRN Reason: Constipation Bupropion HCl (Bupropion Hcl Xl 300 Mg Tab.Er.24h) 300 mg PO DAILY [facility] Last Admin: 07/01/22 08:29 Dose: 300 mg Cariprazine (Cariprazine Hcl 3 Mg Capsule) 6 mg PO DAILY [facility] Last Admin: 07/01/22 08:29 Dose: 6 mg Clonidine HCl (Clonidine Hcl 0.1 Mg Tablet) 0.1 mg PO DAILY PRN; Protocol PRN Reason: HTN, hyperarousal Last Admin: 06/06/22 10:53 Dose: 0.1 mg Diphenhydramine HCl (Diphenhydramine Hcl 25 Mg Capsule) 50 mg PO Q4H PRN PRN Reason: agitation Divalproex Sodium (Divalproex Sodium Er 250 Mg Tab.Er.24h) 750 mg PO BEDTIME [facility] Last Admin: 06/30/22 21:57 Dose: 750 mg Docusate Sodium (Docusate Sodium 100 Mg Capsule) 200 mg PO BID [facility] Last Admin: 07/01/22 08:29 Dose: 200 mg Glyburide (Glyburide 2.5 Mg Tablet) 2.5 mg PO DAILY [facility] Last Admin: 07/01/22 08:29 Dose: 2.5 mg Guaifenesin (Guaifenesin 100 Mg/5 Ml Liquid) 5 ml PO Q4H PRN PRN Reason: cough Last Admin: 06/29/22 00:34 Dose: 5 ml Hydroxyzine HCl (Hydroxyzine Hcl 25 Mg Tablet) 25 mg PO Q6H PRN PRN Reason: Anxiety Last Admin: 06/28/22 21:34 Dose: 25 mg Lactulose (Lactulose 20 Gm/30 Ml Solution) 30 gm PO BID [facility] Last Admin: 07/01/22 08:30 Dose: Not Given Magnesium Hydroxide (Milk Of Magnesia 30 Ml Oral.Susp) 30 ml PO DAILY PRN PRN Reason: Constipation Last Admin: 06/07/22 08:41 Dose: 30 ml Multi-Ingred Medicated Throat [place] (Throat [place], Medicated 20 Ml Bottle) 1 spray MUCOUS MEM Q2H PRN PRN Reason: Sore Throat Last Admin: 06/30/22 09:42 Dose: 1 spray Prazosin HCl (Prazosin Hcl 1 Mg Capsule) 1 mg PO BEDTIME [facility]; Protocol Last Admin: 06/30/22 21:57 Dose: 1 mg Quetiapine Fumarate (Quetiapine Fumarate 50 Mg Tablet) 50 mg PO BID PRN PRN Reason: agitation Last Admin: 06/30/22 22:07 Dose: 50 mg Quetiapine Fumarate (Quetiapine Fumarate 25 Mg Tablet) 25 mg PO BEDTIME [facility] Last Admin: 06/30/22 21:57 Dose: 25 mg Trazodone HCl (Trazodone Hcl 50 Mg Tablet) 50 mg PO BEDTIME PRN PRN Reason: Insomnia Last Admin: 06/30/22 21:57 Dose: 50 mg Allergies Allergies Allergy/AdvReac Type Severity Reaction Status Date / Time No Known Allergies Allergy Verified 05/19/22 23:36 Assessment & Plan Assessment & Plan (1) Bipolar disorder: Status: Acute Code(s): F31.9 - Bipolar disorder, unspecified Plan 52 yo female, hx of bipolar disorder, found [place] [address] [place] to kill herself via motor vehicle. Reports poor sleep, appetite, poor ADL's, stopping meds and treatment and feeling hopeless and helpless. Plan: Collateral contact TDN- given Davis warning as we will need to file for civil commitment Medical review of current sx Olanzapine 5 mg bid Continue Haldol prn Trileptal 300 mg bid Flu Vaccine (pt request and accepted) Diagnostics 05/22/22- Continue alliance building with pt. Pt will have financial questions addressed so we may hopefully move forward with her treatment. Family is attempting to assure pt she is financially safe. 05/23/22- Continue current plan. 05/24/22- Lexapro 5 mg a.m. to begin 05/25. 05/25/22- Continue current plan 05/26/22- Continue alliance building, medication titration and attempts to align with OP supports. 05/27/22- No med changes 05/28/22- Vraylar 1.5 mg a.m. 05/30/22- Increase Vraylar to 3 mg 05/31. Discontinue Lexapro Prozac 10 mg daily 06/01/2022: Change Prozac liquid to capsules as per patient request 06/04/22: DC Olanzapine, continue prn, decrease Trileptal. Titrate Vraylar when health issues clarified on 06/05. Pending COVID, rapid strep Continue to monitor 06/05/22: Constipation- MOM prn and colace bid Racing thoughts-discontinue prozac, trileptal. Increase Vraylar to 4.5 mg Depakote ER 250 mg HS Sleep- Seroquel prn and HS Cough-Robitussin prn Discussed with Sabine Hurd [facility]- will complete insurance review on 06/06. 06/06/22: No changes as pt refused meds 06/05. No word today from pts insurance company for this junior underwriter to review. 06/07: Continue current regimen and plans. Started on lactulose for constipation 06/08: Continue current plans and regimen 06/09 patient remains depressed; passive wish with intermittent active SI; currently more intense wish however no plans or intention. Agrees to medication change -patient has diagnosis of bipolar disorder; will consider increasing Depakote as it is currently low-dose. 06/10 remains with SI, depressed. Agrees to increasing Depakote further Increased to Depakote ER 750 mg q.h.s. Labs ordered for Thursday06/11/22- Refusing of medications, treatment today. Aggressive episode requiring IM Olanzapine/Benadryl. 06/12/22-Continues to refuse treatment. Discussed with pt's family. Will revoke CV and request Section 7/8 process begin. Family supports this. 06/13/22. Section 7 filed. Continue to build alliance with pt around participation in her care. 06/14 continue tx. 06/15 continue tx. 06/16/22- Pt reports minimal COVID sx. Asked pt to attempt to engage more in milieu. She will consider. Labs she reports she will allow. Valproate, CBCD, CMP Lability persists, anger, depression. Allow Vraylar time to work (missed doses x 2 last week) Continue current regime presently. Improvement noted with lability, anger present-offer processing of issues and we can possibly avoid court. 06/17/22- Encourage milieu participation and self-care. 06/18/22- Wellbutrin 75 mg a.m. 06/19/22- no outbursts per pt report. Continue current plan. 06/20/22- CORWIN signed for hospital stay in [place]-sent. Increase Wellbutrin to 150 mg XL on 06/21 On 06/21 decrease Seroquel to 50 mg HS Monitor urinary incontinence episodes, if they continue urine culture POC daily 06/21/22- continue treatment plan 06/22/22 contiue current treatment plan 06/23/22- Continue current plan of care. 06/24/22- Increase Vraylar to 6 mg daily Increase Wellbutrin XL to 300 mg daily 06/25/22- Decrease HS Seroquel to 25 mg-?nocturnal urinary incontinence contributor Dulcolax prn for constipation- reports sx ~1 week Urine culture-nocturnal urinary incontinence POC bid Glyburide 2.5 mg a.m. Atorvastatin 10 mg a.m. CBCD, ChemP, A1c, Valproate Level 06/26/22: Throat culture. Medicated spray, lozenge for reports of sore throat. [facility] Zoom meeting today. 06/26/22: Continue current regime. Organize resources for discharge planning. Decrease in SI she reports today. 06/28: stable. passive SI. attempting to be more active and engaged in unit activities. no changes to regimen. 06/29: stable. no change per her report. attended 3 groups yesterday. 06/30/22: Passive SI. Throat culture ordered for sore throat Urology consult-nocturnal incontinence 07/01/22 Continue current plan. I spent minutes with the patient and/or on the patient floor today, greater than?50% of which was spent counseling/coordinating care. Patient educated on: therapeutic strategies Informed Consent: understands and further education needed Reason for contiued inpatient stay Substantial Risk for: harm to self and rapid decompensation
[2022-07-01 20:49] LABS: Glucose, Whole Blood 129 mg/dL (60-115)
[2022-07-01] MEDS: Prazosin HCL 1 MG CAPSULE PO (22:00)
[2022-07-01] MEDS: traZODone HCL 50 MG TABLET PO (22:01)
[2022-07-01] MEDS: QUEtiapine Fumarate 50 MG TABLET PO (22:01)
[2022-07-01] MEDS: Divalproex Sodium ER 250 MG TAB.ER.24H 750 MG PO (22:01)
[2022-07-01] MEDS: QUEtiapine Fumarate 25 MG TABLET PO (22:01)
[2022-07-01] MEDS: Lactulose 20 GM/30 ML SOLUTION 30 GM PO (22:01)
[2022-07-01] MEDS: Throat Lozenge, Medicated LOZENGE 1 LOZENGE MUCOUS MEM (22:05)
[2022-07-02 08:41] VITALS: BP 116/63; PULSE 85; RESP 18; TEMP 36.1; O2SAT 99
[2022-07-02] MEDS: Lactulose 20 GM/30 ML SOLUTION 30 GM PO ×2 (08:43→21:29)
[2022-07-02] MEDS: buPROPion HCl XL 300 MG TAB.ER.24H PO (08:45)
[2022-07-02] MEDS: Cariprazine HCl 3 MG CAPSULE 6 MG PO (08:45)
[2022-07-02] MEDS: amLODIPine Besylate 10 MG TABLET PO (08:46)
[2022-07-02] MEDS: glyBURIDE 2.5 MG TABLET PO (08:46)
[2022-07-02] MEDS: Docusate Sodium 100 MG CAPSULE 200 MG PO ×2 (08:46→21:27)
[2022-07-02] MEDS: Atorvastatin Calcium 10 MG TABLET PO (08:46)
[2022-07-02 08:57] LABS: Glucose, Whole Blood 70 mg/dL (60-115)
[2022-07-02] MEDS: Throat Lozenge, Medicated LOZENGE 1 LOZENGE MUCOUS MEM ×2 (10:49→19:59)
--- NOTE | 2022-07-02 16:12 | P.PNPSI_ITS ---
Subjective Subjective Date of Service: 07/02/22 Reason For Visit: omar/SI Subjective Notes: Section 7 Healthcare Proxy: No Guardianship: No Medical Problems Affecting Mental Status: No Interim History: Participating in discharge planning-pt would like to return to her apartment with services. Giving thought to what she will need help with and what she would like to try independently. Reports panic sx today which team reports she was able to work through. Anticipatory anxiety. Medication Compliance: Yes Side effects from medications: No Attending Groups: Intermittent Review of Systems Acute medical concerns: No Medical Review of Systems: unchanged Mental Status Exam Mental Status Exam Patient Appearance: Appropriate Patient Orientation: Person, Place, Time and Situation Level of Consciousness: Alert Patient Behavior: Appropriate, Talkative and Good Eye Contact Mood Description: Flat and Apprehensive Affect Description: Flat Patient Cognition Impaired: No Ability to Follow Directions: Good Speech Pattern: Spontaneous Speech Memory Description: Intact Hallucinations: None Delusions: Not Present Thought Process: Distracted and Rumination Thought Content: positive for Circumstantial, positive for Perseveration and positive for Suicidal Ideation (passive, without plan or intent) Depressive Symptoms: Increased Anxiety Judgement: Fair Diagnostics Vital Signs (24Hr): Vital Signs - 24 hr 07/01/22 18:00 07/02/22 08:41 Temperature 98.2 F 97.0 F Pulse Rate 91 85 Respiratory Rate 18 18 Blood Pressure 169/91 H 116/63 Pulse Oximetry 100 99 Oxygen Delivery Method Room Air Room Air BMI result Body Mass Index 29.2 Labs Results: 06/26/22 08:30 06/26/22 08:30 Labs: Laboratory Results - last 48 hr 06/30/22 06/30/22 07/01/22 21:15 21:41 08:45 POC Glucose 138 H 72 Urine Color Yellow Urine Appearance Clear Urine pH 5.5 Ur Specific [place] <= 1.005 Urine Protein Negative Urine Glucose (UA) Negative Urine Ketones Negative Urine Blood Trace Urine Nitrite Negative Ur Leukocyte Esterase Small (1+) H Urine RBC 0-2 Urine WBC 0-5 Ur Squamous Epith Cells 0-2 Urine Bacteria None Seen Hyaline Casts 0-2 07/01/22 07/02/22 20:43 08:53 POC Glucose 129 H 70 Urine Color Urine Appearance Urine pH Ur Specific [place] Urine Protein Urine Glucose (UA) Urine Ketones Urine Blood Urine Nitrite Ur Leukocyte Esterase Urine RBC Urine WBC Ur Squamous Epith Cells Urine Bacteria Hyaline Casts Medications Medications Current Medications Acetaminophen (Acetaminophen 325 Mg Tablet) 650 mg PO Q6H PRN PRN Reason: Headache/Pain Mild Scale (1-3) Last Admin: 06/28/22 21:34 Dose: 650 mg Al Hydroxide/Mg Hydroxide (Magnesium Hydrox/Alum Hydrox 30 Ml Oral.Susp) 30 ml PO Q6H PRN PRN Reason: Heartburn/Nausea Amlodipine Besylate (Amlodipine Besylate 10 Mg Tablet) 10 mg PO DAILY [facility]; Protocol Last Admin: 07/02/22 08:46 Dose: 10 mg Atorvastatin Calcium (Atorvastatin Calcium 10 Mg Tablet) 10 mg PO DAILY [facility] Last Admin: 07/02/22 08:46 Dose: 10 mg Benzocaine (Throat Lozenge, Medicated Lozenge) 1 lozenge MUCOUS MEM Q2H PRN PRN Reason: Sore Throat Last Admin: 07/02/22 10:49 Dose: 1 lozenge Bisacodyl (Bisacodyl 5 Mg Tablet.Dr) 10 mg PO DAILY PRN PRN Reason: Constipation Bupropion HCl (Bupropion Hcl Xl 300 Mg Tab.Er.24h) 300 mg PO DAILY [facility] Last Admin: 07/02/22 08:45 Dose: 300 mg Cariprazine (Cariprazine Hcl 3 Mg Capsule) 6 mg PO DAILY [facility] Last Admin: 07/02/22 08:45 Dose: 6 mg Clonidine HCl (Clonidine Hcl 0.1 Mg Tablet) 0.1 mg PO DAILY PRN; Protocol PRN Reason: HTN, hyperarousal Last Admin: 06/06/22 10:53 Dose: 0.1 mg Diphenhydramine HCl (Diphenhydramine Hcl 25 Mg Capsule) 50 mg PO Q4H PRN PRN Reason: agitation Divalproex Sodium (Divalproex Sodium Er 250 Mg Tab.Er.24h) 750 mg PO BEDTIME [facility] Last Admin: 07/01/22 22:01 Dose: 750 mg Docusate Sodium (Docusate Sodium 100 Mg Capsule) 200 mg PO BID [facility] Last Admin: 07/02/22 08:46 Dose: 200 mg Glyburide (Glyburide 2.5 Mg Tablet) 2.5 mg PO DAILY [facility] Last Admin: 07/02/22 08:46 Dose: 2.5 mg Guaifenesin (Guaifenesin 100 Mg/5 Ml Liquid) 5 ml PO Q4H PRN PRN Reason: cough Last Admin: 06/29/22 00:34 Dose: 5 ml Hydroxyzine HCl (Hydroxyzine Hcl 25 Mg Tablet) 25 mg PO Q6H PRN PRN Reason: Anxiety Last Admin: 06/28/22 21:34 Dose: 25 mg Lactulose (Lactulose 20 Gm/30 Ml Solution) 30 gm PO BID [facility] Last Admin: 07/02/22 08:43 Dose: 30 gm Magnesium Hydroxide (Milk Of Magnesia 30 Ml Oral.Susp) 30 ml PO DAILY PRN PRN Reason: Constipation Last Admin: 06/07/22 08:41 Dose: 30 ml Multi-Ingred Medicated Throat [place] (Throat [place], Medicated 20 Ml Bottle) 1 spray MUCOUS MEM Q2H PRN PRN Reason: Sore Throat Last Admin: 06/30/22 09:42 Dose: 1 spray Prazosin HCl (Prazosin Hcl 1 Mg Capsule) 1 mg PO BEDTIME [facility]; Protocol Last Admin: 07/01/22 22:00 Dose: 1 mg Quetiapine Fumarate (Quetiapine Fumarate 50 Mg Tablet) 50 mg PO BID PRN PRN Reason: agitation Last Admin: 07/01/22 22:01 Dose: 50 mg Quetiapine Fumarate (Quetiapine Fumarate 25 Mg Tablet) 25 mg PO BEDTIME [facility] Last Admin: 07/01/22 22:01 Dose: 25 mg Trazodone HCl (Trazodone Hcl 50 Mg Tablet) 50 mg PO BEDTIME PRN PRN Reason: Insomnia Last Admin: 07/01/22 22:01 Dose: 50 mg Allergies Allergies Allergy/AdvReac Type Severity Reaction Status Date / Time No Known Allergies Allergy Verified 05/19/22 23:36 Assessment & Plan Assessment & Plan (1) Bipolar disorder: Status: Acute Code(s): F31.9 - Bipolar disorder, unspecified Plan 52 yo female, hx of bipolar disorder, found running [place] [address] attempting to kill herself via motor vehicle. Reports poor sleep, appetite, poor ADL's, stopping meds and treatment and feeling hopeless and helpless. Plan: Collateral contact TDN- given [place] warning as we will need to file for civil commitment Medical review of current sx Olanzapine 5 mg bid Continue Haldol prn Trileptal 300 mg bid Flu Vaccine (pt request and accepted) Diagnostics 05/22/22- Continue alliance building with pt. Pt will have financial questions addressed so we may hopefully move forward with her treatment. Family is attempting to assure pt she is financially safe. 05/23/22- Continue current plan. 05/24/22- Lexapro 5 mg a.m. to begin 05/25. 05/25/22- Continue current plan 05/26/22- Continue alliance building, medication titration and attempts to align with OP supports. 05/27/22- No med changes 05/28/22- Vraylar 1.5 mg a.m. 05/30/22- Increase Vraylar to 3 mg 05/31. Discontinue Lexapro Prozac 10 mg daily 06/01/2022: Change Prozac liquid to capsules as per patient request 06/04/22: DC Olanzapine, continue prn, decrease Trileptal. Titrate Vraylar when health issues clarified on 06/05. Pending COVID, rapid strep Continue to monitor 06/05/22: Constipation- MOM prn and colace bid Racing thoughts-discontinue prozac, trileptal. Increase Vraylar to 4.5 mg Depakote ER 250 mg HS Sleep- Seroquel prn and HS Cough-Robitussin prn Discussed with Sabine Hurd [facility]- will complete insurance review on 06/06. 06/06/22: No changes as pt refused meds 06/05. No word today from pts insurance company for this senior writer to review. 06/07: Continue current regimen and plans. Started on lactulose for constipation 06/08: Continue current plans and regimen 06/09 patient remains depressed; passive wish with intermittent active SI; currently more intense wish however no plans or intention. Agrees to medication change -patient has diagnosis of bipolar disorder; will consider increasing Depakote as it is currently low-dose. 06/10 remains with SI, depressed. Agrees to increasing Depakote further Increased to Depakote ER 750 mg q.h.s. Labs ordered for Thursday06/11/22- Refusing of medications, treatment today. Aggressive episode requiring IM Olanzapine/Benadryl. 06/12/22-Continues to refuse treatment. Discussed with pt's family. Will revoke CV and request Section 7/8 process begin. Family supports this. 06/13/22. Section 7 filed. Continue to build alliance with pt around participation in her care. 06/14 continue tx. 06/15 continue tx. 06/16/22- Pt reports minimal COVID sx. Asked pt to attempt to engage more in milieu. She will consider. Labs she reports she will allow. Valproate, CBCD, CMP Lability persists, anger, depression. Allow Vraylar time to work (missed doses x 2 last week) Continue current regime presently. Improvement noted with lability, anger present-offer processing of issues and we can possibly avoid court. 06/17/22- Encourage milieu participation and self-care. 06/18/22- Wellbutrin 75 mg a.m. 06/19/22- no outbursts per pt report. Continue current plan. 06/20/22- CORWIN signed for hospital stay in [place]-sent. Increase Wellbutrin to 150 mg XL on 06/21 On 06/21 decrease Seroquel to 50 mg HS Monitor urinary incontinence episodes, if they continue urine culture POC daily 06/21/22- continue treatment plan 06/22/22 contiue current treatment plan 06/23/22- Continue current plan of care. 06/24/22- Increase Vraylar to 6 mg daily Increase Wellbutrin XL to 300 mg daily 06/25/22- Decrease HS Seroquel to 25 mg-?nocturnal urinary incontinence contributor Dulcolax prn for constipation- reports sx ~1 week Urine culture-nocturnal urinary incontinence POC bid Glyburide 2.5 mg a.m. Atorvastatin 10 mg a.m. CBCD, ChemP, A1c, Valproate Level 06/26/22: Throat culture. Medicated spray, lozenge for reports of sore throat. [facility] Zoom meeting today. 06/26/22: Continue current regime. Organize resources for discharge planning. Decrease in SI she reports today. 06/28: stable. passive SI. attempting to be more active and engaged in unit activities. no changes to regimen. 06/29: stable. no change per her report. attended 3 groups yesterday. 06/30/22: Passive SI. Throat culture ordered for sore throat Urology consult-nocturnal incontinence 07/01/22 Continue current plan. 07/02/22 Continue current regime and plan. Discharge planning. I spent minutes with the patient and/or on the patient floor today, greater than?50% of which was spent counseling/coordinating care. Informed Consent: further education needed Reason for contiued inpatient stay Substantial Risk for: harm to self, inability to function and rapid decompensation
[2022-07-02 21:16] VITALS: BP 139/94; PULSE 86; RESP 18; TEMP 36; O2SAT 96
[2022-07-02 21:25] LABS: Glucose, Whole Blood 77 mg/dL (60-115)
[2022-07-02] MEDS: Divalproex Sodium ER 250 MG TAB.ER.24H 750 MG PO (21:26)
[2022-07-02] MEDS: traZODone HCL 50 MG TABLET PO ×2 (21:27→23:34)
[2022-07-02] MEDS: QUEtiapine Fumarate 25 MG TABLET PO (21:27)
[2022-07-02] MEDS: Prazosin HCL 1 MG CAPSULE PO (21:27)
[2022-07-02] MEDS: QUEtiapine Fumarate 50 MG TABLET PO (23:34)
[2022-07-03 08:00] VITALS: BP 132/81; PULSE 80; TEMP 36.4; O2SAT 99
[2022-07-03 08:38] LABS: Glucose, Whole Blood 89 mg/dL (60-115)
[2022-07-03] MEDS: Lactulose 20 GM/30 ML SOLUTION 30 GM PO ×2 (08:44→20:51)
[2022-07-03] MEDS: Docusate Sodium 100 MG CAPSULE 200 MG PO ×2 (08:45→20:51)
[2022-07-03] MEDS: glyBURIDE 2.5 MG TABLET PO (08:46)
[2022-07-03] MEDS: Cariprazine HCl 3 MG CAPSULE 6 MG PO (08:46)
[2022-07-03] MEDS: Atorvastatin Calcium 10 MG TABLET PO (08:47)
[2022-07-03] MEDS: amLODIPine Besylate 10 MG TABLET PO (08:47)
[2022-07-03] MEDS: buPROPion HCl XL 300 MG TAB.ER.24H PO (08:48)
[2022-07-03] MEDS: Throat Lozenge, Medicated LOZENGE 1 LOZENGE MUCOUS MEM ×2 (08:51→20:51)
--- NOTE | 2022-07-03 16:53 | P.PNPSI_ITS ---
Subjective Subjective Date of Service: 07/03/22 Reason For Visit: omar/SI Subjective Notes: Section 7 Healthcare Proxy: No Guardianship: No Medical Problems Affecting Mental Status: No Interim History: To be honest, half of me still feels suicidal. I am worried that I cannot take care of myself. Here, I have help if I need it and it really makes me feel less anxious. Discussing discharge planning. Meeting with pt, Alfonso JEANSW, aunt scheduled for 07/04. Asked pt if she would begin a list of things which she may need help with when going home. She agreed and will bring this to our meeting on 07/04. Reports no urinary incontinence last evening. Throat symptoms are improving. May I go home for Thanksgiving? Medication Compliance: Yes Side effects from medications: No Attending Groups: Intermittent Review of Systems Acute medical concerns: No Medical Review of Systems: unchanged Mental Status Exam Mental Status Exam Patient Appearance: Appropriate Patient Orientation: Person, Place, Time and Situation Level of Consciousness: Alert Patient Behavior: Appropriate, Talkative and Good Eye Contact Mood Description: Flat and Apprehensive Affect Description: Flat Patient Cognition Impaired: No Ability to Follow Directions: Good Speech Pattern: Spontaneous Speech Memory Description: Intact Hallucinations: None Delusions: Not Present Thought Process: Distracted and Rumination Thought Content: positive for Circumstantial, positive for Perseveration and positive for Suicidal Ideation (passive, without plan or intent) Depressive Symptoms: Increased Anxiety Judgement: Fair Diagnostics Vital Signs (24Hr): Vital Signs - 24 hr 07/02/22 21:16 07/03/22 08:00 Temperature 96.8 F 97.6 F Pulse Rate 86 80 Respiratory Rate 18 Blood Pressure 139/94 H 132/81 Pulse Oximetry 96 99 Oxygen Delivery Method Room Air Room Air BMI result Body Mass Index 29.2 Labs Results: 06/26/22 08:30 06/26/22 08:30 Labs: Laboratory Results - last 48 hr 07/01/22 07/02/22 07/02/22 20:43 08:53 21:20 POC Glucose 129 H 70 77 07/03/22 08:33 POC Glucose 89 Medications Medications Current Medications Acetaminophen (Acetaminophen 325 Mg Tablet) 650 mg PO Q6H PRN PRN Reason: Headache/Pain Mild Scale (1-3) Last Admin: 06/28/22 21:34 Dose: 650 mg Al Hydroxide/Mg Hydroxide (Magnesium Hydrox/Alum Hydrox 30 Ml Oral.Susp) 30 ml PO Q6H PRN PRN Reason: Heartburn/Nausea Amlodipine Besylate (Amlodipine Besylate 10 Mg Tablet) 10 mg PO DAILY [facility]; Protocol Last Admin: 07/03/22 08:47 Dose: 10 mg Atorvastatin Calcium (Atorvastatin Calcium 10 Mg Tablet) 10 mg PO DAILY [facility] Last Admin: 07/03/22 08:47 Dose: 10 mg Benzocaine (Throat Lozenge, Medicated Lozenge) 1 lozenge MUCOUS MEM Q2H PRN PRN Reason: Sore Throat Last Admin: 07/03/22 08:51 Dose: 1 lozenge Bisacodyl (Bisacodyl 5 Mg Tablet.Dr) 10 mg PO DAILY PRN PRN Reason: Constipation Bupropion HCl (Bupropion Hcl Xl 300 Mg Tab.Er.24h) 300 mg PO DAILY [facility] Last Admin: 07/03/22 08:48 Dose: 300 mg Cariprazine (Cariprazine Hcl 3 Mg Capsule) 6 mg PO DAILY [facility] Last Admin: 07/03/22 08:46 Dose: 6 mg Clonidine HCl (Clonidine Hcl 0.1 Mg Tablet) 0.1 mg PO DAILY PRN; Protocol PRN Reason: HTN, hyperarousal Last Admin: 06/06/22 10:53 Dose: 0.1 mg Diphenhydramine HCl (Diphenhydramine Hcl 25 Mg Capsule) 50 mg PO Q4H PRN PRN Reason: agitation Divalproex Sodium (Divalproex Sodium Er 250 Mg Tab.Er.24h) 750 mg PO BEDTIME [facility] Last Admin: 07/02/22 21:26 Dose: 750 mg Docusate Sodium (Docusate Sodium 100 Mg Capsule) 200 mg PO BID [facility] Last Admin: 07/03/22 08:45 Dose: 200 mg Glyburide (Glyburide 2.5 Mg Tablet) 2.5 mg PO DAILY [facility] Last Admin: 07/03/22 08:46 Dose: 2.5 mg Guaifenesin (Guaifenesin 100 Mg/5 Ml Liquid) 5 ml PO Q4H PRN PRN Reason: cough Last Admin: 06/29/22 00:34 Dose: 5 ml Hydroxyzine HCl (Hydroxyzine Hcl 25 Mg Tablet) 25 mg PO Q6H PRN PRN Reason: Anxiety Last Admin: 06/28/22 21:34 Dose: 25 mg Lactulose (Lactulose 20 Gm/30 Ml Solution) 30 gm PO BID [facility] Last Admin: 07/03/22 08:44 Dose: 30 gm Magnesium Hydroxide (Milk Of Magnesia 30 Ml Oral.Susp) 30 ml PO DAILY PRN PRN Reason: Constipation Last Admin: 06/07/22 08:41 Dose: 30 ml Multi-Ingred Medicated Throat [place] (Throat [place], Medicated 20 Ml Bottle) 1 spray MUCOUS MEM Q2H PRN PRN Reason: Sore Throat Last Admin: 06/30/22 09:42 Dose: 1 spray Prazosin HCl (Prazosin Hcl 1 Mg Capsule) 1 mg PO BEDTIME [facility]; Protocol Last Admin: 07/02/22 21:27 Dose: 1 mg Quetiapine Fumarate (Quetiapine Fumarate 50 Mg Tablet) 50 mg PO BID PRN PRN Reason: agitation Last Admin: 07/02/22 23:34 Dose: 50 mg Quetiapine Fumarate (Quetiapine Fumarate 25 Mg Tablet) 25 mg PO BEDTIME [facility] Last Admin: 07/02/22 21:27 Dose: 25 mg Trazodone HCl (Trazodone Hcl 50 Mg Tablet) 50 mg PO BEDTIME PRN PRN Reason: Insomnia Last Admin: 07/02/22 23:34 Dose: 50 mg Allergies Allergies Allergy/AdvReac Type Severity Reaction Status Date / Time No Known Allergies Allergy Verified 05/19/22 23:36 Assessment & Plan Assessment & Plan (1) Bipolar disorder: Status: Acute Code(s): F31.9 - Bipolar disorder, unspecified Plan 52 yo female, hx of bipolar disorder, found running [place] [address] attempting to kill herself via motor vehicle. Reports poor sleep, appetite, poor ADL's, stopping meds and treatment and feeling hopeless and helpless. Plan: Collateral contact TDN- given Davis warning as we will need to file for civil commitment Medical review of current sx Olanzapine 5 mg bid Continue Haldol prn Trileptal 300 mg bid Flu Vaccine (pt request and accepted) Diagnostics 05/22/22- Continue alliance building with pt. Pt will have financial questions addressed so we may hopefully move forward with her treatment. Family is attempting to assure pt she is financially safe. 05/23/22- Continue current plan. 05/24/22- Lexapro 5 mg a.m. to begin 05/25. 05/25/22- Continue current plan 05/26/22- Continue alliance building, medication titration and attempts to align with OP supports. 05/27/22- No med changes 05/28/22- Vraylar 1.5 mg a.m. 05/30/22- Increase Vraylar to 3 mg 05/31. Discontinue Lexapro Prozac 10 mg daily 06/01/2022: Change Prozac liquid to capsules as per patient request 06/04/22: DC Olanzapine, continue prn, decrease Trileptal. Titrate Vraylar when health issues clarified on 06/05. Pending COVID, rapid strep Continue to monitor 06/05/22: Constipation- MOM prn and colace bid Racing thoughts-discontinue prozac, trileptal. Increase Vraylar to 4.5 mg Depakote ER 250 mg HS Sleep- Seroquel prn and HS Cough-Robitussin prn Discussed with Sabine Hurd [facility]- will complete insurance review on 06/06. 06/06/22: No changes as pt refused meds 06/05. No word today from pts insurance company for this aligner typewriter to review. 06/07: Continue current regimen and plans. Started on lactulose for constipation 06/08: Continue current plans and regimen 06/09 patient remains depressed; passive wish with intermittent active SI; currently more intense wish however no plans or intention. Agrees to medication change -patient has diagnosis of bipolar disorder; will consider increasing Depakote as it is currently low-dose. 06/10 remains with SI, depressed. Agrees to increasing Depakote further Increased to Depakote ER 750 mg q.h.s. Labs ordered for Thursday06/11/22- Refusing of medications, treatment today. Aggressive episode requiring IM Olanzapine/Benadryl. 06/12/22-Continues to refuse treatment. Discussed with pt's family. Will revoke CV and request Section 7/8 process begin. Family supports this. 06/13/22. Section 7 filed. Continue to build alliance with pt around participation in her care. 06/14 continue tx. 06/15 continue tx. 06/16/22- Pt reports minimal COVID sx. Asked pt to attempt to engage more in milieu. She will consider. Labs she reports she will allow. Valproate, CBCD, CMP Lability persists, anger, depression. Allow Vraylar time to work (missed doses x 2 last week) Continue current regime presently. Improvement noted with lability, anger present-offer processing of issues and we can possibly avoid court. 06/17/22- Encourage milieu participation and self-care. 06/18/22- Wellbutrin 75 mg a.m. 06/19/22- no outbursts per pt report. Continue current plan. 06/20/22- CORWIN signed for hospital stay in [place]-sent. Increase Wellbutrin to 150 mg XL on 06/21 On 06/21 decrease Seroquel to 50 mg HS Monitor urinary incontinence episodes, if they continue urine culture POC daily 06/21/22- continue treatment plan 06/22/22 contiue current treatment plan 06/23/22- Continue current plan of care. 06/24/22- Increase Vraylar to 6 mg daily Increase Wellbutrin XL to 300 mg daily 06/25/22- Decrease HS Seroquel to 25 mg-?nocturnal urinary incontinence contributor Dulcolax prn for constipation- reports sx ~1 week Urine culture-nocturnal urinary incontinence POC bid Glyburide 2.5 mg a.m. Atorvastatin 10 mg a.m. CBCD, ChemP, A1c, Valproate Level 06/26/22: Throat culture. Medicated spray, lozenge for reports of sore throat. [facility] Zoom meeting today. 06/26/22: Continue current regime. Organize resources for discharge planning. Decrease in SI she reports today. 06/28: stable. passive SI. attempting to be more active and engaged in unit activities. no changes to regimen. 06/29: stable. no change per her report. attended 3 groups yesterday. 06/30/22: Passive SI. Throat culture ordered for sore throat Urology consult-nocturnal incontinence 07/01/22 Continue current plan. 07/02/22 Continue current regime and plan. Discharge planning. 07/03/22- Family meeting 07/04. Pt was asked to begin a listing of things she may need help with at home upon discharge. Thus far-transportation, food preparation are considerations. I spent minutes with the patient and/or on the patient floor today, greater than?50% of which was spent counseling/coordinating care. Patient educated on: therapeutic strategies Informed Consent: understands and further education needed Reason for contiued inpatient stay Substantial Risk for: harm to self and rapid decompensation
[2022-07-03 20:48] VITALS: BP 158/80; PULSE 87; RESP 16; TEMP 36.6; O2SAT 100
[2022-07-03] MEDS: Divalproex Sodium ER 250 MG TAB.ER.24H 750 MG PO (20:51)
[2022-07-03] MEDS: Prazosin HCL 1 MG CAPSULE PO (20:51)
[2022-07-03] MEDS: QUEtiapine Fumarate 25 MG TABLET PO (20:51)
[2022-07-03] MEDS: QUEtiapine Fumarate 50 MG TABLET PO (20:51)
[2022-07-03] MEDS: traZODone HCL 50 MG TABLET PO (20:51)
[2022-07-03 21:36] LABS: Glucose, Whole Blood 118 mg/dL (60-115)
[2022-07-04 09:00] VITALS: BP 168/74; PULSE 86; TEMP 36.6; O2SAT 100
[2022-07-04 09:15] LABS: Glucose, Whole Blood 119 mg/dL (60-115)
[2022-07-04] MEDS: Lactulose 20 GM/30 ML SOLUTION 30 GM PO ×2 (09:22→21:21)
[2022-07-04] MEDS: Docusate Sodium 100 MG CAPSULE 200 MG PO ×2 (09:23→21:21)
[2022-07-04] MEDS: amLODIPine Besylate 10 MG TABLET PO (09:24)
[2022-07-04] MEDS: Cariprazine HCl 3 MG CAPSULE 6 MG PO (09:24)
[2022-07-04] MEDS: glyBURIDE 2.5 MG TABLET PO (09:24)
[2022-07-04] MEDS: buPROPion HCl XL 300 MG TAB.ER.24H PO (09:24)
[2022-07-04] MEDS: Atorvastatin Calcium 10 MG TABLET PO (09:25)
[2022-07-04] MEDS: QUEtiapine Fumarate 50 MG TABLET PO (13:25)
--- NOTE | 2022-07-04 16:00 | HO.PSYCHPN ---
Subjective Subjective Date of Service: 07/04/22 Reason For Visit: omar/SI Subjective Notes: Section 7 Healthcare Proxy: No Guardianship: No Medical Problems Affecting Mental Status: No Interim History: Met with pt, aunt to discuss discharge planning. Reports feeling nervous. Pt had worked on a list of what assist she may need and what tasks at home are overwhelming. She identified meal prep, transport. Aunt shared that pt's mother's main goal in parenting pt was to shield pt from the reality of the world and not let anyone know she had disability. As a result, she taught pt no independent living skills. Pt tearful and upset during this conversation, stating she never wanted me to go to a nursing home, but this is what I need . Pt is unaware of how to turn the stove/oven on. She has never cooked. Aunt reported a history of hoarding. In [place] family has everything done for her. Aunt reported that she is unable to put groceries in the refrigerator. She is unable to do a few tasks, just one task, then another. Pt feeling much guilt and shame. Discussed how my mother never wanted anyone to know I could not do these things . Encouraged pt to start a new beginning. Discussed nursing home possibilities, [facility] possibilities, rest home possibilities for skill building on discharge. Medication Compliance: Yes Side effects from medications: No Attending Groups: Intermittent Review of Systems Acute medical concerns: No Medical Review of Systems: unchanged Mental Status Exam Mental Status Exam Patient Appearance: Appropriate Patient Orientation: Person, Place, Time and Situation Level of Consciousness: Alert Patient Behavior: Appropriate, Talkative and Good Eye Contact Mood Description: Fearful, Sad and Apprehensive Affect Description: Fearful and Sad Patient Cognition Impaired: No Ability to Follow Directions: Good Speech Pattern: Spontaneous Speech Memory Description: Intact Hallucinations: None Delusions: Not Present Thought Process: Distracted and Rumination Thought Content: positive for Circumstantial, positive for Perseveration and positive for Suicidal Ideation (passive, without plan or intent) Depressive Symptoms: Increased Anxiety and Crying Spells Judgement: Fair Diagnostics Vital Signs (24Hr): Vital Signs - 24 hr 07/03/22 20:48 07/04/22 09:00 Temperature 97.8 F 97.8 F Pulse Rate 87 86 Respiratory Rate 16 Blood Pressure 158/80 H 168/74 H Pulse Oximetry 100 100 Oxygen Delivery Method Room Air Room Air BMI result Body Mass Index 29.2 Labs Results: 06/26/22 08:30 06/26/22 08:30 Labs: Laboratory Results - last 48 hr 07/02/22 07/03/22 07/03/22 21:20 08:33 21:27 POC Glucose 77 89 118 H 07/04/22 09:11 POC Glucose 119 H Medications Medications Current Medications Acetaminophen (Acetaminophen 325 Mg Tablet) 650 mg PO Q6H PRN PRN Reason: Headache/Pain Mild Scale (1-3) Last Admin: 06/28/22 21:34 Dose: 650 mg Al Hydroxide/Mg Hydroxide (Magnesium Hydrox/Alum Hydrox 30 Ml Oral.Susp) 30 ml PO Q6H PRN PRN Reason: Heartburn/Nausea Amlodipine Besylate (Amlodipine Besylate 10 Mg Tablet) 10 mg PO DAILY [facility]; Protocol Last Admin: 07/04/22 09:24 Dose: 10 mg Atorvastatin Calcium (Atorvastatin Calcium 10 Mg Tablet) 10 mg PO DAILY [facility] Last Admin: 07/04/22 09:25 Dose: 10 mg Benzocaine (Throat Lozenge, Medicated Lozenge) 1 lozenge MUCOUS MEM Q2H PRN PRN Reason: Sore Throat Last Admin: 07/03/22 20:51 Dose: 1 lozenge Bisacodyl (Bisacodyl 5 Mg Tablet.Dr) 10 mg PO DAILY PRN PRN Reason: Constipation Bupropion HCl (Bupropion Hcl Xl 300 Mg Tab.Er.24h) 300 mg PO DAILY [facility] Last Admin: 07/04/22 09:24 Dose: 300 mg Cariprazine (Cariprazine Hcl 3 Mg Capsule) 6 mg PO DAILY [facility] Last Admin: 07/04/22 09:24 Dose: 6 mg Clonidine HCl (Clonidine Hcl 0.1 Mg Tablet) 0.1 mg PO DAILY [facility]; Protocol PRN Reason: HTN, hyperarousal Last Admin: 06/06/22 10:53 Dose: 0.1 mg Diphenhydramine HCl (Diphenhydramine Hcl 25 Mg Capsule) 50 mg PO Q4H PRN PRN Reason: agitation Divalproex Sodium (Divalproex Sodium Er 250 Mg Tab.Er.24h) 750 mg PO BEDTIME [facility] Last Admin: 07/03/22 20:51 Dose: 750 mg Docusate Sodium (Docusate Sodium 100 Mg Capsule) 200 mg PO BID [facility] Last Admin: 07/04/22 09:23 Dose: 200 mg Glyburide (Glyburide 2.5 Mg Tablet) 2.5 mg PO DAILY [facility] Last Admin: 07/04/22 09:24 Dose: 2.5 mg Guaifenesin (Guaifenesin 100 Mg/5 Ml Liquid) 5 ml PO Q4H PRN PRN Reason: cough Last Admin: 06/29/22 00:34 Dose: 5 ml Hydroxyzine HCl (Hydroxyzine Hcl 25 Mg Tablet) 25 mg PO Q6H PRN PRN Reason: Anxiety Last Admin: 06/28/22 21:34 Dose: 25 mg Lactulose (Lactulose 20 Gm/30 Ml Solution) 30 gm PO BID [facility] Last Admin: 07/04/22 09:22 Dose: 30 gm Magnesium Hydroxide (Milk Of Magnesia 30 Ml Oral.Susp) 30 ml PO DAILY PRN PRN Reason: Constipation Last Admin: 06/07/22 08:41 Dose: 30 ml Multi-Ingred Medicated Throat [place] (Throat [place], Medicated 20 Ml Bottle) 1 spray MUCOUS MEM Q2H PRN PRN Reason: Sore Throat Last Admin: 06/30/22 09:42 Dose: 1 spray Prazosin HCl (Prazosin Hcl 1 Mg Capsule) 1 mg PO BEDTIME [facility]; Protocol Last Admin: 07/03/22 20:51 Dose: 1 mg Quetiapine Fumarate (Quetiapine Fumarate 50 Mg Tablet) 50 mg PO BID PRN PRN Reason: agitation Last Admin: 07/04/22 13:25 Dose: 50 mg Quetiapine Fumarate (Quetiapine Fumarate 25 Mg Tablet) 25 mg PO BEDTIME [facility] Last Admin: 07/03/22 20:51 Dose: 25 mg Trazodone HCl (Trazodone Hcl 50 Mg Tablet) 50 mg PO BEDTIME PRN PRN Reason: Insomnia Last Admin: 07/03/22 20:51 Dose: 50 mg Allergies Allergies Allergy/AdvReac Type Severity Reaction Status Date / Time No Known Allergies Allergy Verified 05/19/22 23:36 Assessment & Plan Assessment & Plan (1) Bipolar disorder: Status: Acute Code(s): F31.9 - Bipolar disorder, unspecified Plan 52 yo female, hx of bipolar disorder, found running [place] [address] attempting to kill herself via motor vehicle. Reports poor sleep, appetite, poor ADL's, stopping meds and treatment and feeling hopeless and helpless. Plan: Collateral contact TDN- given [place] warning as we will need to file for civil commitment Medical review of current sx Olanzapine 5 mg bid Continue Haldol prn Trileptal 300 mg bid Flu Vaccine (pt request and accepted) Diagnostics 05/22/22- Continue alliance building with pt. Pt will have financial questions addressed so we may hopefully move forward with her treatment. Family is attempting to assure pt she is financially safe. 05/23/22- Continue current plan. 05/24/22- Lexapro 5 mg a.m. to begin 05/25. 05/25/22- Continue current plan 05/26/22- Continue alliance building, medication titration and attempts to align with OP supports. 05/27/22- No med changes 05/28/22- Vraylar 1.5 mg a.m. 05/30/22- Increase Vraylar to 3 mg 05/31. Discontinue Lexapro Prozac 10 mg daily 06/01/2022: Change Prozac liquid to capsules as per patient request 06/04/22: DC Olanzapine, continue prn, decrease Trileptal. Titrate Vraylar when health issues clarified on 06/05. Pending COVID, rapid strep Continue to monitor 06/05/22: Constipation- MOM prn and colace bid Racing thoughts-discontinue prozac, trileptal. Increase Vraylar to 4.5 mg Depakote ER 250 mg HS Sleep- Seroquel prn and HS Cough-Robitussin prn Discussed with Sabine Hurd [facility]- will complete insurance review on 06/06. 06/06/22: No changes as pt refused meds 06/05. No word today from pts insurance company for this contract writer to review. 06/07: Continue current regimen and plans. Started on lactulose for constipation 06/08: Continue current plans and regimen 06/09 patient remains depressed; passive wish with intermittent active SI; currently more intense wish however no plans or intention. Agrees to medication change -patient has diagnosis of bipolar disorder; will consider increasing Depakote as it is currently low-dose. 06/10 remains with SI, depressed. Agrees to increasing Depakote further Increased to Depakote ER 750 mg q.h.s. Labs ordered for Thursday06/11/22- Refusing of medications, treatment today. Aggressive episode requiring IM Olanzapine/Benadryl. 06/12/22-Continues to refuse treatment. Discussed with pt's family. Will revoke CV and request Section 7/8 process begin. Family supports this. 06/13/22. Section 7 filed. Continue to build alliance with pt around participation in her care. 06/14 continue tx. 06/15 continue tx. 06/16/22- Pt reports minimal COVID sx. Asked pt to attempt to engage more in milieu. She will consider. Labs she reports she will allow. Valproate, CBCD, CMP Lability persists, anger, depression. Allow Vraylar time to work (missed doses x 2 last week) Continue current regime presently. Improvement noted with lability, anger present-offer processing of issues and we can possibly avoid court. 06/17/22- Encourage milieu participation and self-care. 06/18/22- Wellbutrin 75 mg a.m. 06/19/22- no outbursts per pt report. Continue current plan. 06/20/22- CORWIN signed for hospital stay in [place]-sent. Increase Wellbutrin to 150 mg XL on 06/21 On 06/21 decrease Seroquel to 50 mg HS Monitor urinary incontinence episodes, if they continue urine culture POC daily 06/21/22- continue treatment plan 06/22/22 contiue current treatment plan 06/23/22- Continue current plan of care. 06/24/22- Increase Vraylar to 6 mg daily Increase Wellbutrin XL to 300 mg daily 06/25/22- Decrease HS Seroquel to 25 mg-?nocturnal urinary incontinence contributor Dulcolax prn for constipation- reports sx ~1 week Urine culture-nocturnal urinary incontinence POC bid Glyburide 2.5 mg a.m. Atorvastatin 10 mg a.m. CBCD, ChemP, A1c, Valproate Level 06/26/22: Throat culture. Medicated spray, lozenge for reports of sore throat. [facility] Zoom meeting today. 06/26/22: Continue current regime. Organize resources for discharge planning. Decrease in SI she reports today. 06/28: stable. passive SI. attempting to be more active and engaged in unit activities. no changes to regimen. 06/29: stable. no change per her report. attended 3 groups yesterday. 06/30/22: Passive SI. Throat culture ordered for sore throat Urology consult-nocturnal incontinence 07/01/22 Continue current plan. 07/02/22 Continue current regime and plan. Discharge planning. 07/03/22- Family meeting 07/04. Pt was asked to begin a listing of things she may need help with at home upon discharge. Thus far-transportation, food preparation are considerations. 07/04/22 Continue current regime. Family meeting discussed with team-Looking at options for housing-team is considering [facility]. I spent minutes with the patient and/or on the patient floor today, greater than?50% of which was spent counseling/coordinating care. Patient educated on: therapeutic strategies Informed Consent: further education needed Reason for contiued inpatient stay Substantial Risk for: harm to self and rapid decompensation
[2022-07-04 20:26] LABS: Glucose, Whole Blood 110 mg/dL (60-115)
[2022-07-04 21:00] VITALS: BP 129/70; PULSE 84; TEMP 36.2; O2SAT 100
[2022-07-04] MEDS: QUEtiapine Fumarate 25 MG TABLET PO (21:21)
[2022-07-04] MEDS: Prazosin HCL 1 MG CAPSULE PO (21:21)
[2022-07-04] MEDS: Divalproex Sodium ER 250 MG TAB.ER.24H 750 MG PO (21:21)
[2022-07-04] MEDS: traZODone HCL 50 MG TABLET PO (21:22)
--- NOTE | 2022-07-05 00:48 | P.PNPSI_ITS ---
Subjective Subjective Date of Service: 07/05/22 Reason For Visit: omar/SI Interim History: Discussed with team. Pt says she is really upset about the housing, no longer wants to go to a snf, says she is more interested in a day program and staying in her house with in-home services i.e. [facility]. I really dont want to leave my house. Admits its a mess. Says maybe now that I went through this program, i'll make my bed. Says DEVANTE is getting her into [facility]. Recommended she discuss her concerns with her primary provider. Medication Compliance: Yes Side effects from medications: No Attending Groups: Intermittent Review of Systems Acute medical concerns: No Medical Review of Systems: unchanged Mental Status Exam Mental Status Exam Narrative: Patient Appearance: Appropriate Patient Orientation: Person, Place, Time and Situation Level of Consciousness: Alert Patient Behavior: Appropriate, Talkative and Good Eye Contact Mood Description: Fearful, Sad and Apprehensive Affect Description: Fearful and Sad Patient Cognition Impaired: No Ability to Follow Directions: Good Speech Pattern: Spontaneous Speech Memory Description: Intact Hallucinations: None Delusions: Not Present Thought Process: Distracted and Rumination Thought Content: positive for Circumstantial, positive for Perseveration and positive for Suicidal Ideation (passive, without plan or intent) Depressive Symptoms: Increased Anxiety and Crying Spells Judgement: Fair Diagnostics Vital Signs (24Hr): Vital Signs - 24 hr 07/04/22 09:00 07/04/22 21:00 Temperature 97.8 F 97.2 F Pulse Rate 86 84 Blood Pressure 168/74 H 129/70 Pulse Oximetry 100 100 Oxygen Delivery Method Room Air Room Air BMI result Body Mass Index 29.2 Labs Results: 06/26/22 08:30 06/26/22 08:30 Labs: Laboratory Results - last 48 hr 07/03/22 07/03/22 07/04/22 08:33 21:27 09:11 POC Glucose 89 118 H 119 H 07/04/22 20:13 POC Glucose 110 Medications Medications Current Medications Acetaminophen (Acetaminophen 325 Mg Tablet) 650 mg PO Q6H PRN PRN Reason: Headache/Pain Mild Scale (1-3) Last Admin: 06/28/22 21:34 Dose: 650 mg Al Hydroxide/Mg Hydroxide (Magnesium Hydrox/Alum Hydrox 30 Ml Oral.Susp) 30 ml PO Q6H PRN PRN Reason: Heartburn/Nausea Amlodipine Besylate (Amlodipine Besylate 10 Mg Tablet) 10 mg PO DAILY [facility]; Protocol Last Admin: 07/04/22 09:24 Dose: 10 mg Atorvastatin Calcium (Atorvastatin Calcium 10 Mg Tablet) 10 mg PO DAILY [facility] Last Admin: 07/04/22 09:25 Dose: 10 mg Benzocaine (Throat Lozenge, Medicated Lozenge) 1 lozenge MUCOUS MEM Q2H PRN PRN Reason: Sore Throat Last Admin: 07/03/22 20:51 Dose: 1 lozenge Bisacodyl (Bisacodyl 5 Mg Tablet.Dr) 10 mg PO DAILY PRN PRN Reason: Constipation Bupropion HCl (Bupropion Hcl Xl 300 Mg Tab.Er.24h) 300 mg PO DAILY [facility] Last Admin: 07/04/22 09:24 Dose: 300 mg Cariprazine (Cariprazine Hcl 3 Mg Capsule) 6 mg PO DAILY [facility] Last Admin: 07/04/22 09:24 Dose: 6 mg Clonidine HCl (Clonidine Hcl 0.1 Mg Tablet) 0.1 mg PO DAILY PR[facility]; Protocol PRN Reason: HTN, hyperarousal Last Admin: 06/06/22 10:53 Dose: 0.1 mg Diphenhydramine HCl (Diphenhydramine Hcl 25 Mg Capsule) 50 mg PO Q4H PRN PRN Reason: agitation Divalproex Sodium (Divalproex Sodium Er 250 Mg Tab.Er.24h) 750 mg PO BEDTIME [facility] Last Admin: 07/04/22 21:21 Dose: 750 mg Docusate Sodium (Docusate Sodium 100 Mg Capsule) 200 mg PO BID [facility] Last Admin: 07/04/22 21:21 Dose: 200 mg Glyburide (Glyburide 2.5 Mg Tablet) 2.5 mg PO DAILY [facility] Last Admin: 07/04/22 09:24 Dose: 2.5 mg Guaifenesin (Guaifenesin 100 Mg/5 Ml Liquid) 5 ml PO Q4H PRN PRN Reason: cough Last Admin: 06/29/22 00:34 Dose: 5 ml Hydroxyzine HCl (Hydroxyzine Hcl 25 Mg Tablet) 25 mg PO Q6H PRN PRN Reason: Anxiety Last Admin: 06/28/22 21:34 Dose: 25 mg Lactulose (Lactulose 20 Gm/30 Ml Solution) 30 gm PO BID [facility] Last Admin: 07/04/22 21:21 Dose: 30 gm Magnesium Hydroxide (Milk Of Magnesia 30 Ml Oral.Susp) 30 ml PO DAILY PRN PRN Reason: Constipation Last Admin: 06/07/22 08:41 Dose: 30 ml Multi-Ingred Medicated Throat [place] (Throat [place], Medicated 20 Ml Bottle) 1 spray MUCOUS MEM Q2H PRN PRN Reason: Sore Throat Last Admin: 06/30/22 09:42 Dose: 1 spray Prazosin HCl (Prazosin Hcl 1 Mg Capsule) 1 mg PO BEDTIME [facility]; Protocol Last Admin: 07/04/22 21:21 Dose: 1 mg Quetiapine Fumarate (Quetiapine Fumarate 50 Mg Tablet) 50 mg PO BID PRN PRN Reason: agitation Last Admin: 07/04/22 13:25 Dose: 50 mg Quetiapine Fumarate (Quetiapine Fumarate 25 Mg Tablet) 25 mg PO BEDTIME [facility] Last Admin: 07/04/22 21:21 Dose: 25 mg Trazodone HCl (Trazodone Hcl 50 Mg Tablet) 50 mg PO BEDTIME PRN PRN Reason: Insomnia Last Admin: 07/04/22 21:22 Dose: 50 mg Allergies Allergies Allergy/AdvReac Type Severity Reaction Status Date / Time No Known Allergies Allergy Verified 05/19/22 23:36 Assessment & Plan Assessment & Plan (1) Bipolar disorder: Status: Acute Code(s): F31.9 - Bipolar disorder, unspecified Plan 52 yo female, hx of bipolar disorder, found [place] [address] [place] to [place] herself via motor vehicle. Reports poor sleep, appetite, poor ADL's, stopping meds and treatment and feeling hopeless and helpless. Plan: Collateral contact TDN- given Davis warning as we will need to file for civil commitment Medical review of current sx Olanzapine 5 mg bid Continue Haldol prn Trileptal 300 mg bid Flu Vaccine (pt request and accepted) Diagnostics 05/22/22- Continue alliance building with pt. Pt will have financial questions addressed so we may hopefully move forward with her treatment. Family is attempting to assure pt she is financially safe. 05/23/22- Continue current plan. 05/24/22- Lexapro 5 mg a.m. to begin 05/25. 05/25/22- Continue current plan 05/26/22- Continue alliance building, medication titration and attempts to align with OP supports. 05/27/22- No med changes 05/28/22- Vraylar 1.5 mg a.m. 05/30/22- Increase Vraylar to 3 mg 05/31. Discontinue Lexapro Prozac 10 mg daily 06/01/2022: Change Prozac liquid to capsules as per patient request 06/04/22: DC Olanzapine, continue prn, decrease Trileptal. Titrate Vraylar when health issues clarified on 06/05. Pending COVID, rapid strep Continue to monitor 06/05/22: Constipation- MOM prn and colace bid Racing thoughts-discontinue prozac, trileptal. Increase Vraylar to 4.5 mg Depakote ER 250 mg HS Sleep- Seroquel prn and HS Cough-Robitussin prn Discussed with Sabine Hurd [facility]- will complete insurance review on 06/06. 06/06/22: No changes as pt refused meds 06/05. No word today from pts insurance company for this loan underwriter to review. 06/07: Continue current regimen and plans. Started on lactulose for constipation 06/08: Continue current plans and regimen 06/09 patient remains depressed; passive wish with intermittent active SI; currently more intense wish however no plans or intention. Agrees to medication change -patient has diagnosis of bipolar disorder; will consider increasing Depakote as it is currently low-dose. 06/10 remains with SI, depressed. Agrees to increasing Depakote further Increased to Depakote ER 750 mg q.h.s. Labs ordered for Thursday06/11/22- Refusing of medications, treatment today. Aggressive episode requiring IM Olanzapine/Benadryl. 06/12/22-Continues to refuse treatment. Discussed with pt's family. Will revoke CV and request Section 7/8 process begin. Family supports this. 06/13/22. Section 7 filed. Continue to build alliance with pt around participation in her care. 06/14 continue tx. 06/15 continue tx. 06/16/22- Pt reports minimal COVID sx. Asked pt to attempt to engage more in milieu. She will consider. Labs she reports she will allow. Valproate, CBCD, CMP Lability persists, anger, depression. Allow Vraylar time to work (missed doses x 2 last week) Continue current regime presently. Improvement noted with lability, anger present-offer processing of issues and we can possibly avoid court. 06/17/22- Encourage milieu participation and self-care. 06/18/22- Wellbutrin 75 mg a.m. 06/19/22- no outbursts per pt report. Continue current plan. 06/20/22- [facility]WIN signed for hospital stay in [place]-sent. Increase Wellbutrin to 150 mg XL on 06/21 On 06/21 decrease Seroquel to 50 mg HS Monitor urinary incontinence episodes, if they continue urine culture POC daily 06/21/22- continue treatment plan 06/22/22 contiue current treatment plan 06/23/22- Continue current plan of care. 06/24/22- Increase Vraylar to 6 mg daily Increase Wellbutrin XL to 300 mg daily 06/25/22- Decrease HS Seroquel to 25 mg-?nocturnal urinary incontinence contributor Dulcolax prn for constipation- reports sx ~1 week Urine culture-nocturnal urinary incontinence POC bid Glyburide 2.5 mg a.m. Atorvastatin 10 mg a.m. CBCD, ChemP, A1c, Valproate Level 06/26/22: Throat culture. Medicated spray, lozenge for reports of sore throat. [facility] Zoom meeting today. 06/26/22: Continue current regime. Organize resources for discharge planning. Decrease in SI she reports today. 06/28: stable. passive SI. attempting to be more active and engaged in unit activities. no changes to regimen. 06/29: stable. no change per her report. attended 3 groups yesterday. 06/30/22: Passive SI. Throat culture ordered for sore throat Urology consult-nocturnal incontinence 07/01/22 Continue current plan. 07/02/22 Continue current regime and plan. Discharge planning. 07/03/22- Family meeting 07/04. Pt was asked to begin a listing of things she may need help with at home upon discharge. Thus far-transportation, food preparation are considerations. 07/04/22 Continue current regime. Family meeting discussed with team-Looking at options for housing-team is considering [facility]. 07/05/22 Pt having second thoughts about housing I spent minutes with the patient and/or on the patient floor today, greater than?50% of which was spent counseling/coordinating care. Patient educated on: therapeutic strategies Reason for contiued inpatient stay Substantial Risk for: inability to function, rapid decompensation and med/psych decompensation
[2022-07-05 08:31] LABS: Glucose, Whole Blood 65 mg/dL (60-115)
[2022-07-05] MEDS: glyBURIDE 2.5 MG TABLET PO (09:01)
[2022-07-05] MEDS: Docusate Sodium 100 MG CAPSULE 200 MG PO ×2 (09:01→21:10)
[2022-07-05] MEDS: Cariprazine HCl 3 MG CAPSULE 6 MG PO (09:01)
[2022-07-05] MEDS: buPROPion HCl XL 300 MG TAB.ER.24H PO (09:01)
[2022-07-05] MEDS: Atorvastatin Calcium 10 MG TABLET PO (09:01)
[2022-07-05] MEDS: Lactulose 20 GM/30 ML SOLUTION 30 GM PO ×2 (09:01→21:10)
[2022-07-05] MEDS: amLODIPine Besylate 10 MG TABLET PO (09:01)
[2022-07-05 10:04] VITALS: BP 122/65; PULSE 75; RESP 15; TEMP 36.1; O2SAT 99
[2022-07-05] MEDS: Throat Lozenge, Medicated LOZENGE 1 LOZENGE MUCOUS MEM ×2 (15:16→20:15)
[2022-07-05 21:00] VITALS: BP 144/74; PULSE 98; RESP 18; TEMP 36.6; O2SAT 99
[2022-07-05 21:08] LABS: Glucose, Whole Blood 139 mg/dL (60-115)
[2022-07-05] MEDS: Divalproex Sodium ER 250 MG TAB.ER.24H 750 MG PO (21:09)
[2022-07-05] MEDS: Prazosin HCL 1 MG CAPSULE PO (21:10)
[2022-07-05] MEDS: QUEtiapine Fumarate 25 MG TABLET PO (21:10)
[2022-07-06] MEDS: Throat Lozenge, Medicated LOZENGE 1 LOZENGE MUCOUS MEM ×7 (00:15→18:08)
--- NOTE | 2022-07-06 01:45 | HO.PSYCHPN ---
Subjective Subjective Date of Service: 07/06/22 Reason For Visit: omar/SI Interim History: Discussed with team. Spoke with pt. Says her sleep was pretty good. She feels nervous about her meeting tomorrow as she wants to advocate for not going to a [place] [facility] facility and staying in her apartment with services, day program. No questions or concerns. Wants the medications to stay the same. Feels safe. Medication Compliance: Yes Side effects from medications: No Attending Groups: Intermittent Review of Systems Acute medical concerns: No Medical Review of Systems: unchanged Mental Status Exam Mental Status Exam Narrative: Patient Appearance: Appropriate Patient Orientation: Person, Place, Time and Situation Level of Consciousness: Alert Patient Behavior: Appropriate, Talkative and Good Eye Contact Mood Description: Fearful, Sad and Apprehensive Affect Description: Fearful and Sad Patient Cognition Impaired: No Ability to Follow Directions: Good Speech Pattern: Spontaneous Speech Memory Description: Intact Hallucinations: None Delusions: Not Present Thought Process: Distracted and Rumination Thought Content: positive for Circumstantial, positive for Perseveration and positive for Suicidal Ideation (passive, without plan or intent) Depressive Symptoms: Increased Anxiety and Crying Spells Judgement: Fair Diagnostics Vital Signs (24Hr): Vital Signs - 24 hr 07/05/22 10:04 07/05/22 21:00 Temperature 97.0 F 98 F Pulse Rate 75 98 Respiratory Rate 15 18 Blood Pressure 122/65 144/74 H Pulse Oximetry 99 99 Oxygen Delivery Method Room Air Room Air BMI result Body Mass Index 29.2 Labs Results: 06/26/22 08:30 06/26/22 08:30 Labs: Laboratory Results - last 48 hr 07/04/22 07/04/22 07/05/22 09:11 20:13 08:21 POC Glucose 119 H 110 65 07/05/22 21:03 POC Glucose 139 H Medications Medications Current Medications Acetaminophen (Acetaminophen 325 Mg Tablet) 650 mg PO Q6H PRN PRN Reason: Headache/Pain Mild Scale (1-3) Last Admin: 06/28/22 21:34 Dose: 650 mg Al Hydroxide/Mg Hydroxide (Magnesium Hydrox/Alum Hydrox 30 Ml Oral.Susp) 30 ml PO Q6H PRN PRN Reason: Heartburn/Nausea Amlodipine Besylate (Amlodipine Besylate 10 Mg Tablet) 10 mg PO DAILY [facility]; Protocol Last Admin: 07/05/22 09:01 Dose: 10 mg Atorvastatin Calcium (Atorvastatin Calcium 10 Mg Tablet) 10 mg PO DAILY [facility] Last Admin: 07/05/22 09:01 Dose: 10 mg Benzocaine (Throat Lozenge, Medicated Lozenge) 1 lozenge MUCOUS MEM Q2H PRN PRN Reason: Sore Throat Last Admin: 07/06/22 00:15 Dose: 1 lozenge Bisacodyl (Bisacodyl 5 Mg Tablet.Dr) 10 mg PO DAILY PRN PRN Reason: Constipation Bupropion HCl (Bupropion Hcl Xl 300 Mg Tab.Er.24h) 300 mg PO DAILY [facility] Last Admin: 07/05/22 09:01 Dose: 300 mg Cariprazine (Cariprazine Hcl 3 Mg Capsule) 6 mg PO DAILY [facility] Last Admin: 07/05/22 09:01 Dose: 6 mg Clonidine HCl (Clonidine Hcl 0.1 Mg Tablet) 0.1 mg PO DAILY [facility]; Protocol PRN Reason: HTN, hyperarousal Last Admin: 06/06/22 10:53 Dose: 0.1 mg Diphenhydramine HCl (Diphenhydramine Hcl 25 Mg Capsule) 50 mg PO Q4H PRN PRN Reason: agitation Divalproex Sodium (Divalproex Sodium Er 250 Mg Tab.Er.24h) 750 mg PO BEDTIME [facility] Last Admin: 07/05/22 21:09 Dose: 750 mg Docusate Sodium (Docusate Sodium 100 Mg Capsule) 200 mg PO BID [facility] Last Admin: 07/05/22 21:10 Dose: 200 mg Glyburide (Glyburide 2.5 Mg Tablet) 2.5 mg PO DAILY [facility] Last Admin: 07/05/22 09:01 Dose: 2.5 mg Guaifenesin (Guaifenesin 100 Mg/5 Ml Liquid) 5 ml PO Q4H PRN PRN Reason: cough Last Admin: 06/29/22 00:34 Dose: 5 ml Hydroxyzine HCl (Hydroxyzine Hcl 25 Mg Tablet) 25 mg PO Q6H PRN PRN Reason: Anxiety Last Admin: 06/28/22 21:34 Dose: 25 mg Lactulose (Lactulose 20 Gm/30 Ml Solution) 30 gm PO BID [facility] Last Admin: 07/05/22 21:10 Dose: 30 gm Magnesium Hydroxide (Milk Of Magnesia 30 Ml Oral.Susp) 30 ml PO DAILY PRN PRN Reason: Constipation Last Admin: 06/07/22 08:41 Dose: 30 ml Multi-Ingred Medicated Throat [place] (Throat [place], Medicated 20 Ml Bottle) 1 spray MUCOUS MEM Q2H PRN PRN Reason: Sore Throat Last Admin: 06/30/22 09:42 Dose: 1 spray Prazosin HCl (Prazosin Hcl 1 Mg Capsule) 1 mg PO BEDTIME [facility]; Protocol Last Admin: 07/05/22 21:10 Dose: 1 mg Quetiapine Fumarate (Quetiapine Fumarate 50 Mg Tablet) 50 mg PO BID PRN PRN Reason: agitation Last Admin: 07/04/22 13:25 Dose: 50 mg Quetiapine Fumarate (Quetiapine Fumarate 25 Mg Tablet) 25 mg PO BEDTIME [facility] Last Admin: 07/05/22 21:10 Dose: 25 mg Trazodone HCl (Trazodone Hcl 50 Mg Tablet) 50 mg PO BEDTIME PRN PRN Reason: Insomnia Last Admin: 07/04/22 21:22 Dose: 50 mg Allergies Allergies Allergy/AdvReac Type Severity Reaction Status Date / Time No Known Allergies Allergy Verified 05/19/22 23:36 Assessment & Plan Assessment & Plan (1) Bipolar disorder: Status: Acute Code(s): F31.9 - Bipolar disorder, unspecified Plan 52 yo female, hx of bipolar disorder, found running [place] [address] attempting to kill herself via motor vehicle. Reports poor sleep, appetite, poor ADL's, stopping meds and treatment and feeling hopeless and helpless. Plan: Collateral contact TDN- given Davis warning as we will need to file for civil commitment Medical review of current sx Olanzapine 5 mg bid Continue Haldol prn Trileptal 300 mg bid Flu Vaccine (pt request and accepted) Diagnostics 05/22/22- Continue alliance building with pt. Pt will have financial questions addressed so we may hopefully move forward with her treatment. Family is attempting to assure pt she is financially safe. 05/23/22- Continue current plan. 05/24/22- Lexapro 5 mg a.m. to begin 05/25. 05/25/22- Continue current plan 05/26/22- Continue alliance building, medication titration and attempts to align with OP supports. 05/27/22- No med changes 05/28/22- Vraylar 1.5 mg a.m. 05/30/22- Increase Vraylar to 3 mg 05/31. Discontinue Lexapro Prozac 10 mg daily 06/01/2022: Change Prozac liquid to capsules as per patient request 06/04/22: DC Olanzapine, continue prn, decrease Trileptal. Titrate Vraylar when health issues clarified on 06/05. Pending COVID, rapid strep Continue to monitor 06/05/22: Constipation- MOM prn and colace bid Racing thoughts-discontinue prozac, trileptal. Increase Vraylar to 4.5 mg Depakote ER 250 mg HS Sleep- Seroquel prn and HS Cough-Robitussin prn Discussed with Sabine Hurd [facility]- will complete insurance review on 06/06. 06/06/22: No changes as pt refused meds 06/05. No word today from pts insurance company for this travel writer to review. 06/07: Continue current regimen and plans. Started on lactulose for constipation 06/08: Continue current plans and regimen 06/09 patient remains depressed; passive wish with intermittent active SI; currently more intense wish however no plans or intention. Agrees to medication change -patient has diagnosis of bipolar disorder; will consider increasing Depakote as it is currently low-dose. 06/10 remains with SI, depressed. Agrees to increasing Depakote further Increased to Depakote ER 750 mg q.h.s. Labs ordered for Thursday06/11/22- Refusing of medications, treatment today. Aggressive episode requiring IM Olanzapine/Benadryl. 06/12/22-Continues to refuse treatment. Discussed with pt's family. Will revoke CV and request Section 7/8 process begin. Family supports this. 06/13/22. Section 7 filed. Continue to build alliance with pt around participation in her care. 06/14 continue tx. 06/15 continue tx. 06/16/22- Pt reports minimal COVID sx. Asked pt to attempt to engage more in milieu. She will consider. Labs she reports she will allow. Valproate, CBCD, CMP Lability persists, anger, depression. Allow Vraylar time to work (missed doses x 2 last week) Continue current regime presently. Improvement noted with lability, anger present-offer processing of issues and we can possibly avoid court. 06/17/22- Encourage milieu participation and self-care. 06/18/22- Wellbutrin 75 mg a.m. 06/19/22- no outbursts per pt report. Continue current plan. 06/20/22- [facility] signed for hospital stay in [place]-sent. Increase Wellbutrin to 150 mg XL on 06/21 On 06/21 decrease Seroquel to 50 mg HS Monitor urinary incontinence episodes, if they continue urine culture POC daily 06/21/22- continue treatment plan 06/22/22 contiue current treatment plan 06/23/22- Continue current plan of care. 06/24/22- Increase Vraylar to 6 mg daily Increase Wellbutrin XL to 300 mg daily 06/25/22- Decrease HS Seroquel to 25 mg-?nocturnal urinary incontinence contributor Dulcolax prn for constipation- reports sx ~1 week Urine culture-nocturnal urinary incontinence POC bid Glyburide 2.5 mg a.m. Atorvastatin 10 mg a.m. CBCD, ChemP, A1c, Valproate Level 06/26/22: Throat culture. Medicated spray, lozenge for reports of sore throat. [facility] Zoom meeting today. 06/26/22: Continue current regime. Organize resources for discharge planning. Decrease in SI she reports today. 06/28: stable. passive SI. attempting to be more active and engaged in unit activities. no changes to regimen. 06/29: stable. no change per her report. attended 3 groups yesterday. 06/30/22: Passive SI. Throat culture ordered for sore throat Urology consult-nocturnal incontinence 07/01/22 Continue current plan. 07/02/22 Continue current regime and plan. Discharge planning. 07/03/22- Family meeting 07/04. Pt was asked to begin a listing of things she may need help with at home upon discharge. Thus far-transportation, food preparation are considerations. 07/04/22 Continue current regime. Family meeting discussed with team-Looking at options for housing-team is considering [facility]. 07/05/22 Pt having second thoughts about housing 07/06/22: Some anxiety about housing, no med changes I spent minutes with the patient and/or on the patient floor today, greater than?50% of which was spent counseling/coordinating care. Patient educated on: therapeutic strategies and other Reason for contiued inpatient stay Substantial Risk for: inability to function, rapid decompensation and med/psych decompensation
[2022-07-06] MEDS: bisacodyL 5 MG TABLET.DR 10 MG PO (02:28)
[2022-07-06 08:30] VITALS: BP 150/84; PULSE 91; RESP 18; TEMP 35.9; O2SAT 99
[2022-07-06 08:58] LABS: Glucose, Whole Blood 71 mg/dL (60-115)
[2022-07-06] MEDS: Docusate Sodium 100 MG CAPSULE 200 MG PO (08:59)
[2022-07-06] MEDS: amLODIPine Besylate 10 MG TABLET PO (08:59)
[2022-07-06] MEDS: Atorvastatin Calcium 10 MG TABLET PO (08:59)
[2022-07-06] MEDS: glyBURIDE 2.5 MG TABLET PO (09:00)
[2022-07-06] MEDS: buPROPion HCl XL 300 MG TAB.ER.24H PO (09:00)
[2022-07-06] MEDS: Cariprazine HCl 3 MG CAPSULE 6 MG PO (09:00)
[2022-07-06] MEDS: Lactulose 20 GM/30 ML SOLUTION 30 GM PO (09:11)
[2022-07-06] MEDS: Milk of Magnesia 30 ML ORAL.SUSP PO (12:00)
[2022-07-06 17:30] LABS: Glucose, Whole Blood 112 mg/dL (60-115)
[2022-07-06 20:54] VITALS: BP 135/71; PULSE 87; RESP 18; O2SAT 99
[2022-07-06] MEDS: QUEtiapine Fumarate 25 MG TABLET PO (20:59)
[2022-07-06] MEDS: Prazosin HCL 1 MG CAPSULE PO (20:59)
[2022-07-06] MEDS: Divalproex Sodium ER 250 MG TAB.ER.24H 750 MG PO (20:59)
[2022-07-06] MEDS: traZODone HCL 50 MG TABLET PO (21:13)
[2022-07-07 08:00] VITALS: BP 168/73; PULSE 111; TEMP 36.9; O2SAT 98
[2022-07-07 08:30] LABS: Glucose, Whole Blood 98 mg/dL (60-115)
[2022-07-07] MEDS: Cariprazine HCl 3 MG CAPSULE 6 MG PO (09:17)
[2022-07-07] MEDS: glyBURIDE 2.5 MG TABLET PO (09:17)
[2022-07-07] MEDS: Atorvastatin Calcium 10 MG TABLET PO (09:18)
[2022-07-07] MEDS: amLODIPine Besylate 10 MG TABLET PO (09:18)
[2022-07-07] MEDS: buPROPion HCl XL 300 MG TAB.ER.24H PO (09:18)
[2022-07-07] MEDS: Throat Lozenge, Medicated LOZENGE 1 LOZENGE MUCOUS MEM ×2 (09:44→21:14)
[2022-07-07] MEDS: hydrOXYzine HCL 25 MG TABLET PO (13:15)
[2022-07-07] MEDS: QUEtiapine Fumarate 50 MG TABLET PO (15:40)
--- NOTE | 2022-07-07 16:45 | HO.PSYCHPN ---
Subjective Subjective Date of Service: 07/07/22 Reason For Visit: omar/SI Subjective Notes: Section 7 Healthcare Proxy: No Guardianship: No Medical Problems Affecting Mental Status: No Interim History: Care discussed with pt's cousin, Ranjana who is willing to assist pt in any way. Meeting with pt, pt's primary nurse, Alfonso Oliva. Review of possible transfer to [facility] or [facility] to assist pt in transition back to her home with improved skill base for independent living. Pt is tearful, upset, crying, anxious, apprehensive. She did sign CORWIN for both so applications may be made. She struggles with the stigma of her mother's words from years ago about not wanting her to go to a skilled nursing (possibly used as a threat if pt did not take her medications?). Mother did not want pt's illness to be known, whereas now team works to help pt with sx mgt, skill building to decrease anxiety, apprehension and allow her to live freely. Pt today is active, taking notes, asking questions and well engaged although overwhelmed-she is not giving up or giving in as seen earlier in this admission. Medication Compliance: Yes Side effects from medications: No Attending Groups: Intermittent Review of Systems Acute medical concerns: No Medical Review of Systems: unchanged Mental Status Exam Mental Status Exam Patient Appearance: Appropriate Patient Orientation: Person, Place, Time and Situation Level of Consciousness: Alert Patient Behavior: Talkative, Anxious, Good Eye Contact and Crying Mood Description: Sad Affect Description: Anxious Patient Cognition Impaired: No Ability to Follow Directions: Good Speech Pattern: Spontaneous Speech Memory Description: Intact Hallucinations: None Delusions: Not Present Perceptual Disturbances: Depersonalization and Derealization Thought Process: Rumination Thought Content: positive for Circumstantial and positive for Suicidal Ideation (denies) Depressive Symptoms: Increased Anxiety, Hopelessness, Unhappiness and Low Self Esteem Abnormal Motor Activity Signs and Symptoms: Agitation Judgement: Fair Diagnostics Vital Signs (24Hr): Vital Signs - 24 hr 07/06/22 20:54 07/07/22 08:00 Temperature 98.5 F Pulse Rate 87 111 H Respiratory Rate 18 Blood Pressure 135/71 168/73 H Pulse Oximetry 99 98 Oxygen Delivery Method Room Air Room Air BMI result Body Mass Index 29.2 Labs Results: 06/26/22 08:30 06/26/22 08:30 Labs: Laboratory Results - last 48 hr 07/05/22 07/06/22 07/06/22 21:03 08:54 17:24 POC Glucose 139 H 71 112 07/07/22 08:26 POC Glucose 98 Medications Medications Current Medications Acetaminophen (Acetaminophen 325 Mg Tablet) 650 mg PO Q6H PRN PRN Reason: Headache/Pain Mild Scale (1-3) Last Admin: 06/28/22 21:34 Dose: 650 mg Al Hydroxide/Mg Hydroxide (Magnesium Hydrox/Alum Hydrox 30 Ml Oral.Susp) 30 ml PO Q6H PRN PRN Reason: Heartburn/Nausea Amlodipine Besylate (Amlodipine Besylate 10 Mg Tablet) 10 mg PO DAILY [facility]; Protocol Last Admin: 07/07/22 09:18 Dose: 10 mg Atorvastatin Calcium (Atorvastatin Calcium 10 Mg Tablet) 10 mg PO DAILY [facility] Last Admin: 07/07/22 09:18 Dose: 10 mg Benzocaine (Throat Lozenge, Medicated Lozenge) 1 lozenge MUCOUS MEM Q2H PRN PRN Reason: Sore Throat Last Admin: 07/07/22 09:44 Dose: 1 lozenge Bisacodyl (Bisacodyl 5 Mg Tablet.Dr) 10 mg PO DAILY PRN PRN Reason: Constipation Last Admin: 07/06/22 02:28 Dose: 10 mg Bupropion HCl (Bupropion Hcl Xl 300 Mg Tab.Er.24h) 300 mg PO DAILY [facility] Last Admin: 07/07/22 09:18 Dose: 300 mg Cariprazine (Cariprazine Hcl 3 Mg Capsule) 6 mg PO DAILY [facility] Last Admin: 07/07/22 09:17 Dose: 6 mg Clonidine HCl (Clonidine Hcl 0.1 Mg Tablet) 0.1 mg PO DAILY PRN; Protocol PRN Reason: HTN, hyperarousal Last Admin: 06/06/22 10:53 Dose: 0.1 mg Diphenhydramine HCl (Diphenhydramine Hcl 25 Mg Capsule) 50 mg PO Q4H PRN PRN Reason: agitation Divalproex Sodium (Divalproex Sodium Er 250 Mg Tab.Er.24h) 750 mg PO BEDTIME [facility] Last Admin: 07/06/22 20:59 Dose: 750 mg Docusate Sodium (Docusate Sodium 100 Mg Capsule) 200 mg PO BID [facility] Last Admin: 07/07/22 09:21 Dose: Not Given Glyburide (Glyburide 2.5 Mg Tablet) 2.5 mg PO DAILY BREN Last Admin: 07/07/22 09:17 Dose: 2.5 mg Guaifenesin (Guaifenesin 100 Mg/5 Ml Liquid) 5 ml PO Q4H PRN PRN Reason: cough Last Admin: 06/29/22 00:34 Dose: 5 ml Hydroxyzine HCl (Hydroxyzine Hcl 25 Mg Tablet) 25 mg PO Q6H PRN PRN Reason: Anxiety Last Admin: 07/07/22 13:15 Dose: 25 mg Lactulose (Lactulose 20 Gm/30 Ml Solution) 30 gm PO BID BREN Last Admin: 07/07/22 09:21 Dose: Not Given Magnesium Hydroxide (Milk Of Magnesia 30 Ml Oral.Susp) 30 ml PO DAILY PRN PRN Reason: Constipation Last Admin: 07/06/22 12:00 Dose: 30 ml Multi-Ingred Medicated Throat [place] (Throat [place], Medicated 20 Ml Bottle) 1 spray MUCOUS MEM Q2H PRN PRN Reason: Sore Throat Last Admin: 06/30/22 09:42 Dose: 1 spray Prazosin HCl (Prazosin Hcl 1 Mg Capsule) 1 mg PO BEDTIME BREN; Protocol Last Admin: 07/06/22 20:59 Dose: 1 mg Quetiapine Fumarate (Quetiapine Fumarate 50 Mg Tablet) 50 mg PO BID PRN PRN Reason: agitation Last Admin: 07/07/22 15:40 Dose: 50 mg Quetiapine Fumarate (Quetiapine Fumarate 25 Mg Tablet) 25 mg PO BEDTIME BREN Last Admin: 07/06/22 20:59 Dose: 25 mg Trazodone HCl (Trazodone Hcl 50 Mg Tablet) 50 mg PO BEDTIME PRN PRN Reason: Insomnia Last Admin: 07/06/22 21:13 Dose: 50 mg Allergies Allergies Allergy/AdvReac Type Severity Reaction Status Date / Time No Known Allergies Allergy Verified 05/19/22 23:36 Assessment & Plan Assessment & Plan (1) Bipolar disorder: Status: Acute Code(s): F31.9 - Bipolar disorder, unspecified Plan 52 yo female, hx of bipolar disorder, found running [place] [address] attempting to kill herself via motor vehicle. Reports poor sleep, appetite, poor ADL's, stopping meds and treatment and feeling hopeless and helpless. Plan: Collateral contact TDN- given Davis warning as we will need to file for civil commitment Medical review of current sx Olanzapine 5 mg bid Continue Haldol prn Trileptal 300 mg bid Flu Vaccine (pt request and accepted) Diagnostics 05/22/22- Continue alliance building with pt. Pt will have financial questions addressed so we may hopefully move forward with her treatment. Family is attempting to assure pt she is financially safe. 05/23/22- Continue current plan. 05/24/22- Lexapro 5 mg a.m. to begin 05/25. 05/25/22- Continue current plan 05/26/22- Continue alliance building, medication titration and attempts to align with OP supports. 05/27/22- No med changes 05/28/22- Vraylar 1.5 mg a.m. 05/30/22- Increase Vraylar to 3 mg 05/31. Discontinue Lexapro Prozac 10 mg daily 06/01/2022: Change Prozac liquid to capsules as per patient request 06/04/22: DC Olanzapine, continue prn, decrease Trileptal. Titrate Vraylar when health issues clarified on 06/05. Pending COVID, rapid strep Continue to monitor 06/05/22: Constipation- MOM prn and colace bid Racing thoughts-discontinue prozac, trileptal. Increase Vraylar to 4.5 mg Depakote ER 250 mg HS Sleep- Seroquel prn and HS Cough-Robitussin prn Discussed with Sabine Hurd [facility]- will complete insurance review on 06/06. 06/06/22: No changes as pt refused meds 06/05. No word today from pts insurance company for this technical writer and editor to review. 06/07: Continue current regimen and plans. Started on lactulose for constipation 06/08: Continue current plans and regimen 06/09 patient remains depressed; passive wish with intermittent active SI; currently more intense wish however no plans or intention. Agrees to medication change -patient has diagnosis of bipolar disorder; will consider increasing Depakote as it is currently low-dose. 06/10 remains with SI, depressed. Agrees to increasing Depakote further Increased to Depakote ER 750 mg q.h.s. Labs ordered for Thursday06/11/22- Refusing of medications, treatment today. Aggressive episode requiring IM Olanzapine/Benadryl. 06/12/22-Continues to refuse treatment. Discussed with pt's family. Will revoke CV and request Section 7/8 process begin. Family supports this. 06/13/22. Section 7 filed. Continue to build alliance with pt around participation in her care. 06/14 continue tx. 06/15 continue tx. 06/16/22- Pt reports minimal COVID sx. Asked pt to attempt to engage more in milieu. She will consider. Labs she reports she will allow. Valproate, CBCD, CMP Lability persists, anger, depression. Allow Vraylar time to work (missed doses x 2 last week) Continue current regime presently. Improvement noted with lability, anger present-offer processing of issues and we can possibly avoid court. 06/17/22- Encourage milieu participation and self-care. 06/18/22- Wellbutrin 75 mg a.m. 06/19/22- no outbursts per pt report. Continue current plan. 06/20/22- CORWIN signed for hospital stay in [place]-sent. Increase Wellbutrin to 150 mg XL on 06/21 On 06/21 decrease Seroquel to 50 mg HS Monitor urinary incontinence episodes, if they continue urine culture POC daily 06/21/22- continue treatment plan 06/22/22 contiue current treatment plan 06/23/22- Continue current plan of care. 06/24/22- Increase Vraylar to 6 mg daily Increase Wellbutrin XL to 300 mg daily 06/25/22- Decrease HS Seroquel to 25 mg-?nocturnal urinary incontinence contributor Dulcolax prn for constipation- reports sx ~1 week Urine culture-nocturnal urinary incontinence POC bid Glyburide 2.5 mg a.m. Atorvastatin 10 mg a.m. CBCD, ChemP, A1c, Valproate Level 06/26/22: Throat culture. Medicated spray, lozenge for reports of sore throat. [facility] Zoom meeting today. 06/26/22: Continue current regime. Organize resources for discharge planning. Decrease in SI she reports today. 06/28: stable. passive SI. attempting to be more active and engaged in unit activities. no changes to regimen. 06/29: stable. no change per her report. attended 3 groups yesterday. 06/30/22: Passive SI. Throat culture ordered for sore throat Urology consult-nocturnal incontinence 07/01/22 Continue current plan. 07/02/22 Continue current regime and plan. Discharge planning. 07/03/22- Family meeting 07/04. Pt was asked to begin a listing of things she may need help with at home upon discharge. Thus far-transportation, food preparation are considerations. 07/04/22 Continue current regime. Family meeting discussed with team-Looking at options for housing-team is considering [facility]. 07/05/22 Pt having second thoughts about housing 07/06/22: Some anxiety about housing, no med changes 07/07/22: Reviewed with pt's cousin Meeting with pt and team regarding housing. CORWIN signed for [facility] Continue to support pt in transition to home and in building skill for more independence in living. I spent minutes with the patient and/or on the patient floor today, greater than?50% of which was spent counseling/coordinating care. Patient educated on: therapeutic strategies Informed Consent: understands and further education needed Reason for contiued inpatient stay Substantial Risk for: harm to self and rapid decompensation
[2022-07-07 20:33] VITALS: BP 119/59; PULSE 92; RESP 16; TEMP 36.6; O2SAT 97
[2022-07-07] MEDS: Divalproex Sodium ER 250 MG TAB.ER.24H 750 MG PO (20:48)
[2022-07-07] MEDS: QUEtiapine Fumarate 25 MG TABLET PO (20:49)
[2022-07-07] MEDS: Docusate Sodium 100 MG CAPSULE 200 MG PO (20:49)
[2022-07-07] MEDS: Prazosin HCL 1 MG CAPSULE PO (20:49)
[2022-07-07] MEDS: Lactulose 20 GM/30 ML SOLUTION 30 GM PO (20:49)
[2022-07-08] MEDS: Throat Lozenge, Medicated LOZENGE 1 LOZENGE MUCOUS MEM ×4 (01:23→21:02)
[2022-07-08] MEDS: amLODIPine Besylate 10 MG TABLET PO (08:23)
[2022-07-08] MEDS: Atorvastatin Calcium 10 MG TABLET PO (08:23)
[2022-07-08] MEDS: Cariprazine HCl 3 MG CAPSULE 6 MG PO (08:23)
[2022-07-08] MEDS: Lactulose 20 GM/30 ML SOLUTION 30 GM PO ×2 (08:23→20:55)
[2022-07-08] MEDS: Docusate Sodium 100 MG CAPSULE 200 MG PO ×2 (08:23→20:55)
[2022-07-08] MEDS: glyBURIDE 2.5 MG TABLET PO (08:23)
[2022-07-08] MEDS: buPROPion HCl XL 300 MG TAB.ER.24H PO (08:23)
[2022-07-08 08:27] VITALS: BP 143/86; PULSE 93; RESP 18; TEMP 36.3; O2SAT 97
[2022-07-08 08:59] LABS: Glucose, Whole Blood 86 mg/dL (60-115)
[2022-07-08] MEDS: Acetaminophen 325 MG TABLET 650 MG PO ×2 (09:08→21:02)
[2022-07-08] MEDS: guaiFENesin 100 MG/5 ML LIQUID PO (11:58)
--- NOTE | 2022-07-08 12:31 | HO.PSYCHPN ---
Subjective Subjective Date of Service: 07/08/22 Reason For Visit: omar/SI Subjective Notes: Section 7 Healthcare Proxy: No Guardianship: No Medical Problems Affecting Mental Status: No Interim History: Lucie reports URI sx. She continues to consider what help she will require with the LTG of independent living. [facility] has terminated payment. Review with Dr. Orozco. Summarized pt's stay with [facility] [place]. Admitted 05/19 with severe depressive, agitated sx, dysphoric omar, mood dysregulation, untreated medical issues (HTN, PVD, HLD, DM2). Initial Rx was difficult as pt was refusing of rx, meds- Section VII filed. Pt able to stabilize medication compliance after team and family encouragement and is compliant with current regime Vraylar, Wellbutrin, Depakote, Prazosin, Seroquel, Glyburide, Lipitor, Norvasc. Pt diagnosed with COVID-19 during admit. She has recovered and is just beginning to engage in milieu and discuss with team her needs and what did not work when living in community. Pt and family describe a history of complete dependence on mother, encouraged by mother who wanted pt's illness to be kept secret, wanted her to depend on mom and not function independently. As a result, pt was not given experience to learn life skills. As a result, pt has miminal skills in frustration tolerance, minimal problem solving capacity and can move quickly to SI with intent as a solution to daily functioning problems. Team has attempted to access community supports-DM, VNA, supportive community services. In family meetings family reports pt has almost total dependence on others for daily functioning and has a significcant hx of hoarding sx when in [place]. Family manages this in [place] by scheduling professionals to clean the home regularly and organize for pt. As a result of family input and pt being able to identify what she can and cannot do, rest home placements are applied for to assist in skill building and support. Current supports are limited. Aunt is in her 80's, caring for pt's uncle who has dementia. Cousin is also caring for her with illness as well. Dr. Orozco reports insurance has agencies to provide residential care-[facility], [facility] and [facility] should have been discussing those resources. He will ask her to follow up with team. As a result, in pt ongoing care denied. Appeal to be filed. Medication Compliance: Yes Side effects from medications: No Attending Groups: Intermittent Review of Systems Acute medical concerns: No Medical Review of Systems: unchanged Mental Status Exam Mental Status Exam Patient Appearance: Appropriate Patient Orientation: Person, Place, Time and Situation Level of Consciousness: Alert Patient Behavior: Talkative, Anxious, Good Eye Contact and Crying Mood Description: Sad Affect Description: Anxious Patient Cognition Impaired: No Ability to Follow Directions: Good Speech Pattern: Spontaneous Speech Memory Description: Intact Hallucinations: None Delusions: Not Present Perceptual Disturbances: Depersonalization and Derealization Thought Process: Rumination Thought Content: positive for Circumstantial and positive for Suicidal Ideation (denies) Depressive Symptoms: Increased Anxiety, Hopelessness, Unhappiness and Low Self Esteem Abnormal Motor Activity Signs and Symptoms: Agitation Judgement: Fair Diagnostics Vital Signs (24Hr): Vital Signs - 24 hr 07/07/22 20:33 07/08/22 08:27 Temperature 98 F 97.4 F Pulse Rate 92 93 Respiratory Rate 16 18 Blood Pressure 119/59 L 143/86 H Pulse Oximetry 97 97 Oxygen Delivery Method Room Air Room Air BMI result Body Mass Index 29.2 Labs Results: 06/26/22 08:30 06/26/22 08:30 Labs: Laboratory Results - last 48 hr 07/06/22 07/07/22 07/08/22 17:24 08:26 08:55 POC Glucose 112 98 86 Medications Medications Current Medications Acetaminophen (Acetaminophen 325 Mg Tablet) 650 mg PO Q6H PRN PRN Reason: Headache/Pain Mild Scale (1-3) Last Admin: 07/08/22 09:08 Dose: 650 mg Al Hydroxide/Mg Hydroxide (Magnesium Hydrox/Alum Hydrox 30 Ml Oral.Susp) 30 ml PO Q6H PRN PRN Reason: Heartburn/Nausea Amlodipine Besylate (Amlodipine Besylate 10 Mg Tablet) 10 mg PO DAILY [facility]; Protocol Last Admin: 07/08/22 08:23 Dose: 10 mg Atorvastatin Calcium (Atorvastatin Calcium 10 Mg Tablet) 10 mg PO DAILY [facility] Last Admin: 07/08/22 08:23 Dose: 10 mg Benzocaine (Throat Lozenge, Medicated Lozenge) 1 lozenge MUCOUS MEM Q2H PRN PRN Reason: Sore Throat Last Admin: 07/08/22 11:58 Dose: 1 lozenge Bisacodyl (Bisacodyl 5 Mg Tablet.Dr) 10 mg PO DAILY PRN PRN Reason: Constipation Last Admin: 07/06/22 02:28 Dose: 10 mg Bupropion HCl (Bupropion Hcl Xl 300 Mg Tab.Er.24h) 300 mg PO DAILY [facility] Last Admin: 07/08/22 08:23 Dose: 300 mg Cariprazine (Cariprazine Hcl 3 Mg Capsule) 6 mg PO DAILY [facility] Last Admin: 07/08/22 08:23 Dose: 6 mg Clonidine HCl (Clonidine Hcl 0.1 Mg Tablet) 0.1 mg PO DAILY PRN; Protocol PRN Reason: HTN, hyperarousal Last Admin: 06/06/22 10:53 Dose: 0.1 mg Diphenhydramine HCl (Diphenhydramine Hcl 25 Mg Capsule) 50 mg PO Q4H PRN PRN Reason: agitation Divalproex Sodium (Divalproex Sodium Er 250 Mg Tab.Er.24h) 750 mg PO BEDTIME [facility] Last Admin: 07/07/22 20:48 Dose: 750 mg Docusate Sodium (Docusate Sodium 100 Mg Capsule) 200 mg PO BID [facility] Last Admin: 07/08/22 08:23 Dose: 200 mg Glyburide (Glyburide 2.5 Mg Tablet) 2.5 mg PO DAILY [facility] Last Admin: 07/08/22 08:23 Dose: 2.5 mg Guaifenesin (Guaifenesin 100 Mg/5 Ml Liquid) 5 ml PO Q4H PRN PRN Reason: cough Last Admin: 07/08/22 11:58 Dose: 5 ml Hydroxyzine HCl (Hydroxyzine Hcl 25 Mg Tablet) 25 mg PO Q6H PRN PRN Reason: Anxiety Last Admin: 07/07/22 13:15 Dose: 25 mg Lactulose (Lactulose 20 Gm/30 Ml Solution) 30 gm PO BID [facility] Last Admin: 07/08/22 08:23 Dose: 30 gm Magnesium Hydroxide (Milk Of Magnesia 30 Ml Oral.Susp) 30 ml PO DAILY PRN PRN Reason: Constipation Last Admin: 07/06/22 12:00 Dose: 30 ml Multi-Ingred Medicated Throat [place] (Throat [place], Medicated 20 Ml Bottle) 1 spray MUCOUS MEM Q2H PRN PRN Reason: Sore Throat Last Admin: 06/30/22 09:42 Dose: 1 spray Prazosin HCl (Prazosin Hcl 1 Mg Capsule) 1 mg PO BEDTIME [facility]; Protocol Last Admin: 07/07/22 20:49 Dose: 1 mg Quetiapine Fumarate (Quetiapine Fumarate 50 Mg Tablet) 50 mg PO BID PRN PRN Reason: agitation Last Admin: 07/07/22 15:40 Dose: 50 mg Quetiapine Fumarate (Quetiapine Fumarate 25 Mg Tablet) 25 mg PO BEDTIME [facility] Last Admin: 07/07/22 20:49 Dose: 25 mg Trazodone HCl (Trazodone Hcl 50 Mg Tablet) 50 mg PO BEDTIME PRN PRN Reason: Insomnia Last Admin: 07/06/22 21:13 Dose: 50 mg Allergies Allergies Allergy/AdvReac Type Severity Reaction Status Date / Time No Known Allergies Allergy Verified 05/19/22 23:36 Assessment & Plan Assessment & Plan (1) Bipolar disorder: Status: Acute Code(s): F31.9 - Bipolar disorder, unspecified Plan 52 yo female, hx of bipolar disorder, found running [place] traffic [place] [address] attempting to kill herself via motor vehicle. Reports poor sleep, appetite, poor ADL's, stopping meds and treatment and feeling hopeless and helpless. Plan: Collateral contact TDN- given Davis warning as we will need to file for civil commitment Medical review of current sx Olanzapine 5 mg bid Continue Haldol prn Trileptal 300 mg bid Flu Vaccine (pt request and accepted) Diagnostics 05/22/22- Continue alliance building with pt. Pt will have financial questions addressed so we may hopefully move forward with her treatment. Family is attempting to assure pt she is financially safe. 05/23/22- Continue current plan. 05/24/22- Lexapro 5 mg a.m. to begin 05/25. 05/25/22- Continue current plan 05/26/22- Continue alliance building, medication titration and attempts to align with OP supports. 05/27/22- No med changes 05/28/22- Vraylar 1.5 mg a.m. 05/30/22- Increase Vraylar to 3 mg 05/31. Discontinue Lexapro Prozac 10 mg daily 06/01/2022: Change Prozac liquid to capsules as per patient request 06/04/22: DC Olanzapine, continue prn, decrease Trileptal. Titrate Vraylar when health issues clarified on 06/05. Pending COVID, rapid strep Continue to monitor 06/05/22: Constipation- MOM prn and colace bid Racing thoughts-discontinue prozac, trileptal. Increase Vraylar to 4.5 mg Depakote ER 250 mg HS Sleep- Seroquel prn and HS Cough-Robitussin prn Discussed with Sabine Hurd [facility]- will complete insurance review on 06/06. 06/06/22: No changes as pt refused meds 06/05. No word today from pts insurance company for this song writer to review. 06/07: Continue current regimen and plans. Started on lactulose for constipation 06/08: Continue current plans and regimen 06/09 patient remains depressed; passive wish with intermittent active SI; currently more intense wish however no plans or intention. Agrees to medication change -patient has diagnosis of bipolar disorder; will consider increasing Depakote as it is currently low-dose. 06/10 remains with SI, depressed. Agrees to increasing Depakote further Increased to Depakote ER 750 mg q.h.s. Labs ordered for Thursday06/11/22- Refusing of medications, treatment today. Aggressive episode requiring IM Olanzapine/Benadryl. 06/12/22-Continues to refuse treatment. Discussed with pt's family. Will revoke CV and request Section 7/8 process begin. Family supports this. 06/13/22. Section 7 filed. Continue to build alliance with pt around participation in her care. 06/14 continue tx. 06/15 continue tx. 06/16/22- Pt reports minimal COVID sx. Asked pt to attempt to engage more in milieu. She will consider. Labs she reports she will allow. Valproate, CBCD, CMP Lability persists, anger, depression. Allow Vraylar time to work (missed doses x 2 last week) Continue current regime presently. Improvement noted with lability, anger present-offer processing of issues and we can possibly avoid court. 06/17/22- Encourage milieu participation and self-care. 06/18/22- Wellbutrin 75 mg a.m. 06/19/22- no outbursts per pt report. Continue current plan. 06/20/22- CORWIN signed for hospital stay in [place]-sent. Increase Wellbutrin to 150 mg XL on 06/21 On 06/21 decrease Seroquel to 50 mg HS Monitor urinary incontinence episodes, if they continue urine culture POC daily 06/21/22- continue treatment plan 06/22/22 contiue current treatment plan 06/23/22- Continue current plan of care. 06/24/22- Increase Vraylar to 6 mg daily Increase Wellbutrin XL to 300 mg daily 06/25/22- Decrease HS Seroquel to 25 mg-?nocturnal urinary incontinence contributor Dulcolax prn for constipation- reports sx ~1 week Urine culture-nocturnal urinary incontinence POC bid Glyburide 2.5 mg a.m. Atorvastatin 10 mg a.m. CBCD, ChemP, A1c, Valproate Level 06/26/22: Throat culture. Medicated spray, lozenge for reports of sore throat. [facility] Zoom meeting today. 06/26/22: Continue current regime. Organize resources for discharge planning. Decrease in SI she reports today. 06/28: stable. passive SI. attempting to be more active and engaged in unit activities. no changes to regimen. 06/29: stable. no change per her report. attended 3 groups yesterday. 06/30/22: Passive SI. Throat culture ordered for sore throat Urology consult-nocturnal incontinence 07/01/22 Continue current plan. 07/02/22 Continue current regime and plan. Discharge planning. 07/03/22- Family meeting 07/04. Pt was asked to begin a listing of things she may need help with at home upon discharge. Thus far-transportation, food preparation are considerations. 07/04/22 Continue current regime. Family meeting discussed with team-Looking at options for housing-team is considering [facility]. 07/05/22 Pt having second thoughts about housing 07/06/22: Some anxiety about housing, no med changes 07/07/22: Reviewed with pt's cousin Meeting with pt and team regarding housing. CORWIN signed for [facility] Continue to support pt in transition to home and in building skill for more independence in living. 07/08/22: Continue discharge planning. I spent minutes with the patient and/or on the patient floor today, greater than?50% of which was spent counseling/coordinating care. Patient educated on: therapeutic strategies Informed Consent: further education needed Reason for contiued inpatient stay Substantial Risk for: harm to self, inability to function, rapid decompensation and med/psych decompensation
[2022-07-08] MEDS: QUEtiapine Fumarate 25 MG TABLET PO (20:55)
[2022-07-08] MEDS: Divalproex Sodium ER 250 MG TAB.ER.24H 750 MG PO (20:55)
[2022-07-08] MEDS: Prazosin HCL 1 MG CAPSULE PO (20:55)
[2022-07-08 20:56] VITALS: BP 143/76; PULSE 93; RESP 16; TEMP 36.3; O2SAT 99
[2022-07-09 08:12] VITALS: BP 172/96; PULSE 103; RESP 18; TEMP 35.9; O2SAT 98
[2022-07-09] MEDS: Docusate Sodium 100 MG CAPSULE 200 MG PO ×2 (08:14→22:13)
[2022-07-09] MEDS: glyBURIDE 2.5 MG TABLET PO (08:14)
[2022-07-09] MEDS: buPROPion HCl XL 300 MG TAB.ER.24H PO (08:14)
[2022-07-09] MEDS: amLODIPine Besylate 10 MG TABLET PO (08:14)
[2022-07-09] MEDS: Atorvastatin Calcium 10 MG TABLET PO (08:14)
[2022-07-09] MEDS: Cariprazine HCl 3 MG CAPSULE 6 MG PO (08:14)
[2022-07-09] MEDS: Lactulose 20 GM/30 ML SOLUTION 30 GM PO ×2 (08:30→22:12)
[2022-07-09] MEDS: Throat Lozenge, Medicated LOZENGE 1 LOZENGE MUCOUS MEM ×2 (11:33→13:39)
[2022-07-09 12:10] LABS: Glucose, Whole Blood 86 mg/dL (60-115)
--- NOTE | 2022-07-09 15:43 | HO.PSYCHPN ---
Subjective Subjective Date of Service: 07/09/22 Reason For Visit: omar/SI Interim History: c/o sores in her mouth and green mucous from her nose. otherwise feeling safe, moderate levels of depression and anxiety. aware insurance is no longer covering her stay. aware search for a step-down for her is underway and she will be discharged once a placement is found for her. per staff, anx 8, dep 7. safe. poor sleep 2/2 URI Sx. c/o foot pain. appeared to sleep. Mental Status Exam Mental Status Exam Patient Appearance: Appropriate Patient Orientation: Person, Place, Time and Situation Level of Consciousness: Alert Patient Behavior: Talkative, Cooperative and Good Eye Contact Mood Description: Depressed, Anxious and Apprehensive Affect Description: Calm and Appropriate Patient Cognition Impaired: No Ability to Follow Directions: Good Speech Pattern: Spontaneous Speech Memory Description: Intact Hallucinations: None Delusions: Not Present Thought Process: Intact and Incoherent Depressive Symptoms: Increased Anxiety, Diff. Making Decisions, Difficulty Sleeping, Increased Fatigue, Low Self Esteem and Loss of Energy Judgement: Fair Diagnostics Vital Signs (24Hr): Vital Signs - 24 hr 07/08/22 20:56 07/09/22 08:12 Temperature 97.4 F 96.7 F L Pulse Rate 93 103 H Respiratory Rate 16 18 Blood Pressure 143/76 H 172/96 H Pulse Oximetry 99 98 Oxygen Delivery Method Room Air BMI result Body Mass Index 29.2 Labs Results: 06/26/22 08:30 06/26/22 08:30 Labs: Laboratory Results - last 48 hr 07/08/22 07/09/22 08:55 07:52 POC Glucose 86 86 Medications Medications Current Medications Acetaminophen (Acetaminophen 325 Mg Tablet) 650 mg PO Q6H PRN PRN Reason: Headache/Pain Mild Scale (1-3) Last Admin: 07/08/22 21:02 Dose: 650 mg Al Hydroxide/Mg Hydroxide (Magnesium Hydrox/Alum Hydrox 30 Ml Oral.Susp) 30 ml PO Q6H PRN PRN Reason: Heartburn/Nausea Amlodipine Besylate (Amlodipine Besylate 10 Mg Tablet) 10 mg PO DAILY [facility]; Protocol Last Admin: 07/09/22 08:14 Dose: 10 mg Atorvastatin Calcium (Atorvastatin Calcium 10 Mg Tablet) 10 mg PO DAILY [facility] Last Admin: 07/09/22 08:14 Dose: 10 mg Benzocaine (Throat Lozenge, Medicated Lozenge) 1 lozenge MUCOUS MEM Q2H PRN PRN Reason: Sore Throat Last Admin: 07/09/22 13:39 Dose: 1 lozenge Bisacodyl (Bisacodyl 5 Mg Tablet.Dr) 10 mg PO DAILY PRN PRN Reason: Constipation Last Admin: 07/06/22 02:28 Dose: 10 mg Bupropion HCl (Bupropion Hcl Xl 300 Mg Tab.Er.24h) 300 mg PO DAILY [facility] Last Admin: 07/09/22 08:14 Dose: 300 mg Cariprazine (Cariprazine Hcl 3 Mg Capsule) 6 mg PO DAILY [facility] Last Admin: 07/09/22 08:14 Dose: 6 mg Clonidine HCl (Clonidine Hcl 0.1 Mg Tablet) 0.1 mg PO DAILY PRN; Protocol PRN Reason: HTN, hyperarousal Last Admin: 06/06/22 10:53 Dose: 0.1 mg Diphenhydramine HCl (Diphenhydramine Hcl 25 Mg Capsule) 50 mg PO Q4H PRN PRN Reason: agitation Divalproex Sodium (Divalproex Sodium Er 250 Mg Tab.Er.24h) 750 mg PO BEDTIME [facility] Last Admin: 07/08/22 20:55 Dose: 750 mg Docusate Sodium (Docusate Sodium 100 Mg Capsule) 200 mg PO BID [facility] Last Admin: 07/09/22 08:14 Dose: 200 mg Glyburide (Glyburide 2.5 Mg Tablet) 2.5 mg PO DAILY [facility] Last Admin: 07/09/22 08:14 Dose: 2.5 mg Guaifenesin (Guaifenesin 100 Mg/5 Ml Liquid) 5 ml PO Q4H PRN PRN Reason: cough Last Admin: 07/08/22 11:58 Dose: 5 ml Hydroxyzine HCl (Hydroxyzine Hcl 25 Mg Tablet) 25 mg PO Q6H PRN PRN Reason: Anxiety Last Admin: 07/07/22 13:15 Dose: 25 mg Lactulose (Lactulose 20 Gm/30 Ml Solution) 30 gm PO BID [facility] Last Admin: 07/09/22 08:30 Dose: 30 gm Magnesium Hydroxide (Milk Of Magnesia 30 Ml Oral.Susp) 30 ml PO DAILY PRN PRN Reason: Constipation Last Admin: 07/06/22 12:00 Dose: 30 ml Multi-Ingred Medicated Throat [place] (Throat [place], Medicated 20 Ml Bottle) 1 spray MUCOUS MEM Q2H PRN PRN Reason: Sore Throat Last Admin: 06/30/22 09:42 Dose: 1 spray Prazosin HCl (Prazosin Hcl 1 Mg Capsule) 1 mg PO BEDTIME [facility]; Protocol Last Admin: 07/08/22 20:55 Dose: 1 mg Quetiapine Fumarate (Quetiapine Fumarate 50 Mg Tablet) 50 mg PO BID PRN PRN Reason: agitation Last Admin: 07/07/22 15:40 Dose: 50 mg Quetiapine Fumarate (Quetiapine Fumarate 25 Mg Tablet) 25 mg PO BEDTIME [facility] Last Admin: 07/08/22 20:55 Dose: 25 mg Trazodone HCl (Trazodone Hcl 50 Mg Tablet) 50 mg PO BEDTIME PRN PRN Reason: Insomnia Last Admin: 07/06/22 21:13 Dose: 50 mg Allergies Allergies Allergy/AdvReac Type Severity Reaction Status Date / Time No Known Allergies Allergy Verified 05/19/22 23:36 Assessment & Plan Assessment & Plan (1) Bipolar disorder: Status: Acute Code(s): F31.9 - Bipolar disorder, unspecified Plan 52 yo female, hx of bipolar disorder, found running [place] [address] [place] to kill herself via motor vehicle. Reports poor sleep, appetite, poor ADL's, stopping meds and treatment and feeling hopeless and helpless. Plan: Collateral contact TDN- given Davis warning as we will need to file for civil commitment Medical review of current sx Olanzapine 5 mg bid Continue Haldol prn Trileptal 300 mg bid Flu Vaccine (pt request and accepted) Diagnostics 05/22/22- Continue alliance building with pt. Pt will have financial questions addressed so we may hopefully move forward with her treatment. Family is attempting to assure pt she is financially safe. 05/23/22- Continue current plan. 05/24/22- Lexapro 5 mg a.m. to begin 05/25. 05/25/22- Continue current plan 05/26/22- Continue alliance building, medication titration and attempts to align with OP supports. 05/27/22- No med changes 05/28/22- Vraylar 1.5 mg a.m. 05/30/22- Increase Vraylar to 3 mg 05/31. Discontinue Lexapro Prozac 10 mg daily 06/01/2022: Change Prozac liquid to capsules as per patient request 06/04/22: DC Olanzapine, continue prn, decrease Trileptal. Titrate Vraylar when health issues clarified on 06/05. Pending COVID, rapid strep Continue to monitor 06/05/22: Constipation- MOM prn and colace bid Racing thoughts-discontinue prozac, trileptal. Increase Vraylar to 4.5 mg Depakote ER 250 mg HS Sleep- Seroquel prn and HS Cough-Robitussin prn Discussed with Sabine Hurd [facility]- will complete insurance review on 06/06. 06/06/22: No changes as pt refused meds 06/05. No word today from pts insurance company for this designer writer to review. 06/07: Continue current regimen and plans. Started on lactulose for constipation 06/08: Continue current plans and regimen 06/09 patient remains depressed; passive wish with intermittent active SI; currently more intense wish however no plans or intention. Agrees to medication change -patient has diagnosis of bipolar disorder; will consider increasing Depakote as it is currently low-dose. 06/10 remains with SI, depressed. Agrees to increasing Depakote further Increased to Depakote ER 750 mg q.h.s. Labs ordered for Thursday06/11/22- Refusing of medications, treatment today. Aggressive episode requiring IM Olanzapine/Benadryl. 06/12/22-Continues to refuse treatment. Discussed with pt's family. Will revoke CV and request Section 7/8 process begin. Family supports this. 06/13/22. Section 7 filed. Continue to build alliance with pt around participation in her care. 06/14 continue tx. 06/15 continue tx. 06/16/22- Pt reports minimal COVID sx. Asked pt to attempt to engage more in milieu. She will consider. Labs she reports she will allow. Valproate, CBCD, CMP Lability persists, anger, depression. Allow Vraylar time to work (missed doses x 2 last week) Continue current regime presently. Improvement noted with lability, anger present-offer processing of issues and we can possibly avoid court. 06/17/22- Encourage milieu participation and self-care. 06/18/22- Wellbutrin 75 mg a.m. 06/19/22- no outbursts per pt report. Continue current plan. 06/20/22- CORWIN signed for hospital stay in [place]-sent. Increase Wellbutrin to 150 mg XL on 06/21 On 06/21 decrease Seroquel to 50 mg HS Monitor urinary incontinence episodes, if they continue urine culture POC daily 06/21/22- continue treatment plan 06/22/22 contiue current treatment plan 06/23/22- Continue current plan of care. 06/24/22- Increase Vraylar to 6 mg daily Increase Wellbutrin XL to 300 mg daily 06/25/22- Decrease HS Seroquel to 25 mg-?nocturnal urinary incontinence contributor Dulcolax prn for constipation- reports sx ~1 week Urine culture-nocturnal urinary incontinence POC bid Glyburide 2.5 mg a.m. Atorvastatin 10 mg a.m. CBCD, ChemP, A1c, Valproate Level 06/26/22: Throat culture. Medicated spray, lozenge for reports of sore throat. [facility] Zoom meeting today. 06/26/22: Continue current regime. Organize resources for discharge planning. Decrease in SI she reports today. 06/28: stable. passive SI. attempting to be more active and engaged in unit activities. no changes to regimen. 06/29: stable. no change per her report. attended 3 groups yesterday. 06/30/22: Passive SI. Throat culture ordered for sore throat Urology consult-nocturnal incontinence 07/01/22 Continue current plan. 07/02/22 Continue current regime and plan. Discharge planning. 07/03/22- Family meeting 07/04. Pt was asked to begin a listing of things she may need help with at home upon discharge. Thus far-transportation, food preparation are considerations. 07/04/22 Continue current regime. Family meeting discussed with team-Looking at options for housing-team is considering [facility]. 07/05/22 Pt having second thoughts about housing 07/06/22: Some anxiety about housing, no med changes 07/07/22: Reviewed with pt's cousin Meeting with pt and team regarding housing. [facility] signed for [facility] Continue to support pt in transition to home and in building skill for more independence in living. 07/08/22: Continue discharge planning. 07/09/22: stable, safe. continue discharge planning and current Tx plan. I spent ___25___ minutes with the patient and/or on the patient floor today, greater than?50% of which was spent counseling/coordinating care. Reason for contiued inpatient stay Substantial Risk for: inability to function and rapid decompensation
[2022-07-09] MEDS: Acetaminophen 325 MG TABLET 650 MG PO ×2 (16:15→22:04)
[2022-07-09 21:20] VITALS: BP 167/94; PULSE 91; TEMP 36.8; O2SAT 100
[2022-07-09] MEDS: cloNIDine HCL 0.1 MG TABLET PO (21:26)
[2022-07-09 22:08] VITALS: BP 142/76; PULSE 83; O2SAT 99
[2022-07-09] MEDS: QUEtiapine Fumarate 25 MG TABLET PO (22:13)
[2022-07-09] MEDS: Divalproex Sodium ER 250 MG TAB.ER.24H 750 MG PO (22:13)
[2022-07-09] MEDS: Prazosin HCL 1 MG CAPSULE PO (22:13)
[2022-07-09] MEDS: traZODone HCL 50 MG TABLET PO (22:13)
--- NOTE | 2022-07-10 07:19 | HO.PSYCHPN ---
Subjective Subjective Date of Service: 07/10/22 Reason For Visit: omar/SI Subjective Notes: Section 7 Interim History: Pt seen in her room. She is sitting awaiting breakfast. Pt reports sleeping and eating well. She denies suicidal or homicidal ideation. She has been mostly in her room but at times does go to groups. Pt taking meds as prescribed. Sores on roof of mouth- hospitalist consult. Medication Compliance: Yes Side effects from medications: No Review of Systems Review of Systems No discomfort reported Yes all other systems are reviewed and are negative, Unobtainable due to mental condition and Unobtainable due to mental status Constitutional: Reports body ache(s), Reports difficulty sleeping, Reports fatigue, Reports headache(s), Reports lethargy, Reports malaise and Reports weakness Eyes: Reports no additional eye complaints Reports system reviewed and no additional complaints, except as documented, Reports headache(s), Reports sore throat and Reports other (ear ache) Cardiovascular: Reports other (HTN) Gastrointestinal: Reports other (IBS) Reports behavioral changes, Reports headache(s) and Reports weakness Psychiatric: Reports abnormal sleep pattern, Reports anxiety, Reports behavioral changes, Reports change in appetite, Reports depression, Reports difficulty concentrating, Reports hopelessness, Reports irritability, Reports anhedonia, Reports mood swings and Reports suicidal ideation Endocrine: Reports fatigue and Reports other (DM) Hematologic/Lymphatic: Reports no additional hematologic/lymphatic complaints Allergic/Immunologic: Reports no additional allergic/immunologic complaints Mental Status Exam Mental Status Exam Narrative: Patient Appearance: Appropriate Patient Orientation: Person, Place, Time and Situation Level of Consciousness: Alert Patient Behavior: Appropriate, Talkative and Good Eye Contact Mood Description: Fearful, Sad and Apprehensive Affect Description: Fearful and Sad Patient Cognition Impaired: No Ability to Follow Directions: Good Speech Pattern: Spontaneous Speech Memory Description: Intact Hallucinations: None Delusions: Not Present Thought Process: Distracted and Rumination Thought Content: positive for Circumstantial, positive for Perseveration and positive for Suicidal Ideation (passive, without plan or intent) Depressive Symptoms: Increased Anxiety and Crying Spells Judgement: Fair Diagnostics Vital Signs (24Hr): Vital Signs - 24 hr 07/10/22 09:40 07/10/22 13:29 07/10/22 22:15 Temperature 98.3 F 98.0 F Pulse Rate 100 90 90 Respiratory Rate 18 Blood Pressure 172/75 H 147/80 H 135/71 Pulse Oximetry 99 98 100 Oxygen Delivery Method Room Air Room Air Room Air BMI result Body Mass Index 30.8 Labs Results: 06/26/22 08:30 06/26/22 08:30 Labs: Laboratory Results - last 48 hr 07/09/22 07/10/22 07:52 11:40 POC Glucose 86 122 H Medications Medications Current Medications Acetaminophen (Acetaminophen 325 Mg Tablet) 650 mg PO Q6H PRN PRN Reason: Headache/Pain Mild Scale (1-3) Last Admin: 07/10/22 16:54 Dose: 650 mg Al Hydroxide/Mg Hydroxide (Magnesium Hydrox/Alum Hydrox 30 Ml Oral.Susp) 30 ml PO Q6H PRN PRN Reason: Heartburn/Nausea Amlodipine Besylate (Amlodipine Besylate 10 Mg Tablet) 10 mg PO DAILY [facility]; Protocol Last Admin: 07/10/22 09:39 Dose: 10 mg Atorvastatin Calcium (Atorvastatin Calcium 10 Mg Tablet) 10 mg PO DAILY [facility] Last Admin: 07/10/22 09:40 Dose: 10 mg Benzocaine (Throat Lozenge, Medicated Lozenge) 1 lozenge MUCOUS MEM Q2H PRN PRN Reason: Sore Throat Last Admin: 07/09/22 13:39 Dose: 1 lozenge Bisacodyl (Bisacodyl 5 Mg Tablet.Dr) 10 mg PO DAILY PRN PRN Reason: Constipation Last Admin: 07/06/22 02:28 Dose: 10 mg Bupropion HCl (Bupropion Hcl Xl 300 Mg Tab.Er.24h) 300 mg PO DAILY [facility] Last Admin: 07/10/22 09:39 Dose: 300 mg Cariprazine (Cariprazine Hcl 3 Mg Capsule) 6 mg PO DAILY [facility] Last Admin: 07/10/22 09:40 Dose: 6 mg Clonidine HCl (Clonidine Hcl 0.1 Mg Tablet) 0.1 mg PO DAILY PRN; Protocol PRN Reason: HTN, hyperarousal Last Admin: 07/09/22 21:26 Dose: 0.1 mg Diphenhydramine HCl (Diphenhydramine Hcl 25 Mg Capsule) 50 mg PO Q4H PRN PRN Reason: agitation Divalproex Sodium (Divalproex Sodium Er 250 Mg Tab.Er.24h) 750 mg PO BEDTIME [facility] Last Admin: 07/10/22 22:26 Dose: 750 mg Docusate Sodium (Docusate Sodium 100 Mg Capsule) 200 mg PO BID [facility] Last Admin: 07/10/22 22:28 Dose: 200 mg Glyburide (Glyburide 2.5 Mg Tablet) 2.5 mg PO DAILY [facility] Last Admin: 07/10/22 09:39 Dose: 2.5 mg Guaifenesin (Guaifenesin 100 Mg/5 Ml Liquid) 5 ml PO Q4H PRN PRN Reason: cough Last Admin: 07/08/22 11:58 Dose: 5 ml Hydroxyzine HCl (Hydroxyzine Hcl 25 Mg Tablet) 25 mg PO Q6H PRN PRN Reason: Anxiety Last Admin: 07/10/22 13:43 Dose: 25 mg Lactulose (Lactulose 20 Gm/30 Ml Solution) 30 gm PO BID [facility] Last Admin: 07/10/22 22:28 Dose: 30 gm Lidocaine/Diphenhydr/Alum/Mg/Simeth (Mag&Al/Sim/Diphenhyd/Lidocaine 10 Ml Oral.Susp) 10 ml PO Q4H PRN; Protocol PRN Reason: Mouth Sore Pain Last Admin: 07/10/22 22:29 Dose: 10 ml Magnesium Hydroxide (Milk Of Magnesia 30 Ml Oral.Susp) 30 ml PO DAILY PRN PRN Reason: Constipation Last Admin: 07/06/22 12:00 Dose: 30 ml Multi-Ingred Medicated Throat [place] (Throat [place], Medicated 20 Ml Bottle) 1 spray MUCOUS MEM Q2H PRN PRN Reason: Sore Throat Last Admin: 07/09/22 21:26 Dose: 1 spray Nystatin (Nystatin Powder 15 Gm Bottle) 1 appl TOPICAL BID [facility]; Protocol Last Admin: 07/10/22 22:35 Dose: 1 appl Prazosin HCl (Prazosin Hcl 1 Mg Capsule) 1 mg PO BEDTIME [facility]; Protocol Last Admin: 07/10/22 22:28 Dose: 1 mg Quetiapine Fumarate (Quetiapine Fumarate 50 Mg Tablet) 50 mg PO BID PRN PRN Reason: agitation Last Admin: 07/07/22 15:40 Dose: 50 mg Quetiapine Fumarate (Quetiapine Fumarate 25 Mg Tablet) 25 mg PO BEDTIME [facility] Last Admin: 07/10/22 22:28 Dose: 25 mg Trazodone HCl (Trazodone Hcl 50 Mg Tablet) 50 mg PO BEDTIME PRN PRN Reason: Insomnia Last Admin: 07/10/22 22:28 Dose: 50 mg Allergies Allergies Allergy/AdvReac Type Severity Reaction Status Date / Time No Known Allergies Allergy Verified 05/19/22 23:36 Assessment & Plan Assessment & Plan (1) Bipolar disorder: Status: Acute Code(s): F31.9 - Bipolar disorder, unspecified Plan 52 yo female, hx of bipolar disorder, found running [place] [address] attempting to kill herself via motor vehicle. Reports poor sleep, appetite, poor ADL's, stopping meds and treatment and feeling hopeless and helpless. Plan: Collateral contact TDN- given [place] warning as we will need to file for civil commitment Medical review of current sx Olanzapine 5 mg bid Continue Haldol prn Trileptal 300 mg bid Flu Vaccine (pt request and accepted) Diagnostics 05/22/22- Continue alliance building with pt. Pt will have financial questions addressed so we may hopefully move forward with her treatment. Family is attempting to assure pt she is financially safe. 05/23/22- Continue current plan. 05/24/22- Lexapro 5 mg a.m. to begin 05/25. 05/25/22- Continue current plan 05/26/22- Continue alliance building, medication titration and attempts to align with OP supports. 05/27/22- No med changes 05/28/22- Vraylar 1.5 mg a.m. 05/30/22- Increase Vraylar to 3 mg 05/31. Discontinue Lexapro Prozac 10 mg daily 06/01/2022: Change Prozac liquid to capsules as per patient request 06/04/22: DC Olanzapine, continue prn, decrease Trileptal. Titrate Vraylar when health issues clarified on 06/05. Pending COVID, rapid strep Continue to monitor 06/05/22: Constipation- MOM prn and colace bid Racing thoughts-discontinue prozac, trileptal. Increase Vraylar to 4.5 mg Depakote ER 250 mg HS Sleep- Seroquel prn and HS Cough-Robitussin prn Discussed with Sabine Hurd [facility]- will complete insurance review on 06/06. 06/06/22: No changes as pt refused meds 06/05. No word today from pts insurance company for this appeals writer to review. 06/07: Continue current regimen and plans. Started on lactulose for constipation 06/08: Continue current plans and regimen 06/09 patient remains depressed; passive wish with intermittent active SI; currently more intense wish however no plans or intention. Agrees to medication change -patient has diagnosis of bipolar disorder; will consider increasing Depakote as it is currently low-dose. 06/10 remains with SI, depressed. Agrees to increasing Depakote further Increased to Depakote ER 750 mg q.h.s. Labs ordered for Thursday06/11/22- Refusing of medications, treatment today. Aggressive episode requiring IM Olanzapine/Benadryl. 06/12/22-Continues to refuse treatment. Discussed with pt's family. Will revoke CV and request Section 7/8 process begin. Family supports this. 06/13/22. Section 7 filed. Continue to build alliance with pt around participation in her care. 06/14 continue tx. 06/15 continue tx. 06/16/22- Pt reports minimal COVID sx. Asked pt to attempt to engage more in milieu. She will consider. Labs she reports she will allow. Valproate, CBCD, CMP Lability persists, anger, depression. Allow Vraylar time to work (missed doses x 2 last week) Continue current regime presently. Improvement noted with lability, anger present-offer processing of issues and we can possibly avoid court. 06/17/22- Encourage milieu participation and self-care. 06/18/22- Wellbutrin 75 mg a.m. 06/19/22- no outbursts per pt report. Continue current plan. 06/20/22- CORWIN signed for hospital stay in [place]-sent. Increase Wellbutrin to 150 mg XL on 06/21 On 06/21 decrease Seroquel to 50 mg HS Monitor urinary incontinence episodes, if they continue urine culture POC daily 06/21/22- continue treatment plan 06/22/22 contiue current treatment plan 06/23/22- Continue current plan of care. 06/24/22- Increase Vraylar to 6 mg daily Increase Wellbutrin XL to 300 mg daily 06/25/22- Decrease HS Seroquel to 25 mg-?nocturnal urinary incontinence contributor Dulcolax prn for constipation- reports sx ~1 week Urine culture-nocturnal urinary incontinence POC bid Glyburide 2.5 mg a.m. Atorvastatin 10 mg a.m. CBCD, ChemP, A1c, Valproate Level 06/26/22: Throat culture. Medicated spray, lozenge for reports of sore throat. [facility] Zoom meeting today. 06/26/22: Continue current regime. Organize resources for discharge planning. Decrease in SI she reports today. 06/28: stable. passive SI. attempting to be more active and engaged in unit activities. no changes to regimen. 06/29: stable. no change per her report. attended 3 groups yesterday. 06/30/22: Passive SI. Throat culture ordered for sore throat Urology consult-nocturnal incontinence 07/01/22 Continue current plan. 07/02/22 Continue current regime and plan. Discharge planning. 07/03/22- Family meeting 07/04. Pt was asked to begin a listing of things she may need help with at home upon discharge. Thus far-transportation, food preparation are considerations. 07/04/22 Continue current regime. Family meeting discussed with team-Looking at options for housing-team is considering [facility]. 07/05/22 Pt having second thoughts about housing 07/06/22: Some anxiety about housing, no med changes 07/07/22: Reviewed with pt's cousin Meeting with pt and team regarding housing. [facility] signed for [facility] Continue to support pt in transition to home and in building skill for more independence in living. 07/08/22: Continue discharge planning. 07/09/22: stable, safe. continue discharge planning and current Tx plan. 07/10 continue tx. I spent minutes with the patient and/or on the patient floor today, greater than?50% of which was spent counseling/coordinating care. Reason for contiued inpatient stay Substantial Risk for: harm to self
[2022-07-10] MEDS: amLODIPine Besylate 10 MG TABLET PO (09:39)
[2022-07-10] MEDS: buPROPion HCl XL 300 MG TAB.ER.24H PO (09:39)
[2022-07-10] MEDS: glyBURIDE 2.5 MG TABLET PO (09:39)
[2022-07-10] MEDS: Lactulose 20 GM/30 ML SOLUTION 30 GM PO ×2 (09:39→22:28)
[2022-07-10 09:40] VITALS: BP 172/75; PULSE 100; RESP 18; TEMP 36.8; O2SAT 99
[2022-07-10] MEDS: Atorvastatin Calcium 10 MG TABLET PO (09:40)
[2022-07-10] MEDS: Docusate Sodium 100 MG CAPSULE 200 MG PO ×2 (09:40→22:28)
[2022-07-10] MEDS: Cariprazine HCl 3 MG CAPSULE 6 MG PO (09:40)
[2022-07-10] MEDS: Acetaminophen 325 MG TABLET 650 MG PO ×2 (09:44→16:54)
[2022-07-10 11:44] LABS: Glucose, Whole Blood 122 mg/dL (60-115)
[2022-07-10 13:29] VITALS: BP 147/80; PULSE 90; O2SAT 98
[2022-07-10 13:34] VITALS: BMI 30.8
[2022-07-10] MEDS: hydrOXYzine HCL 25 MG TABLET PO (13:43)
--- NOTE | 2022-07-10 13:45 | PC.NURSE ---
Lucie became tearful after we assessed her weight today. She has gained nearly 30 lbs since 05/22/22. I encouraged her to discuss with Alison CARLTON. Pt educated about fluid retention, exercise, alternatives to eating to cope with stress.
[2022-07-10] MEDS: Mag&Al/Sim/Diphenhyd/Lidocaine 10 ML ORAL.SUSP PO ×2 (18:19→22:29)
[2022-07-10 22:15] VITALS: BP 135/71; PULSE 90; TEMP 36.7; O2SAT 100
[2022-07-10] MEDS: Divalproex Sodium ER 250 MG TAB.ER.24H 750 MG PO (22:26)
[2022-07-10] MEDS: Prazosin HCL 1 MG CAPSULE PO (22:28)
[2022-07-10] MEDS: QUEtiapine Fumarate 25 MG TABLET PO (22:28)
[2022-07-10] MEDS: traZODone HCL 50 MG TABLET PO (22:28)
[2022-07-10] MEDS: Nystatin Powder 15 GM BOTTLE 1 APPL TOPICAL (22:35)
[2022-07-11] MEDS: Lactulose 20 GM/30 ML SOLUTION 30 GM PO ×2 (08:12→21:37)
[2022-07-11] MEDS: Cariprazine HCl 3 MG CAPSULE 6 MG PO (08:13)
[2022-07-11] MEDS: Docusate Sodium 100 MG CAPSULE 200 MG PO ×2 (08:13→21:26)
[2022-07-11] MEDS: amLODIPine Besylate 10 MG TABLET PO (08:14)
[2022-07-11] MEDS: glyBURIDE 2.5 MG TABLET PO (08:14)
[2022-07-11] MEDS: buPROPion HCl XL 300 MG TAB.ER.24H PO (08:14)
[2022-07-11] MEDS: Atorvastatin Calcium 10 MG TABLET PO (08:14)
[2022-07-11 08:15] VITALS: BP 140/85; PULSE 99; RESP 19; TEMP 36.1; O2SAT 97
[2022-07-11] MEDS: Nystatin Powder 15 GM BOTTLE 1 APPL TOPICAL ×2 (08:16→21:41)
[2022-07-11] MEDS: Mag&Al/Sim/Diphenhyd/Lidocaine 10 ML ORAL.SUSP PO ×2 (08:23→14:01)
[2022-07-11 08:25] LABS: Glucose, Whole Blood 81 mg/dL (60-115)
--- NOTE | 2022-07-11 12:35 | P.CONHOSP_ITS ---
History of Present Illness Data of Consult Service Date: 07/11/22 Requesting physician: Rachel Chong Primary Care Provider: None Physician HPI Reason for consult: Mouth Sore, Leg Swelling, and Elevated BP Pt is a 52-year-old female with a PMH significant for bipolar disorder hospitalized with SI and an acute manic episode who complains of a sore on the roof of her mouth. Pt reports she has had the sore for about a week which hurts when she eats, especially aggravated by potato chips. She is unsure if anything specifically caused the sore, but wonders if she might have burned her mouth on hot soup. She has had two doses of Magic Mouthwash, which has offered some relief. Pt also complains of worsening leg swelling despite the use of support stockings. Review of Systems Review of Systems: Mouth pain. Leg swelling. Denies F/C, HIGGINS, vision changes. Yes all other systems are reviewed and are negative [facility] Medical History Hiatal hernia Hyperlipidemia Hypertension Lymphedema Pre-diabetes Social History Household Members: None Housing: Apartment Do you presently have visiting nurse or other home services: No Patient Tobacco Use Status: Never used Tobacco e-Cigarette/Vaping Use: Never Used Second Hand Smoke Exposure: No Use of substances other than those prescribed or required for medical reasons: No Currently Displaying Signs/Symptoms of Drug Intoxication Withdrawal: No Any prior treatment program specific to substance use: No Have you been hit, kicked, punched, or otherwise hurt by someone within the past year? If so, by whom?: No Do you feel safe in your current relationship?: No Current Relationship Is there a partner from a previous relationship who is making you feel unsafe now?: No Are you made to feel afraid or neglected: No Advance Directives: No Advance Directives Information Provided: Yes Guardian: No Do you have thoughts of harming others: None Do you have a plan to hurt others: No Plan Recently lost weight without trying: No How much weight loss: Not applicable Eating poorly because of decreased appetite: Yes Nutrition screen score: 1 Nutrition Risks: Anorexia Patient : No : No Poor oral hygiene: No service: No Sexual orientation: Don't Know Meds Allergies Allergy/AdvReac Type Severity Reaction Status Date / Time No Known Allergies Allergy Verified 05/19/22 23:36 Active Medications: Current Medications Acetaminophen (Acetaminophen 325 Mg Tablet) 650 mg PO Q6H PRN PRN Reason: Headache/Pain Mild Scale (1-3) Last Admin: 07/10/22 16:54 Dose: 650 mg Al Hydroxide/Mg Hydroxide (Magnesium Hydrox/Alum Hydrox 30 Ml Oral.Susp) 30 ml PO Q6H PRN PRN Reason: Heartburn/Nausea Amlodipine Besylate (Amlodipine Besylate 10 Mg Tablet) 10 mg PO DAILY [facility]; Protocol Last Admin: 07/11/22 08:14 Dose: 10 mg Atorvastatin Calcium (Atorvastatin Calcium 10 Mg Tablet) 10 mg PO DAILY [facility] Last Admin: 07/11/22 08:14 Dose: 10 mg Benzocaine (Throat Lozenge, Medicated Lozenge) 1 lozenge MUCOUS MEM Q2H PRN PRN Reason: Sore Throat Last Admin: 07/09/22 13:39 Dose: 1 lozenge Bisacodyl (Bisacodyl 5 Mg Tablet.Dr) 10 mg PO DAILY PRN PRN Reason: Constipation Last Admin: 07/06/22 02:28 Dose: 10 mg Bupropion HCl (Bupropion Hcl Xl 300 Mg Tab.Er.24h) 300 mg PO DAILY [facility] Last Admin: 07/11/22 08:14 Dose: 300 mg Cariprazine (Cariprazine Hcl 3 Mg Capsule) 6 mg PO DAILY [facility] Last Admin: 07/11/22 08:13 Dose: 6 mg Clonidine HCl (Clonidine Hcl 0.1 Mg Tablet) 0.1 mg PO DAILY [facility]; Protocol PRN Reason: HTN, hyperarousal Last Admin: 07/09/22 21:26 Dose: 0.1 mg Diphenhydramine HCl (Diphenhydramine Hcl 25 Mg Capsule) 50 mg PO Q4H PRN PRN Reason: agitation Divalproex Sodium (Divalproex Sodium Er 500 Mg Tab.Er.24h) 500 mg PO BEDTIME [facility] Docusate Sodium (Docusate Sodium 100 Mg Capsule) 200 mg PO BID [facility] Last Admin: 07/11/22 08:13 Dose: 200 mg Glyburide (Glyburide 2.5 Mg Tablet) 2.5 mg PO DAILY [facility] Last Admin: 07/11/22 08:14 Dose: 2.5 mg Guaifenesin (Guaifenesin 100 Mg/5 Ml Liquid) 5 ml PO Q4H PRN PRN Reason: cough Last Admin: 07/08/22 11:58 Dose: 5 ml Hydroxyzine HCl (Hydroxyzine Hcl 25 Mg Tablet) 25 mg PO Q6H PRN PRN Reason: Anxiety Last Admin: 07/10/22 13:43 Dose: 25 mg Lactulose (Lactulose 20 Gm/30 Ml Solution) 30 gm PO BID [facility] Last Admin: 07/11/22 08:12 Dose: 30 gm Lidocaine/Diphenhydr/Alum/Mg/Simeth (Mag&Al/Sim/Diphenhyd/Lidocaine 10 Ml Oral.Susp) 10 ml PO Q4H PRN; Protocol PRN Reason: Mouth Sore Pain Last Admin: 07/11/22 08:23 Dose: 10 ml Magnesium Hydroxide (Milk Of Magnesia 30 Ml Oral.Susp) 30 ml PO DAILY PRN PRN Reason: Constipation Last Admin: 07/06/22 12:00 Dose: 30 ml Multi-Ingred Medicated Throat [place] (Throat [place], Medicated 20 Ml Bottle) 1 spray MUCOUS MEM Q2H PRN PRN Reason: Sore Throat Last Admin: 07/09/22 21:26 Dose: 1 spray Nystatin (Nystatin Powder 15 Gm Bottle) 1 appl TOPICAL BID [facility]; Protocol Last Admin: 07/11/22 08:16 Dose: 1 appl Prazosin HCl (Prazosin Hcl 1 Mg Capsule) 1 mg PO BEDTIME [facility]; Protocol Last Admin: 07/10/22 22:28 Dose: 1 mg Quetiapine Fumarate (Quetiapine Fumarate 50 Mg Tablet) 50 mg PO BID PRN PRN Reason: agitation Last Admin: 07/07/22 15:40 Dose: 50 mg Trazodone HCl (Trazodone Hcl 50 Mg Tablet) 50 mg PO BEDTIME PRN PRN Reason: Insomnia Last Admin: 07/10/22 22:28 Dose: 50 mg Home Medications Medication Instructions Recorded Confirmed Last Taken Type No Known Home Meds 05/19/22 05/19/22 Unknown History Physical Exam Vital Signs and Narrative: Vital Signs: Last Vital Signs Temp 97.0 F 07/11/22 08:15 Pulse 99 07/11/22 08:15 Resp 19 07/11/22 08:15 BP 140/85 H 07/11/22 08:15 Pulse Ox 97 07/11/22 08:15 O2 Del Method 07/11/22 08:15 BMI result Body Mass Index 30.8 General: AOx3, no acute distress Mouth: 2mm circular ulceration of the roof of the mouth, located midline- posterior. Non-erythematous. Resp: CTA bilaterally CVS: S1, S2, RRR GI: +BS, NT, no distention Skin: No rash Extremities: bilateral non-pitting edema of lower legs Neuro: Motor grossly intact Psych: Appropriate affect Results Labs CBC and Chem 7: 06/26/22 08:30 06/26/22 08:30 Labs: Laboratory Results - last 24 hr 07/11/22 08:22 POC Glucose 81 Assessment and Plan (1) Hypertension: Status: Acute (2) Bilateral lower extremity edema: Status: Acute (3) Mouth sore: Status: Acute Plan Pt is a 52-year-old female with a PMH significant for bipolar disorder hospitalized with SI and an acute manic episode who complains of a sore on the roof of her mouth, lower leg swelling, and persistent high BP. # Mouth sore -- unclear etiology, possibly due to trauma (pt thinks she possibly burned her mouth on hot soup) -- small, circular, and non-erythematous -- continue nystatin and magic mouthwash -- will reconsider treatment if sore persists or worsens # bilateral lower leg swelling -- likely secondary to amlodipine -- start lisinopril 5mg, which can work synergistically with amlodipine to reduce BP and leg swelling -- check kidney function in 2-3 days -- continue wearing compression stockings -- elevate feet when in bed -- encouraged to walk more around the unit # HTN -- pt's BP remains chronically elevated with SBP in 140s-160s -- on amlodipine 10mg daily -- start lisinopril 5mg daily -- check kidney function in 2-3 days # Bipolar Disorder -- under care of psychiatry
[2022-07-11 13:56] VITALS: BP 146/63; PULSE 96
[2022-07-11] MEDS: Acetaminophen 325 MG TABLET 650 MG PO ×2 (13:59→21:27)
[2022-07-11] MEDS: lisinopriL 5 MG TABLET PO (14:00)
--- NOTE | 2022-07-11 14:29 | HO.PSYCHPN ---
Subjective Subjective Date of Service: 07/11/22 Reason For Visit: omar/SI Subjective Notes: Section 7 Healthcare Proxy: No Guardianship: No Medical Problems Affecting Mental Status: No Interim History: Team report mouth lesion, 30 lb weight gain since admission, BLE Edema, elevated BP 176/72. Hospitalist consult requested. Discussed these issues with pt-reports an increase in appetite and intake since admission-states she has not chosed carefully-3 desserts, snacks, non-diet soda and does not believe meds are the problem. Review of pt's regime-?Depakote, Seroquel? For Brenda, literature indicates 0.88-2.2 lbs over 3 to 8 weeks). Discussed tapering Depakote, Seroquel. Discussed BLE Edema, HTN, pt not really following specific low Na diet and retaining-amlodipine not working-agrees to have hospitalist consult for possible diuretic along with eval of mouth lesion which she believes is from throat lozenges. Met with pt, Alfonso Barber, pt's aunt regarding insurance denial, programs insurance was willing to cover and progress in referral. Pt presenting upset, crying, angry- see this is why I just want to I want to be with my family I don't want to meet anyone new or learn anything new . I just want to . Discussed with both what programs could offer on a temporary basis for skills to help pt with independent living. Family is concerned about finances, pt, not wanting to participate today. Aunt asks if we will continue to work on pt's depression with medicine. Medication Compliance: Yes Side effects from medications: No Attending Groups: Intermittent Review of Systems Acute medical concerns: No Medical Review of Systems: unchanged Mental Status Exam Mental Status Exam Patient Appearance: Fatigued Patient Orientation: Person, Place, Time and Situation Level of Consciousness: Alert Patient Behavior: Talkative, Anxious, Fatigued, Good Eye Contact and Crying Mood Description: Withdrawn, Depressed, Angry and Apprehensive Affect Description: Flat Patient Cognition Impaired: No Ability to Follow Directions: Fair Speech Pattern: Spontaneous Speech Memory Description: Episodic Impaired Hallucinations: None Delusions: Not Present Thought Process: Distracted and Rumination Thought Content: positive for Circumstantial and positive for Suicidal Ideation Depressive Symptoms: Increased Anxiety, Increased Irritability, Significant Weight Gain and Low Self Esteem Judgement: Poor Diagnostics Vital Signs (24Hr): Vital Signs - 24 hr 07/10/22 22:15 07/11/22 08:15 07/11/22 13:56 Temperature 98.0 F 97.0 F Pulse Rate 90 99 96 Respiratory Rate 19 Blood Pressure 135/71 140/85 H 146/63 H Pulse Oximetry 100 97 Oxygen Delivery Method Room Air Room Air BMI result Body Mass Index 30.8 Labs Results: 06/26/22 08:30 06/26/22 08:30 Labs: Laboratory Results - last 48 hr 07/10/22 07/11/22 11:40 08:22 POC Glucose 122 H 81 Medications Medications Current Medications Acetaminophen (Acetaminophen 325 Mg Tablet) 650 mg PO Q6H PRN PRN Reason: Headache/Pain Mild Scale (1-3) Last Admin: 07/11/22 13:59 Dose: 650 mg Al Hydroxide/Mg Hydroxide (Magnesium Hydrox/Alum Hydrox 30 Ml Oral.Susp) 30 ml PO Q6H PRN PRN Reason: Heartburn/Nausea Amlodipine Besylate (Amlodipine Besylate 10 Mg Tablet) 10 mg PO DAILY [facility]; Protocol Last Admin: 07/11/22 08:14 Dose: 10 mg Atorvastatin Calcium (Atorvastatin Calcium 10 Mg Tablet) 10 mg PO DAILY [facility] Last Admin: 07/11/22 08:14 Dose: 10 mg Benzocaine (Throat Lozenge, Medicated Lozenge) 1 lozenge MUCOUS MEM Q2H PRN PRN Reason: Sore Throat Last Admin: 07/09/22 13:39 Dose: 1 lozenge Bisacodyl (Bisacodyl 5 Mg Tablet.Dr) 10 mg PO DAILY PRN PRN Reason: Constipation Last Admin: 07/06/22 02:28 Dose: 10 mg Bupropion HCl (Bupropion Hcl Xl 300 Mg Tab.Er.24h) 300 mg PO DAILY [facility] Last Admin: 07/11/22 08:14 Dose: 300 mg Cariprazine (Cariprazine Hcl 3 Mg Capsule) 6 mg PO DAILY [facility] Last Admin: 07/11/22 08:13 Dose: 6 mg Clonidine HCl (Clonidine Hcl 0.1 Mg Tablet) 0.1 mg PO DAILY [facility]; Protocol PRN Reason: HTN, hyperarousal Last Admin: 07/09/22 21:26 Dose: 0.1 mg Diphenhydramine HCl (Diphenhydramine Hcl 25 Mg Capsule) 50 mg PO Q4H PRN PRN Reason: agitation Divalproex Sodium (Divalproex Sodium Er 500 Mg Tab.Er.24h) 500 mg PO BEDTIME [facility] Docusate Sodium (Docusate Sodium 100 Mg Capsule) 200 mg PO BID [facility] Last Admin: 07/11/22 08:13 Dose: 200 mg Glyburide (Glyburide 2.5 Mg Tablet) 2.5 mg PO DAILY [facility] Last Admin: 07/11/22 08:14 Dose: 2.5 mg Guaifenesin (Guaifenesin 100 Mg/5 Ml Liquid) 5 ml PO Q4H PRN PRN Reason: cough Last Admin: 07/08/22 11:58 Dose: 5 ml Hydroxyzine HCl (Hydroxyzine Hcl 25 Mg Tablet) 25 mg PO Q6H PRN PRN Reason: Anxiety Last Admin: 07/10/22 13:43 Dose: 25 mg Lactulose (Lactulose 20 Gm/30 Ml Solution) 30 gm PO BID [facility] Last Admin: 07/11/22 08:12 Dose: 30 gm Lidocaine/Diphenhydr/Alum/Mg/Simeth (Mag&Al/Sim/Diphenhyd/Lidocaine 10 Ml Oral.Susp) 10 ml PO Q4H PRN; Protocol PRN Reason: Mouth Sore Pain Last Admin: 07/11/22 14:01 Dose: 10 ml Lisinopril (Lisinopril 5 Mg Tablet) 5 mg PO DAILY [facility]; Protocol Last Admin: 07/11/22 14:00 Dose: 5 mg Magnesium Hydroxide (Milk Of Magnesia 30 Ml Oral.Susp) 30 ml PO DAILY PRN PRN Reason: Constipation Last Admin: 07/06/22 12:00 Dose: 30 ml Multi-Ingred Medicated Throat [place] (Throat [place], Medicated 20 Ml Bottle) 1 spray MUCOUS MEM Q2H PRN PRN Reason: Sore Throat Last Admin: 07/09/22 21:26 Dose: 1 spray Nystatin (Nystatin Powder 15 Gm Bottle) 1 appl TOPICAL BID [facility]; Protocol Last Admin: 07/11/22 08:16 Dose: 1 appl Prazosin HCl (Prazosin Hcl 1 Mg Capsule) 1 mg PO BEDTIME [facility]; Protocol Last Admin: 07/10/22 22:28 Dose: 1 mg Quetiapine Fumarate (Quetiapine Fumarate 50 Mg Tablet) 50 mg PO BID PRN PRN Reason: agitation Last Admin: 07/07/22 15:40 Dose: 50 mg Trazodone HCl (Trazodone Hcl 50 Mg Tablet) 50 mg PO BEDTIME PRN PRN Reason: Insomnia Last Admin: 07/10/22 22:28 Dose: 50 mg Allergies Allergies Allergy/AdvReac Type Severity Reaction Status Date / Time No Known Allergies Allergy Verified 05/19/22 23:36 Assessment & Plan Assessment & Plan (1) Hypertension: Status: Acute Code(s): I10 - Essential (primary) hypertension (2) Bilateral lower extremity edema: Status: Acute Code(s): R60.0 - Localized edema (3) Mouth sore: Status: Acute Code(s): K13.79 - Other lesions of oral mucosa (4) Bipolar disorder: Status: Acute Code(s): F31.9 - Bipolar disorder, unspecified Assessment and Plan: -Decrease Depakote to 500 mg daily -Discontinue Seroquel at HS -Declines nutritional consult -Medical consult much appreciated. -Symptoms observed today are the basis of concern regarding discharge to independent living. Pt is unable to work on active problem solving without becoming upset and immediately seeking resolution in suicidality. She would benefit from residential support and education. Plan Pt is a 52-year-old female with a PMH significant for bipolar disorder hospitalized with SI and an acute manic episode who complains of a sore on the roof of her mouth, lower leg swelling, and persistent high BP. # Mouth sore -- unclear etiology, possibly due to trauma (pt thinks she possibly burned her mouth on hot soup) -- small, circular, and non-erythematous -- continue nystatin and magic mouthwash -- will reconsider treatment if sore persists or worsens # bilateral lower leg swelling -- likely secondary to amlodipine -- start lisinopril 5mg, which can work synergistically with amlodipine to reduce BP and leg swelling -- check kidney function in 2-3 days -- continue wearing compression stockings -- elevate feet when in bed -- encouraged to walk more around the unit # HTN -- pt's BP remains chronically elevated with SBP in 140s-160s -- on amlodipine 10mg daily -- start lisinopril 5mg daily -- check kidney function in 2-3 days # Bipolar Disorder -- under care of psychiatry I spent minutes with the patient and/or on the patient floor today, greater than?50% of which was spent counseling/coordinating care. Patient educated on: medication risk/benefits, therapeutic strategies and medical condition Informed Consent: further education needed Reason for contiued inpatient stay Substantial Risk for: harm to self, inability to function and rapid decompensation
[2022-07-11] MEDS: QUEtiapine Fumarate 50 MG TABLET PO (21:28)
[2022-07-11] MEDS: Divalproex Sodium ER 500 MG TAB.ER.24H PO (21:28)
[2022-07-11] MEDS: traZODone HCL 50 MG TABLET PO (21:28)
[2022-07-11] MEDS: hydrOXYzine HCL 25 MG TABLET PO (21:28)
[2022-07-11] MEDS: Prazosin HCL 1 MG CAPSULE PO (21:28)
[2022-07-11 21:44] VITALS: BP 113/69; PULSE 100; RESP 18; TEMP 36.4; O2SAT 98
[2022-07-12] MEDS: traZODone HCL 50 MG TABLET PO (01:16)
[2022-07-12] MEDS: Acetaminophen 325 MG TABLET 650 MG PO ×4 (02:42→21:18)
[2022-07-12] MEDS: hydrOXYzine HCL 25 MG TABLET PO (02:42)
[2022-07-12] MEDS: bisacodyL 5 MG TABLET.DR 10 MG PO (06:06)
[2022-07-12 08:16] LABS: MANUAL DIFF FLAG NO
[2022-07-12 08:27] LABS: Basophils Percent Auto 0.4 % (0-2); Eosinophils Absolute Auto 0.3 X10*3/uL (0.0-0.4); Eosinophils Percent Auto 3.4 % (0-4); Hematocrit 34.5 % (37.0-47.0); Hemoglobin 10.9 g/dl (12.0-16.0); Imm Gran Abs Auto 0.04 X10*3/uL (0.00-0.03); Imm Gran Pct Auto 0.5 % (0.0-0.4); Lymphocytes Absolute Auto 2.4 X10*3/uL (1.2-4.9); Lymphocytes Percent Auto 33.4 % (20-40); Mean Corpuscular HGB Conc 31.6 g/dl (31.0-35.0); Mean Corpuscular Hemoglobin 28.8 pg (27.0-33.0); Mean Platelet Volume 8.3 fL (9.4-12.3); Monocytes Absolute Auto 0.8 X10*3/uL (0.1-1.2); Monocytes Percent Auto 10.6 % (2-11); Neutrophils Absolute Auto 3.8 x10*3/uL (2.0-8.3); Neutrophils Percent Auto 51.7 % (45-73); Platelet Count 224 X10*3/uL (160-400); Red Blood Count 3.79 X10*6/uL (4.20-5.50); Red Cell Distribution Width 13.7 % (11.0-16.0); White Blood Count 7.3 X10*3/uL (4.8-10.8)
[2022-07-12 09:05] LABS: Alanine Aminotransferase 12 U/L (0-31); Albumin Level 3.5 g/dL (3.5-5.0); Alkaline Phosphatase 59 U/L (39-117); Anion Gap 14 (12-20); Aspartate Amino Transferase 14 U/L (5-31); Bilirubin Total 0.3 mg/dL (0.0-1.0); Blood Urea Nitrogen 16 mg/dL (9-16); Calcium 9.3 mg/dL (8.4-10.2); Carbon Dioxide 28 mmol/L (22-29); Chloride 98 mmol/L (96-108); Creatinine Clr Calc Pharmacy 73.5; Estimated Glomerular Filt Rate 59; Glucose Random 91 mg/dL (60-115); Potassium 4.5 mmol/L (3.3-5.1); Sodium 135 mmol/L (135-145); Total Protein 6.3 g/dL (6.5-8.0)
[2022-07-12 09:26] VITALS: BP 130/61; PULSE 100; RESP 18; TEMP 36.1; O2SAT 100
[2022-07-12] MEDS: Lactulose 20 GM/30 ML SOLUTION 30 GM PO ×2 (09:30→22:06)
[2022-07-12] MEDS: glyBURIDE 2.5 MG TABLET PO (09:31)
[2022-07-12] MEDS: Docusate Sodium 100 MG CAPSULE 200 MG PO ×2 (09:31→22:05)
[2022-07-12] MEDS: lisinopriL 5 MG TABLET PO (09:31)
[2022-07-12] MEDS: Cariprazine HCl 3 MG CAPSULE 6 MG PO (09:32)
[2022-07-12] MEDS: buPROPion HCl XL 300 MG TAB.ER.24H PO (09:32)
[2022-07-12] MEDS: amLODIPine Besylate 10 MG TABLET PO (09:32)
[2022-07-12] MEDS: Atorvastatin Calcium 10 MG TABLET PO (09:32)
[2022-07-12 09:38] LABS: Glucose, Whole Blood 82 mg/dL (60-115)
--- NOTE | 2022-07-12 10:22 | HO.PSYCHPN ---
Subjective Subjective Date of Service: 07/12/22 Reason For Visit: omar/SI Subjective Notes: Section 7 Interim History: Pt much more visible on the unit, social with peers and attending some groups. Pt seen by hospitalist re: edema, mouth ulcer. Recommendation to stop amlodipine altogether and continue [place] stocking for bilat LE edema. Regarding mouth ulcer, no need to consult surgery or further consults unless it does not heal in 3 more weeks. Pt to continue magic mouth wash. Pt denies SI/HI. She states she would rather go home, than to facility. Per nursing, no behavioral concerns. Medication Compliance: Yes Side effects from medications: No Review of Systems Review of Systems Mouth pain. Leg swelling. Denies F/C, HIGGINS, vision changes. Yes all other systems are reviewed and are negative, Unobtainable due to mental condition and Unobtainable due to mental status Constitutional: Reports body ache(s), Reports difficulty sleeping, Reports fatigue, Reports headache(s), Reports lethargy, Reports malaise and Reports weakness Eyes: Reports no additional eye complaints Reports system reviewed and no additional complaints, except as documented, Reports headache(s), Reports sore throat and Reports other (ear ache) Cardiovascular: Reports other (HTN) Gastrointestinal: Reports other (IBS) Reports behavioral changes, Reports headache(s) and Reports weakness Psychiatric: Reports abnormal sleep pattern, Reports anxiety, Reports behavioral changes, Reports change in appetite, Reports depression, Reports difficulty concentrating, Reports hopelessness, Reports irritability, Reports anhedonia, Reports mood swings and Reports suicidal ideation Endocrine: Reports fatigue and Reports other (DM) Hematologic/Lymphatic: Reports no additional hematologic/lymphatic complaints Allergic/Immunologic: Reports no additional allergic/immunologic complaints Mental Status Exam Mental Status Exam Narrative: Patient Appearance: Appropriate Patient Orientation: Person, Place, Time and Situation Level of Consciousness: Alert Patient Behavior: Appropriate, Talkative and Good Eye Contact Mood Description: Fearful, Sad and Apprehensive Affect Description: Fearful and Sad Patient Cognition Impaired: No Ability to Follow Directions: Good Speech Pattern: Spontaneous Speech Memory Description: Intact Hallucinations: None Delusions: Not Present Thought Process: Distracted and Rumination Thought Content: positive for Circumstantial, positive for Perseveration and positive for Suicidal Ideation (passive, without plan or intent) Depressive Symptoms: Increased Anxiety and Crying Spells Judgement: Fair Patient Appearance: Fatigued Patient Orientation: Person, Place, Time and Situation Level of Consciousness: Alert Patient Behavior: Talkative, Anxious, Fatigued, Good Eye Contact and Crying Mood Description: Withdrawn, Depressed, Angry and Apprehensive Affect Description: Flat Patient Cognition Impaired: No Ability to Follow Directions: Fair Speech Pattern: Spontaneous Speech Memory Description: Episodic Impaired Diagnostics Vital Signs (24Hr): Vital Signs - 24 hr 07/13/22 08:45 07/13/22 21:15 Temperature 96.9 F 96.6 F L Pulse Rate 98 93 Respiratory Rate 18 18 Blood Pressure 138/62 132/63 Pulse Oximetry 99 97 Oxygen Delivery Method Room Air Room Air BMI result Body Mass Index 30.8 Labs Results: 07/12/22 07:55 07/12/22 07:57 Labs: Laboratory Results - last 48 hr 07/12/22 07/12/22 07/12/22 07:55 07:55 07:57 WBC 7.3 RBC 3.79 L Hgb 10.9 L Hct 34.5 L MCV 91.0 MCH 28.8 MCHC 31.6 RDW 13.7 Plt Count 224 MPV 8.3 L Immature Gran % (Auto) 0.5 H Neut % (Auto) 51.7 Lymph % (Auto) 33.4 [place] % (Auto) 10.6 Eos % (Auto) 3.4 Baso % (Auto) 0.4 Lymph # (Auto) 2.4 [place] # (Auto) 0.8 Eos # (Auto) 0.3 Baso # (Auto) 0.0 Abs Immat Gran (auto) 0.04 H Absolute Neuts (auto) 3.8 Absolute Nucleated RBC 0.000 Nucleated RBC % (auto) 0.0 Sodium 135 Potassium 4.5 Chloride 98 Carbon Dioxide 28 Anion Gap 14 BUN 16 Creatinine 0.98 Estim Creat Clear Calc 73.5 Estimated GFR 59 POC Glucose Random Glucose 91 Calcium 9.3 Total Bilirubin 0.3 AST 14 ALT 12 Alkaline Phosphatase 59 Total Protein 6.3 L Albumin 3.5 Valproic Acid 43.0 L 07/12/22 07/13/22 09:29 08:52 WBC RBC Hgb Hct MCV MCH MCHC RDW Plt Count MPV Immature Gran % (Auto) Neut % (Auto) Lymph % (Auto) [place] % (Auto) Eos % (Auto) Baso % (Auto) Lymph # (Auto) [place] # (Auto) Eos # (Auto) Baso # (Auto) Abs Immat Gran (auto) Absolute Neuts (auto) Absolute Nucleated RBC Nucleated RBC % (auto) Sodium Potassium Chloride Carbon Dioxide Anion Gap BUN Creatinine Estim Creat Clear Calc Estimated GFR POC Glucose 82 73 Random Glucose Calcium Total Bilirubin AST ALT Alkaline Phosphatase Total Protein Albumin Valproic Acid Medications Medications Current Medications Acetaminophen (Acetaminophen 325 Mg Tablet) 650 mg PO Q6H PRN PRN Reason: Headache/Pain Mild Scale (1-3) Last Admin: 07/13/22 10:24 Dose: 650 mg Al Hydroxide/Mg Hydroxide (Magnesium Hydrox/Alum Hydrox 30 Ml Oral.Susp) 30 ml PO Q6H PRN PRN Reason: Heartburn/Nausea Atorvastatin Calcium (Atorvastatin Calcium 10 Mg Tablet) 10 mg PO DAILY [facility] Last Admin: 07/13/22 08:56 Dose: 10 mg Benzocaine (Throat Lozenge, Medicated Lozenge) 1 lozenge MUCOUS MEM Q2H PRN PRN Reason: Sore Throat Last Admin: 07/09/22 13:39 Dose: 1 lozenge Bisacodyl (Bisacodyl 5 Mg Tablet.Dr) 10 mg PO DAILY PRN PRN Reason: Constipation Last Admin: 07/12/22 06:06 Dose: 10 mg Bupropion HCl (Bupropion Hcl Xl 300 Mg Tab.Er.24h) 300 mg PO DAILY [facility] Last Admin: 07/13/22 08:56 Dose: 300 mg Cariprazine (Cariprazine Hcl 3 Mg Capsule) 6 mg PO DAILY [facility] Last Admin: 07/13/22 08:55 Dose: 6 mg Clonidine HCl (Clonidine Hcl 0.1 Mg Tablet) 0.1 mg PO DAILY PRN; Protocol PRN Reason: HTN, hyperarousal Last Admin: 07/09/22 21:26 Dose: 0.1 mg Clotrimazole (Clotrimazole 10 Mg Sandra) 10 mg MUCOUS MEM 5XD [facility] Stop: 07/19/22 18:01 Last Admin: 07/14/22 05:54 Dose: 10 mg Diphenhydramine HCl (Diphenhydramine Hcl 25 Mg Capsule) 50 mg PO Q4H PRN PRN Reason: agitation Divalproex Sodium (Divalproex Sodium Er 500 Mg Tab.Er.24h) 500 mg PO BEDTIME [facility] Last Admin: 07/13/22 21:15 Dose: 500 mg Docusate Sodium (Docusate Sodium 100 Mg Capsule) 200 mg PO BID [facility] Last Admin: 07/13/22 21:14 Dose: 200 mg Glyburide (Glyburide 2.5 Mg Tablet) 2.5 mg PO DAILY [facility] Last Admin: 07/13/22 08:54 Dose: 2.5 mg Guaifenesin (Guaifenesin 100 Mg/5 Ml Liquid) 5 ml PO Q4H PRN PRN Reason: cough Last Admin: 07/08/22 11:58 Dose: 5 ml Hydroxyzine HCl (Hydroxyzine Hcl 25 Mg Tablet) 25 mg PO Q6H PRN PRN Reason: Anxiety Last Admin: 07/12/22 02:42 Dose: 25 mg Ibuprofen (Ibuprofen 400 Mg Tablet) 400 mg PO TID PRN PRN Reason: Pain, Moderate (Pain Scale 4-6 Last Admin: 07/13/22 21:15 Dose: 400 mg Lactulose (Lactulose 20 Gm/30 Ml Solution) 30 gm PO BID [facility] Last Admin: 07/13/22 21:16 Dose: 30 gm Lidocaine/Diphenhydr/Alum/Mg/Simeth (Mag&Al/Sim/Diphenhyd/Lidocaine 10 Ml Oral.Susp) 10 ml PO Q4H PRN; Protocol PRN Reason: Mouth Sore Pain Last Admin: 07/12/22 16:49 Dose: 10 ml Lisinopril (Lisinopril 20 Mg Tablet) 20 mg PO DAILY [facility]; Protocol Last Admin: 07/13/22 08:55 Dose: 20 mg Magnesium Hydroxide (Milk Of Magnesia 30 Ml Oral.Susp) 30 ml PO DAILY PRN PRN Reason: Constipation Last Admin: 07/06/22 12:00 Dose: 30 ml Multi-Ingred Medicated Throat [place] (Throat [place], Medicated 20 Ml Bottle) 1 spray MUCOUS MEM Q2H PRN PRN Reason: Sore Throat Last Admin: 07/09/22 21:26 Dose: 1 spray Nystatin (Nystatin Powder 15 Gm Bottle) 1 appl TOPICAL BID [facility]; Protocol Last Admin: 07/13/22 21:16 Dose: 1 appl Prazosin HCl (Prazosin Hcl 1 Mg Capsule) 1 mg PO BEDTIME [facility]; Protocol Last Admin: 07/13/22 21:16 Dose: 1 mg Quetiapine Fumarate (Quetiapine Fumarate 50 Mg Tablet) 50 mg PO BID PRN PRN Reason: agitation Last Admin: 07/13/22 22:22 Dose: 50 mg Trazodone HCl (Trazodone Hcl 50 Mg Tablet) 50 mg PO BEDTIME PRN PRN Reason: Insomnia Last Admin: 07/13/22 22:22 Dose: 50 mg Allergies Allergies Allergy/AdvReac Type Severity Reaction Status Date / Time No Known Allergies Allergy Verified 05/19/22 23:36 Assessment & Plan Assessment & Plan (1) Bipolar disorder: Status: Acute Code(s): F31.9 - Bipolar disorder, unspecified Assessment and Plan: -Decrease Depakote to 500 mg daily -Discontinue Seroquel at HS -Declines nutritional consult -Medical consult much appreciated. -Symptoms observed today are the basis of concern regarding discharge to independent living. Pt is unable to work on active problem solving without becoming upset and immediately seeking resolution in suicidality. She would benefit from residential support and education. Plan Pt is a 52-year-old female with a PMH significant for bipolar disorder hospitalized with SI and an acute manic episode who complains of a sore on the roof of her mouth, lower leg swelling, and persistent high BP. Plan 07/12 continue tx. I spent minutes with the patient and/or on the patient floor today, greater than?50% of which was spent counseling/coordinating care. Reason for contiued inpatient stay Substantial Risk for: inability to function
[2022-07-12] MEDS: Mag&Al/Sim/Diphenhyd/Lidocaine 10 ML ORAL.SUSP PO ×2 (10:30→16:49)
[2022-07-12] MEDS: Nystatin Powder 15 GM BOTTLE 1 APPL TOPICAL ×2 (10:30→22:08)
--- NOTE | 2022-07-12 18:24 | PM.EVENT ---
Event Note Date of Service: 07/12/22 Event Note: Pt seen and examined yesterday for aphthous ulcer/burn hard palate mouth and BLE edema. Pt is taking nystatin and magic mouthwash and should continue these and allow time to heal. If not healed in two weeks, recommend reevaluation. Reagrding BLE edema, this is not new and was seen by wound care in May for this issue. Amlodipine is likely exacerbation this. Would recommend discontinuing norvasc altogether and increasing dose of lisinopril. Continue TEDs. Please contact prn with questions.
[2022-07-12] MEDS: Ibuprofen 400 MG TABLET PO (20:19)
[2022-07-12 21:48] VITALS: BP 114/65; PULSE 92; RESP 18; TEMP 35.8; O2SAT 99
[2022-07-12] MEDS: Divalproex Sodium ER 500 MG TAB.ER.24H PO (22:04)
[2022-07-12] MEDS: Prazosin HCL 1 MG CAPSULE PO (22:05)
[2022-07-13] MEDS: traZODone HCL 50 MG TABLET PO ×3 (01:08→22:22)
[2022-07-13] MEDS: Ibuprofen 400 MG TABLET PO ×2 (02:58→21:15)
[2022-07-13 08:45] VITALS: BP 138/62; PULSE 98; RESP 18; TEMP 36.1; O2SAT 99
[2022-07-13] MEDS: Docusate Sodium 100 MG CAPSULE 200 MG PO ×2 (08:54→21:14)
[2022-07-13] MEDS: glyBURIDE 2.5 MG TABLET PO (08:54)
[2022-07-13 08:55] LABS: Glucose, Whole Blood 73 mg/dL (60-115)
[2022-07-13] MEDS: Cariprazine HCl 3 MG CAPSULE 6 MG PO (08:55)
[2022-07-13] MEDS: lisinopriL 20 MG TABLET PO (08:55)
[2022-07-13] MEDS: buPROPion HCl XL 300 MG TAB.ER.24H PO (08:56)
[2022-07-13] MEDS: Atorvastatin Calcium 10 MG TABLET PO (08:56)
[2022-07-13] MEDS: Lactulose 20 GM/30 ML SOLUTION 30 GM PO ×2 (08:57→21:16)
[2022-07-13] MEDS: Nystatin Powder 15 GM BOTTLE 1 APPL TOPICAL ×2 (10:23→21:16)
[2022-07-13] MEDS: Acetaminophen 325 MG TABLET 650 MG PO (10:24)
--- NOTE | 2022-07-13 10:26 | HO.PSYCHPN ---
Subjective Subjective Date of Service: 07/13/22 Reason For Visit: omar/SI Subjective Notes: Section 7 Interim History: Pt much brighter, continues to denies SI/HI. Pt brings up physical concerns that have already been addressed by hospitalist- pt reeducated on their recommendations. Pt states I hope to go home, not to facility. Per nursing, no behavioral concerns. Medication Compliance: Yes Review of Systems Review of Systems Mouth pain. Leg swelling. Denies F/C, HIGGINS, vision changes. Yes all other systems are reviewed and are negative, Unobtainable due to mental condition and Unobtainable due to mental status Constitutional: Reports body ache(s), Reports difficulty sleeping, Reports fatigue, Reports headache(s), Reports lethargy, Reports malaise and Reports weakness Eyes: Reports no additional eye complaints Reports system reviewed and no additional complaints, except as documented, Reports headache(s), Reports sore throat and Reports other (ear ache) Cardiovascular: Reports other (HTN) Gastrointestinal: Reports other (IBS) Reports behavioral changes, Reports headache(s) and Reports weakness Psychiatric: Reports abnormal sleep pattern, Reports anxiety, Reports behavioral changes, Reports change in appetite, Reports depression, Reports difficulty concentrating, Reports hopelessness, Reports irritability, Reports anhedonia, Reports mood swings and Reports suicidal ideation Endocrine: Reports fatigue and Reports other (DM) Hematologic/Lymphatic: Reports no additional hematologic/lymphatic complaints Allergic/Immunologic: Reports no additional allergic/immunologic complaints Mental Status Exam Mental Status Exam Narrative: Patient Appearance: Appropriate Patient Orientation: Person, Place, Time and Situation Level of Consciousness: Alert Patient Behavior: Appropriate, Talkative and Good Eye Contact Mood Description: Fearful, Sad and Apprehensive Affect Description: Fearful and Sad Patient Cognition Impaired: No Ability to Follow Directions: Good Speech Pattern: Spontaneous Speech Memory Description: Intact Hallucinations: None Delusions: Not Present Thought Process: Distracted and Rumination Thought Content: positive for Circumstantial, positive for Perseveration and positive for Suicidal Ideation (passive, without plan or intent) Depressive Symptoms: Increased Anxiety and Crying Spells Judgement: Fair Diagnostics Vital Signs (24Hr): Vital Signs - 24 hr 07/13/22 08:45 07/13/22 21:15 Temperature 96.9 F 96.6 F L Pulse Rate 98 93 Respiratory Rate 18 18 Blood Pressure 138/62 132/63 Pulse Oximetry 99 97 Oxygen Delivery Method Room Air Room Air BMI result Body Mass Index 30.8 Labs Results: 07/12/22 07:55 07/12/22 07:57 Labs: Laboratory Results - last 48 hr 07/12/22 07/12/22 07/12/22 07:55 07:55 07:57 WBC 7.3 RBC 3.79 L Hgb 10.9 L Hct 34.5 L MCV 91.0 MCH 28.8 MCHC 31.6 RDW 13.7 Plt Count 224 MPV 8.3 L Immature Gran % (Auto) 0.5 H Neut % (Auto) 51.7 Lymph % (Auto) 33.4 [place] % (Auto) 10.6 Eos % (Auto) 3.4 Baso % (Auto) 0.4 Lymph # (Auto) 2.4 [place] # (Auto) 0.8 Eos # (Auto) 0.3 Baso # (Auto) 0.0 Abs Immat Gran (auto) 0.04 H Absolute Neuts (auto) 3.8 Absolute Nucleated RBC 0.000 Nucleated RBC % (auto) 0.0 Sodium 135 Potassium 4.5 Chloride 98 Carbon Dioxide 28 Anion Gap 14 BUN 16 Creatinine 0.98 Estim Creat Clear Calc 73.5 Estimated GFR 59 POC Glucose Random Glucose 91 Calcium 9.3 Total Bilirubin 0.3 AST 14 ALT 12 Alkaline Phosphatase 59 Total Protein 6.3 L Albumin 3.5 Valproic Acid 43.0 L 07/12/22 07/13/22 09:29 08:52 WBC RBC Hgb Hct MCV MCH MCHC RDW Plt Count MPV Immature Gran % (Auto) Neut % (Auto) Lymph % (Auto) [place] % (Auto) Eos % (Auto) Baso % (Auto) Lymph # (Auto) [place] # (Auto) Eos # (Auto) Baso # (Auto) Abs Immat Gran (auto) Absolute Neuts (auto) Absolute Nucleated RBC Nucleated RBC % (auto) Sodium Potassium Chloride Carbon Dioxide Anion Gap BUN Creatinine Estim Creat Clear Calc Estimated GFR POC Glucose 82 73 Random Glucose Calcium Total Bilirubin AST ALT Alkaline Phosphatase Total Protein Albumin Valproic Acid Medications Medications Current Medications Acetaminophen (Acetaminophen 325 Mg Tablet) 650 mg PO Q6H PRN PRN Reason: Headache/Pain Mild Scale (1-3) Last Admin: 07/13/22 10:24 Dose: 650 mg Al Hydroxide/Mg Hydroxide (Magnesium Hydrox/Alum Hydrox 30 Ml Oral.Susp) 30 ml PO Q6H PRN PRN Reason: Heartburn/Nausea Atorvastatin Calcium (Atorvastatin Calcium 10 Mg Tablet) 10 mg PO DAILY [facility] Last Admin: 07/13/22 08:56 Dose: 10 mg Benzocaine (Throat Lozenge, Medicated Lozenge) 1 lozenge MUCOUS MEM Q2H PRN PRN Reason: Sore Throat Last Admin: 07/09/22 13:39 Dose: 1 lozenge Bisacodyl (Bisacodyl 5 Mg Tablet.Dr) 10 mg PO DAILY PRN PRN Reason: Constipation Last Admin: 07/12/22 06:06 Dose: 10 mg Bupropion HCl (Bupropion Hcl Xl 300 Mg Tab.Er.24h) 300 mg PO DAILY [facility] Last Admin: 07/13/22 08:56 Dose: 300 mg Cariprazine (Cariprazine Hcl 3 Mg Capsule) 6 mg PO DAILY [facility] Last Admin: 07/13/22 08:55 Dose: 6 mg Clonidine HCl (Clonidine Hcl 0.1 Mg Tablet) 0.1 mg PO DAILY PRN; Protocol PRN Reason: HTN, hyperarousal Last Admin: 07/09/22 21:26 Dose: 0.1 mg Clotrimazole (Clotrimazole 10 Mg Sandra) 10 mg MUCOUS MEM 5XD [facility] Stop: 07/19/22 18:01 Last Admin: 07/14/22 05:54 Dose: 10 mg Diphenhydramine HCl (Diphenhydramine Hcl 25 Mg Capsule) 50 mg PO Q4H PRN PRN Reason: agitation Divalproex Sodium (Divalproex Sodium Er 500 Mg Tab.Er.24h) 500 mg PO BEDTIME [facility] Last Admin: 07/13/22 21:15 Dose: 500 mg Docusate Sodium (Docusate Sodium 100 Mg Capsule) 200 mg PO BID [facility] Last Admin: 07/13/22 21:14 Dose: 200 mg Glyburide (Glyburide 2.5 Mg Tablet) 2.5 mg PO DAILY [facility] Last Admin: 07/13/22 08:54 Dose: 2.5 mg Guaifenesin (Guaifenesin 100 Mg/5 Ml Liquid) 5 ml PO Q4H PRN PRN Reason: cough Last Admin: 07/08/22 11:58 Dose: 5 ml Hydroxyzine HCl (Hydroxyzine Hcl 25 Mg Tablet) 25 mg PO Q6H PRN PRN Reason: Anxiety Last Admin: 07/12/22 02:42 Dose: 25 mg Ibuprofen (Ibuprofen 400 Mg Tablet) 400 mg PO TID PRN PRN Reason: Pain, Moderate (Pain Scale 4-6 Last Admin: 07/13/22 21:15 Dose: 400 mg Lactulose (Lactulose 20 Gm/30 Ml Solution) 30 gm PO BID [facility] Last Admin: 07/13/22 21:16 Dose: 30 gm Lidocaine/Diphenhydr/Alum/Mg/Simeth (Mag&Al/Sim/Diphenhyd/Lidocaine 10 Ml Oral.Susp) 10 ml PO Q4H PRN; Protocol PRN Reason: Mouth Sore Pain Last Admin: 07/12/22 16:49 Dose: 10 ml Lisinopril (Lisinopril 20 Mg Tablet) 20 mg PO DAILY [facility]; Protocol Last Admin: 07/13/22 08:55 Dose: 20 mg Magnesium Hydroxide (Milk Of Magnesia 30 Ml Oral.Susp) 30 ml PO DAILY PRN PRN Reason: Constipation Last Admin: 07/06/22 12:00 Dose: 30 ml Multi-Ingred Medicated Throat [place] (Throat [place], Medicated 20 Ml Bottle) 1 spray MUCOUS MEM Q2H PRN PRN Reason: Sore Throat Last Admin: 07/09/22 21:26 Dose: 1 spray Nystatin (Nystatin Powder 15 Gm Bottle) 1 appl TOPICAL BID [facility]; Protocol Last Admin: 07/13/22 21:16 Dose: 1 appl Prazosin HCl (Prazosin Hcl 1 Mg Capsule) 1 mg PO BEDTIME [facility]; Protocol Last Admin: 07/13/22 21:16 Dose: 1 mg Quetiapine Fumarate (Quetiapine Fumarate 50 Mg Tablet) 50 mg PO BID PRN PRN Reason: agitation Last Admin: 07/13/22 22:22 Dose: 50 mg Trazodone HCl (Trazodone Hcl 50 Mg Tablet) 50 mg PO BEDTIME PRN PRN Reason: Insomnia Last Admin: 07/13/22 22:22 Dose: 50 mg Allergies Allergies Allergy/AdvReac Type Severity Reaction Status Date / Time No Known Allergies Allergy Verified 05/19/22 23:36 Assessment & Plan Assessment & Plan (1) Bipolar disorder: Status: Acute Code(s): F31.9 - Bipolar disorder, unspecified Assessment and Plan: -Decrease Depakote to 500 mg daily -Discontinue Seroquel at HS -Declines nutritional consult -Medical consult much appreciated. -Symptoms observed today are the basis of concern regarding discharge to independent living. Pt is unable to work on active problem solving without becoming upset and immediately seeking resolution in suicidality. She would benefit from residential support and education. Plan Pt is a 52-year-old female with a PMH significant for bipolar disorder hospitalized with SI and an acute manic episode who complains of a sore on the roof of her mouth, lower leg swelling, and persistent high BP. Plan 07/12 continue tx. 07/13 continue tx. I spent minutes with the patient and/or on the patient floor today, greater than?50% of which was spent counseling/coordinating care. Reason for contiued inpatient stay Substantial Risk for: inability to function
[2022-07-13 21:15] VITALS: BP 132/63; PULSE 93; RESP 18; TEMP 35.9; O2SAT 97
[2022-07-13] MEDS: Divalproex Sodium ER 500 MG TAB.ER.24H PO (21:15)
[2022-07-13] MEDS: Prazosin HCL 1 MG CAPSULE PO (21:16)
[2022-07-13] MEDS: QUEtiapine Fumarate 50 MG TABLET PO (22:22)
[2022-07-14] MEDS: Nystatin Powder 15 GM BOTTLE 1 APPL TOPICAL ×2 (08:42→23:06)
[2022-07-14] MEDS: Acetaminophen 325 MG TABLET 650 MG PO ×2 (08:43→15:58)
[2022-07-14] MEDS: Cariprazine HCl 3 MG CAPSULE 6 MG PO (08:44)
[2022-07-14] MEDS: glyBURIDE 2.5 MG TABLET PO (08:44)
[2022-07-14] MEDS: Docusate Sodium 100 MG CAPSULE 200 MG PO ×2 (08:44→22:01)
[2022-07-14 08:45] VITALS: BP 144/72; PULSE 92; RESP 17; TEMP 36.6; O2SAT 99
[2022-07-14] MEDS: buPROPion HCl XL 300 MG TAB.ER.24H PO (08:45)
[2022-07-14] MEDS: lisinopriL 20 MG TABLET PO (08:45)
[2022-07-14] MEDS: Atorvastatin Calcium 10 MG TABLET PO (08:45)
[2022-07-14] MEDS: Lactulose 20 GM/30 ML SOLUTION 30 GM PO ×2 (08:46→22:02)
[2022-07-14 09:17] LABS: Glucose, Whole Blood 108 mg/dL (60-115)
--- NOTE | 2022-07-14 10:17 | P.PNIM_ITS ---
Subjective Subjective Date of Service: 07/14/22 Interval History: Seen in follow up for BLE swelling Interval history: per the patient swelling ble started once she was admitted to psychiatry. She feels the legs are increasing in size. Review of the chart shows she did see Wound Clinic in 05/2022 where she was diagnosed with venous insuffiency. Has been evaluated by medicine who recommended d/c amlodipine 10mg which is known to cause leg swelling two days ago. Lisinopril increased to 20mg. Patient has been wearing TEDs and elevating legs witout improvement. Psych providers requested reevaluation this morning. The patient does report b/l pain in the lower legs at rest, with palpation, and ambulation. She denies any sob, ontiveros, orthopnea, palpitations, PND, lightheadedness, or chest pain. Review of Systems General: No fevers, malaise, unintentional weight loss HEENT: No blurred vision, diplopia. Cardiovascular: No chest pain, palpitations, +ble edema Respiratory: No shortness of breath, orthopnea, PND, wheezing, cough : No dysuria, hematuria, increased urinary frequency, decreased urinary output MSK: +b/l calf pain. No back pain Neuro: No headaches, weakness, paresthesias Skin: No rashes or lesions Physical Exam Vital Signs: Vital Signs: Last Vital Signs Temp 97.9 F 07/14/22 08:45 Pulse 92 07/14/22 08:45 Resp 17 07/14/22 08:45 BP 144/72 H 07/14/22 08:45 Pulse Ox 99 07/14/22 08:45 O2 Del Method 07/14/22 08:45 BMI result Body Mass Index 30.8 Constitutional - Awake and Alert, No apparent distress Eyes - PERRLA, EOMI Cardiovascular - S1S2, RRR, 1+ edema. 2+ pedal pulses bilaterally Respiratory - Normal lung expansion, Normal respiratory effort, No respiratory distress, CTA bilaterally Extremities - Fat pads of the lower legs bilaterally with 1+ pitting edema b/l with faint hyperpigmentation and faint erythema of the BLE. There is mild ttp of the lower legs b/l Skin - Warm/Dry Neurological - Alert & oriented x3 Psychological - Appropriate affect Objective Data Active Medications Acetaminophen (Acetaminophen 325 Mg Tablet) 650 mg PO Q6H PRN PRN Reason: Headache/Pain Mild Scale (1-3) Last Admin: 07/14/22 08:43 Dose: 650 mg Documented By: CAMACHO Al Hydroxide/Mg Hydroxide (Magnesium Hydrox/Alum Hydrox 30 Ml Oral.Susp) 30 ml PO Q6H PRN PRN Reason: Heartburn/Nausea Atorvastatin Calcium (Atorvastatin Calcium 10 Mg Tablet) 10 mg PO DAILY [facility] Last Admin: 07/14/22 08:45 Dose: 10 mg Documented By: CAMACHO Benzocaine (Throat Lozenge, Medicated Lozenge) 1 lozenge MUCOUS MEM Q2H PRN PRN Reason: Sore Throat Last Admin: 07/09/22 13:39 Dose: 1 lozenge Documented By: DOSTALKendal Bisacodyl (Bisacodyl 5 Mg Tablet.Dr) 10 mg PO DAILY PRN PRN Reason: Constipation Last Admin: 07/12/22 06:06 Dose: 10 mg Documented By: LIARDIP Bupropion HCl (Bupropion Hcl Xl 300 Mg Tab.Er.24h) 300 mg PO DAILY [facility] Last Admin: 07/14/22 08:45 Dose: 300 mg Documented By: CAMACHO Cariprazine (Cariprazine Hcl 3 Mg Capsule) 6 mg PO DAILY [facility] Last Admin: 07/14/22 08:44 Dose: 6 mg Documented By: CAMACHO Clonidine HCl (Clonidine Hcl 0.1 Mg Tablet) 0.1 mg PO DAILY PRN; Protocol PRN Reason: HTN, hyperarousal Last Admin: 07/09/22 21:26 Dose: 0.1 mg Documented By: LUCIANO Clotrimazole (Clotrimazole 10 Mg Sandra) 10 mg MUCOUS MEM 5XD [facility] Stop: 07/19/22 18:01 Last Admin: 07/14/22 05:54 Dose: 10 mg Documented By: FLEMINM Diphenhydramine HCl (Diphenhydramine Hcl 25 Mg Capsule) 50 mg PO Q4H PRN PRN Reason: agitation Divalproex Sodium (Divalproex Sodium Er 250 Mg Tab.Er.24h) 250 mg PO BEDTIME [facility] Docusate Sodium (Docusate Sodium 100 Mg Capsule) 200 mg PO BID [facility] Last Admin: 07/14/22 08:44 Dose: 200 mg Documented By: CAMACHO Glyburide (Glyburide 2.5 Mg Tablet) 2.5 mg PO DAILY [facility] Last Admin: 07/14/22 08:44 Dose: 2.5 mg Documented By: CAMACHO Guaifenesin (Guaifenesin 100 Mg/5 Ml Liquid) 5 ml PO Q4H PRN PRN Reason: cough Last Admin: 07/08/22 11:58 Dose: 5 ml Documented By: KARINA Hydroxyzine HCl (Hydroxyzine Hcl 25 Mg Tablet) 25 mg PO Q6H PRN PRN Reason: Anxiety Last Admin: 07/12/22 02:42 Dose: 25 mg Documented By: ESAURDERIC Ibuprofen (Ibuprofen 400 Mg Tablet) 400 mg PO TID PRN PRN Reason: Pain, Moderate (Pain Scale 4-6 Last Admin: 07/13/22 21:15 Dose: 400 mg Documented By: FLEMINMarie Lactulose (Lactulose 20 Gm/30 Ml Solution) 30 gm PO BID [facility] Last Admin: 07/14/22 08:46 Dose: 30 gm Documented By: CAMACHO Lidocaine/Diphenhydr/Alum/Mg/Simeth (Mag&Al/Sim/Diphenhyd/Lidocaine 10 Ml Oral.Susp) 10 ml PO Q4H PRN; Protocol PRN Reason: Mouth Sore Pain Last Admin: 07/12/22 16:49 Dose: 10 ml Documented By: CAMACHO Lisinopril (Lisinopril 20 Mg Tablet) 20 mg PO DAILY [facility]; Protocol Last Admin: 07/14/22 08:45 Dose: 20 mg Documented By: CAMACHO Comments: 144/72, 92 Magnesium Hydroxide (Milk Of Magnesia 30 Ml Oral.Susp) 30 ml PO DAILY PRN PRN Reason: Constipation Last Admin: 07/06/22 12:00 Dose: 30 ml Documented By: KARINA Multi-Ingred Medicated Throat [place] (Throat [place], Medicated 20 Ml Bottle) 1 spray MUCOUS MEM Q2H PRN PRN Reason: Sore Throat Last Admin: 07/09/22 21:26 Dose: 1 spray Documented By: LUCIANO Nystatin (Nystatin Powder 15 Gm Bottle) 1 appl TOPICAL BID [facility]; Protocol Last Admin: 07/14/22 08:42 Dose: 1 appl Documented By: HO.SHEAKEL Prazosin HCl (Prazosin Hcl 1 Mg Capsule) 1 mg PO BEDTIME BREN; Protocol Last Admin: 07/13/22 21:16 Dose: 1 mg Documented By: BYRON Quetiapine Fumarate (Quetiapine Fumarate 50 Mg Tablet) 50 mg PO BID PRN PRN Reason: agitation Last Admin: 07/13/22 22:22 Dose: 50 mg Documented By: BYRON Trazodone HCl (Trazodone Hcl 50 Mg Tablet) 50 mg PO BEDTIME PRN PRN Reason: Insomnia Last Admin: 07/13/22 22:22 Dose: 50 mg Documented By: BYRON Labs CBC & Chem 7: 07/12/22 07:55 07/12/22 07:57 Labs: Laboratory Results - last 24 hr 07/14/22 09:12 POC Glucose 108 Assessment and Plan (1) Chronic venous insufficiency of lower extremity: Status: Acute Plan 52 year old female with history of hypertension, bipolar disorder, and chronic venous insufficiency admitted to psychiatry with consult placed to medicine for evaluation of BLE swelling. #BLE swelling: Has baseline chronic venous insuffiency at baseline with chronic venous stasis changes noted on the BLE on exam. Has been seen by Wound Clinic for this diagnosis. Has bilateral fat pads which are unlikely to resolve and will be chronic and will not cause pitting edema and will not be resolved with TEDs. Pedal pulses strong and equal. There is no orthopnea, ONTIVEROS, PND to suggest acute CHF. There is 1+ pitting edema which is likely secondary to the venous insufficiency but given increased swelling noted by patient and staff: -Continue off amlodipine. Continue lisinopril -Reviewed renal function which is WNL and is noncontributory -Venous duplex to evaluate for DVT given b/l ttp with swelling -Will check BNP and echocardiogram to evaluate for any chronic heart failure -Continue TEDs for edema, leg elevation, and encourage ambulation Will await results for further recommendations. Quality Stroke Does the patient have a stroke diagnosis?: No VTE Prior VTE?: No VTE Risk Level:: Medical - moderate - high VTE Device Contraindication: N/A - Device Ordered VTE Drug Contraindication: N/A - Med Ordered
[2022-07-14 11:00] LABS: B Type Natriuretic Peptide 32 pg/mL (<100)
[2022-07-14] MEDS: Milk of Magnesia 30 ML ORAL.SUSP PO ×2 (13:48→23:27)
[2022-07-14] MEDS: Ibuprofen 400 MG TABLET PO ×2 (13:48→22:02)
--- NOTE | 2022-07-14 16:49 | P.PNPSI_ITS ---
Subjective Subjective Date of Service: 07/14/22 Reason For Visit: omar/SI Subjective Notes: Section 7 Healthcare Proxy: No Guardianship: No Medical Problems Affecting Mental Status: No Interim History: Team report BLE edema increasing. Hospitalist team met with pt, venous duplex ordered, BNP, ECHO, Teds. Elevation and ambulation encouraged. Consult much appreciated. Calls today from cousin and aunt with financial concerns regarding referrals for further care that pt will self-pay. Pt has declined these referrals. Will meet with aunt and cousin 07/15 1200 pm with pt's nursing team and Alfonso JEFFERS to review concerns about terminal operator safety, provide referral resources and plan discharge, tentatively for 07/16. Pt is pleased with this plan. She agrees to support services in her home and is able to contract for safety at this time. Medications reviewed. Depakote tapering continues due to concern about weight gain. Seroquel is discontinued. Medication Compliance: Yes Side effects from medications: No Attending Groups: Intermittent Review of Systems Acute medical concerns: Yes BLE edema Medical Review of Systems: unchanged Review of Systems Eyes: Reports no additional eye complaints Reports system reviewed and no additional complaints, except as documented Cardiovascular: Reports pedal edema, Reports claudication and Reports leg edema Respiratory: Reports no additional respiratory complaints Gastrointestinal: Reports no additional gastrointestinal complaints Genitourinary: Reports no additional female genitourinary complaints Musculoskeletal: Reports no additional musculoskeletal complaints Skin/Breast: Reports system reviewed and no additional complaints, except as docu Reports system reviewed and no additional complaints, except as documented Psychiatric: Reports anxiety, Reports depression and Reports suicidal ideation (denies today) Endocrine: Reports no additional endocrine complaints Hematologic/Lymphatic: Reports no additional hematologic/lymphatic complaints Allergic/Immunologic: Reports no additional allergic/immunologic complaints Mental Status Exam Mental Status Exam Patient Appearance: Appropriate Patient Orientation: Person, Place, Time and Situation Level of Consciousness: Alert Patient Behavior: Appropriate, Talkative, Cooperative, Anxious and Good Eye Contact Mood Description: Anxious and Apprehensive Affect Description: Anxious Patient Cognition Impaired: No Ability to Follow Directions: Good Speech Pattern: Spontaneous Speech Memory Description: Intact Hallucinations: None Delusions: Not Present Thought Process: Intact Thought Content: positive for Intact and positive for Circumstantial Depressive Symptoms: Increased Anxiety Judgement: Good Diagnostics Vital Signs (24Hr): Vital Signs - 24 hr 07/13/22 21:15 07/14/22 08:45 Temperature 96.6 F L 97.9 F Pulse Rate 93 92 Respiratory Rate 18 17 Blood Pressure 132/63 144/72 H Pulse Oximetry 97 99 Oxygen Delivery Method Room Air Room Air BMI result Body Mass Index 30.8 Labs Results: 07/12/22 07:55 07/12/22 07:57 Labs: Laboratory Results - last 48 hr 07/13/22 07/14/22 07/14/22 08:52 09:12 10:16 POC Glucose 73 108 B-Natriuretic Peptide 32 Medications Medications Current Medications Acetaminophen (Acetaminophen 325 Mg Tablet) 650 mg PO Q6H PRN PRN Reason: Headache/Pain Mild Scale (1-3) Last Admin: 07/14/22 15:58 Dose: 650 mg Al Hydroxide/Mg Hydroxide (Magnesium Hydrox/Alum Hydrox 30 Ml Oral.Susp) 30 ml PO Q6H PRN PRN Reason: Heartburn/Nausea Atorvastatin Calcium (Atorvastatin Calcium 10 Mg Tablet) 10 mg PO DAILY [facility] Last Admin: 07/14/22 08:45 Dose: 10 mg Benzocaine (Throat Lozenge, Medicated Lozenge) 1 lozenge MUCOUS MEM Q2H PRN PRN Reason: Sore Throat Last Admin: 07/09/22 13:39 Dose: 1 lozenge Bisacodyl (Bisacodyl 5 Mg Tablet.Dr) 10 mg PO DAILY PRN PRN Reason: Constipation Last Admin: 07/12/22 06:06 Dose: 10 mg Bupropion HCl (Bupropion Hcl Xl 300 Mg Tab.Er.24h) 300 mg PO DAILY [facility] Last Admin: 07/14/22 08:45 Dose: 300 mg Cariprazine (Cariprazine Hcl 3 Mg Capsule) 6 mg PO DAILY [facility] Last Admin: 07/14/22 08:44 Dose: 6 mg Clonidine HCl (Clonidine Hcl 0.1 Mg Tablet) 0.1 mg PO DAILY PRN; Protocol PRN Reason: HTN, hyperarousal Last Admin: 07/09/22 21:26 Dose: 0.1 mg Clotrimazole (Clotrimazole 10 Mg Sandra) 10 mg MUCOUS MEM 5XD [facility] Stop: 07/19/22 18:01 Last Admin: 07/14/22 13:48 Dose: 10 mg Diphenhydramine HCl (Diphenhydramine Hcl 25 Mg Capsule) 50 mg PO Q4H PRN PRN Reason: agitation Divalproex Sodium (Divalproex Sodium Er 250 Mg Tab.Er.24h) 250 mg PO BEDTIME [facility] Docusate Sodium (Docusate Sodium 100 Mg Capsule) 200 mg PO BID BREN Last Admin: 07/14/22 08:44 Dose: 200 mg Glyburide (Glyburide 2.5 Mg Tablet) 2.5 mg PO DAILY [facility] Last Admin: 07/14/22 08:44 Dose: 2.5 mg Guaifenesin (Guaifenesin 100 Mg/5 Ml Liquid) 5 ml PO Q4H PRN PRN Reason: cough Last Admin: 07/08/22 11:58 Dose: 5 ml Hydroxyzine HCl (Hydroxyzine Hcl 25 Mg Tablet) 25 mg PO Q6H PRN PRN Reason: Anxiety Last Admin: 07/12/22 02:42 Dose: 25 mg Ibuprofen (Ibuprofen 400 Mg Tablet) 400 mg PO TID PRN PRN Reason: Pain, Moderate (Pain Scale 4-6 Last Admin: 07/14/22 13:48 Dose: 400 mg Lactulose (Lactulose 20 Gm/30 Ml Solution) 30 gm PO BID BREN Last Admin: 07/14/22 08:46 Dose: 30 gm Lidocaine/Diphenhydr/Alum/Mg/Simeth (Mag&Al/Sim/Diphenhyd/Lidocaine 10 Ml Oral.Susp) 10 ml PO Q4H PRN; Protocol PRN Reason: Mouth Sore Pain Last Admin: 07/12/22 16:49 Dose: 10 ml Lisinopril (Lisinopril 20 Mg Tablet) 20 mg PO DAILY [facility]; Protocol Last Admin: 07/14/22 08:45 Dose: 20 mg Magnesium Hydroxide (Milk Of Magnesia 30 Ml Oral.Susp) 30 ml PO DAILY PRN PRN Reason: Constipation Last Admin: 07/14/22 13:48 Dose: 30 ml Multi-Ingred Medicated Throat [place] (Throat [place], Medicated 20 Ml Bottle) 1 spray MUCOUS MEM Q2H PRN PRN Reason: Sore Throat Last Admin: 07/09/22 21:26 Dose: 1 spray Nystatin (Nystatin Powder 15 Gm Bottle) 1 appl TOPICAL BID [facility]; Protocol Last Admin: 07/14/22 08:42 Dose: 1 appl Prazosin HCl (Prazosin Hcl 1 Mg Capsule) 1 mg PO BEDTIME [facility]; Protocol Last Admin: 07/13/22 21:16 Dose: 1 mg Quetiapine Fumarate (Quetiapine Fumarate 50 Mg Tablet) 50 mg PO BID PRN PRN Reason: agitation Last Admin: 07/13/22 22:22 Dose: 50 mg Trazodone HCl (Trazodone Hcl 50 Mg Tablet) 50 mg PO BEDTIME PRN PRN Reason: Insomnia Last Admin: 07/13/22 22:22 Dose: 50 mg Allergies Allergies Allergy/AdvReac Type Severity Reaction Status Date / Time No Known Allergies Allergy Verified 05/19/22 23:36 Assessment & Plan Assessment & Plan (1) Bipolar disorder: Status: Acute Code(s): F31.9 - Bipolar disorder, unspecified Assessment and Plan: -Discharge planning -Family meeting 07/14/22 12pm -Decrease Depakote to 250 mg HS -Ferrous Sulfate 325 mg daily Plan 52 year old female with history of hypertension, bipolar disorder, and chronic venous insufficiency admitted to psychiatry with consult placed to medicine for evaluation of BLE swelling. #BLE swelling: Has baseline chronic venous insuffiency at baseline with chronic venous stasis changes noted on the BLE on exam. Has been seen by Wound Clinic for this diagnosis. Has bilateral fat pads which are unlikely to resolve and will be chronic and will not cause pitting edema and will not be resolved with TEDs. Pedal pulses strong and equal. There is no orthopnea, ONTIVEROS, PND to suggest acute CHF. There is 1+ pitting edema which is likely secondary to the venous insufficiency but given increased swelling noted by patient and staff: -Continue off amlodipine. Continue lisinopril -Reviewed renal function which is WNL and is noncontributory -Venous duplex to evaluate for DVT given b/l ttp with swelling -Will check BNP and echocardiogram to evaluate for any chronic heart failure -Continue TEDs for edema, leg elevation, and encourage ambulation Will await results for further recommendations. I spent minutes with the patient and/or on the patient floor today, great er than?50% of which was spent counseling/coordinating care. Patient educated on: medication risk/benefits and therapeutic strategies Informed Consent: understands Reason for contiued inpatient stay Substantial Risk for: harm to self and rapid decompensation
[2022-07-14 21:45] VITALS: BP 144/62; PULSE 92; RESP 16; TEMP 36.2; O2SAT 99
[2022-07-14] MEDS: Prazosin HCL 1 MG CAPSULE PO (22:01)
[2022-07-14] MEDS: traZODone HCL 50 MG TABLET PO ×2 (22:02→23:03)
[2022-07-14] MEDS: Divalproex Sodium ER 250 MG TAB.ER.24H PO (22:02)
[2022-07-15] MEDS: Acetaminophen 325 MG TABLET 650 MG PO ×2 (00:04→09:38)
[2022-07-15] MEDS: Ibuprofen 400 MG TABLET PO ×3 (04:49→21:58)
--- NOTE | 2022-07-15 07:00 | CA_ITS ---
Transthoracic Echocardiogram Patient (Last, First, Middle): Lucie Dawn, Gender: Female Date of : 1970 Age: 52 Procedure Date: 07/15/2022 Procedure Type: Transthoracic Echocardiogram Location: M3/Psych Height: 167.64 cm Weight: 86.64 kg BSA: 1.96 m2 Heart Rate: bpm BP: 144 / 72 mmHg Parking Officer: Referring MD: Mary PEREZ Symptoms: b/l leg swelling Study Quality: Good ECG Rhythm: Sinus Conclusions: - Normal left ventricular size and systolic function. There is mildly increased left ventricular wall thickness. The visually estimated ejection fraction is between 55-60%. - Normal right ventricular cavity size and systolic function. Findings Left Ventricle Normal left ventricular size and systolic function. There is mildly increased left ventricular wall thickness. The visually estimated ejection fraction is between 55-60%. There is no evidence of regional wall motion abnormalities. Diastolic function is normal for age. Right Ventricle Normal right ventricular cavity size and systolic function. Atria The left atrium is normal in size. Aortic Valve There is a normal trileaflet aortic valve. There is no aortic valve stenosis. There is no aortic valve regurgitation. Mitral Valve The mitral valve appears normal. There is no mitral valve regurgitation. There is no mitral valve stenosis. Pulmonic Valve Normal pulmonic valve structure and function. There is no pulmonic valve regurgitation. Tricuspid Valve Normal tricuspid valve structure. There is trace tricuspid valve regurgitation. Normal right atrial pressure. There is no evidence of pulmonary hypertension. Great Vessels All visible segments of the aorta are normal in size. The visualized portions of the pulmonary artery and branches are normal. Venous The inferior vena cava is normal in size and collapses greater than 50% with inspiration. Pericardium/Pleural There is no evidence of pericardial effusion. Measurements 2D Linear Measurements IVSd: 1.12 0.6-0.9/0.6-1.0 cm LVIDd: 4.26 3.9-5.3/4.2-5.9 cm LVIDd Index: 2.17 2.4-3.2/2.2-3.1 cm/m2 LVIDs: 2.59 2.0-3.6 cm LVPWd: 1.11 0.7-1.1 cm Ao Root: 3.10 2.1-3.5 cm LA Diam: 3.90 2.7-3.8/3.0-4.0 cm LAIDs Index: 1.99 1.5-2.3 cm/m2 LV Mass: 203.89 67-162/88-224 g LV Mass Index: 104.03 43-95/49-115 g/m2 LVOT Diam: 2.30 3.0+(-)1.3 cm 2D Systolic Function EF 4C: 54.80 >55% EF 2C: 58.10 >55% EF BiP: 56.00 >55% Mitral Valve MV Pk E: 0.93 MV PK A: 0.81 MV Decel Time: 148.00 E/A: 1.10 E'Lateral: 10.10 E'Medial: 7.07 E/E' Med: 13.20 E/E' Lat: 9.20 PHT: 43.00 MVA PHT: 5.12 Decel Aurora: 6.29 Aortic Valve AoV Pk Kendall: 1.42 AoV Mn Kendall: 0.98 AoV VTI: 0.32 AoV Pk Grad: 8.00 Aov Mn Grad: 5.00 MUSTAPHA Cont.VTI: 2.85 LVOT LVOT Pk Kendall: 1.06 LVOT Mn Kendall: 0.67 LVOT VTI: 0.22 LVOT Pk Grad: 4.00 LVOT Mn Grad: 2.00 LVOT Diam: 2.30 LVOT Area: 4.15 Diastolic Function MV Pk E: 0.93 MV Pk A: 0.81 E/A: 1.10 E'Medial: 7.07 E/E' Med: 13.20 E' Laterial: 10.10 E/E' Lat: 9.20 Right Ventricle TAPSE (mm): 30.00 TVS' Kendall: 11.00 Tricuspid Valve TR Pk Kendall: 2.74 TR Pk Grad: 30.00 RA Press: 3.00 RVSP: 33.00 Great Vessels Aorta Ao Root-2D: 3.10 2.0-3.7 cm Ao Asc: 2.80 2.1-3.4 cm Pulmonary Valve PV Pk Kendall: 0.96 Peak PV Grad: 4.00 Updated in Other Vendor System with Status of Final Jayy Rubio MD electronically signed on 07/15/2022 11:30:03 PM with status of Final
[2022-07-15 08:17] LABS: Glucose, Whole Blood 54 mg/dL (60-115)
[2022-07-15 09:35] VITALS: BP 131/80; PULSE 80; TEMP 36.2; O2SAT 100
[2022-07-15] MEDS: Lactulose 20 GM/30 ML SOLUTION 30 GM PO ×2 (09:36→21:53)
[2022-07-15] MEDS: Docusate Sodium 100 MG CAPSULE 200 MG PO ×2 (09:38→21:52)
[2022-07-15] MEDS: lisinopriL 20 MG TABLET PO (09:39)
[2022-07-15] MEDS: Ferrous Sulfate 324 MG TABLET.DR PO (09:39)
[2022-07-15] MEDS: glyBURIDE 2.5 MG TABLET PO (09:39)
[2022-07-15] MEDS: Atorvastatin Calcium 10 MG TABLET PO (09:40)
[2022-07-15] MEDS: buPROPion HCl XL 300 MG TAB.ER.24H PO (09:40)
[2022-07-15] MEDS: Cariprazine HCl 3 MG CAPSULE 6 MG PO (09:40)
--- NOTE | 2022-07-15 16:50 | HO.PSYCHPN ---
Subjective Subjective Date of Service: 07/15/22 Reason For Visit: omar/SI Subjective Notes: Section 7 Healthcare Proxy: No Guardianship: No Medical Problems Affecting Mental Status: No Interim History: Pt will discharge to her home on 07/17/22. Aunt will arrive by 3pm to transport pt. Family meeting with aunt who attended and cousin who attended via zoom. Both believe pt is not in need of placement-they believe she has no need to learn living skills. They report she can walk to do laundry, they pay for housekeeping twice per month and she does not use the stove. They report she has never been motivated to do things in the home but report they feel she did well on her own until she stopped medications and became more isolated. Pt talks with her aunt several times per day, is seen by family once daily and if she is not able to be contacted, family goes to her home to evaluate current situation. Aunt adds that by history, suicide attempts were always when father was at home-and pt would inform him of her actions. Most recent attempt was hoping someone would hit her, but she did not throw herself in the path of oncoming traffic. Family asks for referrals for therapy, psychiatry, PCP. They welcome [facility] involvement and would like pt to have day program options and /or a ham trimmer a few hours per week. Pt has told family she enjoys meditation group-they are willing to purchase meditation supplies for pt at team recommendation and they will organize activities to help keep her engaged. They do request VNA to assist pt with her compression stockings as she is unable to put them on. retirement risk discussed with family-they are aware and believe she is a minimal risk, citing that she is not social but did well for 6 months before stopping medications. Discussed pt's lack of ability to problem solve and her solution to issues being suicide as evidenced by team observation. They report awareness of this and no current concerns. Pt joined her aunt at the end of the meeting and is pleased with the outcome. Medication Compliance: Yes Side effects from medications: No Attending Groups: Intermittent Review of Systems Acute medical concerns: No BLE edema Medical Review of Systems: unchanged Review of Systems Constitutional: Reports no additional constitutional complaints Eyes: Reports no additional eye complaints Reports system reviewed and no additional complaints, except as documented Cardiovascular: Reports pedal edema and Reports leg edema Respiratory: Reports no additional respiratory complaints Gastrointestinal: Reports no additional gastrointestinal complaints Genitourinary: Reports no additional female genitourinary complaints and Reports urinary incontinence (pt reports resolution) Musculoskeletal: Reports no additional musculoskeletal complaints Skin/Breast: Reports system reviewed and no additional complaints, except as docu Reports system reviewed and no additional complaints, except as documented Psychiatric: Reports anxiety and Reports suicidal ideation (denies) Mental Status Exam Mental Status Exam Patient Appearance: Appropriate Patient Orientation: Person, Place, Time and Situation Level of Consciousness: Alert Patient Behavior: Appropriate, Talkative, Cooperative, Anxious and Good Eye Contact Mood Description: Anxious and Apprehensive Affect Description: Anxious Patient Cognition Impaired: No Ability to Follow Directions: Good Speech Pattern: Spontaneous Speech Memory Description: Intact Hallucinations: None Delusions: Not Present Thought Process: Intact Thought Content: positive for Intact and positive for Circumstantial Depressive Symptoms: Increased Anxiety Judgement: Good Diagnostics Vital Signs (24Hr): Vital Signs - 24 hr 07/14/22 21:45 07/15/22 09:35 Temperature 97.2 F 97.2 F Pulse Rate 92 80 Respiratory Rate 16 Blood Pressure 144/62 H 131/80 Pulse Oximetry 99 100 Oxygen Delivery Method Room Air Room Air BMI result Body Mass Index 30.8 Labs Results: 07/12/22 07:55 07/12/22 07:57 Labs: Laboratory Results - last 48 hr 07/14/22 07/14/22 07/15/22 09:12 10:16 08:13 POC Glucose 108 54 L* B-Natriuretic Peptide 32 Imaging Radiology Impressions: ITS Impressions Venous Duplex 07/14/22 14:57 IMPRESSION: No DVT demonstrated in the bilateral lower extremity. Left peroneal veins not well visualized. Complex right Palacios's cyst. Medications Medications Current Medications Acetaminophen (Acetaminophen 325 Mg Tablet) 650 mg PO Q6H PRN PRN Reason: Headache/Pain Mild Scale (1-3) Last Admin: 07/15/22 09:38 Dose: 650 mg Al Hydroxide/Mg Hydroxide (Magnesium Hydrox/Alum Hydrox 30 Ml Oral.Susp) 30 ml PO Q6H PRN PRN Reason: Heartburn/Nausea Atorvastatin Calcium (Atorvastatin Calcium 10 Mg Tablet) 10 mg PO DAILY BREN Last Admin: 07/15/22 09:40 Dose: 10 mg Benzocaine (Throat Lozenge, Medicated Lozenge) 1 lozenge MUCOUS MEM Q2H PRN PRN Reason: Sore Throat Last Admin: 07/09/22 13:39 Dose: 1 lozenge Bisacodyl (Bisacodyl 5 Mg Tablet.) 10 mg PO DAILY PRN PRN Reason: Constipation Last Admin: 07/12/22 06:06 Dose: 10 mg Bupropion HCl (Bupropion Hcl Xl 300 Mg Tab.Er.24h) 300 mg PO DAILY [facility] Last Admin: 07/15/22 09:40 Dose: 300 mg Cariprazine (Cariprazine Hcl 3 Mg Capsule) 6 mg PO DAILY [facility] Last Admin: 07/15/22 09:40 Dose: 6 mg Clonidine HCl (Clonidine Hcl 0.1 Mg Tablet) 0.1 mg PO DAILY PRN; Protocol PRN Reason: HTN, hyperarousal Last Admin: 07/09/22 21:26 Dose: 0.1 mg Clotrimazole (Clotrimazole 10 Mg Sandra) 10 mg MUCOUS MEM 5XD [facility] Stop: 07/19/22 18:01 Last Admin: 07/15/22 14:58 Dose: 10 mg Diphenhydramine HCl (Diphenhydramine Hcl 25 Mg Capsule) 50 mg PO Q4H PRN PRN Reason: agitation Divalproex Sodium (Divalproex Sodium Er 250 Mg Tab.Er.24h) 250 mg PO BEDTIME [facility] Last Admin: 07/14/22 22:02 Dose: 250 mg Docusate Sodium (Docusate Sodium 100 Mg Capsule) 200 mg PO BID [facility] Last Admin: 07/15/22 09:38 Dose: 200 mg Ferrous Sulfate (Ferrous Sulfate 324 Mg Tablet.) 324 mg PO DAILY [facility] Last Admin: 07/15/22 09:39 Dose: 324 mg Glyburide (Glyburide 2.5 Mg Tablet) 2.5 mg PO DAILY [facility] Last Admin: 07/15/22 09:39 Dose: 2.5 mg Guaifenesin (Guaifenesin 100 Mg/5 Ml Liquid) 5 ml PO Q4H PRN PRN Reason: cough Last Admin: 07/08/22 11:58 Dose: 5 ml Hydroxyzine HCl (Hydroxyzine Hcl 25 Mg Tablet) 25 mg PO Q6H PRN PRN Reason: Anxiety Last Admin: 07/12/22 02:42 Dose: 25 mg Ibuprofen (Ibuprofen 400 Mg Tablet) 400 mg PO TID PRN PRN Reason: Pain, Moderate (Pain Scale 4-6 Last Admin: 07/15/22 15:20 Dose: 400 mg Lactulose (Lactulose 20 Gm/30 Ml Solution) 30 gm PO BID BR[facility] Last Admin: 07/15/22 09:36 Dose: 30 gm Lidocaine/Diphenhydr/Alum/Mg/Simeth (Mag&Al/Sim/Diphenhyd/Lidocaine 10 Ml Oral.Susp) 10 ml PO Q4H PRN; Protocol PRN Reason: Mouth Sore Pain Last Admin: 07/12/22 16:49 Dose: 10 ml Lisinopril (Lisinopril 20 Mg Tablet) 20 mg PO DAILY BREN; Protocol Last Admin: 07/15/22 09:39 Dose: 20 mg Magnesium Hydroxide (Milk Of Magnesia 30 Ml Oral.Susp) 30 ml PO DAILY PRN PRN Reason: Constipation Last Admin: 07/14/22 23:27 Dose: 30 ml Multi-Ingred Medicated Throat [place] (Throat [place], Medicated 20 Ml Bottle) 1 spray MUCOUS MEM Q2H PRN PRN Reason: Sore Throat Last Admin: 07/09/22 21:26 Dose: 1 spray Nystatin (Nystatin Powder 15 Gm Bottle) 1 appl TOPICAL BID BREN; Protocol Last Admin: 07/15/22 09:53 Dose: Not Given Prazosin HCl (Prazosin Hcl 1 Mg Capsule) 1 mg PO BEDTIME BREN; Protocol Last Admin: 07/14/22 22:01 Dose: 1 mg Quetiapine Fumarate (Quetiapine Fumarate 50 Mg Tablet) 50 mg PO BID PRN PRN Reason: agitation Last Admin: 07/13/22 22:22 Dose: 50 mg Trazodone HCl (Trazodone Hcl 50 Mg Tablet) 50 mg PO BEDTIME PRN PRN Reason: Insomnia Last Admin: 07/14/22 23:03 Dose: 50 mg Allergies Allergies Allergy/AdvReac Type Severity Reaction Status Date / Time No Known Allergies Allergy Verified 05/19/22 23:36 Assessment & Plan Assessment & Plan (1) Bipolar disorder: Status: Acute Code(s): F31.9 - Bipolar disorder, unspecified Assessment and Plan: -Discharge planning -Family meeting 07/15/22 12pm -Decrease Depakote to 250 mg HS -Ferrous Sulfate 325 mg daily 07/05/22 Discharge 07/17/22. Plan 52 year old female with history of hypertension, bipolar disorder, and chronic venous insufficiency admitted to psychiatry with consult placed to medicine for evaluation of BLE swelling. #BLE swelling: Has baseline chronic venous insuffiency at baseline with chronic venous stasis changes noted on the BLE on exam. Has been seen by [facility] for this diagnosis. Has bilateral fat pads which are unlikely to resolve and will be chronic and will not cause pitting edema and will not be resolved with TEDs. Pedal pulses strong and equal. There is no orthopnea, ONTIVEROS, PND to suggest acute CHF. There is 1+ pitting edema which is likely secondary to the venous insufficiency but given increased swelling noted by patient and staff: -Continue off amlodipine. Continue lisinopril -Reviewed renal function which is WNL and is noncontributory -Venous duplex to evaluate for DVT given b/l ttp with swelling -Will check BNP and echocardiogram to evaluate for any chronic heart failure -Continue TEDs for edema, leg elevation, and encourage ambulation Will await results for further recommendations. I spent minutes with the patient and/or on the patient floor today, greater than?50% of which was spent counseling/coordinating care. Guardian/Caregiver educated on: medication risk/benefits, therapeutic strategies and medical condition Informed Consent: understands Reason for contiued inpatient stay Substantial Risk for: med/psych decompensation
[2022-07-15] MEDS: Prazosin HCL 1 MG CAPSULE PO (21:52)
[2022-07-15] MEDS: traZODone HCL 50 MG TABLET PO (21:52)
[2022-07-15] MEDS: Milk of Magnesia 30 ML ORAL.SUSP PO (21:53)
[2022-07-15] MEDS: Nystatin Powder 15 GM BOTTLE 1 APPL TOPICAL (21:59)
[2022-07-15 22:04] VITALS: BP 136/62; PULSE 90; TEMP 36.6; O2SAT 100
--- NOTE | 2022-07-16 07:55 | PM.EVENT ---
Event Note Date of Service: 07/16/22 Event Note: 52 year old female with history of hypertension, bipolar disorder, and chronic venous insufficiency admitted to psychiatry with consult placed to medicine for evaluation of BLE swelling. Renal function consistent with very mild CKG stage 3, not likely contributing to edema. BNP unremarkable, echo without evidence of systolic or diastolic dysfunction with preserved ejection fraction. Venous duplex negative for DVT. Pt has notable bilateral fat pads which are not related to any fluid retention but will cause the legs to appear swollen. This is chronic and even significant efforts toward weight loss are unlikely to eliminate this. There is slight pitting edema as noted in prior notes as well. Work up inpatient has been negative and this is a chronic issue that is likely related to her known chronic venous insuffiency. Weight loss efforts can be helpful to improve this and activity on the unit and once discharged should be encouraged. She can continue TEDs stockings and leg elevation. No further work up or intervention needed at this time Thank you for allowing me to participate in this consult. Signing off at this time. Please do not hesitate to call prn for further questions.
[2022-07-16 08:31] LABS: Glucose, Whole Blood 86 mg/dL (60-115)
[2022-07-16] MEDS: glyBURIDE 2.5 MG TABLET PO (09:33)
[2022-07-16] MEDS: Docusate Sodium 100 MG CAPSULE 200 MG PO ×2 (09:33→22:14)
[2022-07-16] MEDS: Ferrous Sulfate 324 MG TABLET.DR PO (09:33)
[2022-07-16] MEDS: Cariprazine HCl 3 MG CAPSULE 6 MG PO (09:33)
[2022-07-16] MEDS: lisinopriL 20 MG TABLET PO (09:33)
[2022-07-16] MEDS: buPROPion HCl XL 300 MG TAB.ER.24H PO (09:33)
[2022-07-16] MEDS: Atorvastatin Calcium 10 MG TABLET PO (09:33)
[2022-07-16] MEDS: Lactulose 20 GM/30 ML SOLUTION 30 GM PO ×2 (09:35→22:13)
[2022-07-16] MEDS: Ibuprofen 400 MG TABLET PO ×2 (09:40→22:14)
[2022-07-16] MEDS: Nystatin Powder 15 GM BOTTLE 1 APPL TOPICAL ×2 (09:42→22:59)
[2022-07-16 09:48] VITALS: BP 113/58; PULSE 92; RESP 16; TEMP 36.5; O2SAT 98
--- NOTE | 2022-07-16 19:21 | HO.PSYCHPN ---
Subjective Subjective Date of Service: 07/16/22 Reason For Visit: omar/SI Subjective Notes: Section 7 Healthcare Proxy: No Guardianship: No Medical Problems Affecting Mental Status: No Interim History: I feel excited to go home. Pt today is positive, with mild apprehension about discharge. Reviewed several plans, thoughts about what she needs to do differently to keep herself active and engaged. Med review, referral review completed. Expressed appreciation to her team for working with her. Referall to [facility] for follow up on 07/22/22. Medication Compliance: Yes Side effects from medications: No Attending Groups: Yes Review of Systems Acute medical concerns: No BLE Edema-wearing TEDS. Diagnostics are negative. Medical Review of Systems: unchanged Mental Status Exam Mental Status Exam Patient Appearance: Appropriate Patient Orientation: Person, Place, Time and Situation Level of Consciousness: Alert Patient Behavior: Appropriate, Talkative, Cooperative, Anxious and Good Eye Contact Mood Description: Anxious and Apprehensive Affect Description: Anxious Patient Cognition Impaired: No Ability to Follow Directions: Good Speech Pattern: Spontaneous Speech Memory Description: Intact Hallucinations: None Delusions: Not Present Thought Process: Intact Thought Content: positive for Intact and positive for Circumstantial Depressive Symptoms: Increased Anxiety Judgement: Good Diagnostics Vital Signs (24Hr): Vital Signs - 24 hr 07/15/22 22:04 07/16/22 09:48 Temperature 97.8 F 97.7 F Pulse Rate 90 92 Respiratory Rate 16 Blood Pressure 136/62 113/58 L Pulse Oximetry 100 98 Oxygen Delivery Method Room Air Room Air BMI result Body Mass Index 30.8 Labs Results: 07/12/22 07:55 07/12/22 07:57 Labs: Laboratory Results - last 48 hr 07/15/22 07/16/22 08:13 08:24 POC Glucose 54 L* 86 Imaging Radiology Impressions: ITS Impressions Venous Duplex 07/14/22 14:57 IMPRESSION: No DVT demonstrated in the bilateral lower extremity. Left peroneal veins not well visualized. Complex right Palacios's cyst. Medications Medications Current Medications Acetaminophen (Acetaminophen 325 Mg Tablet) 650 mg PO Q6H PRN PRN Reason: Headache/Pain Mild Scale (1-3) Last Admin: 07/15/22 09:38 Dose: 650 mg Al Hydroxide/Mg Hydroxide (Magnesium Hydrox/Alum Hydrox 30 Ml Oral.Susp) 30 ml PO Q6H PRN PRN Reason: Heartburn/Nausea Atorvastatin Calcium (Atorvastatin Calcium 10 Mg Tablet) 10 mg PO DAILY [facility] Last Admin: 07/16/22 09:33 Dose: 10 mg Benzocaine (Throat Lozenge, Medicated Lozenge) 1 lozenge MUCOUS MEM Q2H PRN PRN Reason: Sore Throat Last Admin: 07/09/22 13:39 Dose: 1 lozenge Bisacodyl (Bisacodyl 5 Mg Tablet.Dr) 10 mg PO DAILY PRN PRN Reason: Constipation Last Admin: 07/12/22 06:06 Dose: 10 mg Bupropion HCl (Bupropion Hcl Xl 300 Mg Tab.Er.24h) 300 mg PO DAILY [facility] Last Admin: 07/16/22 09:33 Dose: 300 mg Cariprazine (Cariprazine Hcl 3 Mg Capsule) 6 mg PO DAILY [facility] Last Admin: 07/16/22 09:33 Dose: 6 mg Clonidine HCl (Clonidine Hcl 0.1 Mg Tablet) 0.1 mg PO DAILY PRN; Protocol PRN Reason: HTN, hyperarousal Last Admin: 07/09/22 21:26 Dose: 0.1 mg Clotrimazole (Clotrimazole 10 Mg Sandra) 10 mg MUCOUS MEM 5XD [facility] Stop: 07/19/22 18:01 Last Admin: 07/16/22 18:48 Dose: 10 mg Diphenhydramine HCl (Diphenhydramine Hcl 25 Mg Capsule) 50 mg PO Q4H PRN PRN Reason: agitation Docusate Sodium (Docusate Sodium 100 Mg Capsule) 200 mg PO BID [facility] Last Admin: 07/16/22 09:33 Dose: 200 mg Ferrous Sulfate (Ferrous Sulfate 324 Mg Tablet.) 324 mg PO DAILY [facility] Last Admin: 07/16/22 09:33 Dose: 324 mg Glyburide (Glyburide 2.5 Mg Tablet) 2.5 mg PO DAILY [facility] Last Admin: 07/16/22 09:33 Dose: 2.5 mg Guaifenesin (Guaifenesin 100 Mg/5 Ml Liquid) 5 ml PO Q4H PRN PRN Reason: cough Last Admin: 07/08/22 11:58 Dose: 5 ml Hydroxyzine HCl (Hydroxyzine Hcl 25 Mg Tablet) 25 mg PO Q6H PRN PRN Reason: Anxiety Last Admin: 07/12/22 02:42 Dose: 25 mg Ibuprofen (Ibuprofen 400 Mg Tablet) 400 mg PO TID PRN PRN Reason: Pain, Moderate (Pain Scale 4-6 Last Admin: 07/16/22 09:40 Dose: 400 mg Lactulose (Lactulose 20 Gm/30 Ml Solution) 30 gm PO BID [facility] Last Admin: 07/16/22 09:35 Dose: 30 gm Lidocaine/Diphenhydr/Alum/Mg/Simeth (Mag&Al/Sim/Diphenhyd/Lidocaine 10 Ml Oral.Susp) 10 ml PO Q4H PRN; Protocol PRN Reason: Mouth Sore Pain Last Admin: 07/12/22 16:49 Dose: 10 ml Lisinopril (Lisinopril 20 Mg Tablet) 20 mg PO DAILY [facility]; Protocol Last Admin: 07/16/22 09:33 Dose: 20 mg Magnesium Hydroxide (Milk Of Magnesia 30 Ml Oral.Susp) 30 ml PO DAILY PRN PRN Reason: Constipation Last Admin: 07/15/22 21:53 Dose: 30 ml Multi-Ingred Medicated Throat [place] (Throat [place], Medicated 20 Ml Bottle) 1 spray MUCOUS MEM Q2H PRN PRN Reason: Sore Throat Last Admin: 07/09/22 21:26 Dose: 1 spray Nystatin (Nystatin Powder 15 Gm Bottle) 1 appl TOPICAL BID BREN; Protocol Last Admin: 07/16/22 09:42 Dose: 1 appl Prazosin HCl (Prazosin Hcl 1 Mg Capsule) 1 mg PO BEDTIME BREN; Protocol Last Admin: 07/15/22 21:52 Dose: 1 mg Trazodone HCl (Trazodone Hcl 50 Mg Tablet) 50 mg PO BEDTIME PRN PRN Reason: Insomnia Last Admin: 07/15/22 21:52 Dose: 50 mg Allergies Allergies Allergy/AdvReac Type Severity Reaction Status Date / Time No Known Allergies Allergy Verified 05/19/22 23:36 Assessment & Plan Assessment & Plan (1) Bipolar disorder: Status: Acute Code(s): F31.9 - Bipolar disorder, unspecified Assessment and Plan: -Discharge planning -Family meeting 07/15/22 12pm -Decrease Depakote to 250 mg HS -Ferrous Sulfate 325 mg daily 07/15/22 Discharge 07/17/22. 07/16/22 Discharge prepared for 07/17/22. Plan 52 year old female with history of hypertension, bipolar disorder, and chronic venous insufficiency admitted to psychiatry with consult placed to medicine for evaluation of BLE swelling. #BLE swelling: Has baseline chronic venous insuffiency at baseline with chronic venous stasis changes noted on the BLE on exam. Has been seen by [facility] for this diagnosis. Has bilateral fat pads which are unlikely to resolve and will be chronic and will not cause pitting edema and will not be resolved with TEDs. Pedal pulses strong and equal. There is no orthopnea, ONTIVEROS, PND to suggest acute CHF. There is 1+ pitting edema which is likely secondary to the venous insufficiency but given increased swelling noted by patient and staff: -Continue off amlodipine. Continue lisinopril -Reviewed renal function which is WNL and is noncontributory -Venous duplex to evaluate for DVT given b/l ttp with swelling -Will check BNP and echocardiogram to evaluate for any chronic heart failure -Continue TEDs for edema, leg elevation, and encourage ambulation Will await results for further recommendations. I spent minutes with the patient and/or on the patient floor today, greater than?50% of which was spent counseling/coordinating care. Patient educated on: diagnosis, medication risk/benefits, therapeutic strategies and medical condition Informed Consent: understands and further education needed Reason for contiued inpatient stay Substantial Risk for: stable for discharge
[2022-07-16 22:00] VITALS: BP 139/63; PULSE 86; TEMP 36.3; O2SAT 99
[2022-07-16] MEDS: Prazosin HCL 1 MG CAPSULE PO (22:15)
[2022-07-16] MEDS: traZODone HCL 50 MG TABLET PO (22:15)
[2022-07-17] MEDS: Ibuprofen 400 MG TABLET PO ×2 (06:51→13:24)
[2022-07-17 07:00] VITALS: BMI 31.6
[2022-07-17 08:44] LABS: Glucose, Whole Blood 106 mg/dL (60-115)
--- NOTE | 2022-07-17 08:47 | P.DS_ITS ---
DS: Providers Provider Date of Service: 07/17/22 Date of admission: 05/20/22 00:00 Date of discharge: 07/17/22 Primary care physician: None Physician Admitting clinician: Reema Huff Attending physician on admission: Eric Caputo Consults: 06/30/22 18:25 Consult to Urology Routine Consulting Provider: Ha Rhodes III Reason for consultation: new onset nocturnal urinary incontinence Has provider been notified: No 07/10/22 17:21 Consult to Hospitalist Routine Consulting Provider: Hospitalist Reason For Exam: canker sore on roof of mouth 07/11/22 10:52 Consult to Hospitalist Routine Consulting Provider: Hospitalist Reason For Exam: Management of HTN, BLE Edema 07/12/22 15:38 Consult to Hospitalist Routine Consulting Provider: Hospitalist Reason For Exam: BLE edema / Lesion on roof of mouth Attending physician on discharge: Eric Caputo Discharging clinician: Reema Huff DS: Diagnosis Discharge Diagnosis (1) Bipolar disorder: Status: Acute DS: Medications Discharge Medications Home Medications: Home Medications Medication Instructions Recorded Confirmed No Known Home Meds 05/19/22 05/19/22 Mental Status Exam Mental Status Exam Patient Appearance: Appropriate Patient Orientation: Person, Place, Time and Situation Level of Consciousness: Alert Patient Behavior: Appropriate, Talkative, Cooperative, Anxious and Good Eye Contact Mood Description: Anxious and Apprehensive Affect Description: Anxious Patient Cognition Impaired: No Ability to Follow Directions: Good Speech Pattern: Spontaneous Speech Memory Description: Intact Hallucinations: None Delusions: Not Present Thought Process: Intact Thought Content: positive for Intact and positive for Circumstantial Depressive Symptoms: Increased Anxiety Judgement: Good Data Data Completed and Pending Completed studies during hospitalization [Text1]: 07/10/22 07/11/22 07/12/22 11:40 08:22 07:55 WBC 7.3 RBC 3.79 L Hgb 10.9 L Hct 34.5 L MCV 91.0 MCH 28.8 MCHC 31.6 RDW 13.7 Plt Count 224 MPV 8.3 L Immature Gran % (Auto) 0.5 H Neut % (Auto) 51.7 Lymph % (Auto) 33.4 Hickman % (Auto) 10.6 Eos % (Auto) 3.4 Baso % (Auto) 0.4 Lymph # (Auto) 2.4 Hickman # (Auto) 0.8 Eos # (Auto) 0.3 Baso # (Auto) 0.0 Abs Immat Gran (auto) 0.04 H Absolute Neuts (auto) 3.8 Absolute Nucleated RBC 0.000 Nucleated RBC % (auto) 0.0 Sodium Potassium Chloride Carbon Dioxide Anion Gap BUN Creatinine Estim Creat Clear Calc Estimated GFR POC Glucose 122 H 81 Random Glucose Calcium Total Bilirubin AST ALT Alkaline Phosphatase B-Natriuretic Peptide Total Protein Albumin Valproic Acid 07/12/22 07/12/22 07/12/22 07:55 07:57 09:29 WBC RBC Hgb Hct MCV MCH MCHC RDW Plt Count MPV Immature Gran % (Auto) Neut % (Auto) Lymph % (Auto) Hickman % (Auto) Eos % (Auto) Baso % (Auto) Lymph # (Auto) [place]ickman # (Auto) Eos # (Auto) Baso # (Auto) Abs Immat Gran (auto) Absolute Neuts (auto) Absolute Nucleated RBC Nucleated RBC % (auto) Sodium 135 Potassium 4.5 Chloride 98 Carbon Dioxide 28 Anion Gap 14 BUN 16 Creatinine 0.98 Estim Creat Clear Calc 73.5 Estimated GFR 59 POC Glucose 82 Random Glucose 91 Calcium 9.3 Total Bilirubin 0.3 AST 14 ALT 12 Alkaline Phosphatase 59 B-Natriuretic Peptide Total Protein 6.3 L Albumin 3.5 Valproic Acid 43.0 L 07/13/22 07/14/22 07/14/22 08:52 09:12 10:16 WBC RBC Hgb Hct MCV MCH MCHC RDW Plt Count MPV Immature Gran % (Auto) Neut % (Auto) Lymph % (Auto) [place]ick[place] % (Auto) Eos % (Auto) Baso % (Auto) Lymph # (Auto) [place] # (Auto) Eos # (Auto) Baso # (Auto) Abs Immat Gran (auto) Absolute Neuts (auto) Absolute Nucleated RBC Nucleated RBC % (auto) Sodium Potassium Chloride Carbon Dioxide Anion Gap BUN Creatinine Estim Creat Clear Calc Estimated GFR POC Glucose 73 108 Random Glucose Calcium Total Bilirubin AST ALT Alkaline Phosphatase B-Natriuretic Peptide 32 Total Protein Albumin Valproic Acid 07/15/22 07/16/22 07/17/22 08:13 08:24 08:40 WBC RBC Hgb Hct MCV MCH MCHC RDW Plt Count MPV Immature Gran % (Auto) Neut % (Auto) Lymph % (Auto) [place]ick[place] % (Auto) Eos % (Auto) Baso % (Auto) Lymph # (Auto) Hickman # (Auto) Eos # (Auto) Baso # (Auto) Abs Immat Gran (auto) Absolute Neuts (auto) Absolute Nucleated RBC Nucleated RBC % (auto) Sodium Potassium Chloride Carbon Dioxide Anion Gap BUN Creatinine Estim Creat Clear Calc Estimated GFR POC Glucose 54 L* 86 106 Random Glucose Calcium Total Bilirubin AST ALT Alkaline Phosphatase B-Natriuretic Peptide Total Protein Albumin Valproic Acid 06/30/22 21:41 Urine clean catch - Urine richardson top Urine Culture - Final 06/30/22 15:00 Throat Throat Culture - Final No Group A Beta-hemolytic Streptococci isolated. 06/27/22 23:04 Throat Throat Culture - Final No Group A Beta-hemolytic Streptococci isolated. 06/25/22 19:10 Urine clean catch - Urine richardson top Urine Culture - Final 06/02/22 15:20 Urine clean catch - Clean Catch Midstream Urine Culture - Final 05/19/22 20:10 Urine clean catch - Urine richardson top Urine Culture - Final [facility] Diagnostic Imaging Impressions Venous Duplex 07/14/22 14:57 IMPRESSION: No DVT demonstrated in the bilateral lower extremity. Left peroneal veins not well visualized. Complex right Palacios's cyst. DS: Summary Hospital Course Hospital Course: Admission to adult psychiatry for exacerbation of symptoms of bipolar disorder, depression with suicide attempt-found wandering in traffic on [address] and attempting to get hit by a car. Section seven was filed. Pt did not need to attend court as she was compliant with treatment. She is from [place]-raised by parents who were overprotective and enabled her dependence. 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 Both parents and her brother are . This is the year anniversary time of father's and her move to [place]. Prior to admission she stopped medication and withdrew from her family. She exhibited severe symptoms during admission, had a bout with COVID-19 during admission without residual effects and was stabilized on a regime of Bupropion, Prazosin, Vraylar, Clonidine prn and Trazodone prn. Toward the ending of her admission she became more involved in the milieu and her suicidality diminished entirely. She hopes to return to some sort of volunteer work in the future and is looking forward to out patient therapy and [facility] care management. Time spent discussing smoking cessation with patient: 3 to 10 minutes Status at Discharge Functional status at discharge: independent ambulation Overall status at discharge: patient is back to baseline Time Spent with Patient Time attestation: Total time spent providing and/or coordinating discharge services: 40 Discharge Plan Discharge Anticipated Discharge Date/Time: 07/17/22 15:00 Patient Disposition: Home, Self-Care Discharge Diagnosis: Bipolar Disorder HTN Mouth Sore Chronic Venous Insufficiency of Lower Extremities with bilateral edema Referrals: AKSHAT Hernandez [Other] - 08/15/22 10:30 am (Follow-up discharge appointment. Initial psychiatric evaluation for medication management. Appointment will be by tele-health. Provider will contact you by telephone or zoom call for appointment. ) [facility] (Therapist) [Other] - 1 Week (Outpatient therapy referral. Therapist to be assigned. Patient should follow-up with [facility] after discharge about the assigned therapist ) [facility] [Other] - 1 Week (Referral for [facility] Placement.) [facility] [Other] - 1 Week (Referral for [facility] services Patient assigned riprap worker is Dayan Tucker who will be contacting you to schedule needs and means assessment following your discharge from [facility].) Martha Chung CNP [Nurse Practitioner] - 07/22/22 12:20 pm ([address] [place] [address] ) [facility] [Physician] - 1 Week Discharge Medications: New clonidine HCl 0.1 mg Tablet 0.1 mg PO DAILY PRN (Reason: HTN, hyperarousal) Qty: 30 0RF Protocol: Hold for SBP< HOLD for SBP < : 90 atorvastatin 10 mg Tablet 10 mg PO DAILY Qty: 30 0RF prazosin 1 mg Capsule 1 mg PO BEDTIME Qty: 30 0RF Protocol: Hold for SBP< HOLD for SBP < : 90 lisinopril 20 mg Tablet 20 mg PO DAILY Qty: 30 0RF Protocol: Hold for SBP< HOLD for SBP < : 90 bupropion HCl 300 mg Tablet Extended Release 24 Hr 300 mg PO DAILY Qty: 30 0RF ferrous sulfate 324 mg (65 mg iron) Tablet,Delayed Release (Dr/Ec) 324 mg PO DAILY Qty: 30 0RF Vraylar 3 mg Capsule 6 mg PO DAILY Qty: 30 0RF trazodone 50 mg Tablet 50 mg PO BEDTIME PRN (Reason: Insomnia) Qty: 30 0RF glyburide 2.5 mg Tablet 2.5 mg PO DAILY Qty: 30 0RF docusate sodium 100 mg Capsule 200 mg PO BID Qty: 120 0RF hydroxyzine HCl 25 mg Tablet 25 mg PO Q6H PRN (Reason: Anxiety) Qty: 30 0RF clotrimazole 10 mg Sandra 10 mg mucous membrane 5XD Qty: 100 0RF nystatin 100,000 unit/gram Powder 1 appl topical BID Qty: 10 0RF Protocol: Apply to: Apply to: groin Mag&Al/Sim/Diphenhyd/Lidocaine [Magic Mouthwash] 10 ml PO Q4H PRN (Reason: mouth sore) Qty: 500 1RF Vraylar 6 mg capsule 6 mg PO DAILY Qty: 30 0RF Discharge Orders: Discharge Order (Routine); Ordered 07/17/22 Ordered By: Reema Huff Diet: Advance to usual diet Activity on Discharge: As tolerated Stand Alone Forms: Patient Portal Discharge page, Community Support Care Plan Goals: Maintain mood and safe behaviors Take medications as directed Practice coping skills Follow up with out patient care providers scheduled Health Concerns: Stable mood and behavior Plan of Treatment: Follow up with out patient appointments Take medications as directed Assessment: Pt interviewed prior to discharge and found to be oriented fully and without SI/HI. Pt has insight and demonstrates good judgment in terms of wanting to continue treatment Pt is not an imminent risk of harm to self or others and has a safety plan that includes presenting to the closest ER or calling 911 if she is feeling unsafe. Pt has been observed closely by nursing and unit staff throughout admission. She has not engaged in any behaviors that suggest dangerousness to self or others and has demonstrated appropriate behaviors and impulse control. Discharge Date/Time: 07/17/22 02:55
[2022-07-17] MEDS: Atorvastatin Calcium 10 MG TABLET PO (09:05)
[2022-07-17] MEDS: Cariprazine HCl 3 MG CAPSULE 6 MG PO (09:06)
[2022-07-17] MEDS: lisinopriL 20 MG TABLET PO (09:06)
[2022-07-17] MEDS: buPROPion HCl XL 300 MG TAB.ER.24H PO (09:07)
[2022-07-17] MEDS: Ferrous Sulfate 324 MG TABLET.DR PO (09:07)
[2022-07-17] MEDS: Docusate Sodium 100 MG CAPSULE 200 MG PO (09:08)
[2022-07-17] MEDS: glyBURIDE 2.5 MG TABLET PO (09:08)
[2022-07-17] MEDS: Lactulose 20 GM/30 ML SOLUTION 30 GM PO (09:09)
[2022-07-17 09:10] VITALS: BP 151/67; PULSE 92; RESP 18; TEMP 36.2; O2SAT 100
[2022-07-17] MEDS: Acetaminophen 325 MG TABLET 650 MG PO (09:34)
[2022-07-17] MEDS: Nystatin Powder 15 GM BOTTLE 1 APPL TOPICAL (09:36)
--- NOTE | 2022-07-17 12:11 | PC.NURSE ---
Patient alert, oriented x3. Affect bright, patient states she is looking forward to discharge. 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 Patient denies SI/HI, states that she has chronic depression but it is currently at a manageable level. Patient denies AH/VH. Reviewed belongings, and valuables with patient- no concerns reported. Discharge instructions reviewed w/ patient- patient verbalized understanding, no concerns or questions verbalized.
[2022-07-17] MEDS: hydrOXYzine HCL 25 MG TABLET PO (13:24)
== END 2022-07-17 02:55 | disposition home or self-care (01) | DRG 885 ==
LOC: HO.ED 19:48 → HO.PM5 05-20 00:09 → HO.PADLT16 06-04 19:39
PROVIDERS: Physician Assistant; Psychiatry & Neurology Psychiatry; Admitting Provider Psychiatry & Neurology Psychiatry; Emergency Provider Emergency Medicine; Visit Provider Clinical Nurse Specialist Psychiatric/Mental Health, Adult
DX: F31.9 Bipolar disorder, unspecified (principal); U07.1 COVID-19; K12.0 Recurrent oral aphthae; I12.9 Hypertensive chronic kidney disease with stage 1 through stage 4 chronic kidney disease, or unspecified chronic kidney disease; N18.30 Chronic kidney disease, stage 3 unspecified; E78.5 Hyperlipidemia, unspecified; K59.00 Constipation, unspecified; I87.2 Venous insufficiency (chronic) (peripheral); Z23 Encounter for immunization; Z91.14 Patient's other noncompliance with medication regimen; Z91.51 Personal history of suicidal behavior; Z79.899 Other long term (current) drug therapy
CPT/HCPCS: 36415; 80048; 80053; 80061; 80076; 80164; 80307; 81001; 82077; 82140; 82947; 83036; 83735; 83880; 85025; 87070; 87086; 87088; 87186; 87635; 87651; 90686; 90792; 93005; 93306; 93970; 99285; J1200

== ENCOUNTER 2022-09-28 01:03 | Emergency (ER) | payer MEDICARE, BC, SELFPAY ==
--- NOTE | ~2022-09-28 | CT_ITS ---
EXAMINATION: CT ABDOMEN AND PELVIS WITH CONTRAST CLINICAL INFORMATION: Generalized severe abdominal pain. COMPARISON: None TECHNIQUE: Multidetector volumetric images were obtained from the superior aspect of the liver through the pubic symphysis following administration 85 mL of Omnipaque 350 intravenous contrast. Sagittal and coronal reformatted images were obtained on the technologist's workstation. Oral contrast: No This CT examination was performed using dose optimization techniques as appropriate, variously including the following: *Automated exposure control *Adjustment of mA and/or kV according to patient size (this includes techniques or standardized protocols for targeted exams where dose is matched to indication/reason for exam; i.e. extremities or head) *Use of iterative reconstruction technique DLP: 986 mGy-cm FINDINGS: LUNG BASES: The visualized lung bases are unremarkable. LIVER, GALLBLADDER, AND BILIARY TREE: The liver is normal in size, shape, and attenuation. No focal hepatic lesion or biliary ductal dilatation is present. Cholecystectomy. PANCREAS: Unremarkable. SPLEEN: Unremarkable. ADRENAL GLANDS: Unremarkable. KIDNEYS AND URETERS: Persistent lobulation of both kidneys. The kidneys are normal in size and attenuation. No hydronephrosis, hydroureter, or calculi seen. No perinephric stranding. BLADDER: Unremarkable. GASTROINTESTINAL TRACT: There is a diverticulum emanating from the posterior gastric fundus. Small sliding-type hiatal hernia. The small and large bowel are unremarkable. Slightly greater than normal stool volume within the colon. The appendix is unremarkable. ABDOMINAL WALL: No significant hernia is appreciated. LYMPH NODES: Normal. VASCULAR: Unremarkable. PELVIC VISCERA: Uterus and ovaries unremarkable. OSSEOUS STRUCTURES: No acute or suspicious osseous abnormalities. CT/CT abdomen pelvis w IV con IMPRESSION: * No acute findings within the abdomen or pelvis to explain the patient's symptomatology. * Mild constipation. * Cholecystectomy.
[2022-09-28 01:17] VITALS: RESP 16; BMI 33.3
[2022-09-28 01:22] VITALS: BP 165/96; PULSE 96; RESP 16; TEMP 36.6; O2SAT 97
[2022-09-28 02:37] LABS: MANUAL DIFF FLAG NO
[2022-09-28 02:39] LABS: Basophils Percent Auto 0.3 % (0-2); Eosinophils Absolute Auto 0.1 X10*3/uL (0.0-0.4); Eosinophils Percent Auto 1.7 % (0-4); Hematocrit 36.4 % (37.0-47.0); Hemoglobin 11.9 g/dl (12.0-16.0); Imm Gran Abs Auto 0.03 X10*3/uL (0.00-0.03); Imm Gran Pct Auto 0.4 % (0.0-0.4); Lymphocytes Absolute Auto 2.4 X10*3/uL (1.2-4.9); Lymphocytes Percent Auto 33.7 % (20-40); Mean Corpuscular HGB Conc 32.7 g/dl (31.0-35.0); Mean Corpuscular Hemoglobin 29.9 pg (27.0-33.0); Mean Corpuscular Volume 91.5 fL (80.0-98.0); Mean Platelet Volume 7.8 fL (9.4-12.3); Monocytes Absolute Auto 0.5 X10*3/uL (0.1-1.2); Monocytes Percent Auto 6.7 % (2-11); Neutrophils Absolute Auto 4.1 x10*3/uL (2.0-8.3); Neutrophils Percent Auto 57.2 % (45-73); Platelet Count 264 X10*3/uL (160-400); Red Blood Count 3.98 X10*6/uL (4.20-5.50); Red Cell Distribution Width 12.1 % (11.0-16.0); White Blood Count 7.2 X10*3/uL (4.8-10.8)
[2022-09-28 02:41] VITALS: BP 127/73; PULSE 71; RESP 18; TEMP 37; O2SAT 96
[2022-09-28 02:53] LABS: Alanine Aminotransferase 14 U/L (0-31); Albumin Level 4.1 g/dL (3.5-5.0); Alkaline Phosphatase 73 U/L (39-117); Anion Gap 13 (12-20); Aspartate Amino Transferase 14 U/L (5-31); Bilirubin Total 0.3 mg/dL (0.0-1.0); Blood Urea Nitrogen 26 mg/dL (9-16); Calcium 9.2 mg/dL (8.4-10.2); Carbon Dioxide 25 mmol/L (22-29); Chloride 105 mmol/L (96-108); Creatinine Clr Calc Pharmacy 69.5; Estimated Glomerular Filt Rate 55; Glucose Random 123 mg/dL (60-115); Potassium 4.8 mmol/L (3.3-5.1); Sodium 138 mmol/L (135-145); Total Protein 6.8 g/dL (6.5-8.0)
[2022-09-28 04:06] LABS: Appearance Urine Clear; Color Urine Yellow; Glucose Urine UA Negative (Negative); Leukocyte Esterase Urine Negative (Negative); Nitrite Urine Negative (Negative); PH 6.5 (5.0-9.0); Specific Gravity - Urine <= 1.005 (1.005-1.025); Urine Blood Negative (Negative); Urine Ketones Negative (Negative); Urine Protein Negative (Neg-Trace)
--- NOTE | 2022-09-28 04:20 | ED_ITS ---
HPI - Abdominal Pain General Chief Complaint: Abdominal Pain Stated Complaint: stomach pain, side pain Time Seen by Provider: 09/28/22 04:11 Source: patient Mode of arrival: ambulatory Limitations: no limitations History of Present Illness HPI narrative: 52 of female presents with abdominal pain. The pain started approximately 2-3 weeks ago. Pain is a 9/10. It starts in the epigastric area that radiates inferiorly and then laterally to the right flank. It is worse with movement. Better with rest. Pain is a sharp pain. . Her symptoms are associated with nausea and vomiting that has been nonbilious nonbloody in nature. She denies any fevers or chills. She was seen in urgent care and given a prescription for antibiotics for possible bacterial infection. She was then seen by a provider at [facility] who thought there was some sort of fungal infection and reportedly ordered a CT scan. She was instructed that should her symptoms worsen she should seek emergent attention. Related Data Previous Rx's Medication Instructions Recorded Mag&Al/Sim/Diphenhyd/Lidocaine 10 ml PO Q4H PRN mouth sore #500 mL 07/17/22 [Magic Mouthwash] atorvastatin 10 mg tablet 10 mg PO DAILY #30 tabs 07/17/22 bupropion HCl 300 mg 24 hr tablet, 300 mg PO DAILY #30 tabs 07/17/22 extended release cariprazine 3 mg capsule (Vraylar) 6 mg PO DAILY #30 caps 07/17/22 clonidine HCl 0.1 mg tablet 0.1 mg PO DAILY PRN HTN, 07/17/22 hyperarousal #30 tabs clotrimazole 10 mg janessa 10 mg mucous membrane 5XD #100 tabs 07/17/22 docusate sodium 100 mg capsule 200 mg PO BID #120 caps 07/17/22 ferrous sulfate 324 mg (65 mg 324 mg PO DAILY #30 tabs 07/17/22 iron) tablet,delayed release glyburide 2.5 mg tablet 2.5 mg PO DAILY #30 tabs 07/17/22 hydroxyzine HCl 25 mg tablet 25 mg PO Q6H PRN Anxiety #30 tabs 07/17/22 lisinopril 20 mg tablet 20 mg PO DAILY #30 tabs 07/17/22 nystatin 100,000 unit/gram topical 1 appl topical BID #10 applicators 12/01/22 powder prazosin 1 mg capsule 1 mg PO BEDTIME #30 caps 07/17/22 trazodone 50 mg tablet 50 mg PO BEDTIME PRN Insomnia #30 07/17/22 tabs cariprazine 6 mg capsule (Vraylar) 6 mg PO DAILY #30 caps 07/18/22 hydroxyzine pamoate 25 mg capsule 25 mg PO QID PRN anxiety #60 caps 07/30/22 dicyclomine 20 mg tablet 20 mg PO TID PRN abdominal pain 09/28/22 #14 tabs ondansetron 4 mg disintegrating 4 mg PO Q8H PRN nausea and 09/28/22 tablet vomiting #10 tabs Allergies Allergy/AdvReac Type Severity Reaction Status Date / Time No Known Allergies Allergy Verified 05/19/22 23:36 Review of Systems Review of Systems CONSTITUTIONAL: Denies weight loss, fever and chills. HEENT: Denies changes in vision and hearing. RESPIRATORY: Denies SOB and cough. CV: Denies palpitations no CP. GI: + abdominal pain, nausea, vomiting - diarrhea. : Denies dysuria and urinary frequency. MSK: Denies myalgia and joint pain. SKIN: Denies rash and pruritus. NEUROLOGICAL: Denies headache and syncope. PSYCHIATRIC: Denies recent changes in mood. Denies anxiety and depression. All other ROS are negative unless in HPI PMFSH Past Medical History Medical History Hiatal hernia Hyperlipidemia Hypertension Lymphedema Pre-diabetes Social History Social History Household Members: None Housing: Apartment Do you presently have visiting nurse or other home services: No Patient Tobacco Use Status: Never used Tobacco Smoked in Last 30 Days: No e-Cigarette/Vaping Use: Never Used Second Hand Smoke Exposure: No Use of substances other than those prescribed or required for medical reasons: No Advance Directives: No service: No Sexual orientation: Don't Know Physical Exam ED Vital Signs: Vital Signs - 24 hr 09/28/22 01:17 09/28/22 01:22 09/28/22 02:41 Temperature 97.8 F 98.6 F Pulse Rate 96 71 Respiratory Rate 16 16 18 Blood Pressure 165/96 H 127/73 Pulse Oximetry 97 96 Oxygen Delivery Method Room Air Room Air 09/28/22 04:22 Temperature 98.6 F Pulse Rate 82 Respiratory Rate 18 Blood Pressure 152/76 H Pulse Oximetry 98 Oxygen Delivery Method Room Air BMI result Body Mass Index 33.3 GEN: Well developed, no acute distress, alert, oriented HEENT: Normocephalic, atraumatic, normal external ears, nose appears normal, no oropharyngeal edema or exudates Eyes: Normal to appearance Neck: Supple, no lymphadenopathy Respiratory: Talks in complete sentences, no respiratory distress, clear to a uscultation bilaterally Cardiovascular: Regular rate and rhythm, no murmurs rubs or gallops Abdomen: Soft, tender, nondistended, no guarding, no rebound Back: No CVA tenderness Extremities: No clubbing cyanosis or edema Neurologic: No focal neurologic deficits, cranial nerves 2-12 intact, strength is 5/5 bilaterally, gait normal Skin: No rash Course Course Course Narrative: 52-year-old female recently moved to the area presents with abdominal pain. She is currently in the course of being investigated both by urgent care as well as primary care. My evaluation she had tenderness that was started generalized without rebound or guarding. CT scan did not elaborate the etiology of her symptoms. Lab work was otherwise unremarkable including urinalysis. At this point I will refer the patient to OBGYN for history of ovarian cyst as well as Gastroenterology. Patient will likely need upper and lower endoscopy. Medical Decision Making Medical Decision Making [facility] Narrative: 52-year-old female presents with abdominal pain. The pain starts in the epigastric area and radiates around. Associated with nausea vomiting. She had no fevers or chills. Her examination revealed tenderness without rebound or guarding. No CVA tenderness. Will obtain routine laboratory analysis, uri nalysis, CT scan the abdomen pelvis. Differential Diagnosis Differential Diagnoses: The differential diagnosis associated with the presenta tion includes ( Colitis, diverticulitis, gastritis, hepatitis, pancreatitis, peptic ulcer disease, epiploic) Admission/Observation Consideration of admission/observation: Escalation of care including admission/observation considered Lab Data [facility] Lab Attestation statement: I reviewed the patient's lab results. 09/28/22 02:31 09/28/22 02:32 Labs: Lab Results 09/28/22 09/28/22 09/28/22 Range/Units 02:31 02:32 03:58 WBC 7.2 (4.8-10.8) X10*3/uL RBC 3.98 L (4.20-5.50) X10*6/uL Hgb 11.9 L (12.0-16.0) g/dl Hct 36.4 L (37.0-47.0) % MCV 91.5 (80.0-98.0) fL MCH 29.9 (27.0-33.0) pg MCHC 32.7 (31.0-35.0) g/dl RDW 12.1 (11.0-16.0) % Plt Count 264 (160-400) X10*3/uL MPV 7.8 L (9.4-12.3) fL Immature Gran % (Auto) 0.4 (0.0-0.4) % Neut % (Auto) 57.2 (45-73) % Lymph % (Auto) 33.7 (20-40) % Walker % (Auto) 6.7 (2-11) % Eos % (Auto) 1.7 (0-4) % Baso % (Auto) 0.3 (0-2) % Lymph # (Auto) 2.4 (1.2-4.9) X10*3/uL Walker # (Auto) 0.5 (0.1-1.2) X10*3/uL Eos # (Auto) 0.1 (0.0-0.4) X10*3/uL Baso # (Auto) 0.0 (0.0-0.2) X10*3/uL Abs Immat Gran (auto) 0.03 (0.00-0.03) X10*3/uL Absolute Neuts (auto) 4.1 (2.0-8.3) x10*3/uL Absolute Nucleated RBC 0.000 (0.0-0.012) X10*3/uL Nucleated RBC % (auto) 0.0 (0.0-0.2) /100WBC Sodium 138 (135-145) mmol/L Potassium 4.8 (3.3-5.1) mmol/L Chloride 105 (96-108) mmol/L Carbon Dioxide 25 (22-29) mmol/L Anion Gap 13 (12-20) BUN 26 H (9-16) mg/dL Creatinine 1.04 (0.5-1.4) mg/dL Estim Creat Clear Calc 69.5 Estimated GFR 55 Random Glucose 123 H (60-115) mg/dL Calcium 9.2 (8.4-10.2) mg/dL Total Bilirubin 0.3 (0.0-1.0) mg/dL AST 14 (5-31) U/L ALT 14 (0-31) U/L Alkaline Phosphatase 73 (39-117) U/L Total Protein 6.8 (6.5-8.0) g/dL Albumin 4.1 (3.5-5.0) g/dL Lipase 33 (8-78) U/L Urine Color Yellow Urine Appearance Clear Urine pH 6.5 (5.0-9.0) Ur Specific [place] <= 1.005 (1.005-1.025) Urine Protein Negative (Neg-Trace) mg/dL Urine Glucose (UA) Negative (Negative) mg/dL Urine Ketones Negative (Negative) mg/dL Urine Blood Negative (Negative) Urine Nitrite Negative (Negative) Ur Leukocyte Esterase Negative (Negative) Radiology Impression Discussion of test interpretation with radiology: I have reviewed the radiologist's reading. (IMPRESSION: * No acute findings within the abdomen or pelvis to explain the patient's symptomatology. * Mild constipation. * Cholecystectomy. Dictated By:Dannie Noyola MDSigned By:<Electronically signed by Dannie Noyola MD in OV>09/28/22 0542) Tests considered The following testing was considered but not selected: MRI, ultrasound Prescription Management I considered prescription management with: Pain Medication Chronic Conditions Patient?s care impacted by: Hypertension Medications Administered Discontinued Medications Generic Name Dose Route Start Last Admin Trade Name Freq PRN Reason Stop Dose Admin Sodium Chloride 1,000 mls @ 999 mls/hr 09/28/22 04:30 09/28/22 05:26 Ns IV 09/28/22 05:30 999 mls/hr .Q1H1M BREN Administration Iohexol 85 ml 09/28/22 05:05 09/28/22 05:05 Iohexol 350 Mg/Ml 100 Ml Infus..Btl IV 09/28/22 05:06 85 ml ONCE ONE Administration Ketorolac Tromethamine 15 mg 09/28/22 04:17 09/28/22 04:26 Ketorolac Tromethamine 15 Mg/Ml Vial IVPUSH 09/28/22 04:18 15 mg ONCE ONE Administration Ondansetron HCl 4 mg 09/28/22 04:17 09/28/22 04:25 Ondansetron Hcl 4 Mg/2 Ml Vial IVPUSH 09/28/22 04:18 4 mg ONCE ONE Administration Discharge Plan Discharge Clinical Impression: Abdominal pain Patient Disposition: Home, Self-Care Instructions: Abdominal Pain (ED) Prescriptions: New ondansetron 4 mg tablet,disintegrating 4 mg PO Q8H PRN (Reason: nausea and vomiting) Qty: 10 0RF dicyclomine 20 mg tablet 20 mg PO TID PRN (Reason: abdominal pain) Qty: 14 0RF No Action clonidine HCl 0.1 mg Tablet 0.1 mg PO DAILY PRN (Reason: HTN, hyperarousal) Qty: 30 0RF Protocol: Hold for SBP< HOLD for SBP < : 90 atorvastatin 10 mg Tablet 10 mg PO DAILY Qty: 30 0RF prazosin 1 mg Capsule 1 mg PO BEDTIME Qty: 30 0RF Protocol: Hold for SBP< HOLD for SBP < : 90 lisinopril 20 mg Tablet 20 mg PO DAILY Qty: 30 0RF Protocol: Hold for SBP< HOLD for SBP < : 90 bupropion HCl 300 mg Tablet Extended Release 24 Hr 300 mg PO DAILY Qty: 30 0RF ferrous sulfate 324 mg (65 mg iron) Tablet,Delayed Release (Dr/Ec) 324 mg PO DAILY Qty: 30 0RF Vraylar 3 mg Capsule 6 mg PO DAILY Qty: 30 0RF trazodone 50 mg Tablet 50 mg PO BEDTIME PRN (Reason: Insomnia) Qty: 30 0RF glyburide 2.5 mg Tablet 2.5 mg PO DAILY Qty: 30 0RF docusate sodium 100 mg Capsule 200 mg PO BID Qty: 120 0RF hydroxyzine HCl 25 mg Tablet 25 mg PO Q6H PRN (Reason: Anxiety) Qty: 30 0RF clotrimazole 10 mg Janessa 10 mg mucous membrane 5XD Qty: 100 0RF nystatin 100,000 unit/gram Powder 1 appl topical BID Qty: 10 0RF Protocol: Apply to: Apply to: groin Mag&Al/Sim/Diphenhyd/Lidocaine [Magic Mouthwash] 10 ml PO Q4H PRN (Reason: mouth sore) Qty: 500 1RF Vraylar 6 mg capsule 6 mg PO DAILY Qty: 30 0RF hydroxyzine pamoate 25 mg capsule 25 mg PO QID PRN (Reason: anxiety) Qty: 60 0RF Referrals: Stefany Abarca [Emergency Nurse] - 3 days You Webb [Physician] - 1 week Grover Selby MD [Physician] - 1 week
[2022-09-28 04:22] VITALS: BP 152/76; PULSE 82; RESP 18; TEMP 37; O2SAT 98
[2022-09-28] MEDS: ondansetron HCL 4 MG/2 ML VIAL IVPUSH (04:25)
[2022-09-28] MEDS: Ketorolac Tromethamine 15 MG/ML VIAL IVPUSH (04:26)
[2022-09-28 04:28] LABS: Lipase 33 U/L (8-78)
--- NOTE | 2022-09-28 04:43 | PC.NURSE ---
pt medicated according to mar. pt resting on stretcher at this time
[2022-09-28] MEDS: iohexoL 350 MG/ML 100 ML INFUS..BTL 85 ML IV (05:05)
[2022-09-28] MEDS: 0.9 % Sodium Chloride 1,000 ML 999 ML IV (05:26)
--- NOTE | 2022-09-28 06:10 | PC.NURSE ---
iv removed at time of discharge. skin pwd. pt ambulatory at this time. pt provided with discharge packet. pt verbalized understanding of discharge plan.
== END 2022-09-28 06:12 | disposition home or self-care (01) ==
PROVIDERS: Emergency Provider Emergency Medicine
DX: R10.9 Unspecified abdominal pain (principal); R10.13 Epigastric pain; Z79.899 Other long term (current) drug therapy
CPT/HCPCS: 36415; 74177; 80053; 81003; 83690; 85025; 96361; 96374; 96375; 99284; J1885; J2405; Q9967

== ENCOUNTER 2022-10-02 11:43 | Outpatient (REF) | payer MEDICARE, BC, SELFPAY ==
[2022-10-03 12:01] LABS: CT PCR NOT DETECTED (Not Detect.); NG PCR NOT DETECTED (Not Detect.)
[2022-10-07 05:24] LABS: HPV mRNA E6/E7 rflx Not Detected (Not Detected)
== END 2022-10-02 11:44 | disposition home or self-care (01) ==
LOC: HO.LNP 11:43
PROVIDERS: Visit Provider Obstetrics & Gynecology
DX: Z01.419 Encounter for gynecological examination (general) (routine) without abnormal findings (principal); Z11.51 Encounter for screening for human papillomavirus (HPV); Z11.3 Encounter for screening for infections with a predominantly sexual mode of transmission; R10.9 Unspecified abdominal pain
CPT/HCPCS: 0353U; 87624; 88142; 99202

== ENCOUNTER 2022-10-14 12:16 | Outpatient (REF) | payer MEDICARE, BC, SELFPAY ==
[2022-10-14 19:41] LABS: CT PCR NOT DETECTED (Not Detect.); NG PCR NOT DETECTED (Not Detect.)
[2022-10-15 13:16] LABS: BV Int Neg Control Negative (Negative); BV Int Pos Control Positive (Positive)
== END 2022-10-14 12:17 | disposition home or self-care (01) ==
LOC: HO.LNP 12:16
PROVIDERS: PCP Physician Assistant Medical; Visit Provider Obstetrics & Gynecology
DX: B37.31 Acute candidiasis of vulva and vagina (principal)
CPT/HCPCS: 0353U; 87480; 87510; 87660; 99212

== ENCOUNTER 2022-10-21 09:27 | Outpatient (REF) | payer MEDICARE, BC, SELFPAY ==
--- NOTE | ~2022-10-21 | MM_ITS ---
EXAMINATION: BONE DENSITOMETRY CLINICAL INDICATION: Menopause. COMPARISON: None (current study represents initial baseline exam). TECHNIQUE: Using a [employer] DXA System (software version: 13.1) manufactured by [employer], dual-energy x-ray absorptiometry was performed of the lumbar spine and left hip. The images are of good technical quality. Summary results are attached. FINDINGS: AP SPINE L1-L4: BMD 1.145 g/cm2, Z-score -0.8, T-score -0.3, normal. LEFT FEMUR, NECK: BMD 0.698 g/cm2, Z-score -2.3, T-score -2.4, osteopenia. LEFT FEMUR, TOTAL: BMD 0.844 g/cm2, Z-score -1.5, T-score -1.3, osteopenia. IDENTIFIED RISK FACTORS: Early menopause, history of fracture (adult), osteoporosis, recurrent falls, secondary osteoporosis. HISTORY OF FRACTURE: Wrist, ankle. MEDICATIONS: Multivitamin. MM/XR DEXA axial skeleton IMPRESSION: 1. DIAGNOSIS: Osteopenia based on the lowest T-score value of -2.4 in the femoral neck applying World Health Organization criteria. 2. 10-YEAR FRACTURE RISK PREDICTION, FRAX: Major osteoporotic fracture (clinical spine, forearm, hip or shoulder) 13.8%. Hip fracture 2.7%. 3. Treatment Recommendations: NOF guidelines recommend consideration for treatment in postmenopausal women and men age 50 and older presenting with the following: -A hip or vertebral (clinical or morphometric) fracture. -T-score less than or equal to -2.5 at the femoral neck or spine after appropriate evaluation to exclude secondary causes. -Low bone mass at the hip or spine and a 10-year fracture probability by FRAX of greater than or equal to 3% for hip fracture or greater than or equal to 20% for major osteoporotic fracture based on the [place] adapted WHO algorithm. 4. Other Recommendations: All treatment decisions require clinical judgment and consideration of individual patient factors, including patient preferences, comorbidities, previous drug use, risk factors not captured in the FRAX model (e.g. frailty, falls, vitamin D deficiency, increased bone turnover, interval significant decline in bone density) and possible under or overestimation of fracture risk by FRAX. Additional medical evaluation for secondary cause of low bone mineral density may be appropriate. FUTURE SCAN RECOMMENDATION: People with diagnosed cases of osteoporosis or at high risk for fracture should have regular bone mineral density tests. For patients eligible for Medicare, routine testing is allowed once every 2 years. The testing frequency can be increased to one year for patients who have rapidly progressing disease, those who are receiving or discontinuing medical therapy to restore bone mass, or have additional risk factors.
== END 2022-10-21 09:28 | disposition home or self-care (01) ==
LOC: HO.MAMMO 09:27
PROVIDERS: PCP Physician Assistant Medical; Visit Provider Obstetrics & Gynecology
DX: Z13.820 Encounter for screening for osteoporosis (principal); Z78.0 Asymptomatic menopausal state
CPT/HCPCS: 77080

== ENCOUNTER 2022-10-23 10:57 | Outpatient (REF) | payer MEDICARE, BC, SELFPAY ==
--- NOTE | ~2022-10-23 | MM_ITS ---
EXAMINATION: MM SCREENING DIGITAL BREAST TOMOSYNTHESIS, BILATERAL CLINICAL INFORMATION: Screening. Asymptomatic. The lifetime risk of breast cancer based on the Tyrer-Cuzick Model is 9.1%. COMPARISON: Mammography: June 26, 2020 TECHNIQUE: Digital breast tomosynthesis is performed in both the craniocaudal and mediolateral oblique views along with computer-aided detection (CAD). Synthesized 2D images are generated from the tomosynthesis. FINDINGS: There are scattered areas of fibroglandular density (ACR BI-RADS breast composition Category b). There are no significant masses, abnormal calcifications, or other abnormalities. MM/MM tomosynthesis screening BI IMPRESSION: No significant changes from prior exam. ASSESSMENT: BI-RADS 1: Negative RECOMMENDATION: Routine annual mammography screening. This patient's information was entered into a reminder system with a target due date for their next mammogram.
== END 2022-10-23 10:58 | disposition home or self-care (01) ==
LOC: HO.MAMMO 10:57
PROVIDERS: Visit Provider Advanced Practice Midwife
DX: Z12.31 Encounter for screening mammogram for malignant neoplasm of breast (principal)
CPT/HCPCS: 77063; 77067

== ENCOUNTER → 2022-10-24 13:52 | Outpatient (BNVA) | payer MEDICARE, BC, SELFPAY | PROVIDERS: PCP Physician Assistant Medical; Visit Provider Physician Assistant ==

== ENCOUNTER 2022-10-27 10:30 | Outpatient (REF) | payer MEDICARE, BC, SELFPAY ==
[2022-10-27 13:25] LABS: Hematocrit 38.5 % (37.0-47.0); Hemoglobin 12.5 g/dl (12.0-16.0); Mean Corpuscular HGB Conc 32.5 g/dl (31.0-35.0); Mean Corpuscular Hemoglobin 29.3 pg (27.0-33.0); Mean Corpuscular Volume 90.2 fL (80.0-98.0); Mean Platelet Volume 7.6 fL (9.4-12.3); Platelet Count 292 X10*3/uL (160-400); Red Blood Count 4.27 X10*6/uL (4.20-5.50); Red Cell Distribution Width 12.1 % (11.0-16.0); White Blood Count 6.5 X10*3/uL (4.8-10.8)
[2022-10-27 14:18] LABS: Alanine Aminotransferase 19 U/L (0-31); Albumin Level 4.4 g/dL (3.5-5.0); Alkaline Phosphatase 75 U/L (39-117); Anion Gap 19 (12-20); Aspartate Amino Transferase 20 U/L (5-31); Bilirubin Total 0.5 mg/dL (0.0-1.0); Blood Urea Nitrogen 23 mg/dL (9-16); Calcium 9.6 mg/dL (8.4-10.2); Carbon Dioxide 19 mmol/L (22-29); Chloride 103 mmol/L (96-108); Estimated Glomerular Filt Rate 44; Gamma Glutamyl Transpeptidase 22 U/L (7-33); Glucose Random 106 mg/dL (60-115); Iron 95 mcg/dL (30-160); Percent Iron Saturation 26 % (15-50); Potassium 4.9 mmol/L (3.3-5.1); Sodium 136 mmol/L (135-145); Total Iron Binding Capacity 370 mcg/dL (228-428); Total Protein 7.3 g/dL (6.5-8.0); Unsaturated Iron Binding 275 ug/dL
[2022-10-27 14:39] LABS: Ferritin 67 ng/mL (10-250); Folate 10.4 ng/mL (> or = 4.0); TSH reflex Free T4 0.92 uIU/mL (0.32-4.0); Vitamin B12 194 pg/mL (200-900); Vitamin D 25-OH Total 14.3 ng/mL (>30)
[2022-10-29 04:26] LABS: Hepatitis A Antibody IgG Nonreactive (Nonreactive); ~Hepatitis A Antibody IgG 0.28 S/CO (0.00-0.99)
[2022-10-29 04:38] LABS: HBS Num1 0.07 mIU/mL (0-7.99); HBc Num1 0.09 S/CO (0.00-0.79); HBsAGNum1 1.13 S/CO (0.00-0.99); Hepatitis B Core Antibody Nonreactive (Nonreactive); ~Hepatitis B Surface Antibody NONREACTIVE (Nonreactive); ~Hepatitis C Antibody Nonreactive (Nonreactive)
[2022-10-29 05:25] LABS: HBsAGNum2 Reactive; HBsAGNum3 Reactive; Hepatitis B Surface Antigen Retest CNFM (Negative)
[2022-10-29 06:13] LABS: Neutralization % 97
[2022-10-29 07:43] LABS: Transglutaminase IgA <1.0 U/mL
[2022-10-29 16:39] LABS: Immunoglobulin A 336 mg/dL (47-310)
[2022-10-31 01:34] LABS: Hepatitis B Core Antibody IgM NON-REACTIVE (NON-REACTIVE)
[2022-11-09 10:54] LABS: Hepatitis Delta Antibody NEGATIVE
== END 2022-10-27 10:31 | disposition home or self-care (01) ==
LOC: HO.LAB 10:30
PROVIDERS: Internal Medicine; PCP Physician Assistant Medical; Visit Provider Obstetrics & Gynecology
DX: R10.9 Unspecified abdominal pain (principal); B18.1 Chronic viral hepatitis B without delta-agent; N95.2 Postmenopausal atrophic vaginitis; I10 Essential (primary) hypertension
CPT/HCPCS: 36415; 80053; 82306; 82607; 82728; 82746; 82784; 82977; 83540; 84443; 85027; 86364; 86692; 86704; 86705; 86706; 86708; 86803; 87340; 99202; 99212

== ENCOUNTER 2022-10-29 11:00 | Outpatient (REF) | payer MEDICARE, BC, SELFPAY ==
[2022-10-29 12:40] LABS: C Reactive Protein < 0.10 mg/dL (< or = 0.50)
[2022-10-30 11:48] LABS: Hepatitis B Viral DNA Qn - cp <1.00 NOT DETECTED Log IU/mL (NOT DETECTED); Hepatitis B Viral DNA Qn-IU/mL <10 NOT DETECTED IU/mL (NOT DETECTED)
== END 2022-10-29 11:01 | disposition home or self-care (01) ==
LOC: HO.LAB 11:00
PROVIDERS: PCP Physician Assistant Medical; Visit Provider Internal Medicine
DX: R10.9 Unspecified abdominal pain (principal); B18.1 Chronic viral hepatitis B without delta-agent
CPT/HCPCS: 36415; 86140; 87517

== ENCOUNTER 2022-11-01 04:58 | Emergency (ER) | payer MEDICARE, BC, SELFPAY ==
--- NOTE | ~2022-11-01 | XR_ITS ---
EXAMINATION: XR ABDOMEN KUB CLINICAL INDICATION: Constipation. Abdominal pain. COMPARISON: 09/28/2022 TECHNIQUE: AP view of the abdomen. FINDINGS: Right upper quadrant surgical clips. Nonobstructive bowel gas pattern. No dilated loops of bowel. Scattered gas and stool throughout the colon with moderate colonic stool burden. Degenerative changes noted in the spine. XR/XR KUB IMPRESSION: Moderate colonic stool burden.
[2022-11-01 05:04] VITALS: BP 160/90; BP 160/93; PULSE 80; PULSE 82; RESP 20; TEMP 36.9; O2SAT 97; O2SAT 99; BMI 36.6
[2022-11-01 05:37] LABS: Appearance Urine Clear; Color Urine Yellow; Glucose Urine UA Negative (Negative); Leukocyte Esterase Urine Negative (Negative); Nitrite Urine Negative (Negative); PH 6.5 (5.0-9.0); Specific Gravity - Urine 1.015 (1.005-1.025); Urine Blood Negative (Negative); Urine Ketones Negative (Negative); Urine Protein Negative (Neg-Trace)
--- NOTE | 2022-11-01 05:45 | ED_ITS ---
HPI - Abdominal Pain General Chief Complaint: Abdominal Pain Stated Complaint: Lower ABD Pain Time Seen by Provider: 11/01/22 05:39 Source: patient Mode of arrival: EMS Limitations: no limitations History of Present Illness HPI narrative: Patient states bipolar disorder and chronic abdominal pain been to multiple hospitals was seen by building construction foreman on 10/27 with possible diagnosis of IBS. Patient had colonoscopy 3 years ago which showed polyps. Comes here for diffuse abdominal pain for last 1 month got worse in last 2 days vomited 3 times prior to arrival with slight amount of blood in the last vomitus no fever no chills no urinary symptoms no abdominal distension patient feels very anxious also Related Data Previous Rx's Medication Instructions Recorded Mag&Al/Sim/Diphenhyd/Lidocaine 10 ml PO Q4H PRN mouth sore #500 mL 07/17/22 [Magic Mouthwash] atorvastatin 10 mg tablet 10 mg PO DAILY #30 tabs 07/17/22 bupropion HCl 300 mg 24 hr tablet, 300 mg PO DAILY #30 tabs 07/17/22 extended release cariprazine 3 mg capsule (Vraylar) 6 mg PO DAILY #30 caps 07/17/22 clonidine HCl 0.1 mg tablet 0.1 mg PO DAILY PRN HTN, 07/17/22 hyperarousal #30 tabs clotrimazole 10 mg sandra 10 mg mucous membrane 5XD #100 tabs 07/17/22 docusate sodium 100 mg capsule 200 mg PO BID #120 caps 07/17/22 ferrous sulfate 324 mg (65 mg 324 mg PO DAILY #30 tabs 07/17/22 iron) tablet,delayed release glyburide 2.5 mg tablet 2.5 mg PO DAILY #30 tabs 07/17/22 hydroxyzine HCl 25 mg tablet 25 mg PO Q6H PRN Anxiety #30 tabs 07/17/22 lisinopril 20 mg tablet 20 mg PO DAILY #30 tabs 07/17/22 nystatin 100,000 unit/gram topical 1 appl topical BID #10 applicators 07/17/22 powder prazosin 1 mg capsule 1 mg PO BEDTIME #30 caps 07/17/22 trazodone 50 mg tablet 50 mg PO BEDTIME PRN Insomnia #30 07/17/22 tabs cariprazine 6 mg capsule (Vraylar) 6 mg PO DAILY #30 caps 07/18/22 hydroxyzine pamoate 25 mg capsule 25 mg PO QID PRN anxiety #60 caps 07/30/22 ondansetron 4 mg disintegrating 4 mg PO Q8H PRN nausea and 09/28/22 tablet vomiting #10 tabs clotrimazole-betamethasone 1 1 appl topical BID 5 days #45 grams 10/14/22 %-0.05 % topical cream terconazole 0.8 % vaginal cream 1 appful vaginal BEDTIME 3 days 10/14/22 #20 grams dicyclomine 10 mg capsule 10 mg PO TID 30 days #90 caps 10/27/22 estradiol 0.01% (0.1 mg/gram) 0.5 appful vaginal DAILY 4 weeks 10/27/22 vaginal cream #42.5 grams polyethylene glycol 3350 17 17 g PO DAILY #510 grams 11/01/22 gram/dose oral powder (Miralax) Allergies Allergy/AdvReac Type Severity Reaction Status Date / Time lithium Allergy Mild EMESIS Verified 10/27/22 11:45 Review of Systems Review of Systems Yes all other systems are reviewed and are negative [facility] Past Medical History Medical History Hiatal hernia Hyperlipidemia Hypertension Lymphedema Pre-diabetes Surgical History Hx of cholecystectomy Hx of colonoscopy Hx of dilation and curettage Hx of removal of cyst Family History Family History Mother Diabetes Heart disease Father Heart disease Heart attack Asthma Brother Heart disease Social History Social History Household Members: None Housing: Apartment Do you presently have visiting nurse or other home services: No Alcohol intake: current Alcohol intake frequency: holidays/special occasions only Patient Tobacco Use Status: Never used Tobacco Smoked in Last 30 Days: No e-Cigarette/Vaping Use: Never Used Second Hand Smoke Exposure: No Use of substances other than those prescribed or required for medical reasons: No Advance Directives: No Advance Directives Information Provided: No Patient : No service: No Sexual orientation: Don't Know Physical Exam ED Vital Signs: Vital Signs - 24 hr 11/01/22 05:04 Temperature 98.5 F Pulse Rate 82 Respiratory Rate 20 Blood Pressure 160/93 H Pulse Oximetry 97 Oxygen Delivery Method Room Air BMI result Body Mass Index 36.6 Appearance: Alert. Oriented X3. No acute distress. Eyes: No pallor or icterus ENT: Pharynx normal. Oral Mucosa moist Neck: Normal inspection. Neck supple. CVS: Normal heart rate and rhythm. Pulses normal. Respiratory: No respiratory distress. Equal air entry bilateral, no wheezing/rales/rhonchi Abdomen: Soft, mild diffuse tenderness no rebound tenderness or guarding Bowel sounds are present, no mass palpable, no CVA tenderness Skin: Skin warm and dry. Normal skin color. Normal skin turgor. Extremities: No lower extremity edema. No calf tenderness Neuro: Oriented X 3. No motor deficit. Medical Decision Making Medical Decision Making [facility] Narrative: Patient nonspecific diffuse abdominal pain x-ray showed moderate amount of stool urine is negative patient did have this chronic pain, discharge patient home on MiraLax advised to stop Dicyclomine if constipation continue Differential Diagnosis Fecal impaction/SBO/UTI Lab Data [facility] Lab Attestation statement: I reviewed the patient's lab results. Labs: Lab Results 11/01/22 Range/Units 05:30 Urine Color Yellow Urine Appearance Clear Urine pH 6.5 (5.0-9.0) Ur Specific [place] 1.015 (1.005-1.025) Urine Protein Negative (Neg-Trace) mg/dL Urine Glucose (UA) Negative (Negative) mg/dL Urine Ketones Negative (Negative) mg/dL Urine Blood Negative (Negative) Urine Nitrite Negative (Negative) Ur Leukocyte Esterase Negative (Negative) Medications Administered Discontinued Medications Generic Name Dose Route Start Last Admin Trade Name Freq PRN Reason Stop Dose Admin Bisacodyl 10 mg 11/01/22 06:28 11/01/22 06:36 Bisacodyl 5 Mg Tablet. PO 11/01/22 06:29 10 mg ONCE ONE Administration Lorazepam 1 mg 11/01/22 05:44 11/01/22 05:50 Lorazepam 1 Mg Tablet PO 11/01/22 05:45 1 mg ONCE ONE Administration Magnesium Hydroxide 30 ml 11/01/22 06:28 11/01/22 06:36 Milk Of Magnesia 30 Ml Oral.Susp PO 11/01/22 06:29 30 ml ONCE ONE Administration Ondansetron HCl 4 mg 11/01/22 05:44 11/01/22 05:50 Ondansetron Odt 4 Mg Tab.Rapdis TRANSLINGU 11/01/22 05:45 4 mg ONCE ONE Administration Tramadol HCl 50 mg 11/01/22 05:44 11/01/22 05:50 Tramadol Hcl 50 Mg Tablet PO 11/01/22 05:45 50 mg ONCE ONE Administration Discharge Plan Discharge Clinical Impression: Constipation, Anxiety disorder Patient Disposition: Home, Self-Care Instructions: Constipation (ED), Generalized Anxiety Disorder (ED) Additional Instructions: Drink plenty of fluids MiraLax daily for constipation daily as needed Hold dicyclomine if constipation continues Follow with building construction foreman Prescriptions: New polyethylene glycol 3350 [Miralax] 17 gram/dose powder 17 g PO DAILY Qty: 510 0RF No Action clonidine HCl 0.1 mg Tablet 0.1 mg PO DAILY PRN (Reason: HTN, hyperarousal) Qty: 30 0RF Protocol: Hold for SBP< HOLD for SBP < : 90 atorvastatin 10 mg Tablet 10 mg PO DAILY Qty: 30 0RF prazosin 1 mg Capsule 1 mg PO BEDTIME Qty: 30 0RF Protocol: Hold for SBP< HOLD for SBP < : 90 lisinopril 20 mg Tablet 20 mg PO DAILY Qty: 30 0RF Protocol: Hold for SBP< HOLD for SBP < : 90 bupropion HCl 300 mg Tablet Extended Release 24 Hr 300 mg PO DAILY Qty: 30 0RF ferrous sulfate 324 mg (65 mg iron) Tablet,Delayed Release (Dr/Ec) 324 mg PO DAILY Qty: 30 0RF Vraylar 3 mg Capsule 6 mg PO DAILY Qty: 30 0RF trazodone 50 mg Tablet 50 mg PO BEDTIME PRN (Reason: Insomnia) Qty: 30 0RF glyburide 2.5 mg Tablet 2.5 mg PO DAILY Qty: 30 0RF docusate sodium 100 mg Capsule 200 mg PO BID Qty: 120 0RF hydroxyzine HCl 25 mg Tablet 25 mg PO Q6H PRN (Reason: Anxiety) Qty: 30 0RF clotrimazole 10 mg Sandra 10 mg mucous membrane 5XD Qty: 100 0RF nystatin 100,000 unit/gram Powder 1 appl topical BID Qty: 10 0RF Protocol: Apply to: Apply to: groin Mag&Al/Sim/Diphenhyd/Lidocaine [Magic Mouthwash] 10 ml PO Q4H PRN (Reason: mouth sore) Qty: 500 1RF Vraylar 6 mg capsule 6 mg PO DAILY Qty: 30 0RF hydroxyzine pamoate 25 mg capsule 25 mg PO QID PRN (Reason: anxiety) Qty: 60 0RF ondansetron 4 mg tablet,disintegrating 4 mg PO Q8H PRN (Reason: nausea and vomiting) Qty: 10 0RF clotrimazole-betamethasone 1-0.05 % cream 1 appl topical BID 5 Days Qty: 45 0RF terconazole 0.8 % cream 1 appful vaginal BEDTIME 3 Days Qty: 20 0RF dicyclomine 10 mg capsule 10 mg PO TID 30 Days Qty: 90 1RF estradiol 0.01 % (0.1 mg/gram) cream 0.5 appful vaginal DAILY 28 Days Qty: 42.5 0RF Rx Instructions: Half an application for for 1 week then half an application 2 to 3 times a week for 3 additional weeks for a total of 4 weeks Interventions: ED Discharge Assessment Last Done: 11/01/22 06:38 Discharge Date/Time: 11/01/22 06:49
[2022-11-01] MEDS: LORazepam 1 MG TABLET PO (05:50)
[2022-11-01] MEDS: traMADoL HCL 50 MG TABLET PO (05:50)
[2022-11-01] MEDS: Ondansetron ODT 4 MG TAB.RAPDIS TRANSLINGU (05:50)
--- NOTE | 2022-11-01 06:26 | PC.NURSE ---
Pt A&Ox4, reports 10/10 constant lower ABD pain ongoing for 2 months. Pt states it feels like I have to have a BM with cramping, last BM was 2 days ago . Denies pain/burning with urination. Pt ambulated to independently to give UA sample. Pt tender to touch to lower quadrants, active bowel sounds x 4.
[2022-11-01] MEDS: Milk of Magnesia 30 ML ORAL.SUSP PO (06:36)
[2022-11-01] MEDS: bisacodyL 5 MG TABLET.DR 10 MG PO (06:36)
== END 2022-11-01 06:49 | disposition home or self-care (01) ==
PROVIDERS: Emergency Provider Internal Medicine; PCP Physician Assistant Medical
DX: K59.00 Constipation, unspecified (principal); F41.1 Generalized anxiety disorder; I10 Essential (primary) hypertension; E78.5 Hyperlipidemia, unspecified; Z79.02 Long term (current) use of antithrombotics/antiplatelets; Z79.899 Other long term (current) drug therapy
CPT/HCPCS: 74018; 81003; 99283; 99284

== ENCOUNTER 2022-11-03 15:04 | Outpatient (REF) | payer MEDICARE, BC, SELFPAY | END 2022-11-03 15:05 | disposition home or self-care (01) | LOC: HO.LNP 15:04 | PROVIDERS: Visit Provider Nurse Practitioner | DX: R10.9 Unspecified abdominal pain (principal); R13.10 Dysphagia, unspecified | CPT/HCPCS: 87338 ==

== ENCOUNTER 2022-11-06 08:19 | Outpatient (REF) | payer MEDICARE, BC, SELFPAY ==
--- NOTE | ~2022-11-06 | XR_ITS ---
EXAMINATION: XR AP STANDING VIEW BOTH KNEES. XR KNEE, RIGHT. CLINICAL INFORMATION: Right knee pain COMPARISON: None. TECHNIQUE: AP standing view both knees. Lateral and sunrise views of the right knee. FINDINGS: Tricompartmental osteoarthritis of the right knee with mild to moderate narrowing and prominent marginal osteophytes. There is a small joint effusion. No acute abnormality. Similar degenerative findings noted on the AP standing view of the left knee. XR/XR knee RT 2V IMPRESSION: Moderate tricompartmental osteoarthritis of the right knee with a small joint effusion.
--- NOTE | ~2022-11-06 | XR_ITS ---
EXAMINATION: XR AP STANDING VIEW BOTH KNEES. XR KNEE, RIGHT. CLINICAL INFORMATION: Right knee pain COMPARISON: None. TECHNIQUE: AP standing view both knees. Lateral and sunrise views of the right knee. FINDINGS: Tricompartmental osteoarthritis of the right knee with mild to moderate narrowing and prominent marginal osteophytes. There is a small joint effusion. No acute abnormality. Similar degenerative findings noted on the AP standing view of the left knee. XR/XR knee standing BI IMPRESSION: Moderate tricompartmental osteoarthritis of the right knee with a small joint effusion.
== END 2022-11-06 08:20 | disposition home or self-care (01) ==
LOC: HO.HOSX 08:19
PROVIDERS: Visit Provider Physician Assistant
DX: M17.11 Unilateral primary osteoarthritis, right knee (principal); S76.211A Strain of adductor muscle, fascia and tendon of right thigh, initial encounter
CPT/HCPCS: 73560; 73565; 99202

== ENCOUNTER → 2022-11-07 14:46 | Outpatient (BNVA) | payer MEDICARE, BC, SELFPAY | PROVIDERS: PCP Physician Assistant Medical; Visit Provider Physician Assistant Surgical | DX: E66.9 Obesity, unspecified (principal); R53.83 Other fatigue; Z68.37 Body mass index [BMI] 37.0-37.9, adult | CPT/HCPCS: 99202 ==

== ENCOUNTER → 2022-11-10 09:35 | Outpatient (BNVA) | payer MEDICARE, BC, SELFPAY | PROVIDERS: PCP Physician Assistant Medical; Visit Provider Internal Medicine | DX: R10.9 Unspecified abdominal pain (principal); I10 Essential (primary) hypertension; E55.9 Vitamin D deficiency, unspecified; E53.8 Deficiency of other specified B group vitamins; Z92.29 Personal history of other drug therapy | CPT/HCPCS: 99212 ==

== ENCOUNTER 2022-11-11 07:55 | Outpatient (REF) | payer MEDICARE, BC, SELFPAY ==
[2022-11-11 08:15] LABS: MANUAL DIFF FLAG NO
[2022-11-11 09:19] LABS: Basophils Percent Auto 0.6 % (0-2); Eosinophils Absolute Auto 0.1 X10*3/uL (0.0-0.4); Eosinophils Percent Auto 0.9 % (0-4); Hematocrit 39.9 % (37.0-47.0); Hemoglobin 12.9 g/dl (12.0-16.0); Imm Gran Abs Auto 0.02 X10*3/uL (0.00-0.03); Imm Gran Pct Auto 0.3 % (0.0-0.4); Lymphocytes Absolute Auto 1.9 X10*3/uL (1.2-4.9); Lymphocytes Percent Auto 27.4 % (20-40); Mean Corpuscular HGB Conc 32.3 g/dl (31.0-35.0); Mean Corpuscular Hemoglobin 29.7 pg (27.0-33.0); Mean Corpuscular Volume 91.7 fL (80.0-98.0); Mean Platelet Volume 7.9 fL (9.4-12.3); Monocytes Absolute Auto 0.6 X10*3/uL (0.1-1.2); Monocytes Percent Auto 8.4 % (2-11); Neutrophils Absolute Auto 4.4 x10*3/uL (2.0-8.3); Neutrophils Percent Auto 62.4 % (45-73); Platelet Count 281 X10*3/uL (160-400); Red Blood Count 4.35 X10*6/uL (4.20-5.50); Red Cell Distribution Width 12.4 % (11.0-16.0)
[2022-11-11 10:27] LABS: Alanine Aminotransferase 17 U/L (0-31); Albumin Level 4.5 g/dL (3.5-5.0); Alkaline Phosphatase 71 U/L (39-117); Anion Gap 15 (12-20); Aspartate Amino Transferase 21 U/L (5-31); Bilirubin Total 0.7 mg/dL (0.0-1.0); Blood Urea Nitrogen 30 mg/dL (9-16); Calcium 9.8 mg/dL (8.4-10.2); Carbon Dioxide 27 mmol/L (22-29); Chloride 102 mmol/L (96-108); Cholesterol 186 mg/dL; Estimated Glomerular Filt Rate 39; Glucose Fasting 123 mg/dL (60-99); HDL Cholesterol 84 mg/dL; LDL Cholesterol Calculated 95 mg/dl; Potassium 4.4 mmol/L (3.3-5.1); Sodium 140 mmol/L (135-145); Total Protein 7.3 g/dL (6.5-8.0); Triglycerides 37 mg/dL
[2022-11-11 10:28] LABS: Estimated Average Glucose 117 mg/dL; Hemoglobin A1c % 5.7 %
[2022-11-11 11:03] LABS: TSH reflex Free T4 1.35 uIU/mL (0.32-4.0); Thyroid Stimulating Hormone 1.35 uIU/mL (0.32-4.0); Vitamin B12 225 pg/mL (200-900)
[2022-11-15 01:54] LABS: Zinc 64 mcg/dL (60-130)
[2022-11-17 05:34] LABS: Vitamin B1 11 nmol/L (8-30)
[2022-11-18 10:48] LABS: Vitamin A 62 mcg/dL (38-98)
== END 2022-11-11 07:56 | disposition home or self-care (01) ==
LOC: HO.LAB 07:55
PROVIDERS: Absent Provider Physician Assistant Surgical; PCP Internal Medicine; Visit Provider Nurse Practitioner Acute Care
DX: E66.9 Obesity, unspecified (principal); R53.83 Other fatigue; I10 Essential (primary) hypertension; E78.5 Hyperlipidemia, unspecified; R73.01 Impaired fasting glucose; Z76.89 Persons encountering health services in other specified circumstances
CPT/HCPCS: 36415; 80053; 80061; 82607; 82746; 83036; 84425; 84443; 84590; 84630; 85025

== ENCOUNTER 2022-11-14 09:40 | Outpatient (REF) | payer MEDICARE, BC, SELFPAY ==
[2022-11-15 10:11] LABS: BV Int Neg Control Negative (Negative); BV Int Pos Control Positive (Positive)
== END 2022-11-14 09:41 | disposition home or self-care (01) ==
LOC: HO.LNP 09:40
PROVIDERS: PCP Internal Medicine; Visit Provider Advanced Practice Midwife
DX: B37.31 Acute candidiasis of vulva and vagina (principal); E66.9 Obesity, unspecified; R73.03 Prediabetes; R60.0 Localized edema
CPT/HCPCS: 87070; 87205; 87480; 87510; 87660; 99212

== ENCOUNTER 2022-12-09 07:58 | Outpatient (REF) | payer MEDICARE, BC, SELFPAY ==
[2022-12-10 09:55] LABS: BV Int Neg Control Negative (Negative); BV Int Pos Control Positive (Positive)
== END 2022-12-09 07:59 | disposition home or self-care (01) ==
LOC: HO.LNP 07:58
PROVIDERS: PCP Internal Medicine; Visit Provider Obstetrics & Gynecology
DX: I83.12 Varicose veins of left lower extremity with inflammation (principal); I89.0 Lymphedema, not elsewhere classified; B37.31 Acute candidiasis of vulva and vagina; B37.2 Candidiasis of skin and nail
CPT/HCPCS: 87480; 87510; 87660; 99202; 99212

== ENCOUNTER 2022-12-11 12:00 | Outpatient (REF) | payer MEDICARE, BC, SELFPAY ==
[2022-12-11 13:25] LABS: Alanine Aminotransferase 16 U/L (0-31); Albumin Level 4.1 g/dL (3.5-5.0); Alkaline Phosphatase 80 U/L (39-117); Anion Gap 12 (12-20); Aspartate Amino Transferase 20 U/L (5-31); Bilirubin Total 0.5 mg/dL (0.0-1.0); Blood Urea Nitrogen 19 mg/dL (9-16); Calcium 9.4 mg/dL (8.4-10.2); Carbon Dioxide 27 mmol/L (22-29); Chloride 105 mmol/L (96-108); Estimated Glomerular Filt Rate > 60; Glucose Random 107 mg/dL (60-115); Potassium 4.7 mmol/L (3.3-5.1); Sodium 139 mmol/L (135-145)
== END 2022-12-11 12:01 | disposition home or self-care (01) ==
LOC: HO.LAB 12:00
PROVIDERS: PCP Internal Medicine; Visit Provider Internal Medicine
DX: I12.9 Hypertensive chronic kidney disease with stage 1 through stage 4 chronic kidney disease, or unspecified chronic kidney disease (principal); N18.30 Chronic kidney disease, stage 3 unspecified
CPT/HCPCS: 36415; 80053

== ENCOUNTER 2022-12-12 11:53 | Emergency (ER) | payer MEDICARE, BC, SELFPAY ==
--- NOTE | ~2022-12-12 | CT_ITS ---
CT head/brain wo IV con CLINICAL INFORMATION: Reason for Exam HIGGINS, HTN COMPARISON: No prior CT scan available for comparison. TECHNIQUE: Department standard protocol. This CT examination was performed using dose optimization techniques as appropriate, variously including the following: *Automated exposure control *Adjustment of mA and/or kV according to patient size (this includes techniques or standardized protocols for targeted exams where dose is matched to indication/reason for exam; i.e. extremities or head) *Use of iterative reconstruction technique DLP: 660 mGy-cm FINDINGS: CEREBRAL HEMISPHERES: There is no evidence of intra-axial or extra-axial mass, hemorrhage or acute infarct. BRAIN PARENCHYMA: Normal richardson-white matter differentiation. SUBDURAL SPACE: No bleed. BASAL GANGLIA AND PINEAL GLAND: There is a peripherally calcified pineal gland probably cystic structure measure about 9 x 9 x 9 mm, limited evaluation on this noncontrast CT scan. VENTRICLES: Symmetric and normal in size. CEREBELLUM AND BRAINSTEM: No space-occupying mass, hemorrhage or acute infarct. CEREBELLOPONTINE ANGLES: No lesion found. ORBITS: No intraorbital mass. VESSELS: Unremarkable SKULL BASE: Unremarkable INCLUDED SINUSES AT SKULL BASE: Clear SKULL AND SKIN: No fracture or bone lesion found. CT/CT head/brain wo IV con IMPRESSION: * There is peripherally calcified pineal gland probably cystic structure measure up to 9 mm, limited evaluation on this noncontrast CT scan. If patient is symptomatic, consider correlation with follow-up contrast enhanced MRI. * CT otherwise normal.
[2022-12-12 12:22] VITALS: BP 187/97; PULSE 70; RESP 17; TEMP 36.6; O2SAT 100; BMI 40.1
--- NOTE | 2022-12-12 12:22 | ED.HA ---
HPI - Headache General Chief Complaint: General Medical <ANA Zuniga - Last Filed: 12/12/22 12:28> Stated Complaint: Severe headache <ANA Zuniga - Last Filed: 12/12/22 12:28> Time Seen by Provider: 12/12/22 16:44 <ANA Zuniga - Last Filed: 12/12/22 12:28> Source: patient <Jonatan Justice MD - Last Filed: 12/12/22 19:43> Mode of arrival: ambulatory <Jonatan Justice MD - Last Filed: 12/12/22 19:43> Limitations: no limitations <Jonatan Justice MD - Last Filed: 12/12/22 19:43> History of Present Illness HPI Narrative: 52-year-old female with history of multiple medical problems, bipolar disorder presents with headache and hypertension. Patient's blood pressure has been elevated recently. She was status post to switch to amlodipine today but was not able to pickle solution maker her prescription. This morning, patient woke up with a headache. The headache did not wake her up from sleep. Was not sudden in onset. The headache is including generalized. It is not associated with photo or phonophobia. She denies any nausea vomiting. She denies any focal deficit. Patient's blood pressure was in the 180 systolic césar at home. She has been compliant with her medications. For there are no clear relieving or exacerbating features. She reports her headache as a 10/10. She denies any neck pain or stiffness. She denies any fevers or chills. She denies any head trauma. <Jonatan Justice MD - Last Filed: 12/12/22 19:43> Related Data Home Medications: Home Medications Medication Instructions Recorded Confirmed pantoprazole 40 mg tablet,delayed 40 mg PO DAILY 11/06/22 12/11/22 release glipizide 2.5 mg tablet, extended 2.5 mg PO DAILY 11/10/22 12/11/22 release 24 hr trazodone 150 mg tablet 150 mg PO BEDTIME 11/10/22 12/11/22 clonidine HCl 0.1 mg tablet 0.1 mg PO DAILY PRN HTN, 12/12/22 hyperarousal Previous Rx's Medication Instructions Recorded atorvastatin 10 mg tablet 10 mg PO DAILY #30 tabs 07/17/22 bupropion HCl 300 mg 24 hr tablet, 300 mg PO DAILY #30 tabs 07/17/22 extended release clotrimazole 10 mg janessa 10 mg mucous membrane 5XD #100 tabs 07/17/22 docusate sodium 100 mg capsule 200 mg PO BID #120 caps 07/17/22 ferrous sulfate 324 mg (65 mg 324 mg PO DAILY #30 tabs 07/17/22 iron) tablet,delayed release prazosin 1 mg capsule 1 mg PO BEDTIME #30 caps 07/17/22 trazodone 50 mg tablet 50 mg PO BEDTIME PRN Insomnia #30 07/17/22 tabs cariprazine 6 mg capsule (Vraylar) 6 mg PO DAILY #30 caps 07/18/22 terconazole 0.8 % vaginal cream 1 appful vaginal BEDTIME 3 days 10/14/22 #20 grams dicyclomine 10 mg capsule 10 mg PO TID 30 days #90 caps 10/27/22 estradiol 0.01% (0.1 mg/gram) 0.5 appful vaginal DAILY 4 weeks 10/27/22 vaginal cream #42.5 grams polyethylene glycol 3350 17 17 g PO DAILY #510 grams 11/01/22 gram/dose oral powder (Miralax) naproxen 500 mg tablet 500 mg PO BID 30 days #60 tabs 11/06/22 cholecalciferol (vitamin D3) 50 50 mcg PO DAILY #30 caps 11/07/22 mcg (2,000 unit) capsule furosemide 20 mg tablet 20 mg PO Q OTHER DAY #7 tabs 11/07/22 lisinopril 20 mg tablet 30 mg PO DAILY #30 tabs 11/07/22 buspirone 10 mg tablet 10 mg PO TID #90 tabs 11/12/22 fluconazole 150 mg tablet 150 mg PO Q3D 2 doses #2 tabs 11/14/22 (Diflucan) miconazole nitrate 2 % topical 1 appl topical BID #85 grams 11/14/22 powder clotrimazole-betamethasone 1 1 appl topical BID 5 days #45 grams 12/09/22 %-0.05 % topical cream fluconazole 150 mg tablet 150 mg PO DAILY 1 day #1 tab 12/09/22 (Diflucan) hydralazine 25 mg tablet 25 mg PO TID 30 days #90 tabs 12/11/22 yuodnhyskx-xhbauusttrcpz-hzqixmtz 1 cap PO Q8H PRN pain #7 caps 12/12/22 50 mg-300 mg-40 mg capsule (Fioricet) <ANA Zuniga - Last Filed: 12/12/22 12:28> Allergies/Adverse Reactions: Allergies Allergy/AdvReac Type Severity Reaction Status Date / Time lithium Allergy Mild EMESIS Verified 12/11/22 11:29 <ANA Zuniga - Last Filed: 12/12/22 12:28> FORMERLY [facility] Past Medical History Medical History: Medical History Anemia Atrophic vaginitis Benign essential hypertension Chronic kidney disease (CKD), stage III (moderate) GERD without esophagitis Hiatal hernia History of electroconvulsive therapy Hyperlipidemia Hypertension Impaired fasting glucose Insomnia Irritable bowel syndrome (IBS) Lymphedema Pre-diabetes Pure hypercholesterolemia <ANA Zuniga - Last Filed: 12/12/22 12:28> Surgical History: Surgical History Hx of cholecystectomy Hx of colonoscopy Hx of dilation and curettage Hx of removal of cyst <ANA Zuniga - Last Filed: 12/12/22 12:28> Family History Family History: Family History Mother Diabetes Heart disease Father Heart disease Heart attack Asthma Brother Heart disease <ANA Zuniga - Last Filed: 12/12/22 12:28> Social History Social History: Social History Household Members: None Housing: Apartment Do you presently have visiting nurse or other home services: No Alcohol intake: current Alcohol intake frequency: holidays/special occasions only Patient Tobacco Use Status: Never used Tobacco Smoked in Last 30 Days: No e-Cigarette/Vaping Use: Never Used Second Hand Smoke Exposure: No Advance Directives: No Advance Directives Information Provided: Yes service: No 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[employer] [place] Sexual orientation: Don't Know Cognitive needs: No Hearing needs: No Vision needs: No <ANA Zuniga - Last Filed: 12/12/22 12:28> Physical Exam Vital Signs: Vital Signs: Last Vital Signs Temp 98.0 F 12/12/22 19:17 Pulse 84 12/12/22 19:17 Resp 16 12/12/22 19:17 BP 136/61 12/12/22 19:17 Pulse Ox 98 12/12/22 19:17 O2 Del Method Room Air 12/12/22 19:17 BMI result Body Mass Index 40.1 <ANA Zuniga - Last Filed: 12/12/22 12:28> Vital Signs: Last Vital Signs Temp 98.0 F 12/12/22 19:17 Pulse 84 12/12/22 19:17 Resp 16 12/12/22 19:17 BP 136/61 12/12/22 19:17 Pulse Ox 98 12/12/22 19:17 O2 Del Method Room Air 12/12/22 19:17 BMI result Body Mass Index 40.1 <Jonatan Justice MD - Last Filed: 12/12/22 19:43> GEN: Well developed, no acute distress, alert, oriented HEENT: Normocephalic, atraumatic, normal external ears, nose appears normal, no oropharyngeal edema or exudates Eyes: Normal to appearance Neck: Supple, no lymphadenopathy Respiratory: Talks in complete sentences, no respiratory distress, clear to auscultation bilaterally Cardiovascular: Regular rate and rhythm, no murmurs rubs or gallops Abdomen: Soft, nontender, nondistended, no guarding, no rebound Back: No CVA tenderness Extremities: No clubbing cyanosis or edema Neurologic: No focal neurologic deficits, cranial nerves 2-12 intact, strength is 5/5 bilaterally Skin: No rash <Jonatan Justice MD - Last Filed: 12/12/22 19:43> Course Course Course Narrative: RME: 52yo F w/PMHx GERD, insomnia, anemia, HLD, IBS, CKD, lymphedema, HTN c/o HIGGINS x1 week worse today w/blurry vision this AM (resolved), sore throat, chronic LLQ abd pain and nausea. Denies HIGGINS being maximal at onset. Took Tylenol w/o relief. Saw PCP yesterday in office HTNsive in triage, admits did take her BP meds today EKG, labs, UA, COVID/FLU, rapid strep ordered Full HPI, ROS and PE to be performed by primary ED provider. <ANA Zuniga - Last Filed: 12/12/22 12:28> Reevaluation(s) Reevaluation #1: Blood pressure is currently 166/70. She has no nuchal rigidity, no meningeal signs, no fever. Doubt meningitis or subarachnoid hemorrhage. CT scan is negative. I discussed all of her lab work with her. Will treat patient symptomatically for headache and give her dose of amlodipine and re-evaluate in 1 hour. <Jonatan Justice MD - Last Filed: 12/12/22 19:43> Time: 17:56 <Jonatan Justice MD - Last Filed: 12/12/22 19:43> Reevaluation #2: patient is feeling much better BP has responded nicely, will d/c. Patient to pickle solution maker her Rx for amlodipine tomorrow. <Jonatan Justice MD - Last Filed: 12/12/22 19:43> Time: 19:41 <Jonatan Justice MD - Last Filed: 12/12/22 19:43> Medications Administered Discontinued Medications Generic Name Dose Route Start Last Admin Trade Name Freq PRN Reason Stop Dose Admin Acetaminophen/Butalbital/Caffeine 2 tab 12/12/22 17:53 12/12/22 17:58 Butalb/Acetamin/Caff 50/325/40 Tablet PO 12/12/22 17:54 2 tab ONCE ONE Administration Amlodipine Besylate 5 mg 12/12/22 17:53 12/12/22 17:59 Amlodipine Besylate 5 Mg Tablet PO 12/12/22 17:54 5 mg ONCE ONE Administration Protocol <ANA Zuniga - Last Filed: 12/12/22 12:28> Medications Administered Discontinued Medications Generic Name Dose Route Start Last Admin Trade Name Freq PRN Reason Stop Dose Admin Acetaminophen/Butalbital/Caffeine 2 tab 12/12/22 17:53 12/12/22 17:58 Butalb/Acetamin/Caff 50/325/40 Tablet PO 12/12/22 17:54 2 tab ONCE ONE Administration Amlodipine Besylate 5 mg 12/12/22 17:53 12/12/22 17:59 Amlodipine Besylate 5 Mg Tablet PO 12/12/22 17:54 5 mg ONCE ONE Administration Protocol <Jonatan Justice MD - Last Filed: 12/12/22 19:43> Medical Decision Making Medical Decision Making [facility] Narrative: 52-year-old female presents with headache. Patient has history of hypertension. She reports her headache is a 10/10. Was not sudden onset. She denies any neck pain or stiffness. She denies any fevers. Doubt meningitis or subarachnoid hemorrhage however, she does have hypertensive urgency. Will order CT scan to rule out bleed. I doubt patient will not require a lumbar puncture as I have a low suspicion for subarachnoid hemorrhage. There is no trauma to suggest an etiology of subdural or epidural hematoma. I suspect her headache is either causing her hypertension her hypertension is causing her headache. Will treat her blood pressure with amlodipine which she is supposed to switch to. Will treat her headache. I suspect her headache could also be tension headache, sinus headache, cluster headache. <Jonatan Justice MD - Last Filed: 12/12/22 19:43> Differential Diagnosis Differential Diagnoses: The differential diagnosis associated with the presentation includes (Hypertensive urgency, headache, migraine, tension, cluster, sinus) <Jonatan Justice MD - Last Filed: 12/12/22 19:43> Admission/Observation Consideration of admission/observation: Escalation of care including admission/observation considered <Jonatan Justice MD - Last Filed: 12/12/22 19:43> Lab Data [facility] Lab Attestation statement: I reviewed the patient's lab results. <Jonatan Justice MD - Last Filed: 12/12/22 19:43> Result Diagrams: 12/12/22 12:54 12/12/22 12:54 <ANA Zuniga - Last Filed: 12/12/22 12:28> Labs: Lab Results 12/12/22 12/12/22 12/12/22 Range/Units 12:47 12:48 12:48 WBC (4.8-10.8) X10*3/uL RBC (4.20-5.50) X10*6/uL Hgb (12.0-16.0) g/dl Hct (37.0-47.0) % MCV (80.0-98.0) fL MCH (27.0-33.0) pg MCHC (31.0-35.0) g/dl RDW (11.0-16.0) % Plt Count (160-400) X10*3/uL MPV (9.4-12.3) fL Immature Gran % (Auto) (0.0-0.4) % Neut % (Auto) (45-73) % Lymph % (Auto) (20-40) % Ramsey % (Auto) (2-11) % Eos % (Auto) (0-4) % Baso % (Auto) (0-2) % Lymph # (Auto) (1.2-4.9) X10*3/uL Ramsey # (Auto) (0.1-1.2) X10*3/uL Eos # (Auto) (0.0-0.4) X10*3/uL Baso # (Auto) (0.0-0.2) X10*3/uL Abs Immat Gran (auto) (0.00-0.03) X10*3/uL Absolute Neuts (auto) (2.0-8.3) x10*3/uL Absolute Nucleated RBC (0.0-0.012) X10*3/uL Nucleated RBC % (auto) (0.0-0.2) /100WBC PT (10.0-13.1) SEC INR (0.9-1.1) Sodium (135-145) mmol/L Potassium (3.3-5.1) mmol/L Chloride (96-108) mmol/L Carbon Dioxide (22-29) mmol/L Anion Gap (12-20) BUN (9-16) mg/dL Creatinine (0.5-1.4) mg/dL Estim Creat Clear Calc Estimated GFR Random Glucose (60-115) mg/dL Calcium (8.4-10.2) mg/dL Magnesium (1.6-2.6) mg/dL Total Bilirubin (0.0-1.0) mg/dL Direct Bilirubin (0.0-0.5) mg/dL AST (5-31) U/L ALT (0-31) U/L Alkaline Phosphatase (39-117) U/L Total Protein (6.5-8.0) g/dL Albumin (3.5-5.0) g/dL Lipase (8-78) U/L Urine Color Yellow Urine Appearance Clear Urine pH 6.5 (5.0-9.0) Ur Specific [place] 1.015 (1.005-1.025) Urine Protein Negative (Neg-Trace) mg/dL Urine Glucose (UA) Negative (Negative) mg/dL Urine Ketones Negative (Negative) mg/dL Urine Blood Negative (Negative) Urine Nitrite Negative (Negative) Ur Leukocyte Esterase Trace H (Negative) Urine RBC 0-2 (0-2) /HPF Urine WBC 0-5 (0-5) /HPF Ur Squamous Epith Cells 0-2 (0-2) /HPF Urine Bacteria None Seen (None Seen) Hyaline Casts 0-2 (0-2) /LPF COVID-19 (DIVYA) Negative (Negative) COVID-19 Clin Com See Note Influenza Type A (ABENA) Negative (Negative) Influenza Type B (ABENA) Negative (Negative) Influenza A & B Note See Note S. pyogenes GrpA ABENA (Negative) 12/12/22 12/12/22 12/12/22 Range/Units 12:50 12:54 12:54 WBC 7.1 (4.8-10.8) X10*3/uL RBC 4.09 L (4.20-5.50) X10*6/uL Hgb 12.1 (12.0-16.0) g/dl Hct 36.9 L (37.0-47.0) % MCV 90.2 (80.0-98.0) fL MCH 29.6 (27.0-33.0) pg MCHC 32.8 (31.0-35.0) g/dl RDW 12.0 (11.0-16.0) % Plt Count 226 (160-400) X10*3/uL MPV 7.6 L (9.4-12.3) fL Immature Gran % (Auto) 0.6 H (0.0-0.4) % Neut % (Auto) 55.5 (45-73) % Lymph % (Auto) 31.5 (20-40) % Ramsey % (Auto) 8.3 (2-11) % Eos % (Auto) 3.7 (0-4) % Baso % (Auto) 0.4 (0-2) % Lymph # (Auto) 2.2 (1.2-4.9) X10*3/uL Ramsey # (Auto) 0.6 (0.1-1.2) X10*3/uL Eos # (Auto) 0.3 (0.0-0.4) X10*3/uL Baso # (Auto) 0.0 (0.0-0.2) X10*3/uL Abs Immat Gran (auto) 0.04 H (0.00-0.03) X10*3/uL Absolute Neuts (auto) 3.9 (2.0-8.3) x10*3/uL Absolute Nucleated RBC 0.000 (0.0-0.012) X10*3/uL Nucleated RBC % (auto) 0.0 (0.0-0.2) /100WBC PT (10.0-13.1) SEC INR (0.9-1.1) Sodium 137 (135-145) mmol/L Potassium 4.9 (3.3-5.1) mmol/L Chloride 104 (96-108) mmol/L Carbon Dioxide 26 (22-29) mmol/L Anion Gap 12 (12-20) BUN 20 H (9-16) mg/dL Creatinine 1.10 (0.5-1.4) mg/dL Estim Creat Clear Calc 72.7 Estimated GFR 52 Random Glucose 151 H (60-115) mg/dL Calcium 9.3 (8.4-10.2) mg/dL Magnesium 1.8 (1.6-2.6) mg/dL Total Bilirubin 0.5 (0.0-1.0) mg/dL Direct Bilirubin 0.2 (0.0-0.5) mg/dL AST 15 (5-31) U/L ALT 14 (0-31) U/L Alkaline Phosphatase 75 (39-117) U/L Total Protein 6.4 L (6.5-8.0) g/dL Albumin 3.8 (3.5-5.0) g/dL Lipase 22 (8-78) U/L Urine Color Urine Appearance Urine pH (5.0-9.0) Ur Specific [place] (1.005-1.025) Urine Protein (Neg-Trace) mg/dL Urine Glucose (UA) (Negative) mg/dL Urine Ketones (Negative) mg/dL Urine Blood (Negative) Urine Nitrite (Negative) Ur Leukocyte Esterase (Negative) Urine RBC (0-2) /HPF Urine WBC (0-5) /HPF Ur Squamous Epith Cells (0-2) /HPF Urine Bacteria (None Seen) Hyaline Casts (0-2) /LPF COVID-19 (DIVYA) (Negative) COVID-19 Clin Com Influenza Type A (ABENA) (Negative) Influenza Type B (ABENA) (Negative) Influenza A & B Note S. pyogenes GrpA ABENA Negative (Negative) 12/12/22 Range/Units 12:54 WBC (4.8-10.8) X10*3/uL RBC (4.20-5.50) X10*6/uL Hgb (12.0-16.0) g/dl Hct (37.0-47.0) % MCV (80.0-98.0) fL MCH (27.0-33.0) pg MCHC (31.0-35.0) g/dl RDW (11.0-16.0) % Plt Count (160-400) X10*3/uL MPV (9.4-12.3) fL Immature Gran % (Auto) (0.0-0.4) % Neut % (Auto) (45-73) % Lymph % (Auto) (20-40) % Ramsey % (Auto) (2-11) % Eos % (Auto) (0-4) % Baso % (Auto) (0-2) % Lymph # (Auto) (1.2-4.9) X10*3/uL Ramsey # (Auto) (0.1-1.2) X10*3/uL Eos # (Auto) (0.0-0.4) X10*3/uL Baso # (Auto) (0.0-0.2) X10*3/uL Abs Immat Gran (auto) (0.00-0.03) X10*3/uL Absolute Neuts (auto) (2.0-8.3) x10*3/uL Absolute Nucleated RBC (0.0-0.012) X10*3/uL Nucleated RBC % (auto) (0.0-0.2) /100WBC PT 9.4 L (10.0-13.1) SEC INR 0.8 L (0.9-1.1) Sodium (135-145) mmol/L Potassium (3.3-5.1) mmol/L Chloride (96-108) mmol/L Carbon Dioxide (22-29) mmol/L Anion Gap (12-20) BUN (9-16) mg/dL Creatinine (0.5-1.4) mg/dL Estim Creat Clear Calc Estimated GFR Random Glucose (60-115) mg/dL Calcium (8.4-10.2) mg/dL Magnesium (1.6-2.6) mg/dL Total Bilirubin (0.0-1.0) mg/dL Direct Bilirubin (0.0-0.5) mg/dL AST (5-31) U/L ALT (0-31) U/L Alkaline Phosphatase (39-117) U/L Total Protein (6.5-8.0) g/dL Albumin (3.5-5.0) g/dL Lipase (8-78) U/L Urine Color Urine Appearance Urine pH (5.0-9.0) Ur Specific [place] (1.005-1.025) Urine Protein (Neg-Trace) mg/dL Urine Glucose (UA) (Negative) mg/dL Urine Ketones (Negative) mg/dL Urine Blood (Negative) Urine Nitrite (Negative) Ur Leukocyte Esterase (Negative) Urine RBC (0-2) /HPF Urine WBC (0-5) /HPF Ur Squamous Epith Cells (0-2) /HPF Urine Bacteria (None Seen) Hyaline Casts (0-2) /LPF COVID-19 (DIVYA) (Negative) COVID-19 Clin Com Influenza Type A (ABENA) (Negative) Influenza Type B (ABENA) (Negative) Influenza A & B Note S. pyogenes GrpA ABENA (Negative) <ANA Zuniga - Last Filed: 12/12/22 12:28> Lab Results 12/12/22 12/12/22 12/12/22 Range/Units 12:47 12:48 12:48 WBC (4.8-10.8) X10*3/uL RBC (4.20-5.50) X10*6/uL Hgb (12.0-16.0) g/dl Hct (37.0-47.0) % MCV (80.0-98.0) fL MCH (27.0-33.0) pg MCHC (31.0-35.0) g/dl RDW (11.0-16.0) % Plt Count (160-400) X10*3/uL MPV (9.4-12.3) fL Immature Gran % (Auto) (0.0-0.4) % Neut % (Auto) (45-73) % Lymph % (Auto) (20-40) % Ramsey % (Auto) (2-11) % Eos % (Auto) (0-4) % Baso % (Auto) (0-2) % Lymph # (Auto) (1.2-4.9) X10*3/uL Ramsey # (Auto) (0.1-1.2) X10*3/uL Eos # (Auto) (0.0-0.4) X10*3/uL Baso # (Auto) (0.0-0.2) X10*3/uL Abs Immat Gran (auto) (0.00-0.03) X10*3/uL Absolute Neuts (auto) (2.0-8.3) x10*3/uL Absolute Nucleated RBC (0.0-0.012) X10*3/uL Nucleated RBC % (auto) (0.0-0.2) /100WBC PT (10.0-13.1) SEC INR (0.9-1.1) Sodium (135-145) mmol/L Potassium (3.3-5.1) mmol/L Chloride (96-108) mmol/L Carbon Dioxide (22-29) mmol/L Anion Gap (12-20) BUN (9-16) mg/dL Creatinine (0.5-1.4) mg/dL Estim Creat Clear Calc Estimated GFR Random Glucose (60-115) mg/dL Calcium (8.4-10.2) mg/dL Magnesium (1.6-2.6) mg/dL Total Bilirubin (0.0-1.0) mg/dL Direct Bilirubin (0.0-0.5) mg/dL AST (5-31) U/L ALT (0-31) U/L Alkaline Phosphatase (39-117) U/L Total Protein (6.5-8.0) g/dL Albumin (3.5-5.0) g/dL Lipase (8-78) U/L Urine Color Yellow Urine Appearance Clear Urine pH 6.5 (5.0-9.0) Ur Specific [place] 1.015 (1.005-1.025) Urine Protein Negative (Neg-Trace) mg/dL Urine Glucose (UA) Negative (Negative) mg/dL Urine Ketones Negative (Negative) mg/dL Urine Blood Negative (Negative) Urine Nitrite Negative (Negative) Ur Leukocyte Esterase Trace H (Negative) Urine RBC 0-2 (0-2) /HPF Urine WBC 0-5 (0-5) /HPF Ur Squamous Epith Cells 0-2 (0-2) /HPF Urine Bacteria None Seen (None Seen) Hyaline Casts 0-2 (0-2) /LPF COVID-19 (DIVYA) Negative (Negative) COVID-19 Clin Com See Note Influenza Type A (ABENA) Negative (Negative) Influenza Type B (ABENA) Negative (Negative) Influenza A & B Note See Note S. pyogenes GrpA ABENA (Negative) 12/12/22 12/12/22 12/12/22 Range/Units 12:50 12:54 12:54 WBC 7.1 (4.8-10.8) X10*3/uL RBC 4.09 L (4.20-5.50) X10*6/uL Hgb 12.1 (12.0-16.0) g/dl Hct 36.9 L (37.0-47.0) % MCV 90.2 (80.0-98.0) fL MCH 29.6 (27.0-33.0) pg MCHC 32.8 (31.0-35.0) g/dl RDW 12.0 (11.0-16.0) % Plt Count 226 (160-400) X10*3/uL MPV 7.6 L (9.4-12.3) fL Immature Gran % (Auto) 0.6 H (0.0-0.4) % Neut % (Auto) 55.5 (45-73) % Lymph % (Auto) 31.5 (20-40) % Ramsey % (Auto) 8.3 (2-11) % Eos % (Auto) 3.7 (0-4) % Baso % (Auto) 0.4 (0-2) % Lymph # (Auto) 2.2 (1.2-4.9) X10*3/uL Ramsey # (Auto) 0.6 (0.1-1.2) X10*3/uL Eos # (Auto) 0.3 (0.0-0.4) X10*3/uL Baso # (Auto) 0.0 (0.0-0.2) X10*3/uL Abs Immat Gran (auto) 0.04 H (0.00-0.03) X10*3/uL Absolute Neuts (auto) 3.9 (2.0-8.3) x10*3/uL Absolute Nucleated RBC 0.000 (0.0-0.012) X10*3/uL Nucleated RBC % (auto) 0.0 (0.0-0.2) /100WBC PT (10.0-13.1) SEC INR (0.9-1.1) Sodium 137 (135-145) mmol/L Potassium 4.9 (3.3-5.1) mmol/L Chloride 104 (96-108) mmol/L Carbon Dioxide 26 (22-29) mmol/L Anion Gap 12 (12-20) BUN 20 H (9-16) mg/dL Creatinine 1.10 (0.5-1.4) mg/dL Estim Creat Clear Calc 72.7 Estimated GFR 52 Random Glucose 151 H (60-115) mg/dL Calcium 9.3 (8.4-10.2) mg/dL Magnesium 1.8 (1.6-2.6) mg/dL Total Bilirubin 0.5 (0.0-1.0) mg/dL Direct Bilirubin 0.2 (0.0-0.5) mg/dL AST 15 (5-31) U/L ALT 14 (0-31) U/L Alkaline Phosphatase 75 (39-117) U/L Total Protein 6.4 L (6.5-8.0) g/dL Albumin 3.8 (3.5-5.0) g/dL Lipase 22 (8-78) U/L Urine Color Urine Appearance Urine pH (5.0-9.0) Ur Specific [place] (1.005-1.025) Urine Protein (Neg-Trace) mg/dL Urine Glucose (UA) (Negative) mg/dL Urine Ketones (Negative) mg/dL Urine Blood (Negative) Urine Nitrite (Negative) Ur Leukocyte Esterase (Negative) Urine RBC (0-2) /HPF Urine WBC (0-5) /HPF Ur Squamous Epith Cells (0-2) /HPF Urine Bacteria (None Seen) Hyaline Casts (0-2) /LPF COVID-19 (DIVYA) (Negative) COVID-19 Clin Com Influenza Type A (ABENA) (Negative) Influenza Type B (ABENA) (Negative) Influenza A & B Note S. pyogenes GrpA ABENA Negative (Negative) 12/12/22 Range/Units 12:54 WBC (4.8-10.8) X10*3/uL RBC (4.20-5.50) X10*6/uL Hgb (12.0-16.0) g/dl Hct (37.0-47.0) % MCV (80.0-98.0) fL MCH (27.0-33.0) pg MCHC (31.0-35.0) g/dl RDW (11.0-16.0) % Plt Count (160-400) X10*3/uL MPV (9.4-12.3) fL Immature Gran % (Auto) (0.0-0.4) % Neut % (Auto) (45-73) % Lymph % (Auto) (20-40) % [place] % (Auto) (2-11) % Eos % (Auto) (0-4) % Baso % (Auto) (0-2) % Lymph # (Auto) (1.2-4.9) X10*3/uL [place] # (Auto) (0.1-1.2) X10*3/uL Eos # (Auto) (0.0-0.4) X10*3/uL Baso # (Auto) (0.0-0.2) X10*3/uL Abs Immat Gran (auto) (0.00-0.03) X10*3/uL Absolute Neuts (auto) (2.0-8.3) x10*3/uL Absolute Nucleated RBC (0.0-0.012) X10*3/uL Nucleated RBC % (auto) (0.0-0.2) /100WBC PT 9.4 L (10.0-13.1) SEC INR 0.8 L (0.9-1.1) Sodium (135-145) mmol/L Potassium (3.3-5.1) mmol/L Chloride (96-108) mmol/L Carbon Dioxide (22-29) mmol/L Anion Gap (12-20) BUN (9-16) mg/dL Creatinine (0.5-1.4) mg/dL Estim Creat Clear Calc Estimated GFR Random Glucose (60-115) mg/dL Calcium (8.4-10.2) mg/dL Magnesium (1.6-2.6) mg/dL Total Bilirubin (0.0-1.0) mg/dL Direct Bilirubin (0.0-0.5) mg/dL AST (5-31) U/L ALT (0-31) U/L Alkaline Phosphatase (39-117) U/L Total Protein (6.5-8.0) g/dL Albumin (3.5-5.0) g/dL Lipase (8-78) U/L Urine Color Urine Appearance Urine pH (5.0-9.0) Ur Specific [place] (1.005-1.025) Urine Protein (Neg-Trace) mg/dL Urine Glucose (UA) (Negative) mg/dL Urine Ketones (Negative) mg/dL Urine Blood (Negative) Urine Nitrite (Negative) Ur Leukocyte Esterase (Negative) Urine RBC (0-2) /HPF Urine WBC (0-5) /HPF Ur Squamous Epith Cells (0-2) /HPF Urine Bacteria (None Seen) Hyaline Casts (0-2) /LPF COVID-19 (DIVYA) (Negative) COVID-19 Clin Com Influenza Type A (ABENA) (Negative) Influenza Type B (ABENA) (Negative) Influenza A & B Note S. pyogenes GrpA ABENA (Negative) <Jonaatn Justice MD - Last Filed: 12/12/22 19:43> Independent Interpretation I performed an independent interpretation of an: EKG (Normal sinus rhythm heart rate 65, PVCs, normal intervals, no acute ST elevations depressions, nonspecific T-wave changes) and CT Scan (head: nad) <Jonatan Justice MD - Last Filed: 12/12/22 19:43> Radiology Impression Discussion of test interpretation with radiology: I have reviewed the radiologist's reading. 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 If patient is symptomatic, consider correlation with follow-up contrast enhanced MRI. * CT othe) <Jonatan Justice MD - Last Filed: 12/12/22 19:43> Prescription Management I considered prescription management with: Pain Medication <Jonatan Justice MD - Last Filed: 12/12/22 19:43> Chronic Conditions Patient?s care impacted by: Hypertension <Jonatan Justice MD - Last Filed: 12/12/22 19:43> Discharge Plan Discharge Clinical Impression: Abnormal finding on imaging, Hypertensive urgency, Severe headache <ANA Zuniga - Last Filed: 12/12/22 12:28> Patient Disposition: Home, Self-Care <ANA Zuniga - Last Filed: 12/12/22 12:28> Instructions: Acute Headache (DC), Hypertensive Crisis (ED) <ANA Zuniga - Last Filed: 12/12/22 12:28> Additional Instructions: On discharge, I am recommending follow-up with her primary care provider. He do have an abnormal finding on imaging report which shows calcifications in the pineal gland. Repeating the significance of this is unclear. I doubt this is the cause of any of your symptoms. However, appropriate re-evaluation reviewed your findings should be done as an outpatient. <ANA Zuniga - Last Filed: 12/12/22 12:28> Prescriptions: New [id number] [Fioricet] 50-300-40 mg capsule 1 cap PO Q8H PRN (Reason: pain) Qty: 7 0RF No Action buspirone 10 mg tablet 10 mg PO TID Qty: 90 0RF atorvastatin 10 mg Tablet 10 mg PO DAILY Qty: 30 0RF prazosin 1 mg Capsule 1 mg PO BEDTIME Qty: 30 0RF Protocol: Hold for SBP< HOLD for SBP < : 90 bupropion HCl 300 mg Tablet Extended Release 24 Hr 300 mg PO DAILY Qty: 30 0RF ferrous sulfate 324 mg (65 mg iron) Tablet,Delayed Release (Dr/Ec) 324 mg PO DAILY Qty: 30 0RF trazodone 50 mg Tablet 50 mg PO BEDTIME PRN (Reason: Insomnia) Qty: 30 0RF docusate sodium 100 mg Capsule 200 mg PO BID Qty: 120 0RF clotrimazole 10 mg Janessa 10 mg mucous membrane 5XD Qty: 100 0RF Vraylar 6 mg capsule 6 mg PO DAILY Qty: 30 0RF polyethylene glycol 3350 [Miralax] 17 gram/dose powder 17 g PO DAILY Qty: 510 0RF cholecalciferol (vitamin D3) 50 mcg (2,000 unit) capsule 50 mcg PO DAILY Qty: 30 2RF furosemide 20 mg tablet 20 mg PO Q OTHER DAY Qty: 7 0RF lisinopril 20 mg tablet 30 mg PO DAILY Qty: 30 2RF Protocol: Hold for SBP< HOLD for SBP < : 90 hydralazine 25 mg tablet 25 mg PO TID 30 Days Qty: 90 2RF clonidine HCl 0.1 mg tablet 0.1 mg PO DAILY PRN (Reason: HTN, hyperarousal) Protocol: Hold for SBP< HOLD for SBP < : 90 terconazole 0.8 % cream 1 appful vaginal BEDTIME 3 Days Qty: 20 0RF dicyclomine 10 mg capsule 10 mg PO TID 30 Days Qty: 90 1RF estradiol 0.01 % (0.1 mg/gram) cream 0.5 appful vaginal DAILY 28 Days Qty: 42.5 0RF Rx Instructions: Half an application for for 1 week then half an application 2 to 3 times a week for 3 additional weeks for a total of 4 weeks pantoprazole 40 mg tablet,delayed release (DR/EC) 40 mg PO DAILY naproxen 500 mg tablet 500 mg PO BID 30 Days Qty: 60 3RF glipizide 2.5 mg tablet extended release 24hr 2.5 mg PO DAILY trazodone 150 mg tablet 150 mg PO BEDTIME fluconazole [Diflucan] 150 mg tablet 150 mg PO Q3D Qty: 2 4RF miconazole nitrate 2 % powder 1 appl topical BID Qty: 85 3RF fluconazole [Diflucan] 150 mg tablet 150 mg PO DAILY 1 Days Qty: 1 0RF clotrimazole-betamethasone 1-0.05 % cream 1 appl topical BID 5 Days Qty: 45 0RF <ANA Zuniga - Last Filed: 12/12/22 12:28> Referrals: David Holliday MD [Primary Care Provider] - 5 days <ANA Zuniga - Last Filed: 12/12/22 12:28>
--- NOTE | 2022-12-12 12:25 | ECG_ITS ---
Test Reason : blurry vision Blood Pressure : / mmHG Vent. Rate : 065 BPM Atrial Rate : 065 BPM P-R Int : 146 ms QRS Dur : 088 ms QT Int : 392 ms P-R-T Axes : 053 -19 014 degrees QTc Int : 407 ms Sinus rhythm with occasional Premature ventricular complexes Otherwise normal ECG When compared with ECG of 19-MAY-2022 20:19, Premature ventricular complexes are now Present Referred By: Karen Nolasco Electronically Signed By:Jayy Rubio
[2022-12-12 12:59] LABS: MANUAL DIFF FLAG NO
[2022-12-12 13:03] LABS: Basophils Percent Auto 0.4 % (0-2); Eosinophils Absolute Auto 0.3 X10*3/uL (0.0-0.4); Eosinophils Percent Auto 3.7 % (0-4); Hematocrit 36.9 % (37.0-47.0); Hemoglobin 12.1 g/dl (12.0-16.0); Imm Gran Abs Auto 0.04 X10*3/uL (0.00-0.03); Imm Gran Pct Auto 0.6 % (0.0-0.4); Lymphocytes Absolute Auto 2.2 X10*3/uL (1.2-4.9); Lymphocytes Percent Auto 31.5 % (20-40); Mean Corpuscular HGB Conc 32.8 g/dl (31.0-35.0); Mean Corpuscular Hemoglobin 29.6 pg (27.0-33.0); Mean Corpuscular Volume 90.2 fL (80.0-98.0); Mean Platelet Volume 7.6 fL (9.4-12.3); Monocytes Absolute Auto 0.6 X10*3/uL (0.1-1.2); Monocytes Percent Auto 8.3 % (2-11); Neutrophils Absolute Auto 3.9 x10*3/uL (2.0-8.3); Neutrophils Percent Auto 55.5 % (45-73); Platelet Count 226 X10*3/uL (160-400); Red Blood Count 4.09 X10*6/uL (4.20-5.50); White Blood Count 7.1 X10*3/uL (4.8-10.8)
[2022-12-12 13:05] LABS: Appearance Urine Clear; Color Urine Yellow; Glucose Urine UA Negative (Negative); Leukocyte Esterase Urine Trace (Negative); Nitrite Urine Negative (Negative); PH 6.5 (5.0-9.0); Specific Gravity - Urine 1.015 (1.005-1.025); UMIC TRIGGER UACC YES; Urine Blood Negative (Negative); Urine Ketones Negative (Negative); Urine Protein Negative (Neg-Trace)
[2022-12-12 13:10] LABS: Bacteria Urine None Seen (None Seen); Hyaline Casts Urine 0-2 /LPF (0-2); RBC Urine 0-2 /HPF (0-2); Squamous Epithelial Cell Urine 0-2 /HPF (0-2); WBC Urine 0-5 /HPF (0-5)
[2022-12-12 13:12] LABS: INTERNATIONAL NORM RATIO 0.8 (0.9-1.1); Prothrombin Time 9.4 SEC (10.0-13.1)
[2022-12-12 13:20] LABS: Alanine Aminotransferase 14 U/L (0-31); Albumin Level 3.8 g/dL (3.5-5.0); Alkaline Phosphatase 75 U/L (39-117); Anion Gap 12 (12-20); Aspartate Amino Transferase 15 U/L (5-31); Bilirubin Direct 0.2 mg/dL (0.0-0.5); Bilirubin Total 0.5 mg/dL (0.0-1.0); Blood Urea Nitrogen 20 mg/dL (9-16); Calcium 9.3 mg/dL (8.4-10.2); Carbon Dioxide 26 mmol/L (22-29); Chloride 104 mmol/L (96-108); Creatinine Clr Calc Pharmacy 72.7; Estimated Glomerular Filt Rate 52; Glucose Random 151 mg/dL (60-115); Lipase 22 U/L (8-78); Magnesium 1.8 mg/dL (1.6-2.6); Potassium 4.9 mmol/L (3.3-5.1); Sodium 137 mmol/L (135-145); Total Protein 6.4 g/dL (6.5-8.0)
[2022-12-12 13:23] LABS: IDNOW Serial# 08D9AD1C; Strep A Nucleic Acid Negative (Negative)
[2022-12-12 13:23] LABS: COVID-19 Test Negative (Negative); IDNOW Serial# BCCEAD1C
[2022-12-12 13:24] LABS: IDNOW Serial# 9DB6401D; Influenza A Negative (Negative); Influenza B2 Negative (Negative)
[2022-12-12 16:33] VITALS: BP 162/88; PULSE 87; RESP 16; O2SAT 100
--- NOTE | 2022-12-12 16:37 | PC.NURSE ---
Pt reporting HIGGINS x2 days, w/ blurry vision and slight nausea. Pt reports she is under high stress currently. MD wanted her to come yesterday but she did not have a ride. Bp currently 162/88. Awaiting provider orders at this time
[2022-12-12 17:57] VITALS: BP 163/81; PULSE 85; RESP 20
[2022-12-12] MEDS: Butalb/Acetamin/Caff 50/325/40 TABLET 2 TAB PO (17:58)
[2022-12-12] MEDS: amLODIPine Besylate 5 MG TABLET PO (17:59)
[2022-12-12 19:17] VITALS: BP 136/61; PULSE 84; RESP 16; TEMP 36.7; O2SAT 98
--- NOTE | 2022-12-12 19:45 | PC.NURSE ---
This group underwriter assu med care of this Pt at 1900. Pt A&Ox4, reports effectiveness to meds given by previous nurse. Blood pressure noted to be stable, provider Dr. Justice notified.
== END 2022-12-12 20:01 | disposition home or self-care (01) ==
PROVIDERS: Physician Assistant; Emergency Provider Emergency Medicine; PCP Internal Medicine
DX: I16.0 Hypertensive urgency (principal); R51.9 Headache, unspecified; Z20.822 Contact with and (suspected) exposure to COVID-19; R93.0 Abnormal findings on diagnostic imaging of skull and head, not elsewhere classified; E11.22 Type 2 diabetes mellitus with diabetic chronic kidney disease; I12.9 Hypertensive chronic kidney disease with stage 1 through stage 4 chronic kidney disease, or unspecified chronic kidney disease; N18.30 Chronic kidney disease, stage 3 unspecified; Z79.899 Other long term (current) drug therapy; Z79.02 Long term (current) use of antithrombotics/antiplatelets
CPT/HCPCS: 36415; 70450; 80048; 80076; 81001; 81003; 83690; 83735; 85025; 85610; 87502; 87635; 87651; 93005; 99284; 99285

== ENCOUNTER 2022-12-19 06:39 | Outpatient (REF) | payer MEDICARE, BC, SELFPAY ==
--- NOTE | ~2022-12-19 | US_ITS ---
EXAMINATION: US LOWER EXTREMITY VENOUS (REFLUX EXAM), BILATERAL CLINICAL INDICATION: Chronic venous insufficiency with lower extremity varicose veins, inflammation and pain COMPARISON: None. TECHNIQUE: Color flow triplex imaging and compression Doppler was performed to evaluate both the deep and the superficial systems bilaterally. To evaluate the superficial system, the examination was performed in the upright position. Color-flow Doppler ultrasound and compression ultrasound were utilized. In addition, maneuvers were utilized to demonstrate reflux. FINDINGS: 1. DEEP VENOUS ULTRASOUND OF THE RIGHT LOWER EXTREMITY: Common Femoral Vein: Compressible, normal respiratory variation and augmented flow. Femoral Vein: Compressible, normal color flow and augmentation. Popliteal Vein: Compressible, normal augmentation. Deep Reflux: There is no evidence of reflux in the deep system in either the common femoral vein or the popliteal vein. There is a Palacios's cyst in the popliteal fossa measuring 3.4 x 5.2 x 2.9 cm 2. SUPERFICIAL ULTRASOUND WITH DOPPLER OF RIGHT LOWER EXTREMITY: GREAT SAPHENOUS VEIN: Saphenofemoral Junction: 1.0 cm; Reflux: 0 ms Proximal Thigh: 0.6 cm; Reflux: 900 ms Mid Thigh: 0.5 cm; Reflux: 704 ms Above Knee: 0.5 cm; Reflux: 2120 ms At Knee: 0.5 cm; Reflux: 1840 ms Below Knee: 0.6 cm; Reflux: 2196 ms Mid Calf: 0.5 cm; Reflux: 2184 ms Ankle: 0.5 cm; Reflux: 2040 ms DUPLICATED MEDIAL GREAT SAPHENOUS VEIN: Diameter: 0.5 cm Reflux: 1348 ms DUPLICATED LATERAL GREAT SAPHENOUS VEIN: Diameter: None Imaged Reflux: NA SMALL SAPHENOUS VEIN: Proximal: 0.4 cm; Reflux: 328 ms Distal: 0.4 cm; Reflux: 0 ms VEIN OF GIACOMINI: None Imaged. PERFORATORS: Location: Mid calf Size: 0.6 cm Reflux: 2660 ms VARICOSITIES: Location: Mid thigh and proximal calf Size: 0.3 to 0.5 cm Reflux: Ranging from 2088 ms to 2956 ms 3. DEEP VENOUS ULTRASOUND OF THE LEFT LOWER EXTREMITY: Common Femoral Vein: Compressible, normal respiratory variation and augmented flow. Femoral Vein: Compressible, normal color flow and augmentation. Popliteal Vein: Compressible, normal augmentation. Deep Reflux: There is no evidence of reflux in the deep system in either the common femoral vein or the popliteal vein. There is no evidence of a Palacios's cyst. 4. SUPERFICIAL ULTRASOUND WITH DOPPLER OF LEFT LOWER EXTREMITY: GREAT SAPHENOUS VEIN: Saphenofemoral Junction: 1.0 cm; Reflux: 0 ms Proximal Thigh: 0.7 cm; Reflux: 0 ms Mid Thigh: 0.5 cm; Reflux: 2112 ms Above Knee: 0.6 cm; Reflux: 2156 ms At Knee: 0.3 cm; Reflux: 1700 ms Below Knee: 0.4 cm; Reflux: 1820 ms Mid Calf: 0.2 cm; Reflux: 0 ms Ankle: 0.3 cm; Reflux: 2236 ms DUPLICATED MEDIAL GREAT SAPHENOUS VEIN: Diameter: 0.4 cm Reflux: None DUPLICATED LATERAL GREAT SAPHENOUS VEIN: Diameter: None Imaged Reflux: NA SMALL SAPHENOUS VEIN: Proximal: 0.3 cm; Reflux: 0 ms Distal: 0.3 cm; Reflux: 0 ms VEIN OF GIACOMINI: None Imaged. PERFORATORS: Location: Mid calf Size: 0.3 cm Reflux: 2316 ms VARICOSITIES: Location: Mid thigh, distal thigh, proximal calf and mid calf Size: 0.2 - 0.4 cm Reflux: Ranging from 776 ms to 2560 ms US/US venous duplex LE BI IMPRESSION: Right: Severe reflux diffusely throughout the great saphenous vein and a medial duplicated great saphenous vein extending into multiple varicose veins in the thigh and calf as described above Left: Severe reflux in the left great saphenous vein extending into multiple varicose veins in the thigh and calf as described above
== END 2022-12-19 06:40 | disposition home or self-care (01) ==
LOC: HO.US 06:39
PROVIDERS: PCP Internal Medicine; Visit Provider Surgery Vascular Surgery
DX: I83.12 Varicose veins of left lower extremity with inflammation (principal)
CPT/HCPCS: 93970

== ENCOUNTER 2022-12-20 21:12 | Emergency (ER) | payer MEDICARE, BC, SELFPAY ==
[2022-12-20 21:17] VITALS: BP 158/86; PULSE 76; RESP 18; TEMP 36.4; O2SAT 98; BMI 39.9
[2022-12-20 23:22] VITALS: BP 120/70; PULSE 81; RESP 16; TEMP 36.4; O2SAT 96
[2022-12-20 23:25] LABS: Basophils Percent Auto 0.6 % (0-2); Eosinophils Absolute Auto 0.2 X10*3/uL (0.0-0.4); Eosinophils Percent Auto 2.7 % (0-4); Hematocrit 35.3 % (37.0-47.0); Hemoglobin 11.4 g/dl (12.0-16.0); Imm Gran Abs Auto 0.02 X10*3/uL (0.00-0.03); Imm Gran Pct Auto 0.3 % (0.0-0.4); Lymphocytes Absolute Auto 2.3 X10*3/uL (1.2-4.9); Lymphocytes Percent Auto 33.9 % (20-40); MANUAL DIFF FLAG NO; Mean Corpuscular HGB Conc 32.3 g/dl (31.0-35.0); Mean Corpuscular Hemoglobin 29.5 pg (27.0-33.0); Mean Corpuscular Volume 91.2 fL (80.0-98.0); Mean Platelet Volume 7.7 fL (9.4-12.3); Monocytes Absolute Auto 0.7 X10*3/uL (0.1-1.2); Monocytes Percent Auto 10.4 % (2-11); Neutrophils Absolute Auto 3.5 x10*3/uL (2.0-8.3); Neutrophils Percent Auto 52.1 % (45-73); Platelet Count 231 X10*3/uL (160-400); Red Blood Count 3.87 X10*6/uL (4.20-5.50); Red Cell Distribution Width 12.1 % (11.0-16.0); White Blood Count 6.6 X10*3/uL (4.8-10.8)
--- NOTE | 2022-12-20 23:34 | MHC.EDTECH ---
i took over this assignment , vitals were taken and entered as well as blood was drawn
[2022-12-20 23:44] LABS: Alanine Aminotransferase 15 U/L (0-31); Albumin Level 3.7 g/dL (3.5-5.0); Alkaline Phosphatase 73 U/L (39-117); Anion Gap 14 (12-20); Aspartate Amino Transferase 13 U/L (5-31); Bilirubin Direct 0.1 mg/dL (0.0-0.5); Bilirubin Total 0.3 mg/dL (0.0-1.0); Blood Urea Nitrogen 25 mg/dL (9-16); Calcium 9.2 mg/dL (8.4-10.2); Carbon Dioxide 27 mmol/L (22-29); Chloride 103 mmol/L (96-108); Creatinine Clr Calc Pharmacy 74.5; Estimated Glomerular Filt Rate 54; Glucose Random 129 mg/dL (60-115); Lipase 26 U/L (8-78); Potassium 4.9 mmol/L (3.3-5.1); Sodium 139 mmol/L (135-145); Total Protein 6.1 g/dL (6.5-8.0)
[2022-12-21 00:31] LABS: Appearance Urine Clear; Color Urine Dark Yellow; Glucose Urine UA Negative (Negative); Leukocyte Esterase Urine Small (1+) (Negative); Nitrite Urine Negative (Negative); Specific Gravity - Urine >= 1.030 (1.005-1.025); UMIC TRIGGER UACC YES; Urine Blood Negative (Negative); Urine Ketones Trace mg/dL (Negative); Urine Protein Negative (Neg-Trace)
--- NOTE | 2022-12-21 00:31 | ED_ITS ---
HPI - Weakness General Chief complaint: Weakness Stated complaint: Doctor sent for blood Time Seen by Provider: 12/20/22 23:09 Source: patient Mode of arrival: ambulatory History of Present Illness HPI Narrative: 52-year-old female who is been feeling fatigued and has a history of IBS as well as CKD from prior attempts to harm herself and also complains of abdominal discomfort with diarrhea. Patient states that she was directed to come in by her primary care provider. She otherwise denies any fever, chills, shortness of breath, chest pain/palpitations. Related Data Home Medications Medication Instructions Recorded Confirmed pantoprazole 40 mg tablet,delayed 40 mg PO DAILY 11/06/22 12/16/22 release glipizide 2.5 mg tablet, extended 2.5 mg PO DAILY 11/10/22 12/16/22 release 24 hr trazodone 150 mg tablet 150 mg PO BEDTIME 11/10/22 12/16/22 clonidine HCl 0.1 mg tablet 0.1 mg PO DAILY PRN HTN, 12/12/22 12/16/22 hyperarousal Previous Rx's Medication Instructions Recorded atorvastatin 10 mg tablet 10 mg PO DAILY #30 tabs 07/17/22 bupropion HCl 300 mg 24 hr tablet, 300 mg PO DAILY #30 tabs 07/17/22 extended release clotrimazole 10 mg sandra 10 mg mucous membrane 5XD #100 tabs 07/17/22 docusate sodium 100 mg capsule 200 mg PO BID #120 caps 07/17/22 ferrous sulfate 324 mg (65 mg 324 mg PO DAILY #30 tabs 07/17/22 iron) tablet,delayed release prazosin 1 mg capsule 1 mg PO BEDTIME #30 caps 07/17/22 trazodone 50 mg tablet 50 mg PO BEDTIME PRN Insomnia #30 07/17/22 tabs cariprazine 6 mg capsule (Vraylar) 6 mg PO DAILY #30 caps 07/18/22 terconazole 0.8 % vaginal cream 1 appful vaginal BEDTIME 3 days 10/14/22 #20 grams dicyclomine 10 mg capsule 10 mg PO TID 30 days #90 caps 10/27/22 estradiol 0.01% (0.1 mg/gram) 0.5 appful vaginal DAILY 4 weeks 10/27/22 vaginal cream #42.5 grams polyethylene glycol 3350 17 17 g PO DAILY #510 grams 11/01/22 gram/dose oral powder (Miralax) naproxen 500 mg tablet 500 mg PO BID 30 days #60 tabs 11/06/22 cholecalciferol (vitamin D3) 50 50 mcg PO DAILY #30 caps 11/07/22 mcg (2,000 unit) capsule furosemide 20 mg tablet 20 mg PO Q OTHER DAY #7 tabs 11/07/22 lisinopril 20 mg tablet 30 mg PO DAILY #30 tabs 11/07/22 buspirone 10 mg tablet 10 mg PO TID #90 tabs 11/12/22 miconazole nitrate 2 % topical 1 appl topical BID #85 grams 11/14/22 powder clotrimazole-betamethasone 1 1 appl topical BID 5 days #45 grams 12/09/22 %-0.05 % topical cream fluconazole 150 mg tablet 150 mg PO DAILY 1 day #1 tab 12/09/22 (Diflucan) hydralazine 25 mg tablet 25 mg PO TID 30 days #90 tabs 12/11/22 xiyvnwnrfx-apxwrntxjftng-wemcbvud 1 cap PO Q8H PRN pain #7 caps 12/12/22 50 mg-300 mg-40 mg capsule (Fioricet) loratadine 10 mg tablet 10 mg PO DAILY PRN allergy 12/16/22 symptoms 90 days #90 tabs Allergies Allergy/AdvReac Type Severity Reaction Status Date / Time lithium Allergy Mild EMESIS Verified 12/16/22 11:29 Review of Systems Review of Systems: Pertinent positives and negatives as stated in HPI [facility] Past Medical History Source: nursing notes reviewed Medical History Allergic rhinitis Anemia Atrophic vaginitis Benign essential hypertension Chronic kidney disease (CKD), stage III (moderate) GERD without esophagitis Hiatal hernia History of electroconvulsive therapy Hyperlipidemia Hypertension Impaired fasting glucose Insomnia Irritable bowel syndrome (IBS) Lymphedema Pre-diabetes Pure hypercholesterolemia Surgical History Hx of cholecystectomy Hx of colonoscopy Hx of dilation and curettage Hx of removal of cyst Family History Family History Mother Diabetes Heart disease Father Heart disease Heart attack Asthma Brother Heart disease Social History Social History Household Members: None Housing: Apartment Do you presently have visiting nurse or other home services: No Alcohol intake: current Alcohol intake frequency: holidays/special occasions only Patient Tobacco Use Status: Never used Tobacco e-Cigarette/Vaping Use: Never Used Second Hand Smoke Exposure: No Advance Directives: No Advance Directives Information Provided: Yes service: No 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[employer] [place] Sexual orientation: Don't Know Cognitive needs: No Hearing needs: No Vision needs: No Physical Exam Vital Signs: Vital Signs: Last Vital Signs Temp 97.6 F 12/20/22 23:22 Pulse 81 12/20/22 23:22 Resp 16 12/20/22 23:22 BP 120/70 12/20/22 23:22 Pulse Ox 96 12/20/22 23:22 O2 Del Method Room Air 12/20/22 21:17 BMI result Body Mass Index 39.9 VITAL SIGNS: Reviewed. GENERAL: Elevated BMI, Well developed, well nourished, in no acute distress. HEAD: Normocephalic/atraumatic EYES: PERRLA, EOMI EARS: Ext canals without abnormality NOSE: Nares patent bilateral OROPHARYNX: no oral lesions noted, posterior pharynx clear NECK: Supple, no adenopathy LUNGS: Normal breath sounds. No adventitious sounds or accessory muscle use. SpO2<96> CARDIOVASCULAR: Regular rate and rhythm without noted murmurs ABDOMEN: Soft, non-tender, non-distended with bowel sounds. MUSCULOSKELETAL: No tenderness, deformities, or effusions noted on gross inspection. EXTREMITIES: No cyanosis, clubbing or edema. SKIN: Inspection of the skin reveals no rashes NEUROLOGIC: Alert and oriented x 4. Strength and sensation to light touch were grossly intact x 4. Medical Decision Making Medical Decision Making MDM Narrative: 52-year-old female with history and clinical presentation suggestive of exacerbation underlying IBS, will evaluate for any electrolyte or renal abnormalities to include urinalysis. I reviewed all investigations in there are no acute findings to better explain patient's fatigue, is no evidence of infection and patient has chronically stable anemia, no gross electrolyte derangements and I suspect that her abdominal discomfort and diarrhea is consistent with her underlying IBS diagnosis. Urinalysis is negative for evidence of acute infection. She is otherwise discharged home in stable condition. She is encouraged to follow-up with primary care provider. Differential Diagnosis Please see the discussion above Lab Data Please see the discussion above 12/20/22 23:15 12/20/22 23:15 Labs: Lab Results 12/20/22 12/20/22 12/21/22 Range/Units 23:15 23:15 00:24 WBC 6.6 (4.8-10.8) X10*3/uL RBC 3.87 L (4.20-5.50) X10*6/uL Hgb 11.4 L (12.0-16.0) g/dl Hct 35.3 L (37.0-47.0) % MCV 91.2 (80.0-98.0) fL MCH 29.5 (27.0-33.0) pg MCHC 32.3 (31.0-35.0) g/dl RDW 12.1 (11.0-16.0) % Plt Count 231 (160-400) X10*3/uL MPV 7.7 L (9.4-12.3) fL Immature Gran % (Auto) 0.3 (0.0-0.4) % Neut % (Auto) 52.1 (45-73) % Lymph % (Auto) 33.9 (20-40) % Miner % (Auto) 10.4 (2-11) % Eos % (Auto) 2.7 (0-4) % Baso % (Auto) 0.6 (0-2) % Lymph # (Auto) 2.3 (1.2-4.9) X10*3/uL Miner # (Auto) 0.7 (0.1-1.2) X10*3/uL Eos # (Auto) 0.2 (0.0-0.4) X10*3/uL Baso # (Auto) 0.0 (0.0-0.2) X10*3/uL Abs Immat Gran (auto) 0.02 (0.00-0.03) X10*3/uL Absolute Neuts (auto) 3.5 (2.0-8.3) x10*3/uL Absolute Nucleated RBC 0.000 (0.0-0.012) X10*3/uL Nucleated RBC % (auto) 0.0 (0.0-0.2) /100WBC Sodium 139 (135-145) mmol/L Potassium 4.9 (3.3-5.1) mmol/L Chloride 103 (96-108) mmol/L Carbon Dioxide 27 (22-29) mmol/L Anion Gap 14 (12-20) BUN 25 H (9-16) mg/dL Creatinine 1.07 (0.5-1.4) mg/dL Estim Creat Clear Calc 74.5 Estimated GFR 54 Random Glucose 129 H (60-115) mg/dL Calcium 9.2 (8.4-10.2) mg/dL Total Bilirubin 0.3 (0.0-1.0) mg/dL Direct Bilirubin 0.1 (0.0-0.5) mg/dL AST 13 (5-31) U/L ALT 15 (0-31) U/L Alkaline Phosphatase 73 (39-117) U/L Total Protein 6.1 L (6.5-8.0) g/dL Albumin 3.7 (3.5-5.0) g/dL Lipase 26 (8-78) U/L Urine Color Dark Yellow Urine Appearance Clear Urine pH 6.0 (5.0-9.0) Ur Specific [place] >= 1.030 H (1.005-1.025) Urine Protein Negative (Neg-Trace) mg/dL Urine Glucose (UA) Negative (Negative) mg/dL Urine Ketones Trace (Negative) mg/dL Urine Blood Negative (Negative) Urine Nitrite Negative (Negative) Ur Leukocyte Esterase Small (1+) H (Negative) Urine RBC 0-2 (0-2) /HPF Urine WBC 0-5 (0-5) /HPF Ur Squamous Epith Cells 0-2 (0-2) /HPF Urine Bacteria None Seen (None Seen) Hyaline Casts 0-2 (0-2) /LPF External Record Review External record reviewed: Outpatient record and Prior outpatient labs Chronic Conditions Patient?s care impacted by: Hypertension Discharge Plan Discharge Clinical Impression: Fatigue, Symptoms consistent with irritable bowel syndrome Patient Disposition: Home, Self-Care Instructions: Fatigue (ED), Irritable Bowel Syndrome (ED) Additional Instructions: 1. Resume all home medications as prescribed. 2. Follow-up with your primary care provider on Thursday morning. Return to the ER for any worsening symptoms. Prescriptions: No Action buspirone 10 mg tablet 10 mg PO TID Qty: 90 0RF atorvastatin 10 mg Tablet 10 mg PO DAILY Qty: 30 0RF prazosin 1 mg Capsule 1 mg PO BEDTIME Qty: 30 0RF Protocol: Hold for SBP< HOLD for SBP < : 90 bupropion HCl 300 mg Tablet Extended Release 24 Hr 300 mg PO DAILY Qty: 30 0RF ferrous sulfate 324 mg (65 mg iron) Tablet,Delayed Release (Dr/Ec) 324 mg PO DAILY Qty: 30 0RF trazodone 50 mg Tablet 50 mg PO BEDTIME PRN (Reason: Insomnia) Qty: 30 0RF docusate sodium 100 mg Capsule 200 mg PO BID Qty: 120 0RF clotrimazole 10 mg Sandra 10 mg mucous membrane 5XD Qty: 100 0RF Vraylar 6 mg capsule 6 mg PO DAILY Qty: 30 0RF polyethylene glycol 3350 [Miralax] 17 gram/dose powder 17 g PO DAILY Qty: 510 0RF kpplolvicu-eubdkzduvwode-mdmj [Fioricet] 50-300-40 mg capsule 1 cap PO Q8H PRN (Reason: pain) Qty: 7 0RF cholecalciferol (vitamin D3) 50 mcg (2,000 unit) capsule 50 mcg PO DAILY Qty: 30 2RF furosemide 20 mg tablet 20 mg PO Q OTHER DAY Qty: 7 0RF lisinopril 20 mg tablet 30 mg PO DAILY Qty: 30 2RF Protocol: Hold for SBP< HOLD for SBP < : 90 hydralazine 25 mg tablet 25 mg PO TID 30 Days Qty: 90 2RF clonidine HCl 0.1 mg tablet 0.1 mg PO DAILY PRN (Reason: HTN, hyperarousal) Protocol: Hold for SBP< HOLD for SBP < : 90 loratadine 10 mg tablet 10 mg PO DAILY PRN (Reason: allergy symptoms) 90 Days Qty: 90 3RF terconazole 0.8 % cream 1 appful vaginal BEDTIME 3 Days Qty: 20 0RF dicyclomine 10 mg capsule 10 mg PO TID 30 Days Qty: 90 1RF estradiol 0.01 % (0.1 mg/gram) cream 0.5 appful vaginal DAILY 28 Days Qty: 42.5 0RF Rx Instructions: Half an application for for 1 week then half an application 2 to 3 times a week for 3 additional weeks for a total of 4 weeks pantoprazole 40 mg tablet,delayed release (DR/EC) 40 mg PO DAILY naproxen 500 mg tablet 500 mg PO BID 30 Days Qty: 60 3RF glipizide 2.5 mg tablet extended release 24hr 2.5 mg PO DAILY trazodone 150 mg tablet 150 mg PO BEDTIME miconazole nitrate 2 % powder 1 appl topical BID Qty: 85 3RF fluconazole [Diflucan] 150 mg tablet 150 mg PO DAILY 1 Days Qty: 1 0RF clotrimazole-betamethasone 1-0.05 % cream 1 appl topical BID 5 Days Qty: 45 0RF Referrals: David Holliday MD [Primary Care Provider] -
[2022-12-21 00:41] LABS: Bacteria Urine None Seen (None Seen); Hyaline Casts Urine 0-2 /LPF (0-2); RBC Urine 0-2 /HPF (0-2); Squamous Epithelial Cell Urine 0-2 /HPF (0-2); UACC Culture Trigger YES; WBC Urine 0-5 /HPF (0-5)
== END 2022-12-21 01:35 | disposition home or self-care (01) ==
PROVIDERS: Emergency Provider Student in an Organized Health Care Education/Training Program; PCP Internal Medicine
DX: K58.9 Irritable bowel syndrome, unspecified (principal); R53.83 Other fatigue; Z79.899 Other long term (current) drug therapy
CPT/HCPCS: 36415; 80048; 80076; 81001; 83690; 85025; 87086; 99284

== ENCOUNTER → 2022-12-22 13:49 | Outpatient (BNVA) | payer BC, MEDICARE, SELFPAY | PROVIDERS: PCP Internal Medicine; Visit Provider Anesthesiology | DX: I87.2 Venous insufficiency (chronic) (peripheral) (principal); G62.9 Polyneuropathy, unspecified | CPT/HCPCS: 99202 ==

== ENCOUNTER 2022-12-23 09:10 | Outpatient (REF) | payer BC, MEDICARE, SELFPAY | END 2022-12-23 09:11 | disposition home or self-care (01) | LOC: HO.LNP 09:10 | PROVIDERS: PCP Internal Medicine; Visit Provider Obstetrics & Gynecology | DX: Z20.2 Contact with and (suspected) exposure to infections with a predominantly sexual mode of transmission (principal) | CPT/HCPCS: 0353U; 86780; 86803; 87340; 87389; 87480; 87510; 87660; 99212 ==

== ENCOUNTER 2022-12-23 10:40 | Outpatient (REF) | payer MEDICARE, BC, SELFPAY ==
[2022-12-23 14:53] LABS: CT PCR NOT DETECTED (Not Detect.); NG PCR NOT DETECTED (Not Detect.)
[2022-12-24 04:19] LABS: Syphilis Screen Nonreactive (Nonreactive)
[2022-12-24 04:44] LABS: HBsAGNum1 0.26 S/CO (0.00-0.99); HIV AB/AG Nonreactive (Nonreactive); HIV Num 1 0.11 S/CO (0.00-0.99); Hepatitis B Surface Antigen Negative (Negative); ~HepC Num1 0.08 S/CO (0.00-0.79); ~Hepatitis C Antibody Nonreactive (Nonreactive)
[2022-12-24 12:36] LABS: BV Int Neg Control Negative (Negative); BV Int Pos Control Positive (Positive)
== END 2022-12-23 10:41 | disposition home or self-care (01) ==
LOC: HO.LAB 10:40
PROVIDERS: PCP Internal Medicine; Visit Provider Obstetrics & Gynecology
DX: Z13.89 Encounter for screening for other disorder (principal)
CPT/HCPCS: 0353U; 86780; 86803; 87340; 87389; 87480; 87510; 87660

== ENCOUNTER → 2022-12-24 09:31 | Outpatient (BNVA) | payer BC, MEDICARE, SELFPAY | PROVIDERS: PCP Internal Medicine; Visit Provider Nurse Practitioner Family | DX: R06.83 Snoring (principal); R40.0 Somnolence; E66.9 Obesity, unspecified; Z68.41 Body mass index [BMI] 40.0-44.9, adult | CPT/HCPCS: 99202 ==

== ENCOUNTER 2022-12-25 12:48 | Outpatient (REF) | payer MEDICARE, BC, SELFPAY ==
--- NOTE | ~2022-12-25 | XR_ITS ---
EXAMINATION: XR FOOT, LEFT CLINICAL INFORMATION: Pain in left toes COMPARISON: None available. TECHNIQUE: AP, lateral, and oblique views of the left foot. FINDINGS: There is mild pes planus. Some minimal degenerative changes are present at the DIP joints. No fractures, dislocations or bony destructive lesions. Small talar beak is present. Diffuse soft tissue edema appears to be present. XR/XR foot LT min 3V IMPRESSION: Mild pes planus. Minimal degenerative changes DIP joints. No acute finding.
== END 2022-12-25 12:49 | disposition home or self-care (01) ==
LOC: HO.XRAY 12:48
PROVIDERS: PCP Internal Medicine; Visit Provider Internal Medicine
DX: M79.675 Pain in left toe(s) (principal)
CPT/HCPCS: 73630

== ENCOUNTER 2023-01-01 07:41 | Outpatient (REF) | payer BC, MEDICARE, SELFPAY ==
[2023-01-01 08:40] LABS: Anion Gap 15 (12-20); Blood Urea Nitrogen 17 mg/dL (9-16); Calcium 9.3 mg/dL (8.4-10.2); Carbon Dioxide 25 mmol/L (22-29); Chloride 107 mmol/L (96-108); Estimated Glomerular Filt Rate 57; Potassium 4.7 mmol/L (3.3-5.1); Sodium 142 mmol/L (135-145)
[2023-01-01 08:59] LABS: Vitamin D 25-OH Total 26.6 ng/mL (>30)
[2023-01-01 10:45] LABS: Appearance Urine Clear; Color Urine Yellow; Glucose Urine UA Negative (Negative); Leukocyte Esterase Urine Negative (Negative); Nitrite Urine Negative (Negative); PH 7.5 (5.0-9.0); Urine Blood Negative (Negative); Urine Ketones Negative (Negative); Urine Protein Negative (Neg-Trace)
[2023-01-01 11:27] LABS: Creatinine Urine 37.43 mg/dL; Microalbum/Creatinine Ratio Ur 98.8 ug/mg cr
[2023-01-05 15:54] LABS: Calcium (PTHI) 9.2 mg/dL (8.6-10.4); PTHI 74 pg/mL (16-77)
== END 2023-01-01 07:42 | disposition home or self-care (01) ==
LOC: HO.LAB 07:41
PROVIDERS: PCP Internal Medicine; Visit Provider Internal Medicine Nephrology
DX: I83.12 Varicose veins of left lower extremity with inflammation (principal); N18.9 Chronic kidney disease, unspecified
CPT/HCPCS: 36415; 80051; 81003; 82043; 82306; 82310; 82565; 83970; 84520; 99212

== ENCOUNTER → 2023-01-06 14:47 | Outpatient (BNVA) | payer MEDICARE, BC, SELFPAY | PROVIDERS: PCP Internal Medicine; Visit Provider Internal Medicine | DX: R10.9 Unspecified abdominal pain (principal); K58.1 Irritable bowel syndrome with constipation | CPT/HCPCS: 99212 ==

== ENCOUNTER → 2023-01-07 08:52 | Outpatient (BNVA) | payer MEDICARE, BC, SELFPAY | PROVIDERS: PCP Internal Medicine; Visit Provider Obstetrics & Gynecology | DX: B37.2 Candidiasis of skin and nail (principal); I12.9 Hypertensive chronic kidney disease with stage 1 through stage 4 chronic kidney disease, or unspecified chronic kidney disease; N18.30 Chronic kidney disease, stage 3 unspecified | CPT/HCPCS: 99212 ==

== ENCOUNTER 2023-01-14 18:25 | Emergency (ER) | payer MEDICARE, BC, SELFPAY ==
[2023-01-14 18:31] VITALS: BP 178/106; BP 197/121; PULSE 98; RESP 18; TEMP 37.6; O2SAT 98; BMI 39.9
[2023-01-14 19:00] VITALS: BP 145/90; PULSE 88; RESP 18; O2SAT 99
--- NOTE | 2023-01-14 19:00 | PC.NURSE ---
assumed care of pt in room ED 16 from RNValerie. Pt is indicating that she has high blood pressure today because she has been very stressed at home and has not been able to fill her RX until today. Pt states she know the symptoms of what can happen to elevated BP and what the S/s of hypertension crisis is. Pt continues on cardiac monitoring and BP is more controlled at moment at 149/95 from 200 systolic.
--- NOTE | 2023-01-14 19:11 | ECG_ITS ---
Test Reason : HIGH BP Blood Pressure : / mmHG Vent. Rate : 096 BPM Atrial Rate : 096 BPM P-R Int : 146 ms QRS Dur : 092 ms QT Int : 350 ms P-R-T Axes : 028 -29 032 degrees QTc Int : 442 ms Normal sinus rhythm Moderate voltage criteria for LVH, may be normal variant ( R in aVL , Dariel product ) Borderline ECG When compared with ECG of 12-DEC-2022 12:41, Premature ventricular complexes are no longer Present Referred By: Luisana Emery Electronically Signed By:ALPA LEE MD
[2023-01-14 19:45] VITALS: BP 198/106; PULSE 85; RESP 18; O2SAT 100
--- NOTE | 2023-01-14 19:47 | MHC.EDTECH ---
THE LEENA Welch TOLD THIS [employer] MEMBER THAT SHE WILL DRAW LABS
[2023-01-14 20:00] VITALS: BP 164/89; PULSE 78; O2SAT 100
[2023-01-14 20:08] LABS: MANUAL DIFF FLAG NO
[2023-01-14 20:10] LABS: Basophils Percent Auto 0.4 % (0-2); Eosinophils Absolute Auto 0.2 X10*3/uL (0.0-0.4); Eosinophils Percent Auto 2.4 % (0-4); Hematocrit 40.2 % (37.0-47.0); Hemoglobin 13.2 g/dl (12.0-16.0); Imm Gran Abs Auto 0.04 X10*3/uL (0.00-0.03); Imm Gran Pct Auto 0.5 % (0.0-0.4); Lymphocytes Absolute Auto 2.2 X10*3/uL (1.2-4.9); Lymphocytes Percent Auto 30.2 % (20-40); Mean Corpuscular HGB Conc 32.8 g/dl (31.0-35.0); Mean Corpuscular Hemoglobin 29.1 pg (27.0-33.0); Mean Corpuscular Volume 88.5 fL (80.0-98.0); Mean Platelet Volume 7.8 fL (9.4-12.3); Monocytes Absolute Auto 0.7 X10*3/uL (0.1-1.2); Monocytes Percent Auto 9.5 % (2-11); Neutrophils Absolute Auto 4.2 x10*3/uL (2.0-8.3); Platelet Count 305 X10*3/uL (160-400); Red Blood Count 4.54 X10*6/uL (4.20-5.50); White Blood Count 7.4 X10*3/uL (4.8-10.8)
[2023-01-14 20:25] LABS: Alanine Aminotransferase 14 U/L (0-31); Albumin Level 4.2 g/dL (3.5-5.0); Alkaline Phosphatase 82 U/L (39-117); Anion Gap 13 (12-20); Aspartate Amino Transferase 16 U/L (5-31); Bilirubin Total 0.6 mg/dL (0.0-1.0); Blood Urea Nitrogen 19 mg/dL (9-16); Calcium 10.1 mg/dL (8.4-10.2); Carbon Dioxide 29 mmol/L (22-29); Chloride 103 mmol/L (96-108); Creatinine Clr Calc Pharmacy 72.6; Estimated Glomerular Filt Rate 52; Glucose Random 133 mg/dL (60-115); Potassium 4.6 mmol/L (3.3-5.1); Sodium 140 mmol/L (135-145); Total Protein 7.3 g/dL (6.5-8.0)
--- NOTE | 2023-01-14 20:37 | ED_ITS ---
HPI - General Adult General Chief complaint: General Medical Stated complaint: HYPERTENSION Time Seen by Provider: 01/14/23 18:47 Source: patient Mode of arrival: EMS History of Present Illness HPI narrative: 52-year-old female with history of bipolar, hypertension and reports that she saw her primary care provider today who added an additional antihypertensive medication as she continued to have high blood pressure despite existing med ications. Patient states that she was in the pharmacy getting her medication but had not had a chance to take it yet. She describes pain in her teeth but otherwise no shortness of breath or chest pain. Related Data Home Medications Medication Instructions Recorded Confirmed pantoprazole 40 mg tablet,delayed 40 mg PO DAILY 11/06/22 12/25/22 release trazodone 150 mg tablet 150 mg PO BEDTIME 11/10/22 12/25/22 clonidine HCl 0.1 mg tablet 0.1 mg PO DAILY PRN HTN, 12/12/22 12/25/22 hyperarousal cariprazine 6 mg capsule (Vraylar) 3 mg PO DAILY 12/24/22 12/25/22 nystatin 100,000 unit/gram topical 1 appl topical BID 12/24/22 12/25/22 powder azelastine 0.05 % eye drops 1 drp ophthalmic (eye) BID 01/01/23 glyburide 2.5 mg tablet 2.5 mg PO DAILY 01/01/23 nystatin 100,000 unit/gram topical 1 appl topical BID 01/01/23 cream triamcinolone acetonide 55 mcg intranasal 01/01/23 nasal spray aerosol trospium 60 mg capsule,extended 60 mg PO DAILY 01/01/23 release 24 hr clotrimazole 1 % topical cream appl topical BID 01/06/23 Previous Rx's Medication Instructions Recorded atorvastatin 10 mg tablet 10 mg PO DAILY #30 tabs 07/17/22 bupropion HCl 300 mg 24 hr tablet, 300 mg PO DAILY #30 tabs 07/17/22 extended release clotrimazole 10 mg sandra 10 mg mucous membrane 5XD #100 tabs 07/17/22 ferrous sulfate 324 mg (65 mg 324 mg PO DAILY #30 tabs 07/17/22 iron) tablet,delayed release prazosin 1 mg capsule 1 mg PO BEDTIME #30 caps 07/17/22 trazodone 50 mg tablet 50 mg PO BEDTIME PRN Insomnia #30 07/17/22 tabs terconazole 0.8 % vaginal cream 1 appful vaginal BEDTIME 3 days 10/14/22 #20 grams estradiol 0.01% (0.1 mg/gram) 0.5 appful vaginal DAILY 4 weeks 10/27/22 vaginal cream #42.5 grams naproxen 500 mg tablet 500 mg PO BID 30 days #60 tabs 11/06/22 cholecalciferol (vitamin D3) 50 50 mcg PO DAILY #30 caps 11/07/22 mcg (2,000 unit) capsule furosemide 20 mg tablet 20 mg PO Q OTHER DAY #7 tabs 11/07/22 lisinopril 20 mg tablet 30 mg PO DAILY #30 tabs 11/07/22 miconazole nitrate 2 % topical 1 appl topical BID #85 grams 11/14/22 powder fluconazole 150 mg tablet 150 mg PO DAILY 1 day #1 tab 12/09/22 (Diflucan) hydralazine 25 mg tablet 25 mg PO TID 30 days #90 tabs 12/11/22 loratadine 10 mg tablet 10 mg PO DAILY PRN allergy 12/16/22 symptoms 90 days #90 tabs colesevelam 625 mg tablet (WelChol) 1,250 mg PO BID #120 tabs 12/24/22 dicyclomine 10 mg capsule 10 mg PO TID 30 days #90 caps 12/31/22 lidocaine-prilocaine 2.5 %-2.5 % 10 g topical ONCE preparation for 01/02/23 topical cream the procedure 1 day #30 grams clotrimazole-betamethasone 1 1 appl topical BID 5 days #45 grams 01/07/23 %-0.05 % topical cream amlodipine 2.5 mg tablet 2.5 mg PO DAILY 30 days #30 tabs 01/14/23 Allergies Allergy/AdvReac Type Severity Reaction Status Date / Time lithium Allergy Mild EMESIS Verified 01/07/23 09:11 Review of Systems Review of Systems: Pertinent positives and negatives as stated in [facility] Past Medical History Source: nursing notes reviewed Medical History Allergic rhinitis Anemia Atrophic vaginitis Benign essential hypertension Chronic kidney disease (CKD), stage III (moderate) GERD without esophagitis Hiatal hernia History of electroconvulsive therapy Hyperlipidemia Hypertension Impaired fasting glucose Insomnia Irritable bowel syndrome (IBS) Lymphedema Pre-diabetes Pure hypercholesterolemia Surgical History Hx of cholecystectomy Hx of colonoscopy Hx of dilation and curettage Hx of removal of cyst Family History Family History Mother Diabetes Heart disease Father Heart disease Heart attack Asthma Brother Heart disease Social History Social History Household Members: None Housing: Apartment Do you presently have visiting nurse or other home services: No Alcohol intake: current Alcohol intake frequency: holidays/special occasions only Patient Tobacco Use Status: Never used Tobacco e-Cigarette/Vaping Use: Never Used Second Hand Smoke Exposure: No Advance Directives: No Advance Directives Information Provided: No service: No 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[employer] [facility] [place] Sexual orientation: Don't Know Cognitive needs: No Hearing needs: No Vision needs: No Physical Exam ED Vital Signs: Vital Signs - 24 hr 01/14/23 18:31 Temperature 99.7 F Pulse Rate 98 Respiratory Rate 18 Blood Pressure 197/121 H Pulse Oximetry 98 Oxygen Delivery Method Room Air BMI result Body Mass Index 39.9 VITAL SIGNS: Reviewed. GENERAL: Well developed, well nourished, in no acute distress. HEAD: Normocephalic/atraumatic EYES: PERRLA, EOMI EARS: Ext canals without abnormality NOSE: Nares patent bilateral OROPHARYNX: no oral lesions noted, posterior pharynx clear NECK: Supple, no adenopathy LUNGS: Normal breath sounds. No adventitious sounds or accessory muscle use. SpO2<98> CARDIOVASCULAR: Regular rate and rhythm without noted murmurs ABDOMEN: Soft, non-tender, non-distended with bowel sounds. MUSCULOSKELETAL: No tenderness, deformities, or effusions noted on gross inspection. EXTREMITIES: No cyanosis, clubbing or edema. SKIN: Inspection of the skin reveals no rashes NEUROLOGIC: Alert and oriented x 4. Strength and sensation to light touch were grossly intact x 4, no facial asymmetry, no pronator drift, cranial nerves 2-12 are grossly intact. Medical Decision Making Medical Decision Making MDM Narrative: 52-year-old female who at the time of my interview has a blood pressure within normal limits, no focal deficits, and patient states that she fired her VNA who is responsible for helping to organize her medications. I reviewed all investigations and my interpretation is patient's underlying psychiatric conditi ons may be contributing to her poor blood pressure management. Blood pressure is currently within normal limits and patient has no complaints of chest pain. I was informed that patient eloped Differential Diagnosis Please see the discussion above Lab Data Please see the discussion above 01/14/23 20:04 01/14/23 20:04 Labs: Lab Results 01/14/23 01/14/23 01/14/23 Range/Units 20:03 20:04 20:04 WBC 7.4 (4.8-10.8) X10*3/uL RBC 4.54 (4.20-5.50) X10*6/uL Hgb 13.2 (12.0-16.0) g/dl Hct 40.2 (37.0-47.0) % MCV 88.5 (80.0-98.0) fL MCH 29.1 (27.0-33.0) pg MCHC 32.8 (31.0-35.0) g/dl RDW 12.0 (11.0-16.0) % Plt Count 305 D (160-400) X10*3/uL MPV 7.8 L (9.4-12.3) fL Immature Gran % (Auto) 0.5 H (0.0-0.4) % Neut % (Auto) 57.0 (45-73) % Lymph % (Auto) 30.2 (20-40) % [place] % (Auto) 9.5 (2-11) % Eos % (Auto) 2.4 (0-4) % Baso % (Auto) 0.4 (0-2) % Lymph # (Auto) 2.2 (1.2-4.9) X10*3/uL [place] # (Auto) 0.7 (0.1-1.2) X10*3/uL Eos # (Auto) 0.2 (0.0-0.4) X10*3/uL Baso # (Auto) 0.0 (0.0-0.2) X10*3/uL Abs Immat Gran (auto) 0.04 H (0.00-0.03) X10*3/uL Absolute Neuts (auto) 4.2 (2.0-8.3) x10*3/uL Absolute Nucleated RBC 0.000 (0.0-0.012) X10*3/uL Nucleated RBC % (auto) 0.0 (0.0-0.2) /100WBC Sodium 140 (135-145) mmol/L Potassium 4.6 (3.3-5.1) mmol/L Chloride 103 (96-108) mmol/L Carbon Dioxide 29 (22-29) mmol/L Anion Gap 13 (12-20) BUN 19 H (9-16) mg/dL Creatinine 1.10 (0.5-1.4) mg/dL Estim Creat Clear Calc 72.6 Estimated GFR 52 Random Glucose 133 H (60-115) mg/dL Calcium 10.1 D (8.4-10.2) mg/dL Total Bilirubin 0.6 (0.0-1.0) mg/dL AST 16 (5-31) U/L ALT 14 (0-31) U/L Alkaline Phosphatase 82 (39-117) U/L Troponin I High Sens < 2.7 (<3.5-17.0) ng/L Total Protein 7.3 (6.5-8.0) g/dL Albumin 4.2 (3.5-5.0) g/dL Independent Interpretation I performed an independent interpretation of an: EKG Interpretation: Normal sinus rhythm, HR -96, no STEMI, AK/QRS/QTC is within normal limits. Discharge Plan Discharge Clinical Impression: Uncontrolled hypertension Patient Disposition: Elopement Prescriptions: No Action colesevelam [WelChol] 625 mg tablet 1,250 mg PO BID Qty: 120 0RF dicyclomine 10 mg capsule 10 mg PO TID 30 Days Qty: 90 1RF lidocaine-prilocaine 2.5-2.5 % cream 10 g topical ONCE 1 Days Qty: 30 6RF amlodipine 2.5 mg tablet 2.5 mg PO DAILY 30 Days Qty: 30 1RF atorvastatin 10 mg Tablet 10 mg PO DAILY Qty: 30 0RF prazosin 1 mg Capsule 1 mg PO BEDTIME Qty: 30 0RF Protocol: Hold for SBP< HOLD for SBP < : 90 bupropion HCl 300 mg Tablet Extended Release 24 Hr 300 mg PO DAILY Qty: 30 0RF ferrous sulfate 324 mg (65 mg iron) Tablet,Delayed Release (Dr/Ec) 324 mg PO DAILY Qty: 30 0RF trazodone 50 mg Tablet 50 mg PO BEDTIME PRN (Reason: Insomnia) Qty: 30 0RF clotrimazole 10 mg Sandra 10 mg mucous membrane 5XD Qty: 100 0RF cholecalciferol (vitamin D3) 50 mcg (2,000 unit) capsule 50 mcg PO DAILY Qty: 30 2RF furosemide 20 mg tablet 20 mg PO Q OTHER DAY Qty: 7 0RF lisinopril 20 mg tablet 30 mg PO DAILY Qty: 30 2RF Protocol: Hold for SBP< HOLD for SBP < : 90 hydralazine 25 mg tablet 25 mg PO TID 30 Days Qty: 90 2RF clonidine HCl 0.1 mg tablet 0.1 mg PO DAILY PRN (Reason: HTN, hyperarousal) Protocol: Hold for SBP< HOLD for SBP < : 90 loratadine 10 mg tablet 10 mg PO DAILY PRN (Reason: allergy symptoms) 90 Days Qty: 90 3RF terconazole 0.8 % cream 1 appful vaginal BEDTIME 3 Days Qty: 20 0RF estradiol 0.01 % (0.1 mg/gram) cream 0.5 appful vaginal DAILY 28 Days Qty: 42.5 0RF Rx Instructions: Half an application for for 1 week then half an application 2 to 3 times a week for 3 additional weeks for a total of 4 weeks pantoprazole 40 mg tablet,delayed release (DR/EC) 40 mg PO DAILY naproxen 500 mg tablet 500 mg PO BID 30 Days Qty: 60 3RF trazodone 150 mg tablet 150 mg PO BEDTIME Vraylar 6 mg capsule 3 mg PO DAILY nystatin 100,000 unit/gram powder 1 appl topical BID clotrimazole 1 % cream topical BID miconazole nitrate 2 % powder 1 appl topical BID Qty: 85 3RF fluconazole [Diflucan] 150 mg tablet 150 mg PO DAILY 1 Days Qty: 1 0RF trospium 60 mg capsule,extended release 24hr 60 mg PO DAILY nystatin 100,000 unit/gram cream 1 appl topical BID azelastine 0.05 % drops 1 drp ophthalmic (eye) BID triamcinolone acetonide 55 mcg aerosol,spray intranasal glyburide 2.5 mg tablet 2.5 mg PO DAILY clotrimazole-betamethasone 1-0.05 % cream 1 appl topical BID 5 Days Qty: 45 0RF Interventions: ED Discharge Assessment Last Done: 01/14/23 21:54 Discharge Date/Time: 01/14/23 21:55
[2023-01-14 20:43] LABS: Troponin-I High Sensitivity < 2.7 ng/L (<3.5-17.0)
--- NOTE | 2023-01-14 21:54 | PC.NURSE ---
pt eloped with all her meds.
--- NOTE | 2023-01-14 22:07 | PC.NURSE ---
At around 1945 informed MD that pt's BP is 198/106, HR 84. Pt also is asking to headache medication. Pt also states I want to go home because I have a lot of issues I have to address that has been stressing me out and causing my BP to be elevated. MD made aware that pt want's to be discharged and that she wants something for her headache. When offered pt tylenol for headache, pt got upset and stated I dont want tylenol for my headache I want something a little stronger for my headache . made aware of pts request.
== END 2023-01-14 21:55 | disposition left against medical advice (07) ==
PROVIDERS: Emergency Provider Student in an Organized Health Care Education/Training Program; PCP Internal Medicine
DX: I10 Essential (primary) hypertension (principal); Z79.899 Other long term (current) drug therapy
CPT/HCPCS: 36415; 80053; 84484; 85025; 93005; 99283

== ENCOUNTER → 2023-01-19 08:38 | Outpatient (REF) | payer MEDICARE, BC, SELFPAY | LOC: HO.SL 08:38 | PROVIDERS: PCP Internal Medicine; Visit Provider Nurse Practitioner Family | DX: Z13.89 Encounter for screening for other disorder (principal) ==

== ENCOUNTER 2023-01-20 06:38 | Outpatient (REF) | payer MEDICARE, BC, SELFPAY ==
[2023-01-20 08:09] LABS: Cholesterol 203 mg/dL; HDL Cholesterol 71 mg/dL; LDL Cholesterol Calculated 113 mg/dl; Triglycerides 97 mg/dL
== END 2023-01-20 06:39 | disposition home or self-care (01) ==
LOC: HO.LAB 06:38
PROVIDERS: PCP Internal Medicine; Visit Provider Nurse Practitioner Family
DX: E78.00 Pure hypercholesterolemia, unspecified (principal)
CPT/HCPCS: 36415; 80061

== ENCOUNTER → 2023-02-02 12:46 | Outpatient (BNVA) | payer BC, MEDICARE, SELFPAY | PROVIDERS: PCP Internal Medicine; Visit Provider Nurse Practitioner Family ==

== ENCOUNTER 2023-02-12 11:10 | Outpatient (REF) | payer MEDICARE, BC, SELFPAY | END 2023-02-12 11:11 | disposition home or self-care (01) | LOC: HO.LNP 11:10 | PROVIDERS: PCP Internal Medicine; Visit Provider Obstetrics & Gynecology | DX: R31.29 Other microscopic hematuria (principal) | CPT/HCPCS: 81003; 87086 ==

== ENCOUNTER 2023-03-02 12:36 | Outpatient (AMB) | payer MEDICARE, SELFPAY ==
--- NOTE | 2023-03-02 12:59 | MHC.OFFVIS ---
Intake Vital Signs 03/02/23 13:06 Height 5 ft 5 in Weight 249 lb 1.957 oz BMI 41.5 BP 130/94 H Intake Visit Reasons: Urine Dip Limnology Teacher Required: No Information Interpreted: non-clinical & clinical Accompanied by: Self / Same As Patient Allergies lithium Allergy (Mild, Verified 03/02/23 13:06) EMESIS Post menopausal: Yes HPI HPI Comments History of Present Illness Details Presenting for repeat urine dip. Urine culture grew mixed vaginal terry [facility] Medical History Allergic rhinitis Anemia Atrophic vaginitis Benign essential hypertension Chronic kidney disease (CKD), stage III (moderate) GERD without esophagitis Hiatal hernia History of electroconvulsive therapy Hyperlipidemia Hypertension Impaired fasting glucose Insomnia Irritable bowel syndrome (IBS) Lymphedema Pre-diabetes Pure hypercholesterolemia Surgical History Hx of cholecystectomy Hx of colonoscopy Hx of dilation and curettage Hx of removal of cyst Family History Mother Diabetes Heart disease Father Heart disease Heart attack Asthma Brother Heart disease Social History Household Members: None Housing: Apartment Do you presently have visiting nurse or other home services: No Alcohol intake: current Alcohol intake frequency: holidays/special occasions only Patient Tobacco Use Status: Never used Tobacco e-Cigarette/Vaping Use: Never Used Second Hand Smoke Exposure: No service: No 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[employer] [facility] [place] Sexual orientation: Don't Know Cognitive needs: No Hearing needs: No Vision needs: Yes Female Reproductive History Menstrual Age of Menarche: 11 Review of Systems Const All systems reviewed & are unremarkable except as noted in HPI and below Reports as per HPI and Reports no additional complaints GI Reports no additional complaints Reports no additional complaints Physical Exam Vital Signs: Last Vital Signs BP 130/94 H 03/02/23 13:06 BMI result Body Mass Index 41.5 Results AMB Urinalysis Dipstick UR Leukocytes Trace Last Edit by Jennifer Freitas CMA on 03/02/23 13:08 UR Nitrite Negative Last Edit by Jennifer Freitas CMA on 03/02/23 13:08 UR Urobilinogen Normal Last Edit by Jennifer Freitas CMA on 03/02/23 13:08 UR Protein 300 Last Edit by Jennifer Freitas, LEO on 03/02/23 13:08 UR Ph 6.0 Last Edit by Jennifer Freitas, LEO on 03/02/23 13:08 UR Blood Trace Last Edit by Jennifer Freitas, LEO on 03/02/23 13:08 UR Specific [place] 1.025 Last Edit by Jennifer Freitas, LEO on 03/02/23 13:08 UR Ketone Trace Last Edit by Jennifer Freitas, LEO on 03/02/23 13:08 UR Bilirubin Negative Last Edit by Jennifer Freitas, LOE on 03/02/23 13:08 UR Glucose Negative Last Edit by Jennifer Freitas, LEO on 03/02/23 13:08 Assessment & Plan Assessment & Plan (1) Microscopic hematuria: Code(s): R31.29 - Other microscopic hematuria Plan: Discussed with the patient the possible causes of microscopic hematuria including but not limited to: interstitial cystitis, polyps, stones, masses, urethral inflammatory processes and others. The workup included Urine Culture which was negative, CT abdomen/pelvis was done in 10/09 , will place urology referral. All questions answered and the patient verbalized understanding. Orders: Referrals Urology Referral R31.29 - Other microscopic hematuria Coding Level of Care Code Est Pt Level 3 (51410) Diagnoses Microscopic hematuria R31.29
[2023-03-02 13:06] VITALS: BP 130/94; BMI 41.5
== END 2023-03-02 15:53 | disposition home or self-care (01) ==
LOC: HO.HWS 12:36
PROVIDERS: PCP Internal Medicine; Visit Provider Obstetrics & Gynecology
DX: R31.29 Other microscopic hematuria (principal)
CPT/HCPCS: 99213

== ENCOUNTER → 2023-03-02 12:36 | Outpatient (BNVA) | payer BC, MEDICARE, SELFPAY | PROVIDERS: PCP Internal Medicine; Visit Provider Obstetrics & Gynecology ==